=== PATIENT | female | born 1945 | race Caucasian/White ===

== ENCOUNTER 2024-03-24 09:29 | Outpatient (RCR) | payer MEDICARE, SELFPAY | END 2024-06-20 12:21 | disposition home or self-care (01) | LOC: HO.WCC 09:29 | PROVIDERS: PCP Family Medicine; Visit Provider Physician Assistant | DX: E11.621 Type 2 diabetes mellitus with foot ulcer (principal); L97.522 Non-pressure chronic ulcer of other part of left foot with fat layer exposed; E11.51 Type 2 diabetes mellitus with diabetic peripheral angiopathy without gangrene; Z79.84 Long term (current) use of oral hypoglycemic drugs; Z79.01 Long term (current) use of anticoagulants; Z79.2 Long term (current) use of antibiotics; Z79.899 Other long term (current) drug therapy | CPT/HCPCS: 11042; 99212 ==

== ENCOUNTER 2024-04-23 14:49 | Outpatient (REF) | payer MEDICARE, SELFPAY ==
--- NOTE | ~2024-04-23 | US_ITS ---
EXAMINATION: US NONINVASIVE ASSESSMENT OF THE BILATERAL LOWER EXTREMITIES WITH ARTERIAL DUPLEX AND ANKLE BRACHIAL INDICES (ABIS) CLINICAL INFORMATION: Peripheral vascular disease, unspecified COMPARISON: None available. TECHNIQUE: Duplex Doppler techniques with waveform analysis and measurement of velocities in the common femoral, profunda femoris, superficial femoral, popliteal and tibial arteries were performed. In addition, ankle pulse volume recordings, ankle pressure measurements and ankle brachial indices were obtained of the bilateral lower extremity arterial system. The study was performed only at rest. FINDINGS: NONINVASIVE ASSESSMENT OF THE ARTERIES OF BILATERAL LOWER EXTREMITIES WITH ABIs: RIGHT LEG: Ankle-brachial index: 1 Ankle PVR: Irregular LEFT LEG: Ankle-brachial index: 1.19 Left ankle PVR: Irregular VIANCA Reference: 0.9 - 1.4 = normal - no significant arterial disease 0.7 - 0.89 = mild peripheral arterial disease 0.51 - 0.69 = moderate peripheral arterial disease ? 0.50 = severe peripheral arterial disease RIGHT LOWER EXTREMITY DUPLEX ULTRASOUND: Common femoral artery: 147 cm/s. Diastolic flow reversal: Present Profunda femoris artery: 150.2 cm/s. Diastolic flow reversal: Present Superficial femoral artery (proximal): 160.4 cm/s. Diastolic flow reversal: Present Superficial femoral artery (mid): 93.8 cm/s. Diastolic flow reversal: Present Superficial femoral artery (distal): 103.4 cm/s. Diastolic flow reversal: Absent Proximal popliteal artery: 67.1 cm/s Diastolic flow reversal: Present Distal popliteal artery: 53.1 cm/s, there is calcified echogenic plaque centrally within the lumen Diastolic flow reversal: Present Posterior tibial artery: No demonstrable Doppler signal Peroneal artery: No demonstrable Doppler signal Anterior tibial artery: 46.9 cm/s Diastolic flow reversal: Absent Dorsalis pedis: not visualized LEFT LOWER EXTREMITY DUPLEX ULTRASOUND: Common femoral artery: 113.7 cm/s. Diastolic flow reversal: Present Profunda femoris artery: 62.8 cm/s. Diastolic flow reversal: Present Superficial femoral artery (proximal): 116.7 cm/s. Diastolic flow reversal: Present Superficial femoral artery (mid): 115 cm/s. Diastolic flow reversal: Present Superficial femoral artery (distal): 151.6 cm/s. Diastolic flow reversal: Present Proximal popliteal artery: 48.4 cm/s Diastolic flow reversal: Present Distal popliteal artery: 192.5 cm/s Diastolic flow reversal: Absent Posterior tibial artery: No demonstrable Doppler signal within the distal proximal aspects of the vessel, but the midportion there is Doppler signal with a peak systolic velocity of 51 cm/s and diastolic flow reversal is present. Peroneal artery: No demonstrable Doppler signal Anterior tibial artery: 50.3 cm/s Diastolic flow reversal: Absent US/US arterial duplex BI w/ VIANCA IMPRESSION: Suspect bilateral ABIs are nondiagnostic secondary to noncompressible vessels and inability to obtain adequate waveforms. Bilateral lower extremity PVRs are abnormal. On the right there is evidence of distal peripheral arterial disease with occlusion of the posterior tibial and peroneal arteries, and abnormal waveform within the patent anterior tibial artery and nonvisualization of the dorsalis pedis. On the left there is evidence of distal peripheral arterial disease with elevated peak systolic velocity at the distal popliteal artery and loss of diastolic flow reversal. Additionally there is segmental occlusion of the posterior tibial artery, occlusion of the peroneal artery, and while the anterior tibial artery is patent the dorsalis pedis is not visualized.
== END 2024-04-23 14:50 | disposition home or self-care (01) ==
LOC: HO.US 14:49
PROVIDERS: PCP Family Medicine; Visit Provider Physician Assistant
DX: I73.9 Peripheral vascular disease, unspecified (principal)
CPT/HCPCS: 93922; 93925

== ENCOUNTER 2024-07-25 09:27 | Outpatient (RCR) | payer MEDICARE, SELFPAY | END 2024-08-28 16:57 | disposition home or self-care (01) | LOC: HO.WCC 09:27 | PROVIDERS: PCP Family Medicine; Visit Provider Physician Assistant | DX: E11.621 Type 2 diabetes mellitus with foot ulcer (principal); L97.511 Non-pressure chronic ulcer of other part of right foot limited to breakdown of skin; E11.40 Type 2 diabetes mellitus with diabetic neuropathy, unspecified; I10 Essential (primary) hypertension; Z79.84 Long term (current) use of oral hypoglycemic drugs; Z87.891 Personal history of nicotine dependence | CPT/HCPCS: 99212 ==

== ENCOUNTER 2024-08-29 10:58 | Outpatient (AMB) | payer MEDICARE, SELFPAY ==
--- NOTE | 2024-08-29 11:02 | HO.SPINEOV ---
Vital Signs 08/29/24 11:07 Height 5 ft 6 in Weight 140 lb BMI 22.6 Intake Visit Reasons: low back pain/tingling and numbness both legs Intake Note: Ms. Lo is here today c/o leg pain. Licensed Massage Practitioner Required: No Allergies morphine Allergy (Unknown, Verified 08/29/24 11:07) Unknown Physical Exam Vital Signs: BMI result Body Mass Index 22.6 Assessment & Plan Assessment & Plan (1) Scoliosis of lumbar region due to degenerative disease of spine in adult: Code(s): M41.56 - Other secondary scoliosis, lumbar region Category: Medical Plan: Dear colleague Thank you for referring Marifer Lo to the office today with a chief complaint of bilateral leg pain and tingling. HPI: This 78-year-old female developed pins and needles in both legs from the knees down. The symptoms started approximately 2 years ago after she had a bout of COVID when she was bed ridden for 2 weeks. She denies significant back pain. In addition to the pins and needles she noticed bilateral leg leg weakness with a footdrop on the left side. She has to ambulate with a walker. She had multiple falls. Sitting down improves the symptoms but they do not completely disappear. She tried physical therapy without success. PMH: Hypertension, controlled diabetes, atrial fibrillation Allergies: Morphine Social history: She lives with a son. She is . He is a nonsmoker Physical Exam: Pleasant female. She ambulates with a walker. On inspection there is a lumbar scoliosis. Weight leg raise is negative. There is a bilateral footdrop grade 2/5 on the left grade 3/5 on the right. Remainder of the muscle groups are intact. There is a sensory deficits distal from the bilateral knees. A reflexia. Radiological Studies: MRI done at [facility] shows multilevel severe spinal stenosis at L1-L2, L2-L3, L3-L4 and L4-L5. In addition there is a lumbar degenerative scoliosis. Standing lumbar x-rays with flexion-extension obtained today show lumbar degenerative scoliosis with the apex at L3-4. Impression/Plan: This 78-year-old female suffering from neurogenic claudication with neurological deficits caused by severe multilevel lumbar spinal stenosis. She scheduled to have a device implanted for atrial fibrillation and to come off blood thinners due to her frequent falls. I advised her to undergo this procedure 1st before we are considering a multilevel lumbar laminotomy L1-2 L3-3 L3-4 and L4-5. If her symptoms return after the laminotomy so then she needs a correction of the lumbar degenerative scoliosis to stabilize the symptoms if her bone quality allows. I will order a bone density scan at [facility] as part of the workup. The patient will have another follow-up in November 2024, which should be after her cardiac procedure, to go over the surgical procedure again. Thank you for allowing me to participate in your patients care. total time spent was 60 minutes in counseling ,coordination of plan, personal review of imaging, surgical decision making and subsequent plan Mayur Maldonado MD, PhD Spine Fellowship Trained Neurosurgeon Director, [facility] [place] [facility] (2) Lumbar stenosis with neurogenic claudication: Code(s): M48.062 - Spinal stenosis, lumbar region with neurogenic claudication Category: Medical Plan s Orders: Orders XR lumbar spine 4V min Today M48.062 - Spinal stenosis, lumbar region with neurogenic claudication XR DEXA axial skeleton Today M41.56 - Other secondary scoliosis, lumbar region Coding Level of Care Code New Pt Level 5 (90516) Diagnoses Scoliosis of lumbar region due to degenerative disease of spine in adult M41.56 Lumbar stenosis with neurogenic claudication M48.062
[2024-08-29 11:07] VITALS: BMI 22.6
== END 2024-08-29 13:14 | disposition home or self-care (01) ==
PROVIDERS: PCP Family Medicine; Visit Provider Neurological Surgery
DX: M41.56 Other secondary scoliosis, lumbar region (principal); M48.062 Spinal stenosis, lumbar region with neurogenic claudication
CPT/HCPCS: 99205

== ENCOUNTER 2024-08-29 10:58 | Outpatient (REF) | payer MEDICARE, SELFPAY | END 2024-08-29 10:59 | disposition home or self-care (01) | LOC: HO.HOSX 10:58 | PROVIDERS: PCP Family Medicine; Visit Provider Neurological Surgery | DX: M48.062 Spinal stenosis, lumbar region with neurogenic claudication (principal); M41.56 Other secondary scoliosis, lumbar region | CPT/HCPCS: 72110; 99202 ==

== ENCOUNTER 2025-02-17 13:30 | Outpatient (RCR) | payer MEDICARE, SELFPAY | END 2025-04-15 14:20 | disposition home or self-care (01) | LOC: HO.WCC 13:30 | PROVIDERS: PCP Family Medicine; Visit Provider Surgery | DX: E11.621 Type 2 diabetes mellitus with foot ulcer (principal); L97.522 Non-pressure chronic ulcer of other part of left foot with fat layer exposed | CPT/HCPCS: 11042; 99212; 99213 ==

== ENCOUNTER 2025-04-22 13:40 | Outpatient (AMB) | payer MEDICARE, SELFPAY ==
--- NOTE | 2025-04-22 14:13 | A.SPINEOV_ITS ---
Intake Visit Reasons: discuss sx after cardiac procedure completed Intake Note: Ms. Lo is here today to discuss surgical options. College And Career Counselor Required: No Allergies morphine Allergy (Unknown, Verified 08/29/24 11:07) Unknown Assessment & Plan Assessment & Plan (1) Scoliosis of lumbar region due to degenerative disease of spine in adult: Code(s): M41.56 - Other secondary scoliosis, lumbar region Category: Medical (2) Lumbar stenosis with neurogenic claudication: Code(s): M48.062 - Spinal stenosis, lumbar region with neurogenic claudication Category: Medical Plan Dear colleague, On April 22, 2025 I saw for follow-up Marifer Lo for ongoing progressive cauda equina syndrome , which include tingling in the saddle region bilateral leg numbness and weakness. The weakness has further progress. She now also started developing drop foot on the right side. Her MRI shows severe multilevel spinal stenosis from L1-L5 on top of a lumbar degenerative scoliosis. We had to delay surgery due to implantation of a cardiac device for AFib. This was done uncomplicated 6 months ago. She is only using a baby aspirin. Therefore, we should go ahead to perform a 4 level lumbar decompression in an attempt to stabilize or maybe even improve her symptoms of cauda equina. She is aware that the scoliotic curve can further increase of the decompression which would result in a multilevel fusion. I described the lumbar decompression in detail as well as expected postoperative course. We will keep her in the hospital for observation and due to the fact that she lives alone she will most likely go to a rehab facility afterwards. The plan is for her to see the tire and tube repairer and primary care physician prior to surgery that is planned for 05/27/2025. My only request is that baby aspirin can be stopped 3 days prior to surgery. I spent 35 minutes in his consult discussing the procedure and answering questions. Do not hesitate to call me with any questions or concerns. Mayur Maldonado MD, PhD Spine Fellowship Trained Neurosurgeon Director, [facility] [place] [facility] Coding Level of Care Code Est Pt Level 4 (83738) Diagnoses Scoliosis of lumbar region due to degenerative disease of spine in adult M41.56 Lumbar stenosis with neurogenic claudication M48.062
== END 2025-04-22 14:52 | disposition home or self-care (01) ==
LOC: HO.HNS 13:41
PROVIDERS: PCP Family Medicine; Visit Provider Neurological Surgery
DX: M41.56 Other secondary scoliosis, lumbar region (principal); M48.062 Spinal stenosis, lumbar region with neurogenic claudication
CPT/HCPCS: 99214

== ENCOUNTER → 2025-04-22 13:40 | Outpatient (BNVA) | payer MEDICARE, SELFPAY | PROVIDERS: PCP Family Medicine; Visit Provider Neurological Surgery | DX: M48.062 Spinal stenosis, lumbar region with neurogenic claudication (principal); M41.56 Other secondary scoliosis, lumbar region | CPT/HCPCS: 99212 ==

== ENCOUNTER 2025-07-01 06:00 | Day surgery (SDC) | payer MEDICARE, SELFPAY ==
[2025-05-14 11:59] VITALS: BP 140/73; PULSE 78; RESP 16; O2SAT 98; BMI 26.6
--- NOTE | 2025-05-14 12:24 | HO.ANESPROP2 ---
Documented by User: Saige Fabian NP 06/30/25 08:14 HPI - Anesthesia Eval Consult details Narrative: 79yo F for L1-2,L2-3,L3-4,L4-5 Lumbar Decompression, 07/01/25 Cardiac optimized. Follows [facility]. Last office visit 05/2025. Hx: CAD s/p stemi and stent mid RCA 2007, stent mid LAD 2013, PCI 2022; PAF (eliquis) s/p watchman 09/2024 Ongoing medical optimization regarding toe injury and subsequent infection requiring antibiotics. Last evaluation 06/27/25 and deemed no active infection, but requiring chronic wound care. Surgical team aware. No recent illness No CP/SOB with limited activity. Ambulates with walker DM: FBS ~ 125 Afib: No OAC, watchman placed 09/2024 - asa, dig Right lower molar loose: Dentist eval's and rec'd extraction. Instructed to have pulled before surgery. Pt will make appointment Anesthesia Pre-Procedure Meds Is the patient on any of the following meds?: SGLT2 Inhib PMFSH Active Problems Active Problems: All Active Problems Age-related osteoporosis without fracture (Acute) Lumbar stenosis with neurogenic claudication (Acute) Scoliosis of lumbar region due to degenerative disease of spine in adult (Acute) Past Medical History Medical History Osteoarthritis Neuropathy Myocardial infarction Back pain Gout GERD (gastroesophageal reflux disease) CAD (coronary artery disease) Injury of left great toe (05/13/25) Hx of diarrhea Anxiety and depression A-fib Diabetes HLD (hyperlipidemia) HTN (hypertension) Hx of myocardial infarction 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) Family History Family history of problems with anesthesia: No Surgical History Surgical History Hx of arthroscopy of shoulder Hx of hysterectomy Hx of cholecystectomy History of coronary artery stent placement Hx of repair of right rotator cuff (~2004) History of Problems with Anesthesia: No Social History Social History Household Members Other:: son Are you a primary care consultant to a significant other at home: No Do you presently have visiting nurse or other home services: Yes (MEAT P[employer]AGER 3 hours per week) Patient Tobacco Use Status: Former Tobacco user Tobacco use type: Cigarette Smoked in Last 30 Days: No Use of substances other than those prescribed or required for medical reasons: No Have you been hit, kicked, punched, or otherwise hurt by someone within the past year? If so, by whom?: No Are you DNR?: No Advance Directives: No Advance Directives Information Provided: Yes Advance Directives on File: No Meds Allergies Allergy/AdvReac Type Severity Reaction Status Date / Time morphine Allergy Severe Itching Verified 07/01/25 06:16 [facility] Allergy Redness of Verified 07/01/25 06:16 Skin Home Medications ?Medication ?Instructions ?Recorded ?Confirmed ?Last Taken ?Type aspirin 81 mg tablet 81 mg PO DAILY 05/14/25 07/01/25 06/24/25 History atorvastatin 80 mg tablet 80 mg PO DAILY 05/14/25 07/01/25 Unknown History dapagliflozin propanediol 10 mg 10 mg PO DAILY 05/14/25 07/01/25 06/27/25 History tablet (Farxiga) digoxin 125 mcg (0.125 mg) tablet 125 mcg PO DAILY 05/14/25 07/01/25 07/01/25 05:30 History lisinopril 20 mg tablet 20 mg PO DAILY 05/14/25 07/01/25 Unknown History metformin 500 mg tablet,extended 2,000 mg PO DAILY 05/14/25 07/01/25 Unknown History release 24 hr metoprolol tartrate 50 mg tablet 150 mg PO BID 05/14/25 07/01/25 07/01/25 05:30 History sacubitril 97 mg-valsartan 103 mg 1 tab PO BID 05/14/25 07/01/25 Unknown History tablet (Entresto) Exam Height,Weight and Vital Signs: Height 5 ft 6 in Weight 74.843 kg Last Vital Signs Pulse 78 05/14/25 11:59 Resp 16 05/14/25 11:59 BP 140/73 H 05/14/25 11:59 Pulse Ox 98 05/14/25 11:59 O2 Del Method Room Air 05/14/25 11:59 Narrative Narrative: EKG 04/2025 afib @ 82 rightward axis RBBV ECHO 11/2024 1. Adequate image quality. EF 55-60%. Mild conc LVH. Diastolic function not assessed. There are no RWMA. 2. Nml RV size and function 3. Trileaflet aortic valve with no evidence of stenosis. Asc aortic root nml size 4. Trace mitral and tricuspid insufficiency 5. Nml pericardium. C/W prior echo, increased EF Airway Mallampati Class: I TM Dist: >3cm Neck ROM: Full Loose/Missing/Broken Teeth: Yes (Right Lower molar loose, molars extracted) Heart: RRR Lungs: CTAB Assessment and Plan Assessment Anesthesia Assessment: Anesthesia Plan Discussed and PAT Visit Final Anesthetic Review Family History of Problems with Anesthesia: No History of Problems with Anesthesia: No Documented by User: Makenna Estrada MD 07/01/25 07:54 PMFSH Past Medical History Medical History Osteoarthritis Neuropathy Myocardial infarction Back pain Gout GERD (gastroesophageal reflux disease) CAD (coronary artery disease) Injury of left great toe (05/13/25) Hx of diarrhea Anxiety and depression A-fib Diabetes HLD (hyperlipidemia) HTN (hypertension) Hx of myocardial infarction 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) Surgical History Surgical History Hx of arthroscopy of shoulder Hx of hysterectomy Hx of cholecystectomy History of coronary artery stent placement Hx of repair of right rotator cuff (~2004) Social History Social History Household Members Other:: son Are you a primary care consultant to a significant other at home: No Do you presently have visiting nurse or other home services: Yes (MEAT PACKAGER 3 hours per week) Patient Tobacco Use Status: Former Tobacco user Tobacco use type: Cigarette Smoked in Last 30 Days: No Use of substances other than those prescribed or required for medical reasons: No Have you been hit, kicked, punched, or otherwise hurt by someone within the past year? If so, by whom?: No Are you DNR?: No Advance Directives: No Advance Directives Information Provided: Yes Advance Directives on File: No Meds Allergies Allergy/AdvReac Type Severity Reaction Status Date / Time morphine Allergy Severe Itching Verified 07/01/25 06:16 levofloxacin (From Levaquin) Allergy Redness of Verified 07/01/25 06:16 Skin Home Medications ?Medication ?Instructions ?Recorded ?Confirmed ?Last Taken ?Type aspirin 81 mg tablet 81 mg PO DAILY 05/14/25 07/01/25 06/24/25 History atorvastatin 80 mg tablet 80 mg PO DAILY 05/14/25 07/01/25 Unknown History dapagliflozin propanediol 10 mg 10 mg PO DAILY 05/14/25 07/01/25 06/27/25 History tablet (Farxiga) digoxin 125 mcg (0.125 mg) tablet 125 mcg PO DAILY 05/14/25 07/01/25 07/01/25 05:30 History lisinopril 20 mg tablet 20 mg PO DAILY 05/14/25 07/01/25 Unknown History metformin 500 mg tablet,extended 2,000 mg PO DAILY 05/14/25 07/01/25 Unknown History release 24 hr metoprolol tartrate 50 mg tablet 150 mg PO BID 05/14/25 07/01/25 07/01/25 05:30 History sacubitril 97 mg-valsartan 103 mg 1 tab PO BID 05/14/25 07/01/25 Unknown History tablet (Entresto) Assessment and Plan Final Anesthetic Review NPO: Yes ASA Class: III Final Preanesthetic Review: No Changes in Pt Med Stat, Meds/Allgs Chart Reviewed and Consent Obtained/Reviewed Patient Risk: Intermediate Procedure Risk: Intermediate Anesthetic Plan Anesthetic Plan: GA Disposition: Standard PACU
[2025-07-01] VITALS (19 sets, daily range): BP systolic 101–130; BP diastolic 47–62; PULSE 69–94; RESP 12–20; TEMP 36–36.6; O2SAT 94–99; BMI 24.7
--- NOTE | ~2025-07-01 | FL_ITS ---
EXAMINATION: FL GUIDANCE ONLY HISTORY: L1-L5 decompression right COMPARISON: Correlation is made to plain films of the lumbar spine dated 08/29/2024. TECHNIQUE: Fluoroscopy time: 15 seconds. Cumulative Dose: 6.5494 mGy. DAP: 2.2485 mGym2 Images: 3. FINDINGS: Fluoroscopic spot films of the lumbar spine demonstrate a probe directed toward the L4 vertebral body from a posterior approach. FL/FL guidance in OR IMPRESSION: Fluoroscopy during procedure. Please see procedure report for additional information. Electronically signed by: Hécotr Joy MD 07/01/2025 10:17 AM EDT
[2025-07-01] MEDS: Lactated Ringers 1,000 ML 100 ML IVCONT (06:41)
[2025-07-01 06:42] LABS: Glucose, Whole Blood 163 mg/dL (60-115)
--- NOTE | 2025-07-01 06:57 | MHC.SHP ---
Pre-Procedural Eval Section A - 24 Hr Update-Section A only Date of Service: 07/01/25 Section B - Complete if H&P > 30 days Chief Complaint: Lumbar Decompression Allergies: Allergies Allergy/AdvReac Type Severity Reaction Status Date / Time morphine Allergy Severe Itching Verified 07/01/25 06:16 levofloxacin (From Levaquin) Allergy Redness of Verified 07/01/25 06:16 Skin Review of Systems Sugical H&P ROS: Negative: Constitution, Cardiovascular, Respiratory, Neurological, Psychiatric, Hem-Onc, Allergic/Immunologic, Gastrointestinal, Genitourinary, Musculoskeletal, Integumentary, Endocrine and Eyes/Ears/Nose/Throat Exam Surgical H&P Exam: Not Evaluated: HEENT, Not Evaluated: Heart, Not Evaluated: Lungs, Not Evaluated: Extremities, Not Evaluated: Abdomen, Not Evaluated: Skin and Not Evaluated: Neurological Exam Comment: The patient is awake, alert, no acute distress. Proposed surgical incision site is clean, dry, with no signs of recent trauma. Plan Diagnosis/Plan: Unchanged I have reviewed the history and physical and performed a pertinent physical examination on my patient. No changes have occurred unless specified. Plan remains the same, L1-5 lumbar decompression Time Spent With Patient Time: Total time managing care of this patient today __7__ minutes.
[2025-07-01 07:05] LABS: Hematocrit 39.7 % (37.0-47.0); Hemoglobin 12.4 g/dl (12.0-16.0); Mean Corpuscular HGB Conc 31.2 g/dl (31.0-35.0); Mean Corpuscular Hemoglobin 25.1 pg (27.0-33.0); Mean Corpuscular Volume 80.4 fL (80.0-98.0); NRBC Abs Auto 0.000 X10*3/uL (0.0-0.012); NRBC Pct Auto 0.0 /100WBC (0.0-0.2); Platelet Count 341 X10*3/uL (160-400); Red Blood Count 4.94 X10*6/uL (4.20-5.50); White Blood Count 9.5 X10*3/uL (4.8-10.8)
[2025-07-01 07:12] LABS: Anion Gap 15 (12-20); Blood Urea Nitrogen 32 mg/dL (9-16); Calcium 9.4 mg/dL (8.4-10.2); Carbon Dioxide 14 mmol/L (22-29); Chloride 112 mmol/L (96-108); Creatinine Clr Calc Pharmacy 26.4; Estimated Glomerular Filt Rate 31; Potassium 4.0 mmol/L (3.3-5.1); Sodium 137 mmol/L (135-145)
--- NOTE | 2025-07-01 07:25 | PC.NURSE ---
Patient has a wound on her left great toe that she has been seeing her PCP for wound checks. Clean dry dressing intact to left great toe.
--- NOTE | 2025-07-01 12:57 | W.PM.OPN ---
Operative Note Operative Note Date of Service: 07/01/25 Narrative: Preoperative Diagnosis: Lumbar spinal stenosis/lateral recess stenosis/neural foraminal stenosis Operation: L1-L2, L2-L3, L3-L4 and L4-5 Laminotomy, Partial facetectomy and foraminotomy with use of microscope Consent Informed Consent was obtained for this operation. I have explained the nature, purpose and benefits of the operation. I have discussed the risks and benefit of the operation including possible complications or adverse events with patient/family. Alternative(s) were discussed with the patient with their relative benefits and risks as well as the consequences of not accepting the operation were included in obtaining consent. Surgeon: LARRY PULIDO MD, PHD Procedure Assisted By: Ray Vizcarra Description of Procedure This 79-year-old female is suffering from progressive bilateral leg numbness and weakness due to severe multilevel spinal stenosis from L1-L5.. The patient was offered a 4 level decompression. The procedure complications were explained. The patient was consented. The patient was brought to the operating room and endotracheally intubated. The patient was turned in prone position on the Daniel frame. Prep and drape was done followed by timeout. I decided to do the L1-L2 and L2-3 levels through a metrix tube. I made a paramedian incision on the right side. Muscle fascia was opened and sequential dilators were inserted followed by a 18 mm metrics tube over the L1-L2 disc space. The stephany brought in. A right L1-L2 laminotomy was done. The flavum ligament was opened and resected to decompress the thecal sac and exiting nerve root. The spinous process was undercut to extend the decompression contralaterally. Then attention was turned L2-3 region. The micro tube was positioned over the L2-3 disc space. A right L2-3 hemilaminotomy was done. Flavum ligament was opened and resected to decompress the thecal sac and exiting nerve root. Again, the spinous process was undercut and the decompression was extended contralaterally.. Passed along the pedicles as a sign of adequate decompression of the thecal sac and exiting nerve roots. The Physician payroll human resources assistant provided access for the L3-4 and L4-5 levels. A mid lumbar incision was made followed by release of the paravertebral muscle on the right side to expose the L3-L5 laminae and facet joints. An intraoperative x-ray was obtained to confirm the correct levels. The microscope was brought in. I took over the procedure. The high-speed drill was used to do a right L3-4 laminotomy until flavum ligament was reached. A #2 Kerrison was used to expand the laminotomy near flush to the pedicles and to include a partial facetectomy. The flavum ligament was opened and resected with a #3 Kerrison to decompress the underlying thecal sac. The flavum ligament was removed to decompress the lateral recess and the exiting L4 nerve roots. The patient was turned contralaterally. The spinous process was undercut and then an attempt was made to decompress the contralateral side. During this process structures that the characteristics of nerves were seen without spinal fluid. I also was unable to palpate a defect in the dura. I decided to lay the structures back over the dura and covered with a piece of DuraGen. Then we moved on to the final level, being L4-5. A right L4-5 hemilaminotomy was done. Severely hypertrophied ligament was opened and resected to decompress the underlying thecal sac and exiting nerve root. I undercut the spinous process and carefully dissected the flavum ligament contralaterally. Similar structures were seen epidurally and I decided not to further resect any ligament in that area. I did extend the laminotomy caudally by doing an L5 laminotomy bilaterally. . The microscope was removed. Hemostasis was done. The physician payroll human resources assistant close the incisions in 2 layers. Steri-Strips were used to approximate incisions. An OpSite with Tegaderm was used to cover the incision. All sponge needle counts were correct. Patient was extubated and transported in stable is to recovery room. Anesthesia: General Estimated Blood Loss (ml): 25 Complications: None Duration of Surgery: 2 hours and 20 Minutes Postoperative Plan: Extended stay for neuro monitoring. Possible discharge later today
[2025-07-01] MEDS: oxyCODONE HCl Immed Release 5 MG TABLET PO (16:17)
--- NOTE | 2025-07-01 17:52 | PHA.MEDREC ---
Addendum entered by Flavio De La Rosa PharmD 07/01/25 18:01: reviewed Original Note: Pharmacy Consult ? Medication Reconciliation Pharmacy has reviewed the medication reconciliation done by nursing. Spoke to patient son Billy to confirm med list. Son states patient stopped Aspirin 81 mg, Plavix 75 mg and Farxiga 10 mg last Sunday due to to surgery. Not sure if patient is to start again after surgery. Left unconfirmed and will notify the provider. patient no longer takes Lisinopril 20 mg. Patient son confirmed patient takes Zoloft 25 mg and Spironolactone 25 mg, Metoprolol Tart 150 mg (3x 50 mg) daily, Metformin 2,000mg (4x 500 mg) daily.
[2025-07-01] MEDS: Sacubitril/Valsartan 97/103 1 TAB TABLET PO (21:22)
[2025-07-02] VITALS: BP 122/60; PULSE 78; RESP 18; TEMP 36.4; O2SAT 99
[2025-07-02 04:00] VITALS: BP 126/60; PULSE 66; RESP 18; TEMP 35.8; O2SAT 95
--- NOTE | 2025-07-02 07:40 | PM.DS ---
DS: Providers Provider Date of Service: 07/02/25 Date of discharge: 07/02/25 Primary care physician: Mini Rudd MD Consults: 07/01/25 16:16 Consult to Wound Care Routine Reason for consultation: MASD, Left great toe, LLQ, left thigh wounds, under breast, abd. folds Has provider been notified: No DS: Summary Time Attestation Discharge Coordination Time (in mins): 2 Quality: Safe Use of Opioids Does Pt have an Active Cancer Diagnosis on the Problem List?: No Quality: Stroke Does the patient have a stroke diagnosis?: No Physical Exam Vital Signs: Vital Signs: Last Vital Signs Temp 96.5 F L 07/02/25 04:00 Pulse 66 07/02/25 04:00 Resp 18 07/02/25 04:00 BP 126/60 07/02/25 04:00 Pulse Ox 95 07/02/25 04:00 O2 Del Method Room Air 07/02/25 04:00 O2 Flow Rate 6 07/01/25 10:55 BMI result Body Mass Index 24.7 Discharge Plan Discharge Patient Disposition: Home, Self-Care Referrals: Mini Rudd MD [Primary Care Provider, Internal Medicine] - 1 Week Discharge Medications: New oxycodone 5 mg tablet 5 mg PO Q6H PRN (Reason: pain) Qty: 20 0RF Rx Instructions: Partial Fill upon patient request. Continued atorvastatin 80 mg tablet 80 mg PO DAILY metoprolol tartrate 50 mg tablet 150 mg PO BID metformin 500 mg tablet extended release 24 hr 2,000 mg PO DAILY digoxin 125 mcg (0.125 mg) tablet 125 mcg PO DAILY dapagliflozin propanediol [Farxiga] 10 mg Tablet 10 mg PO DAILY Entresto 97-103 mg Tablet 1 tab PO BID clopidogrel 75 mg tablet 75 mg PO DAILY spironolactone 25 mg tablet 25 mg PO DAILY sertraline 25 mg tablet 25 mg PO DAILY Held aspirin 81 mg Tablet 81 mg PO DAILY Hold Instructions: Resume on 07/06/25. Discharge Orders: Discharge Order (Routine); Ordered 07/02/25 Ordered By: Ray Bowers Diet: Advance to usual diet Activity on Discharge: As tolerated Activity Restrictions/Additional Instructions: After your spinal surgery we ask you to observe the following restrictions/guidelines: Activity: It is normal to feel some discomfort as you increase your activity, but that will improve with time. We ask you avoid heavy lifting or acitivities that cause pain. As a general rule, 8lbs is a safe limit for lifting right after surgery. Walk as much as you feel comfortable but not to exhaustion. You will feel extra tired the first few days after surgery. Stay well hydrated. It is OK to walk up and down stairs You may return to driving when you are off narcotics (such as vicodin, oxycodone, dilaudid, etc), and you are back to normal functional capacity. If you have any concerns please check with office before driving. Return to work is specific to each patient and each surgery, so please speak with your doctor/PA at first follow up. Please bring paperwork such as FMLA at that time if you need it filled out. Medications: We recommend you take 1,000mg Tylenol every 8 hours for the first few weeks after surgery, if you do not have any liver issues and can tolerate this medication. Do not exceed 4,000mg daily. We will give you a short supply of narcotics after surgery (usually one weeks worth). If you need more please call the office but do not use more than prescribed. You will need to give our office 48 hours notice if you need narcotics refilled and we do not fill narcotics on weekends or evenings. If you are on a narcotic, it is a good idea to take a stool softener such as colace or senna to avoid constipation If you take blood thinner such as aspirin, Plavix, Coumadin, Effient, Eliquis etc for conditions such as Afib, DVT, Pulmonary embolus, coronary disease, stents etc please speak with your surgeon about specific details as to when you can resume these medications. You can resume NSAIDs on post op day 1 (eg: Motrin, Naproxen, etc). Follow up: Please call the office, , after surgery to arrange a 3 week follow up for wound check. Wound Care: You may remove your dressing on the first day after surgery. ?You may ?leave open to air. Please do not remove the steri strips underneath. they will fall off on their own in one week. IT IS NORMAL FOR THE WOUND TO OOZE OR BE BLOODY FOR A FEW DAYS AFTER SURGERY. ?IF THIS HAPPENS JUST PLACE NEW DRESSING OVER IT TO AVOID STAINING CLOTHES. You may shower on post op day # 1 We ask that you do not let the water soak the wound. If it does get wet, just towel dry lightly. Please do not scrub your incision or place any type of chemical/ointment on the wound. No tub baths, pools or jacuzzis for one month. If you have any leaking or redness from your wound, or fevers, please call the office. Print Language: Upper Sorbian
[2025-07-02 07:52] VITALS: BP 114/50; PULSE 70; RESP 16; TEMP 36.2; O2SAT 96
--- NOTE | 2025-07-02 08:02 | HO.POSTANES ---
Post Anesthesia Evaluation Post Anesthesia Evaluation Date of Service: 07/02/25 Vital Signs: Vital Signs Temp Pulse Resp BP Pulse Ox O2 Del Method 07/02/25 07:52 97.1 F 70 16 114/50 L 96 Room Air 07/02/25 04:00 96.5 F L 66 18 126/60 95 Room Air 07/02/25 00:00 97.5 F 78 18 122/60 99 Room Air Anesthesia: General Endotracheal-GETA Mental Status: Awake Pain Control: Satisfactory Nausea/Vomiting: None Hydration: Adequate Anesthesia-Related Issues: No Anes. Related Issues
[2025-07-02 08:17] VITALS: BP 114/50; PULSE 70
[2025-07-02 08:18] VITALS: BP 114/50
[2025-07-02] MEDS: Sacubitril/Valsartan 97/103 1 TAB TABLET PO (08:18)
--- NOTE | 2025-07-02 11:15 | PC.NURSE ---
Pt ambulated in hallway with assist and walker . pt was slow and c/o of feeling dizzy. was able to ambulated 50 ft. will attempt again after lunch . Zoran Rodriguezt up to see pt and made aware. will arrange for home PT services
--- NOTE | 2025-07-02 11:43 | PC.NURSE ---
pt for discharge to home . reviewed activity restrictions reasons and concerns to call MD and need for follow up visit . Pt sent home with RX for pain med in hand filled By [facility] pharmacy . Pt accepting of discharge and all questions answered . Pt to be transported home by [facility]
--- NOTE | 2025-07-02 11:48 | MHC.CM.PN ---
CM MET WITH PT AT BEDSIDE. PT LIVES WITH SON AND USES A WALKER FOR AMBULATION. NO SERVICES. PT IS DECLINING HOME SERVICES, WOULD LIKE TO GO TO [facility] PER [facility] PA/PT. PT STATES SHE HAS A COPY OF HCP AT HOME. PCP JUANY PRAJAPATI DP: PT HAS BEEN MEDICALLY CLEARED FOR DC HOME, NO SERVICES. PT'S SON MARC WILL TRANSPORT. RN AWARE.
[2025-07-02 12:00] VITALS: BP 96/55; PULSE 80; RESP 16; TEMP 36.3; O2SAT 96
--- NOTE | 2025-07-02 12:00 | W.MHC.F2F ---
Service Date Service Date: 07/02/25 Encounter Date of encounter: 07/02/25 Reasons for Services Signs and symptoms assessed: s/p L1-5 lumbar decompression Reason for physical therapy: home safety and mobility, therapeutic exercises, gait/transfer training, ADL training and energy conservation Homebound: Leaving the home is medically contraindicated at this time without the asist of a device and/or another person due th the listed conditions above and below. Reason homebound: unsteady gait / fall risk, pain with ambulation and weakness related to hospital stay Certification: Based on the above findings, I certify that this patient is confined to the home and needs intermittent long-term care, physical therapy and/or speech therapy, or continues to need occupational therapy. The patient is under my care, and I have initiated the establishment of the plan of care. The patient will be followed by a physician who will periodically review the plan of care. Time Spent With Patient Time: Total time managing care of this patient today __7__ minutes.
== END 2025-07-02 12:41 | disposition home or self-care (01) ==
LOC: HO.SSS 06:00 → HO.SSSA 07:11 → HO.S3 13:42
PROVIDERS: Nurse Practitioner; Absent Provider Physician Assistant; PCP Family Medicine; Visit Provider Neurological Surgery
PROC: (CPT 63047; principal; 2025-07-01 07:30)
DX: M48.062 Spinal stenosis, lumbar region with neurogenic claudication (principal); M41.56 Other secondary scoliosis, lumbar region; Z88.5 Allergy status to narcotic agent; G83.4 Cauda equina syndrome; R20.0 Anesthesia of skin; M21.371 Foot drop, right foot; I48.91 Unspecified atrial fibrillation; Z95.818 Presence of other cardiac implants and grafts; I25.10 Atherosclerotic heart disease of native coronary artery without angina pectoris; Z95.5 Presence of coronary angioplasty implant and graft; I25.2 Old myocardial infarction; E11.9 Type 2 diabetes mellitus without complications; G62.9 Polyneuropathy, unspecified; M10.9 Gout, unspecified; M19.90 Unspecified osteoarthritis, unspecified site; Z79.82 Long term (current) use of aspirin; Z79.84 Long term (current) use of oral hypoglycemic drugs; Z79.899 Other long term (current) drug therapy; Z98.890 Other specified postprocedural states; Z87.891 Personal history of nicotine dependence
CPT/HCPCS: 63047; 63048 ×3; 36415; 80048; 82947; 85027; C1763; J0131; J0690; J1100; J2003; J2405; J2704; J3010

== ENCOUNTER → 2025-07-01 06:00 | Outpatient (BNV) | payer MEDICARE, SELFPAY | PROVIDERS: Absent Provider Physician Assistant; PCP Family Medicine; Visit Provider Neurological Surgery | DX: M48.062 Spinal stenosis, lumbar region with neurogenic claudication (principal) | CPT/HCPCS: 63047; 63048 ==

== ENCOUNTER 2025-07-02 14:24 | Emergency (ER) | payer MEDICARE, SELFPAY ==
[2025-07-02 14:29] VITALS: BP 133/61; PULSE 71; RESP 16; TEMP 35.9; O2SAT 97; BMI 25.8
[2025-07-02 15:08] LABS: MANUAL DIFF FLAG NO
[2025-07-02 15:14] LABS: Hematocrit 40.0 % (37.0-47.0); Hemoglobin 11.9 g/dl (12.0-16.0); Imm Gran Abs Auto 0.05 X10*3/uL (0.00-0.03); Imm Gran Pct Auto 0.4 % (0.0-0.4); Lymphocytes Absolute Auto 1.2 X10*3/uL (1.2-4.9); Mean Corpuscular HGB Conc 29.8 g/dl (31.0-35.0); Mean Corpuscular Hemoglobin 24.6 pg (27.0-33.0); Mean Corpuscular Volume 82.6 fL (80.0-98.0); NRBC Abs Auto 0.000 X10*3/uL (0.0-0.012); NRBC Pct Auto 0.0 /100WBC (0.0-0.2); Platelet Count 315 X10*3/uL (160-400); Red Blood Count 4.84 X10*6/uL (4.20-5.50); White Blood Count 11.6 X10*3/uL (4.8-10.8)
[2025-07-02 15:26] LABS: Alanine Aminotransferase 9 U/L (0-31); Albumin Level 3.9 g/dL (3.5-5.0); Alkaline Phosphatase 107 U/L (39-117); Anion Gap 13 (12-20); Aspartate Amino Transferase 18 U/L (5-31); Blood Urea Nitrogen 31 mg/dL (9-16); Calcium 9.0 mg/dL (8.4-10.2); Carbon Dioxide 21 mmol/L (22-29); Chloride 109 mmol/L (96-108); Creatinine Clr Calc Pharmacy 34.6; Estimated Glomerular Filt Rate 39; Potassium 4.1 mmol/L (3.3-5.1); Sodium 139 mmol/L (135-145); Total Protein 6.3 g/dL (6.5-8.0)
--- NOTE | 2025-07-02 16:39 | ED.GENADULT ---
HPI - General Adult General Chief complaint: General Medical Stated complaint: Post-op issues Time Seen by Provider: 07/02/25 16:39 Source: patient and family Mode of arrival: wheelchair Limitations: no limitations History of Present Illness ED Provider: Pam Javier PA-C HPI narrative: Patient is an 79 year old assigned female at with a history of DM, atrial fib on eliquis, CAD complicated with NSTEMI s/p PCI to LAD, nonischemic cardiomyopathy, osteoarthritis, and lumbar stenosis s/p L1-5 lumbar decompression presenting to the emergency department today with concerns of self care. Patient had an L1-L5 lumbar decompression surgery on 07/01/2025 and was discharged home but after getting home, the patient's family states that the patient is unable to care for herself. Patient states that she feels fine and does not want to be here. When asked to walk by the patient's family - the patient admitted she can't walk as well as she normally could and she would benefit from a short term rehab stay. Relieving factors: none Exacerbating factors: none Associated symptoms: denies other symptoms Treatments prior to arrival: none Related Data Home Medications ?Medication ?Instructions ?Recorded ?Confirmed aspirin 81 mg tablet 81 mg PO DAILY 05/14/25 07/03/25 Held on 07/02/25. Instructions: Resume on 07/06/25. atorvastatin 80 mg tablet 80 mg PO DAILY 05/14/25 07/03/25 dapagliflozin propanediol 10 mg 10 mg PO DAILY 05/14/25 07/03/25 tablet (Farxiga) digoxin 125 mcg (0.125 mg) tablet 125 mcg PO DAILY 05/14/25 07/03/25 metformin 500 mg tablet,extended 2,000 mg PO DAILY 05/14/25 07/03/25 release 24 hr metoprolol tartrate 50 mg tablet 150 mg PO BID 05/14/25 07/03/25 sacubitril 97 mg-valsartan 103 mg 1 tab PO BID 05/14/25 07/03/25 tablet (Entresto) clopidogrel 75 mg tablet 75 mg PO DAILY 07/01/25 07/03/25 sertraline 25 mg tablet 25 mg PO DAILY 07/01/25 07/03/25 spironolactone 25 mg tablet 25 mg PO DAILY 07/01/25 07/03/25 Previous Rx's ?Medication ?Instructions ?Recorded oxycodone 5 mg tablet 5 mg PO Q6H PRN pain #20 tabs 07/02/25 Allergies Allergy/AdvReac Type Severity Reaction Status Date / Time morphine Allergy Severe Itching Verified 07/02/25 14:36 levofloxacin (From Levaquin) Allergy Redness of Verified 07/02/25 14:36 Skin Review of Systems Constitutional: Constitutional: Reports no additional constitutional complaints, Denies chills, Denies fever(s) and Denies night sweats Eyes: Eyes: Reports no additional eye complaints, Denies blurry vision, Denies change in vision, Denies diplopia, Denies eye discharge, Denies loss of vision and Denies eye pain ENT: Denies dizziness Cardiovascular: Cardiovascular: Reports no additional cardiovascular complaints, Denies chest pain, Denies lightheadedness, Denies Loss of Consciousness and Denies dyspnea Respiratory: Respiratory: Reports no additional respiratory complaints and Denies dyspnea Gastrointestinal: Gastrointestinal: Reports no additional gastrointestinal complaints, Denies abdominal pain, Denies melena, Denies hematochezia, Denies change in bowel habits and Denies change in stool character Genitourinary: Genitourinary: Denies hematuria, Denies urinary frequency, Denies dysuria, Denies urinary incontinence, Denies urinary hesitancy and Denies urinary urgency Musculoskeletal: Musculoskeletal: Reports no additional musculoskeletal complaints, Denies numbness and Denies tingling Neurologic: Denies dizziness, Denies loss of vision, Denies numbness and Denies tingling Psychiatric: Psychiatric: Reports no additional psychiatric complaints Endocrine: Endocrine: Reports no additional endocrine complaints Hematologic/Lymphatic: Hematologic/Lymphatic: Reports no additional hematologic/lymphatic complaints Allergic/Immunologic: Allergic/Immunologic: Reports no additional allergic/immunologic complaints [facility] Past Medical History Attestation statement: The following information was validated with the patient. 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) Surgical History Hx of arthroscopy of shoulder Hx of hysterectomy Hx of cholecystectomy History of coronary artery stent placement Hx of repair of right rotator cuff (~2004) Social History Social History Household Members Other:: son Are you a primary resident care assistant to a significant other at home: No Do you presently have visiting nurse or other home services: Yes ([employer] 3 hours per week) Alcohol intake: current Alcohol intake frequency: holidays/special occasions only Alcohol type: wine Patient Tobacco Use Status: Former Tobacco user Tobacco use type: Cigarette Smoked in Last 30 Days: No Use of substances other than those prescribed or required for medical reasons: No Advance Directives: No Advance Directives Information Provided: No service: No Physical Exam ED Vital Signs: Vital Signs - 24 hr 07/02/25 14:29 07/02/25 16:47 07/02/25 18:53 Temperature 96.6 F L 97.5 F 97.6 F Pulse Rate 71 70 78 Respiratory Rate 16 16 18 Blood Pressure 133/61 134/35 L 143/70 H Pulse Oximetry 97 97 98 Oxygen Delivery Method Room Air Room Air Room Air 07/02/25 21:32 07/03/25 06:00 07/03/25 07:39 Temperature 97.6 F 97.7 F 97.9 F Pulse Rate 81 88 91 Respiratory Rate 16 16 16 Blood Pressure 114/74 130/67 106/56 L Pulse Oximetry 100 98 97 Oxygen Delivery Method Room Air Room Air Room Air 07/03/25 08:12 Temperature Pulse Rate 91 Respiratory Rate Blood Pressure 106/56 L Pulse Oximetry 97 Oxygen Delivery Method BMI result Body Mass Index 25.8 Const General: cooperative, no acute distress, alert and awake Nutritional Appearance: well nourished Orientation/consciousness: patient oriented x3 HENMT Head: Yes normal to inspection and Yes atraumatic Ears: hearing grossly normal bilaterally and external ears normal General nose exam: Normal external nose present, no nasal discharge noted and no epistaxis Face and sinus: Yes normal facial exam, No abrasion and No laceration Mouth: Normal oral and palatal mucosa present, no drooling and no muffled voice Eyes General: appearance normal, both eyes and all related structures Periorbital: periorbital findings normal Eyelids: Yes eyelids normal Conjunctivae: conjunctivae normal Pupils: Equal, round and reactive pupils present EOM: EOMs intact bilaterally Neck Neck: Yes normal visual inspection, Yes full ROM and Yes no lymphadenopathy Resp Effort & Inspection: normal respiratory effort and able to speak in complete sentences Neuro General: patient oriented x3, moves all extremities and CN's II-XI intact bilaterally Cranial nerves: Yes Equal, round and reactive pupils present Cognition (Neuro): normal cognition Extrem General: Yes normal to inspection, Yes full ROM and Yes capillary refill normal Psych Appearance: grossly normal Mental Status: mental status grossly normal Affect: normal affect Attitude: cooperative Thought process: Normal thought process present Thought content: Normal thought content present Insight: Good insight present (Psych) Course Reevaluation(s) Reevaluation #1: Physician observation continued. Uneventful night. Vital signs stable. No complaints from nursing overnight. Med reconciliation reviewed and done. Pending code status which nurses currently looking into and disposition. Will continue to monitor. Reevaluation #2: Patient will go to [facility] for acute rehab at 1 pm . At this time physician observation ends. Time: 09:52 Medications Administered Generic Name Dose Route Start Last Admin Trade Name Freq PRN Reason Stop Dose Admin Atorvastatin Calcium 80 mg 07/03/25 09:00 07/03/25 08:57 Atorvastatin Calcium 80 Mg Tablet PO 80 mg DAILY MARCEL Administration Metformin HCl 2,000 mg 07/03/25 09:00 07/03/25 08:57 Metformin Hcl Er 500 Mg Tab.Er.24h PO 2,000 mg DAILY AMRCEL Administration Metoprolol Tartrate 150 mg 07/03/25 09:00 07/03/25 08:57 Metoprolol Tartrate 50 Mg Tablet PO 150 mg BID MARCEL Administration Protocol Sertraline HCl 25 mg 07/03/25 09:00 07/03/25 08:57 Sertraline Hcl 25 Mg Tablet PO 25 mg DAILY MARCEL Administration Spironolactone 25 mg 07/03/25 09:00 07/03/25 08:57 Spironolactone 25 Mg Tablet PO 25 mg DAILY MARCEL Administration Protocol Discontinued Medications Generic Name Dose Route Start Last Admin Trade Name Freq PRN Reason Stop Dose Admin Acetaminophen 975 mg 07/03/25 01:40 07/03/25 01:47 Acetaminophen 325 Mg Tablet PO 07/03/25 01:41 975 mg ONCE ONE Administration Melatonin 6 mg 07/03/25 01:40 07/03/25 01:47 Melatonin 3 Mg Tablet PO 07/03/25 01:41 6 mg ONCE ONE Administration Medical Decision Making Medical Decision Making [facility] Narrative: Patient is an 79 year old assigned female at with a history of DM, atrial fib on eliquis, CAD complicated with NSTEMI s/p PCI to LAD, nonischemic cardiomyopathy, osteoarthritis, and lumbar stenosis s/p L1-5 lumbar decompression presenting to the emergency department today with concerns of self care. Patient's physical exam was unremarkable. Patient's blood work shows an elevated WBC count of 11.6 and an elevated CRP of 3.37 which are both consistent with someone who is 1 day post-op. Patient placed in observation at 1640 on 07/02/2025 pending physical therapy and case management evaluations. Differential Diagnosis Differential Diagnoses: The differential diagnosis associated with the presentation includes Unsteady gait Weakness Post lumbar operation Admission/Observation Consideration of admission/observation: Escalation of care including admission/observation considered Patient would have been admitted to the hospital had her work up had any findings where hospital admission was appropriate and her clinical presentation warranted hospital admission. Lab Data [facility] Lab Attestation statement: I reviewed the patient's lab results. My interpretation of these results are in the [facility] Rationale portion of this note. 07/02/25 15:00 07/02/25 15:00 Labs: Lab Results 07/02/25 Range/Units 15:00 WBC 11.6 H (4.8-10.8) X10*3/uL RBC 4.84 (4.20-5.50) X10*6/uL Hgb 11.9 L (12.0-16.0) g/dl Hct 40.0 (37.0-47.0) % MCV 82.6 (80.0-98.0) fL MCH 24.6 L (27.0-33.0) pg MCHC 29.8 L (31.0-35.0) g/dl RDW 19.1 H (11.0-16.0) % Plt Count 315 (160-400) X10*3/uL MPV 10.9 (9.4-12.3) fL Immature Gran % (Auto) 0.4 (0.0-0.4) % Neut % (Auto) 75.1 H (45-73) % Lymph % (Auto) 10.1 L (20-40) % Emmet % (Auto) 12.9 H (2-11) % Eos % (Auto) 1.1 (0-4) % Baso % (Auto) 0.4 (0-2) % Lymph # (Auto) 1.2 (1.2-4.9) X10*3/uL Emmet # (Auto) 1.5 H (0.1-1.2) X10*3/uL Eos # (Auto) 0.1 (0.0-0.4) X10*3/uL Baso # (Auto) 0.1 (0.0-0.2) X10*3/uL Abs Immat Gran (auto) 0.05 H (0.00-0.03) X10*3/uL Absolute Neuts (auto) 8.7 H (2.0-8.3) x10*3/uL Absolute Nucleated RBC 0.000 (0.0-0.012) X10*3/uL Nucleated RBC % (auto) 0.0 (0.0-0.2) /100WBC ESR 14 (0-20) MM/HR Sodium 139 (135-145) mmol/L Potassium 4.1 (3.3-5.1) mmol/L Chloride 109 H (96-108) mmol/L Carbon Dioxide 21 L (22-29) mmol/L Anion Gap 13 (12-20) BUN 31 H (9-16) mg/dL Creatinine 1.32 (0.5-1.4) mg/dL Estim Creat Clear Calc 34.6 Estimated GFR 39 Random Glucose 196 H (60-115) mg/dL Calcium 9.0 (8.4-10.2) mg/dL Total Bilirubin 0.3 (0.0-1.0) mg/dL AST 18 (5-31) U/L ALT 9 (0-31) U/L Alkaline Phosphatase 107 (39-117) U/L C-Reactive Protein 3.37 H (< or = 0.50) mg/dL Total Protein 6.3 L (6.5-8.0) g/dL Albumin 3.9 (3.5-5.0) g/dL Independent Historian Clinical information obtained from an independent historian. History obtained from or confirmed by: Other (patient's family at the bed side provided additional history and confirmed the history provided by the patient. ) Discharge Plan Discharge Clinical Impression: Unsteady gait, Weakness Patient Disposition: Home, Self-Care Additional Instructions: Take your medications as prescribed. If you were prescribed antibiotics today, it is important that you take your medication to their entirety, do not skip any doses, do not finish them early. Follow-up with your primary care provider this week. Return to the emergency department with new or worsening symptoms. Such as fevers, chills, chest pain, shortness of breath, nausea, vomiting, dizziness, headache, vision changes, lethargy In case of emergency call 911 Prescriptions: No Action atorvastatin 80 mg tablet 80 mg PO DAILY metoprolol tartrate 50 mg tablet 150 mg PO BID metformin 500 mg tablet extended release 24 hr 2,000 mg PO DAILY digoxin 125 mcg (0.125 mg) tablet 125 mcg PO DAILY dapagliflozin propanediol [Farxiga] 10 mg Tablet 10 mg PO DAILY Entresto 97-103 mg Tablet 1 tab PO BID aspirin 81 mg Tablet 81 mg PO DAILY clopidogrel 75 mg tablet 75 mg PO DAILY spironolactone 25 mg tablet 25 mg PO DAILY sertraline 25 mg tablet 25 mg PO DAILY oxycodone 5 mg tablet 5 mg PO Q6H PRN (Reason: pain) Qty: 20 0RF Rx Instructions: Partial Fill upon patient request. Referrals: Mini Rudd MD [Primary Care Provider, Internal Medicine] - 1 week Print Language: Kittitian
[2025-07-02 16:47] VITALS: BP 134/35; PULSE 70; RESP 16; TEMP 36.4; O2SAT 97
[2025-07-02 18:53] VITALS: BP 143/70; PULSE 78; RESP 18; TEMP 36.4; O2SAT 98
--- NOTE | 2025-07-02 18:53 | PC.NURSE ---
patient a&ox3, vss, pt here for placement s/p surgery, rr equal/non labored, pt able to make her needs known, currently eating dinner, call boyd within reach, plan of care ongoing.
--- NOTE | 2025-07-02 19:59 | PC.NURSE ---
Addendum entered by Shani Ahumada RN 07/02/25 20:00: Patient is an 79 year old assigned female at with a history of DM, atrial fib on eliquis, CAD complicated with NSTEMI s/p PCI to LAD, nonischemic cardiomyopathy, osteoarthritis, and lumbar stenosis s/p L1-5 lumbar decompression presenting to the emergency department today with concerns of self care. Patient had an L1-L5 lumbar decompression surgery on 07/01/2025 and was discharged home but after getting home, the patient's family states that the patient is unable to care for herself. Patient alert and oriented. Respirations even and non-labored. Abdomen soft, sl distended, non-tender with positive bowel sounds. Purewick applied. Patient with difficulty moving in bed. Dressing noted to mid back with some old blood staining the dressing. Mepilex x 2 noted to left groin/upper thigh area secondary to a rash. Positive pedal pulses with no edema. 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
--- NOTE | 2025-07-02 20:51 | MHC.CM.ED ---
CM met with patient and her son/HCP, Billy ([phone]) and her cousin Leticia ([phone]). Leticia provides help in home, rides to appointments and shopping. Pt is A&Ox3. She lives in her own home with her son, Robb. He works during the day and patient is alone. They private pay for a BAR STAFF weekly and have 2 family members who visit weekly as companions. Pt is fiercely independent. She feels she is fine at home. She uses a rollator. She has a chair lift to get upstairs to her bedroom. It is 10 stairs. She does not go into her basement. She does not drive. Pt tells CM that she thought she was going to rehab in [place], but when the doctor came in after her surgery, she told him she wanted to go home. Pt continues to facilitates between stating she needs rehab, to wanting to go home. She is agreeable to PT evaluation in the morning, but is stressed with the situation. Family is concerned as she has fallen many times and they feel she is a high fall risk. They feel she is deconditioned and that she needs rehab. Pt was discharged today and family state they had difficulty getting this patient into the home. They are requesting acute rehab. Referral will be made to [facility]. Pt has Medicare and Medex. PT is pending. Family is aware that Medicare will pay for acute rehab and home PT. If patient needs STR, it would need to be private pay.. Will upload surgical notes. CM will follow for safe dicharge plan.
[2025-07-02 21:32] VITALS: BP 114/74; PULSE 81; RESP 16; TEMP 36.4; O2SAT 100
--- NOTE | 2025-07-03 01:16 | PC.NURSE ---
Assumed care of pt at approximately 2310. Pt resting in bed, eyes closed, lights and TV off. RR even and unlabored. 2340 Pt calling out for help. T/ w and COOPER HELPER Debby to bedside. Pt believed to be covered in urine and thought she was alone. Pt in fact was clean and dry. Purewick in place and functioning properly. Pt stated I thought I was alone and I could here the pee coming out . I thought I was in the basement by myself . Comfort care provided and t/w discussed with patient that purewick was working. Pt in fact could hear the suction from purewick. Pt reporting she was not in comfortable position. T/w and sock turner repositioned pt and applied pillows, call boyd and water provided to pt as well. Pt also expressed being upset with her family and not wanting to be here. T/w expressed empathy for pt situation and discussed safety and abilities related to pt pain and abilities at this time. Pt seemed to understand and states I'm stil upset with them but laughed. Pt watching tv. No other complaints, Plan of care on going.
--- NOTE | 2025-07-03 01:54 | PC.NURSE ---
Pt requesting something for pain and sleep, reporting she can't get comfortable or fall asleep. INTERNAL CONTROLS ANALYST assisted pt in repositioning in the bed. Pt med rec not completed. Pt reports she normally takes tylenol for pain. Requesting tylenol for pain and melatonin for sleep as she doesn't need anything strong Requested meds from [facility]. Med rec completed with pt and medical records. Meds ordered and pt medicated.
[2025-07-03 06:00] VITALS: BP 130/67; PULSE 88; RESP 16; TEMP 36.5; O2SAT 98
[2025-07-03 07:39] VITALS: BP 106/56; PULSE 91; RESP 16; TEMP 36.6; O2SAT 97
[2025-07-03 08:12] VITALS: BP 106/56; PULSE 91; O2SAT 97
--- NOTE | 2025-07-03 08:38 | MHC.CM.PN ---
EMR reviewed, PT evaluated pt and are recommending acute rehab. Acute rehab referrals updated in [facility] with the PT note, awaiting bed offer.
--- NOTE | 2025-07-03 08:45 | PHA.MEDREC ---
Pharmacy Consult ? Medication Reconciliation Reviewed med rec done by nursing. Patient was just here on 07/01 and admitted post-op, utilized med rec from that time. Alerted provider that at the time the patient had been holding Aspirin and Plavix, and that our admission note states they are on Eliquis but the patient's family did not mention it last time and it has never been filled. Holding Aspirin and Plavix per provider until they know more.
--- NOTE | 2025-07-03 10:03 | MHC.CM.PN ---
Acute rehab bed offer received from [facility], bed offer reviewed with pt, she and her son Billy are in agreement, she will transport there via BLS/[facility] today at 1pm.
[2025-07-03] MEDS: Sacubitril/Valsartan 97/103 1 TAB TABLET PO (10:11)
--- NOTE | 2025-07-03 10:39 | PC.NURSE ---
assumed care of patient at 0700, patient is awake and alert, resp even and unlabored. patient sitting in recliner at this time, sat up and ate breakfast. patient medicated per MAR
[2025-07-03 12:00] VITALS: BP 110/60; PULSE 60; RESP 12; TEMP 36.7; O2SAT 99
[2025-07-03 12:31] VITALS: BP 110/60; PULSE 60; RESP 12; TEMP 36.7; O2SAT 99
== END 2025-07-03 13:22 | disposition home or self-care (01) ==
PROVIDERS: Emergency Provider Emergency Medicine; PCP Family Medicine
DX: R26.81 Unsteadiness on feet (principal); R53.1 Weakness; I48.91 Unspecified atrial fibrillation; Z79.01 Long term (current) use of anticoagulants; Z79.899 Other long term (current) drug therapy; Z98.890 Other specified postprocedural states; Z86.79 Personal history of other diseases of the circulatory system
CPT/HCPCS: 36415; 80053; 85025; 85652; 86140; 97162; 99284; 99285

== ENCOUNTER 2025-07-22 13:17 | Outpatient (AMB) | payer MEDICARE, SELFPAY ==
--- OUTSIDE RECORDS SUMMARY | 2025-07-18 12:00 | XMS_ITS | Encounter Summary ---
Author Organization [facility] Address [address] [facility] [address] [place] [id number] Phone Care Team Providers Care Motor Brakeman Name Role Phone Yanick Vivar MD Unavailable [phone] Parth Bird MD Unavailable Rey Fletcher DO Unavailable Amelia Fermin MD Unavailable [phone] Mini Rudd MD Primary Care Provider + Mini Rudd MD Unavailable Reason for Visit * Auth/Cert (Routine) Specialty Diagnoses / Procedures Referred By Contac t Referred To Contact Referral ID Status Reason Start Date Expiration Date Visits Re quested Visits Authorized [id number] 1 1 Encounter Details Date Type Department Care Team (Late st Contact Info) Description 07/18/2025 12:00 PM EDT Home Care Visit [facility] [address] [place] [phone] Ree Antonio, IVET [address] [place], [place] [phone] [email or web address] SN OASIS START OF CARE (SOC) Social History Tobacco Use Types Packs/Day Years Used Date Smoking Tobacco: Former Cigarettes 2 20 1 965 - 1985 Smokeless Tobacco: Never Alcohol Use Standard Drinks/Week Comments Yes 0 (1 standard drink = 0.6 oz pur e alcohol) occasional Home Health Assessment: Transportation Answer Date Recorded Lack of Transportation (Medical) No 07/18/2025 Lack of Transportation (Non-Medical) No 07/18/2025 Patient Unable or Declines to Respond No 07/18/2025 Child or Family Care Answer Date Record ed Do you have problems with on e of the following making it difficult for you to work, study, or receive health care? No 03/17/2021 Education Answer Date Recorded Are you interested in more education? Not on nicholas e 03/22/2023 Are you concerned about learning? Not on file 03/22/2023 No 03/22/2023 No 03/22/2023 Food Answer Date Recorded Within the past 6 months we worried whether our food would run out before we got money to buy more. Never True 03/17/2021 Within the past 6 months the food we bought just didn't last and we didn't have enough money to get more. Never True Paying for Meds Answer Date Recorded Do you have trouble paying for medicines? No 03/17/2021 Paying Utility Bills Answer Date Record ed Do you have trouble paying your heating or elect ricity bill? No 03/17/2021 Transportation Answer Date Recorded Has the lack of transportati on kept you from medical appointments or from getting medications? No 03/17/2021 Digital Access Answer Date Recorded No 04/17/2023 No 04/17/2023 Reliable internet access at home? Not on file 04/17/2023 Device with a working camera? Not on file Intimate Partner Violence Answer Date R ecorded Are you denied basic needs s uch as food, clothing, or medical care? No 05/15/2025 In the past 12 months have y ou been in a relationship with a person who hurts, threatens, or tries to control you? No 05/15/2025 Are you denied basic needs s uch as food, clothing, or medical care? No 05/15/2025 In the past 12 months have y ou been in a relationship with a person who hurts, threatens, or tries to control you? No 05/15/2025 Comments Unknown Sex and Gender Information Value Date Recorded Sex Assigned at Female 03/12/2018 4:32 PM EDT Legal Sex Female 10:09 PM EDT Gender Identity Female 03/12/2018 4:32 PM EDT Sexual Orientation Straight 03/12/2018 4: 32 PM EDT documented as of this encounter Last Filed Vital Signs Vital Sign Reading Time Taken Comments Blood Pressure - - Pulse 62 07/18/2025 12:51 PM EDT Temperature 36.4 C (97.6 F) 07/18/2025 12:51 PM EDT Respiratory Rate 18 07/18/2025 12:51 PM EDT Oxygen Saturation 95% 07/18/2025 12:51 PM EDT Inhaled Oxygen Concentration - - Weight - - Height - - Body Mass Index - - documented in this encounter Plan of Treatment Upcoming Encounters Date Type Department Care Team (Late st Contact Info) Description 07/23/2025 4:00 AM EDT Home Care Visit [facility] [address] [place] [phone] Ree Antonio RN [address] [place] [address] 07/27/2025 Home Care Visit [facility] [address] [place] [phone] Ree Antonio RN [address] [place] [address] 07/28/2025 Home Care Visit [facility] [address] [place] [phone] Daphney Angeles, PT [address] [place] [address] 07/30/2025 Home Care Visit [facility] [address] [place] [phone] Ree Antonio RN [address] [place] [address] 07/31/2025 2:00 AM EDT Home Care Visit [facility] [address] [place] [phone] Daphney Angeles, PT [address] [place] [address] 08/03/2025 1:00 AM EDT Home Care Visit [facility] [address] [place] [phone] Ree Antonio RN [address] [place] [address] 08/04/2025 1:30 AM EDT Home Care Visit [facility] [address] [place] [phone] Daphney Angeles, PT [address] [place] [address] 08/06/2025 Home Care Visit [facility] [address] [place] [phone] Ree Antonio RN [address] [place] [address] 08/07/2025 1:45 AM EDT Home Care Visit [facility] [address] [place] [phone] Daphney Angeles, PT [address] [place] [address] 08/10/2025 12:30 AM EDT Home Care Visit [facility] [address] [place] [phone] Ree Antonio RN [address] [place] [address] 08/11/2025 12:45 AM EDT Home Care Visit [facility] [address] [place] [phone] Daphney Angeles, PT [address] [place] [address] 08/13/2025 1:30 AM EDT Home [facility] [address] [place] [phone] Ree Antonio RN [address] [place] [address] 08/14/2025 12:45 AM EDT Home [facility] [address] [place] [phone] Daphney Angeles, PT [address] [place] [address] 08/17/2025 12:30 AM EDT Home [facility] [address] [place] [phone] Ree Antonio RN [address] [place] [address] 08/17/2025 1:00 AM EDT Home Care Visit [facility] [address] [place] [phone] Daphney Angeles, PT [address] [place] [address] 08/18/2025 11:00 AM EDT Office Visit [facility] [address] [place] [address] [address]rd Floor, [address] [place] [address] Parth Tadeo DO [address] [facility] [address] [place] [address] 08/18/2025 3:15 PM EDT Office Visit [facility] [address] [address] Mini Rudd MD [address] [place] [address], [address] [place] [address] 08/20/2025 12:30 AM EDT Home Care Visit [facility] [address] [place] [phone] Ree Antonio RN [address] [place] [address] 08/24/2025 12:30 AM EDT Home Care Visit [facility] [address] [place] [phone] Ree Antonio RN [address] [place] [address] 08/25/2025 Home Care Visit [facility] [address] [place] [phone] Daphney Angeles, PT [address] [place] [address] 08/27/2025 12:30 AM EDT Home Care Visit [facility] [address] [place] [phone] Ree Antonio RN [address] [place] [address] 08/31/2025 Home Care Visit [facility] [address] [place] [phone] Ree Antonio RN [address] [place] [address] 09/01/2025 Home Care Visit [facility] [address] [place] [address] Daphney Angeles, PT [address] [place] [address] 09/03/2025 2:00 AM EDT Home [facility] Visit [facility] [address] [place], [place] [phone] Ree Antonio RN [address] [place] [address] 09/07/2025 Home Care Visit [facility] [address] [place] [address] Ree Antonio RN [address] [place] [address] 09/08/2025 Home Care Visit [facility] [address] [place] [phone] Daphney Angeles, PT [address] [place] [address] 09/10/2025 Home Care Visit [facility] [address] [place], [place] [phone] Ree Antonio RN [address] [place] [phone] documented as of this encounter Visit Diagnoses Not on filedocumented in this encounter Additional Health Concerns Assessment Noted Time PHQ-9 Depression Total Score: 13 022 2:43 PM EDT PHQ-2 Depression Total Score: 2 10/14/20 24 11:18 AM EST documented as of this encounter Home Health Visit - Care Plan Visit Details Visit Type -SN OASIS START O F CARE (SOC) Discipline -Long-Term Problems Problem Description Start Date Status Goals Interve ntions HH - Telehealth/Virtual Care Disciplines: All Active Home Health Disciplines 07/18/2025 Active 1 goal linked to scheduled/documen namrata intervention 1 goal intervention scheduled/document ed in this visit HH - Medication Management Disciplines: All Active Home Health Disciplines 07/18/2025 Active 1 goal linked to scheduled/documen namrata intervention 2 goal interventions scheduled/document ed in this visit HH - Health Maintenance Disciplines: All Active Home Health Disciplines 07/18/2025 Active 1 goal linked to scheduled/documen namrata intervention 3 goal interventions scheduled/document ed in this visit HH - Focus of Care and Teaching Disciplines: All Active Home Health Disciplines w/RD 07/18/2025 Active 1 goal linked to scheduled/documen namrata intervention 1 goal intervention scheduled/document ed in this visit HH - Advance Care Planning Disciplines: All Active Home Health Disciplines 07/18/2025 Active 1 goal linked to scheduled/documen namrata intervention 1 goal intervention scheduled/document ed in this visit HH - Emergency Planning - Knowledge of Disciplines: All Active Home Health Disciplines 07/18/2025 Active 1 goal linked to scheduled/documen namrata intervention 3 goal interventions scheduled/document ed in this visit HH - Infection - Actual or Risk of Disciplines: All Active Home Health Disciplines 07/18/2025 Active 1 goal linked to scheduled/documen namrata intervention 2 goal interventions scheduled/document ed in this visit HH - Falls - Risk of Disciplines: All Active Home Health Disciplines 07/18/2025 Active 1 goal linked to scheduled/documen namrata intervention 2 goal interventions scheduled/document ed in this visit HH - Standard of Care Disciplines: All Active Home Health Disciplines 07/18/2025 Active 1 goal linked to scheduled/documen namrata intervention 6 goal interventions scheduled/document ed in this visit HH - Pain Disciplines: All Active Home Health Disciplines 07/18/2025 Active 1 goal linked to scheduled/documen namrata intervention 2 goal interventions scheduled/document ed in this visit HH - Diabetes Disciplines: All Active Home Health Disciplines 07/18/2025 Active 1 goal linked to scheduled/documen namrata intervention 3 goal interventions scheduled/document ed in this visit HH - Wound Disciplines: All Active Home Health Disciplines, Long-Term 07/18/2025 Active 1 goal linked to scheduled/documen namrata intervention 1 problem intervention scheduled/document ed in this visit 3 goal interventions scheduled/document ed in this visit HH - Cardiovascular Function - Impaired Disciplines: All Active Home Health Disciplines 07/18/2025 Active 1 goal linked to scheduled/documen namrata intervention 2 goal interventions scheduled/document ed in this visit Goals Goal Associated Problem Outcome Goal Met? Visit Notes HH - Telehealth visits along with in-person home visits will be utilized when appropriate to achieve optimal wellness and home safety Description: Telehealth visits along with in-person home visits will be utilized when appropriate to achieve optimal wellness and home safety related to assessment, demonstration, observation, teaching and training. HH - Telehealth/Virtual Care No HH - Safe medication management, avoid unnecessary harm related to medication errors and/or interactions HH - Medication Management No HH - Patient preferences will be utilized to achieve optimal wellness and home safety. HH - Health Maintenance No HH - Communication and collaboration to achieve patient goals HH - Focus of Care and Teaching No HH - Verbalize awareness of Advance Care Planning. HH - Advance Care Planning No HH - Knowledge of options for managing care in the event of an emergency related situation. HH - Emergency Planning - Knowledge of No HH - Patient will have no new infection; any new infection that occurs will be identified and treated promptly; existing infection will resolve without complication Description: Patient and caregiver(s) will demonstrate understanding of infection prevention, monitoring, and treatment as appropriate HH - Infection - Actual or Risk of No HH - Knowledge and management of fall prevention measures. HH - Falls - Risk of No HH - Achieve care management for a safe to home/community discharge from homecare HH - Standard of Care No HH - Frequency of pain interfering with patient's activity or movement will improve with activity or movement by discharge. Description: Pain will be managed over the course of care. Patient's acceptable level of pain is 1 - pain that doesn't interfere. HH - Pain No HH - Knowledge and management of diabetes. HH - Diabetes No HH - Demonstrate/verbalize wound care management, wound/lesion will be free from complications HH - Wound No HH - Demonstrate/verbalize management of cardiac disease, treatments, and s/s of complications HH - Cardiovascular Function - Impaired No Interventions Intervention Associated Problem/Goal Status Variance Visit Notes HH - Assess the patient's access/technology, monitoring device availability, cognitive, mental, physical ability, and willingness to effectively participate in telehealth care Problem:HH - Telehealth/Virtual Care Goal:HH - Telehealth visits along with in-person home visits will be utilized when appropriate to achieve optimal wellness and home safety Completed The patient has: 1. Reliable Wi-Fi/Internet access: Yes 2. Patient [place]: Declined 3. An active e-mail address: Yes 4. The following device(s): Computer 5. The following monitoring device(s): Glucometer and does not need training 6. The patient has the ability, only with assistance of a caregiver, to participate in Telehealth Care. 7. The patient is willing to participate. HH - I/E medication management: administration, purpose, dosages, preparation, setup, scheduling, side effects, food/drug interactions, and potential complications as indicated Description: Update patient's copy of medication list as needed. Problem:HH - Medication Management Goal:HH - Safe medication management, avoid unnecessary harm related to medication errors and/or interactions Completed HH - Complete medication review every visit and medication reconciliation as indicated. Pharmacy information: Description: [facility] Problem:HH - Medication Management Goal:HH - Safe medication management, avoid unnecessary harm related to medication errors and/or interactions Completed HH - Assess the patient's care preferences, goals, and strengths, the assessment of the patient's mental, psychosocial, and cognitive status were completed, and the following were identified: Description: call prior to visit management of medications, managing symptoms and be treated at home and avoid emergency room visits and/or hospitalizations strong coping skills, adequate cognition, housing stability and adequate support systems in place Problem:HH - Health Maintenance Goal:HH - Patient preferences will be utilized to achieve optimal wellness and home safety. Completed HH - Assess immunizations Problem:HH - Health Maintenance Goal:HH - Patient preferences will be utilized to achieve optimal wellness and home safety. Completed HH - I/E immunizations Problem:HH - Health Maintenance Goal:HH - Patient preferences will be utilized to achieve optimal wellness and home safety. Completed HH - Focus of care, teaching completed and plan for next visit Problem:HH - Focus of Care and Teaching Goal:HH - Communication and collaboration to achieve patient goals Completed Patient referred to homecare services after hospitalization/reha b stay r/t lumbar spinal stenosis, s/p L1-L5 decompression. Patientknown to agency. PMH CAD, NSTEMI, afib with watchman device, HTN, DM, OA. Patient alert and oriented but forgetful. Son lives with her and assists with some IADLS. Afebrile, VSS except unable to hear BP. Denies dizziness/ headache. Patient denies pain but c/o BLE feel like they're asleep. Ambulates with walker. REports slipped off chair yesterday, no injury noted. Lungs clear, breathing easy. Reports incontinent of large amt of loose stool last night. Patient took immdoium prior to SNV. Instructed in importance of increasing hydration. INstructed in BRAT diet. Meds reconicled and states BM more regular with daily metamucil and states will Begin daily. Entresto dosage change however insurance will not provide new dose without prior authrorization. [facility] who recommended[facility] tab daily of higher dose med until new dosing filled. Patient with incision sites x 2 to lumbar back. Steristrips in place. Outer DCDC changed/taught. Had left great toe ulcer with toe nail feeling loose. Instructed in obtaining betadine daily and covering with bandaid/dcd. Has seen [facility] in past and will consider if wound not quick to heal. Patient declining full skin assessment, states no other issues. PCP notified of soc/poc. Identified skills to be provided and taught: cv/cp/gi/med/wound care teach/assess The identified person that we will be teaching is patient Other disciplines ordered to assist patient in meeting goals: pt/ot Anticipated number of visits to meet goals: 6-8 snv HH - I/E advance directive information. Written information provided to the patient and caregiver, as indicated. The patient has: Description: other: HCP Problem:HH - Advance Care Planning Goal:HH - Verbalize awareness of Advance Care Planning. Completed HH - I/E management of care in an urgent or emergency (ER) situation: When to call your Home Care Team/911, ER plans, supplies, evacuation, when to contact local ER officials and how to stay informed Problem:HH - Emergency Planning - Knowledge of Goal:HH - Knowledge of options for managing care in the event of an emergency related situation. Completed HH - Emergency planning assessment: the emergency plan, supplies needed, emergency contact numbers and an evacuation plan were reviewed Description: Patient and Caregiver is/are knowledgeable of emergency plans. Problem:HH - Emergency Planning - Knowledge of Goal:HH - Knowledge of options for managing care in the event of an emergency related situation. Completed HH - Establish an individualized emergency plan: Description: Evacuation Plan is: stay home with family/cg support Priority Medical Needs are: other: chair lift A triage code has been assigned. A triage code and emergency plan will be reassessed for continued accuracy. Specific risks based on location: extreme cold/snow, extreme heat, loss of utilities and severe storms An emergency supply list has been provided. Problem:HH - Emergency Planning - Knowledge of Goal:HH - Knowledge of options for managing care in the event of an emergency related situation. Completed HH - I/E infection Description: s/s of infection Problem:HH - Infection - Actual or Risk of Goal:HH - Patient will have no new infection; any new infection that occurs will be identified and treated promptly; existing infection will resolve without complication Completed - Assess infection risk and s/s Problem:HH - Infection - Actual or Risk of Goal:HH - Patient will have no new infection; any new infection that occurs will be identified and treated promptly; existing infection will resolve without complication Completed - Complete fall risk assessment scale Problem:HH - Falls - Risk of Goal: - Knowledge and management of fall prevention measures. Completed - I/E fall prevention measures Description: cognitive impairment: strategies to minimize impairments with memory deficits, distractibility, judgement, impulsivity, and safety awareness, diagnosis/age related changes/prior history of falls: symptoms and side effects of illness/injury/history of falls placing patient at increased risk for falls. may include management of dizziness/orthostasis, environmental hazards: modification of environment to include clear walkways, secure animals, and move frequently used items within reach, use of equipment, impaired functional mobility: supervision for mobility/activity, appropriate footwear and as indicated safe use of assistive device(s) and incontinence: management of incontinence to include safe toileting, need for absorbent garments, address urgency/frequency Problem: - Falls - Risk of Goal: - Knowledge and management of fall prevention measures. Completed - Assess vital signs, pulse oximetry, pain, and as indicated, orthostatic vital signs Description: use agency-specific parameters Problem: - Standard of Care Goal:HH - Achieve care management for a safe to home/community discharge from homecare Completed - Assess skin integrity Problem: - Standard of Care Goal:HH - Achieve care management for a safe to home/community discharge from homecare Completed HH - I/E management of skin integrity and non-wound impairment Description: s/s of pressure injury, pressure reduction, and injury prevention measures and skin care Problem: - Standard of Care Goal:HH - Achieve care management for a safe to home/community discharge from homecare Completed - Assess safety needs of patient (other than falls) Problem: - Standard of Care Goal:HH - Achieve care management for a safe to home/community discharge from homecare Completed - Complete Cayden scale at SOC and weekly Problem: - Standard of Care Goal:HH - Achieve care management for a safe to home/community discharge from homecare Completed HH - Assess weight Problem:HH - Standard of Care Goal:HH - Achieve care management for a safe to home/community discharge from homecare Completed HH - Assess pain Problem:HH - Pain Goal:HH - Frequency of pain interfering with patient's activity or movement will improve with activity or movement by discharge. Completed HH - I/E pain management Problem:HH - Pain Goal:HH - Frequency of pain interfering with patient's activity or movement will improve with activity or movement by discharge. Completed HH - I/E diabetes management Description: self-administration of diabetes medications, self-management of hyper/hypoglycemia and s/s of hyper/hypoglycemia and self-monitoring Problem:HH - Diabetes Goal:HH - Knowledge and management of diabetes. Completed HH - Diabetic foot care including monitoring for the presence of skin lesions on the lower extremities and patient/caregiver education on proper foot care Problem: - Diabetes Goal:HH - Knowledge and management of diabetes. Completed HH - Assess blood sugar control, hypoglycemia/hyperglyc emia and diabetes-associated conditions (e.g., peripheral neuropathy) Problem:HH - Diabetes Goal:HH - Knowledge and management of diabetes. Completed HH - Assess wounds/lesions/jerez Description: LOCATION: lumbar back and left great toe Problem:HH - Wound Goal:HH - Demonstrate/verbalize wound care management, wound/lesion will be free from complications Completed - I/E wound management Description: management and care, nutrition to promote wound healing, s/s of complications, s/s of infection and wound/lesion care and treatment Problem: - Wound Goal:HH - Demonstrate/verbalize wound care management, wound/lesion will be free from complications Completed - Wound care: Description: Wound care to lumbar back Remove old dressing. Cleanse as follows: ns, pat dry. Apply (dressing type): DCD, tape Problem:HH - Wound Goal:HH - Demonstrate/verbalize wound care management, wound/lesion will be free from complications Completed - Wound care: Description: Left great toe: teach betadine paint daily and bandaid or dcd/tape. Problem:HH - Wound Completed HH - I/E cardiovascular function Description: cardiac disease management, energy conservation and prescribed activity level/restrictions and s/s of altered tissue perfusion Problem: - Cardiovascular Function - Impaired Goal:HH - Demonstrate/verbalize management of cardiac disease, treatments, and s/s of complications Completed HH - I/E management of fluid volume balance Problem:HH - Cardiovascular Function - Impaired Goal:HH - Demonstrate/verbalize management of cardiac disease, treatments, and s/s of complications Completed documented in this encounter Care Teams Motor Brakeman Relationship Specialty Start Date End Date Mini Rudd MD [address] [place] [address] [address] [place] [address] PCP - General Family Medicine 06/27/23 Yanick Vivar MD [address] [place] [phone] Historical LMR Provider 09/16/17 Parth Bird MD [address] [place] [id number] [email or web address] Historical LMR Provider 09/16/17 Rey Fletcher DO [address] [place] [address] Orthopedics & Sports Medicine, [place] [address] [email or web address] Historical LMR Provider 09/16/17 Amelia Fermin MD [address] [place] [address] [facility] [place] [address] Historical LMR Provider 09/16/17 Mini Rudd MD [address] [place] [id number] Insurance Assigned Provider 03/01/24 documented as of this encounter Additional Source Comments The information contained in this document represents components of the legal health record. It is not the complete legal health record.[facility]
--- OUTSIDE RECORDS SUMMARY | 2025-07-20 14:00 | XMS_ITS | Encounter Summary ---
Author Organization [facility] Address [address] [facility] [address] [place] [phone] Phone Care Team Providers Care Emergency Department Coordinator Name Role Phone Yanick Vivar MD Unavailable [phone] Parth Bird MD Unavailable Rey Fletcher DO Unavailable [phone] Amelia Fermin MD Unavailable [phone] Mini Rudd MD Primary Care Provider + Mini Rudd MD Unavailable Reason for Visit * Auth/Cert (Routine) Specialty Diagnoses / Procedures Referred By Contkristan t Referred To Contact Referral ID Status Reason Start Date Expiration Date Visits Re quested Visits Authorized [id number] 1 1 Encounter Details Date Type Department Care Team (Late st Contact Info) Description 07/20/2025 2:00 PM EDT Home Care Visit [facility] [address] [place] [phone] Daphney Angeles, PT [address] [place] [address] [email or web address] PT EVALUATION Social History Tobacco Use Types Packs/Day Years [...] Sign Reading Time Taken Comments Blood Pressure 115/72 07/20/2025 2:25 PM EDT Pulse 68 07/20/2025 2:25 PM EDT Temperature 36.7 C (98.1 F) 07/20/2025 2:25 PM EDT Respiratory Rate 16 07/20/2025 2:25 PM EDT Oxygen Saturation 97% 07/20/2025 2:25 PM EDT Inhaled Oxygen Concentration - - Weight - - Height - - Body Mass Index - - documented in this encounter Plan of Treatment Upcoming Encounters Date Type Department Care Team (Late st Contact Info) Description 07/23/2025 4:00 AM EDT Home Care Visit [facility] [address] [place] [phone] Ree Antonio RN [address] [place] [address] 07/27/2025 Home Care Visit [facility] [address] [place] [phone] eRe Antonio RN [address] [place] [address] 07/28/2025 Home Care Visit [facility] [address] [place], [place] [phone] Daphney Angeles, PT [address] [place] [address] 07/30/2025 Home Care Visit [facility] [address] [place] [phone] Ree Antonio RN [address] [place] [address] 07/31/2025 2:00 AM EDT Home Care Visit [facility] [address] [place] [phone] Daphney Angeles, PT [address] [place] [address] 08/03/2025 1:00 AM EDT Home Care Visit [facility] [address] [place] [phone] Ree Antonio RN [address] [place] [address] 08/04/2025 1:30 AM EDT Home Care Visit [facility] [address] [place] [phone] Daphney Angeles, PT [address] [place] [address] 08/06/2025 Home Care Visit [facility] [address] [place] [phone] Ree Antonio RN [address] [place] [address] 08/07/2025 1:45 AM EDT Home Care Visit [facility] [address] [place] [phone] Daphney Angeles, PT [address] [place] [address] 08/10/2025 12:30 AM EDT Home Care Visit [facility] [address] [place] [phone] Ree Antonio RN [address] [place] [address] 08/11/2025 12:45 AM EDT Home Care Visit [facility] [address] [place] [phone] Daphney Angeles, PT [address] [place] [address] 08/13/2025 1:30 AM EDT Home [facility] Visit [facility] [address] [place] [phone] Ree Antonio RN [address] [place] [address] 08/14/2025 12:45 AM EDT Home Care Visit [facility] [address] [place] [phone] Daphney Angeles, PT [address] [place] [address] 08/17/2025 12:30 AM EDT Home Care Visit [facility] [address] [place] [phone] Ree Antonio RN [address] [place] [address] 08/17/2025 1:00 AM EDT Home Care Visit [facility] [address] [place] [phone] Daphney Angeles, PT [address] [place] [address] 08/18/2025 11:00 AM EDT Office Visit [facility] [address] [place] [address] [address] Floor, [address] [place] [address] Parth Tadeo DO [address] [facility] [address] [place] [address] 08/18/2025 3:15 PM EDT Office Visit [facility] [address] [address] Mini Rudd MD [address] [place] [address] [address] [place] [address] 08/20/2025 12:30 AM EDT Home Care Visit [facility] [address] [place] [phone] Ree Antonio RN [address] [place] [address] 08/24/2025 12:30 AM EDT Home Care Visit [facility] [address] [place] [phone] Ree Antonio RN [address] [place] [address] 08/25/2025 Home Care Visit [facility] [address] [place] [phone] Daphney Angeles, PT [address] [place] [address] 08/27/2025 12:30 AM EDT Home Care Visit [facility] [address] [place] [phone] Ree Antonio RN [address] [place] [address] 08/31/2025 Home Care Visit [facility] [address] [place] [phone] Ree Antonio RN [address] [place] [address] 09/01/2025 Home Care Visit [facility] [address] [place] [phone] Daphney Angeles, PT [address] [place] [address] 09/03/2025 2:00 AM EDT Home Care Visit [facility] [address] [place], [place] [phone] Ree Antonio RN [address] [place] [address] 09/07/2025 Home Care Visit [facility] [address] [place], [place] [phone] Ree Antonio, IVET [address] [place] [address] 09/08/2025 Home Care Visit [facility] [address] [place] [phone] Daphney Angeles, PT [address] [place] [address] 09/10/2025 [facility] Visit [facility] [address] [place], [place] [phone] Ree Antonio RN [address] [place] [address] documented as of this encounter Visit Diagnoses Not on filedocumented in this encounter Additional Health Concerns Assessment Noted Time PHQ-9 Depression Total Score: 13 06/06/ 022 2:43 PM EDT PHQ-2 Depression Total Score: 2 10/14/20 24 11:18 AM EST documented as of this encounter Home Health Visit - Care Plan Visit Details Visit Type -PT EVALUATION Discipline -Physical Therapy Problems Problem Description Start Date Status Goals Interve ntions HH - Telehealth/Virtua l Care Disciplines: All Active Home Health Disciplines 07/18/2025 Active 1 goal linked to scheduled/document ed intervention 1 goal intervention scheduled/document ed in this visit HH - Medication Management Disciplines: All Active Home Health Disciplines 07/18/2025 Active 1 goal linked to scheduled/document ed intervention 2 goal interventions scheduled/document ed in this visit HH - Focus of Care and Teaching Disciplines: All Active Home Health Disciplines w/RD 07/18/2025 Active 1 goal linked to scheduled/document ed intervention 1 goal intervention scheduled/document ed in this visit HH - Emergency Planning - Knowledge of Disciplines: All Active Home Health Disciplines 07/18/2025 Active 1 goal linked to scheduled/document ed intervention 2 goal interventions scheduled/document ed in this visit HH - Standard of Care Disciplines: All Active Home Health Disciplines 07/18/2025 Active 1 goal linked to scheduled/document ed intervention 2 goal interventions scheduled/document ed in this visit HH - Wound Disciplines: All Active Home Health Disciplines, Halfway 07/18/2025 Active 1 goal linked to scheduled/document ed intervention 1 goal intervention scheduled/document ed in this visit Goals Goal Associated Problem Outcome Goal Met? Visit Notes HH - Telehealth visits along with in-person home visits will be utilized when appropriate to achieve optimal wellness and home safety Description: Telehealth visits along with in-person home visits will be utilized when appropriate to achieve optimal wellness and home safety related to assessment, demonstration, observation, teaching and training. - Telehealth/Virtual Care No HH - Safe medication management, avoid unnecessary harm related to medication errors and/or interactions HH - Medication Management No HH - Communication and collaboration to achieve patient goals HH - Focus of Care and Teaching No HH - Knowledge of options for managing care in the event of an emergency related situation. HH - Emergency Planning - Knowledge of No HH - Achieve care management for a safe to home/community discharge from homecare HH - Standard of Care No HH - Demonstrate/verbalize wound care management, wound/lesion will be free from complications HH - Wound No Interventions Intervention Associated Problem/Goal Status Variance Visit Notes HH - Assess the patient's access/technology, monitoring device availability, cognitive, mental, physical ability, and willingness to effectively participate in telehealth care Problem:HH - Telehealth/Virtual Care Goal:HH - Telehealth visits along with in-person home visits will be utilized when appropriate to achieve optimal wellness and home safety Scheduled HH - Complete medication review every visit and medication reconciliation as indicated. Pharmacy information: Description: [facility] Problem: - Medication Management Goal: - Safe medication management, avoid unnecessary harm related to medication errors and/or interactions Completed - I/E medication management: administration, purpose, dosages, preparation, setup, scheduling, side effects, food/drug interactions, and potential complications as indicated Description: Update patient's copy of medication list as needed. Problem:HH - Medication Management Goal:HH - Safe medication management, avoid unnecessary harm related to medication errors and/or interactions Scheduled HH - Focus of care, teaching completed and plan for next visit Problem:HH - Focus of Care and Teaching Goal:HH - Communication and collaboration to achieve patient goals Completed Primary Clinical Focus this Visit & Instruction Provided: Eval: Physical Therapy REFERRAL DX: S/P spinal decompression surgery PAST MEDICAL HX: Essential hypertension 11/08/2017, Coronary artery disease involving umkumiut coronary artery of umkumiut heart without angina pectoris 11/21/2017, Stented coronary artery 12/10/2017, RCA stent 2007, LAD stent 2013, Atrial fibrillation 03/12/2018, Atrial fibrillation with rapid ventricular response 03/12/2018, Acute diastolic congestive heart failure 11/08/2023, CHF (congestive heart failure) 07/28/2024, Mixed hyperlipidemia 11/08/2017, Gout 11/21/2017, Metabolic syndrome 11/21/2017, Non morbid obesity 11/21/2017 Type 2 diabetes mellitus with diabetic mononeuropathy, without long-term current use of insulin 11/21/2017, Vitamin D deficiency 02/14/2022, Carpal tunnel syndrome of left wrist 11/04/2020, Mild cognitive impairment with memory loss 10/14/2024, Confusion 04/28/2025, GERD (gastroesophageal reflux disease) 11/21/2017, Chronic kidney disease, stage 3a 03/09/2022, Infected wound 12/01/2024, Fungal rash of trunk 04/28/2025, Anxiety 11/21/2017, Reactive depression 01/01/2020, Open wound of left great toe 05/22/2025, Nail overgrowth 05/22/2025, Rash 05/22/2025, Midline low back pain without sciatica 12/10/2017, Right hip pain 12/10/2017, Right shoulder pain 12/10/2017, Falling episodes 05/12/2022, Chronic left shoulder pain 01/29/2023, Edema of both lower legs 05/18/2023, PRIOR FUNCTIONAL STATUS (Including Bathing): pt has needed assist for a while now, maybe over a year I have someone who helps me once a week> PATIENT CONCERNS: fall risk, has L AFO but does not like to wear it. FALLS/SAFETY: Pt is a high fall risk ENVIRONMENT/DME: Pt has ramp to exit home, and electric ift chair to access living and bed room areas FAMILY/CAREGIVER SUPPORT: pt lives with son but sone not present for PT evaluation INTERDISCIPLINARY: SN, PT and OT OBJECTIVE MEASURES: 07/20/25 CTS= 4 TUG= 26 Tinetti= 10/20 CLINICAL SUMMARY:The patient presents with impairments consistent with the admitting diagnosis of spinal decrompession surgery. 79-year-old woman with a history of diabetes mellitus, atrial fibrillation, CAD complicated with NSTEMI status post PCI to LAD, nonischemic cardiomyopathy, osteoarthritis with lumbar stenosis who is status post recent L1-L5 lumbar decompression who was discharged on 07/01/2025. Upon returning home the patient's family noted that she was unable to take care of herself and she was returned to [facility] for evaluation. The patient was having difficulty walking normally and it was felt she would benefit from short course of acute rehabilitation and transferred to [facility] on 07/03/2025 and dc home on 07/15/25. During PT evaluation visit it was noted that pt has larege skin breakdown on sacral reagion. photos taken and uploaded, PCP contacted as well. Pt to see PCP on 07/21/25. Rehab potential is good with skilled physical therapy intervention. Potential barriers to rehab include lack of patient participation, poor carryover with a home exercise program and activity modification recommendations, comorbidities resulting in medical complexity and potentially limiting patient's ability to participate in interventions. Primary impairments limiting function include: pain with ambulation, decreased strength and mobility, impaired activity tolerance, postural instability, ambulation endurance, gait mechanics, and balance. These impairments impact the patient's ability to perform activities of daily living and instrumental activities of daily living independently and safely. Based on the current presentation, it is my professional opinion that the patient will benefit from skilled physical therapy intervention to address functional limitations and deficits as noted in this evaluation. It is anticipated that the patient will be seen for a total of 9 physical therapy visits at which point it will be determined if additional skilled physical therapy intervention is indicated. The patient will be assessed throughout for adherence to the plan of care and appropriateness of physical therapy intervention. PCP notified of pt admission to home PT services, POT, including therapeutic intervention, visit frequency and goals. Instruction Provided to: patient Response to Instruction/Teaching: Is partially able to teach back topics as evidenced by needing vc for consist and correct carryover of education regarding spinal precautions, and positioning off of back.. Plan for Next Visit Specific Focus & Education Needed: HEP education and instrucion New Orders: skilled home PT services 2w4, 1w4 for ther ex, gait training, transfer training and bed mobility education and instruction in safe and proper tech for position and spinal precautions Updated Discharge Plan: dc week of 09/11/25 HH - I/E management of care in [...] the event of an emergency related situation. Scheduled HH - Assess vital signs, pulse oximetry, pain, and as indicated, orthostatic vital signs Description: use agency-specific parameters Problem:HH - Standard of Care Goal:HH - Achieve care management for a safe to home/community discharge from homecare Scheduled HH - Assess skin integrity Problem:HH - Standard of Care Goal:HH - Achieve care management for a safe to home/community discharge from homecare Scheduled HH - Assess wounds/lesions/jerez Description: LOCATION: lumbar back and left great toe Problem: - Wound Goal:HH - Demonstrate/verbaliz e wound care management, wound/lesion will be free from complications Scheduled documented in this encounter Care Teams Emergency Department Coordinator Relationship Specialty Start Date End Date Mini Rudd MD [address] [place] [address], [address] [place] [address] PCP - General Family Medicine 06/27/23 Yanick Vivar MD [address] [place] [address], [address] [place] [address] Historical LMR Provider 09/16/17 Parth Bird MD [address] [place] [address] [address] [place] [address] [email or web address] Historical LMR Provider 09/16/17 Rey Fletcher DO [address] [place] [address] Orthopedics & Sports [facility], [place], [place] [phone] [email or web address] Historical LMR Provider 09/16/17 Amelia Fermin MD [address] [place] [address] Orthopedics Sports [facility], [place], [place] [id number] Historical LMR Provider 09/16/17 Mini Rudd MD [address] [place] [address] [address] [place] [address] Insurance Assigned Provider 03/01/24 documented as of this encounter Additional Source Comments The information contained in this document represents components of the legal health record. It is not the complete legal health record.[facility]
--- OUTSIDE RECORDS SUMMARY | 2025-07-21 13:45 | XMS_ITS | Encounter Summary ---
Author Organization [facility] Address [address] [facility] [address] [place] [address] Phone Care Team Providers Care Die Finisher Name Role Phone Yanick Vivar MD Unavailable [phone] Parth Bird MD Unavailable Rey Fletcher DO Unavailable [phone] Amelia Fermin MD Unavailable [phone] Mini Rudd MD Primary Care Provider + Mini Rudd MD Unavailable [phone] Reason for Visit * Reason Comments Hospital Follow-up Encounter Details Date Type Department Care Team (Late st Contact Info) Description 07/21/2025 1:45 PM EDT Office Visit [facility] Medicine [address] [place] [address] Mini Rudd MD [address] [place] [address], [address] [place] [address] [email or web address] Hospital discharge follow-up (Primary Dx); Spinal stenosis of lumbosacral region; Pressure ulcer of sacral region, stage 2; Type 2 diabetes mellitus with diabetic polyneuropathy, without long-term current use of insulin; Drug-induced constipation Social History Tobacco Use Types Packs/Day Years Used Date Smoking Tobacco: Former Cigarettes 2 15 12 965 - 1984 Smokeless Tobacco: Never Tobacco Cessation:Counseling Given: Not Answered Alcohol Use Standard Drinks/Week Comments Yes 0 [...] Sign Reading Time Taken Comments Blood Pressure 110/68 07/21/2025 1:38 PM EDT Pulse 68 07/21/2025 1:38 PM EDT Temperature 35.9 C (96.7 F) 07/21/2025 1:38 PM EDT Respiratory Rate - - Oxygen Saturation 97% 07/21/2025 1:38 PM EDT Inhaled Oxygen Concentration - - Weight 66.7 kg (147 lb) 07/21/2025 1:38 PM EDT Height 167.6 cm (5' 5.98 ) 07/21/2025 1:38 PM ED T Body Mass Index 23.74 07/21/2025 1:38 PM EDT documented in this encounter Progress Notes * Mini Rudd MD - 07/21/2025 1:45 PM EDT Chief Complaint Patient presents with Hospital Follow-up Here today with Mary Beth, family friend/caregiver Assessment & Plan Hospital discharge follow-up S/p lumbar decompression Denies pain Home care in place Spinal stenosis of lumbosacral region Doing well post-op Follow up with surgeon this week Well-healing incisions Pressure ulcer of sacral region, stage 2 Superficial skin sloughing and broad-based erythema of superior gluteal cleft Discussed topica/barrier cream to dry skin TID VNA for wound care Frequent position changes; avoid laying on back, reclining. Sit upright in chairs, laying on sides in bed Orders: menthol-zinc oxide (CALMOSEPTINE) 0.44-20.6 % Oint; Apply topically 3 (three) times a day as needed(pressure ulcer). Type 2 diabetes mellitus with diabetic polyneuropathy, without long-term current use of insulin Cont metformin, farxiga Drug-induced constipation Discussed bowel regimen Resume senna PRN Cont metamucil Consider miralax daily prn Orders: senna (SENOKOT) 8.6 mg tablet; Take 1 tablet by mouth 2 (two) times a day as needed for constipation. Subjective: History of Present Illness The patient is an 79-year-old female who presents for a hospital follow-up post L1-L5 lumbar decompression on 07/01/[address] Maldonado. Hospital Follow-Up 07/01 L1-5 decompression w/ Dr. Maldonado at [facility]. PT reports she stayed in the hospital overnight. Pt reported hx deviated from records after 07/02; per pt she was not cleared to return home and sent to rehab from [facility]. DC and ER records indicare that patient was discharged home post-op but returned to the ED on 07/02 as pt was unable to manage care at home. 07/03: Pt was admitted to [facility] 07/14: DC from rehab In rehab, Pt notes return home has been lela. Denies any pain in back/legs although significant weakness andtingling persists in R>L LE Notes severe diarrhea on her first night home. Since then she has been constipated, denies any BM in past week. Sennna and colace were stopped in rehab due to loose stools and pt was started on metamucil which she is still taking Notes development of sacral pressure ulcer since arriving home. Has been spending a lot of time in bed. Thinks this started before rehab DC. Not having pain at sacral wound but it is quite itchy Has had confusion re: entrestos dose. Was DC from rehab with decreased dose, 2 tabs of entresto 24-26 mg BID. Pt has been taking 2 tabs of home dose of 97-103 mg Home health has already started including nursing and PT. No wound care, pressure sores noted by PTyesterday and documented in media Using RW and EC Pthas f/u with Dr. Maldonado this week for post-op appt Review of Systems See HPI Objective: Vitals: 07/21/25 1338 BP: 110/68 Pulse: 68 Temp: 35.9 ??C (96.7 ??F) SpO2: 97% Physical Exam Vitals and nursing note reviewed. Constitutional: General: She is not in acute distress. Appearance: Normal appearance. HENT: Head: Normocephalic and atraumatic. Eyes: General: No scleral icterus. Conjunctiva/sclera: Conjunctivae normal. Pulmonary: Effort: Pulmonary effort is normal. Skin: General: Skin is warm and dry. Comments: 2 incisions on lower back covered with dressing, healing well w/o erythema or drainage. Large sacral pressure ulcer 8 x 10 cm at gluteal cleft with superficial desquamation and surroudning erythema. Dressed with zinc oxide today in office Neurological: General: No focal deficit present. Mental Status: She is alert and oriented to person, place, and time. Psychiatric: Mood and Affect: Mood normal. Behavior: Behavior normal. documented in this encounter Plan of Treatment Upcoming Encounters Date Type Department Care Team (Late st Contact Info) Description 07/23/2025 4:00 AM EDT Home Care Visit [facility] [address] [place] [phone] Ree Antonio RN [address] [place] [address] [email or web address] 07/27/2025 Home Care Visit [facility] [address] [place] [phone] Ree Antonio RN [address] [place] [address] [email or web address] 07/28/2025 Home Care Visit [facility] [address] [place] [phone] Daphney Angeles, PT [address] [place] [address] 07/30/2025 Home Care Visit [facility] [address] [place] [phone] Ree Antonio RN [address] [place] [address] [email or web address] 07/31/2025 2:00 AM EDT Home Care Visit [facility] [address] [place] [phone] Daphney Angeles, PT [address] [place] [address] [email or web address] 08/03/2025 1:00 AM EDT Home Care Visit [facility] [address] [place] [address] Ree Antonio RN [address] [place] [address] [email or web address] 08/04/2025 1:30 AM EDT Home Care Visit [facility] [address] [place] [address] Daphney Angeles, PT [address] [place] [address] [email or web address] 08/06/2025 Home Care Visit [facility] [address] [place] [phone] Ree Antonio RN [address] [place] [address] [email or web address] 08/07/2025 1:45 AM EDT Home Care Visit [facility] [address] [place] [phone] Daphney Angeles, PT [address] [place] [address] [email or web address] 08/10/2025 12:30 AM EDT Home Care Visit [facility] [address] [place] [address] Ree Antonio RN [address] [place] [address] [email or web address] 08/11/2025 12:45 AM EDT Home Care Visit [facility] [address] [place] [address] Daphney Angeles, PT [address] [place] [address] [email or web address] 08/13/2025 1:30 AM EDT Home [facility] Visit [facility] [address] [place] [phone] Ree Antonio RN [address] [place] [address] 08/14/2025 12:45 AM EDT Home Care Visit [facility] [address] [place] [phone] Daphney Angeles, PT [address] [place] [address] [email or web address] 08/17/2025 12:30 AM EDT Home Care Visit [facility] [address] [place] [phone] Ree Antonio RN [address] [place] [address] [email or web address] 08/17/2025 1:00 AM EDT Home Care Visit [facility] [address] [place] [phone] Daphney Angeles, PT [address] [place] [address] 08/18/2025 11:00 AM EDT Office Visit [facility] [address] [place] [address] [address]rd Floor, [address] [place] [address] Parth Tadeo DO [address] [facility] [address] [place] [address] 08/18/2025 3:15 PM EDT Office Visit [facility] [address] [address] Mini Rudd MD [address] [place] [address] [address] [place] [address] [email or web address] 08/20/2025 12:30 AM EDT Home Care Visit [facility] [address] [place] [phone] Ree Antonio RN [address] [place] [address] [email or web address] 08/24/2025 12:30 AM EDT Home Care Visit [facility] [address] [place] [phone] Ree Antonio RN [address] [place] [address] [email or web address] 08/25/2025 Home Care Visit [facility] [address] [place] [phone] Daphney Angeles, PT [address] [place] [address] [email or web address] 08/27/2025 12:30 AM EDT Home Care Visit [facility] [address] [place] [phone] Ree Antonio RN [address] [place] [address] [email or web address] 08/31/2025 Home Care Visit [facility] [address] [place] [address] Ree Antonio RN [address] [place] [address] [email or web address] 09/01/2025 Home Care Visit [facility] [address] [place] [phone] Daphney Angeles, PT [address] [place] [address] [email or web address] 09/03/2025 2:00 AM EDT Home Care Visit [facility] [address] [place] [address] Ree Antonio, IVET [address] [place] [address] 09/07/2025 Home Care Visit [facility] [address] [place] [address] Ree Antonio, IVET [address] [place] [address] 09/08/2025 Home Care Visit [facility] [address] [place] [address] Daphney Angeles, PT [address] [place] [address] 09/10/2025 Home Care Visit [facility] [address] [place] [address] Ree Antonio, IVET [address] [place] [address] documented as of this encounter Visit Diagnoses Diagnosis Hospital discharge follow-up- Primary Other follow-up examination Spinal stenosis of lumbosacral region Pressure ulcer of sacral region, stage 2 Type 2 diabetes mellitus with diabetic polyneuropathy, 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 Other constipation documented in this encounter Additional Health Concerns Assessment Noted Time PHQ-9 Depression Total Score: 13 022 2:43 PM EDT PHQ-2 Depression Total Score: 2 10/14/20 24 11:18 AM EST documented as of this encounter Care Teams Die Finisher Relationship Specialty Start Date End Date Mini Rudd MD [address] [place] [address], [address] [place] [address] PCP - General Family Medicine 06/27/23 Yanick Vivar MD [address] [place] [address] 7 [place] [address] [email or web address] Historical LMR Provider 09/16/17 Parth Bird MD [address] [place] [address] 7 [place] [address] [email or web address] Historical LMR Provider 09/16/17 Rey Fletcher DO [address] [place] [address] Orthoped[facility], [place] [address] [email or web address] Historical LMR Provider 09/16/17 Amelia Fermin MD [address] [place] [address] [facility], [place] [address] Historical LMR Provider 09/16/17 Mini Rudd MD [address] [place] [address] 7 [place] [address] Insurance Assigned Provider 03/01/24 documented as of this encounter Additional Source Comments The information contained in this document represents components of the legal health record. It is not the complete legal health record.[facility]
--- OUTSIDE RECORDS SUMMARY | 2025-07-22 13:30 | XMS_ITS | Encounter Summary ---
Author Organization [facility] Address [address] [facility] [address] [place] [address] Phone Care Team Providers Care Fiberglass Boat Maker Name Role Phone Yanick Vivar MD Unavailable Parth Bird MD Unavailable Rey Fletcher DO Unavailable [phone] Amelia Fermin MD Unavailable [phone] Mini Rudd MD Primary Care Provider + Mini Rudd MD Unavailable [phone] Encounter Details Date Type Department Care Team (Late st Contact Info) Description 07/22/2025 1:30 PM EDT [facility] [address] [place] [address] Daphney Angeles, PT [address] [place] [address] [email or web address] PT HOME VISIT Social History Tobacco Use Types Packs/Day Years Used Date Smoking Tobacco: Former Cigarettes 2 20 1 965 - 1984 Smokeless Tobacco: Never Alcohol Use Standard Drinks/Week [...] PM EDT documented as of this encounter Plan of Treatment Upcoming Encounters Date Type Department Care Team (Late st Contact Info) Description 07/23/2025 4:00 AM EDT Home Care Visit [facility] [address] [place] [address] Ree Antonio RN [address] [place] [address] 07/27/2025 Home Care Visit [facility] [address] [place] [address] Ree Antonio RN [address] [place] [address] 07/28/2025 Home Care Visit [facility] [address] [place] [address] Daphney Angeles, PT [address] [place] [address] 07/30/2025 Home Care Visit [facility] [address] [place] [address] Ree Antonio RN [address] [place] [address] 07/31/2025 2:00 AM EDT Home Care Visit [facility] [address] [place] [phone] Daphney Angeles, PT [address] [place] [address] 08/03/2025 1:00 AM EDT Home Care Visit [facility] [address] [place] [phone] Ree Antonio, IVET [address] [place] [address] 08/04/2025 1:30 AM EDT Home Care Visit [facility] [address] [place] [address] Daphney Angeles, PT [address] [place] [address] 08/06/2025 Home Care Visit [facility] [address] [place] [address] Ree Antonio RN [address] [place] [address] 08/07/2025 1:45 AM EDT Home Care Visit [facility] [address] [place] [address] Daphney Angeles, PT [address] [place] [address] 08/10/2025 12:30 AM EDT Home Care Visit [facility] [address] [place] [address] Ree Antonio RN [address] [place] [address] 08/11/2025 12:45 AM EDT Home Care Visit [facility] [address] [place] [phone] Daphney Angeles, PT [address] [place] [address] 08/13/2025 1:30 AM EDT Home Care Visit [facility] [address] [place] [address] Ree Antonio RN [address] [place] [address] 08/14/2025 12:45 AM EDT Home Care Visit [facility] [address] [place] [address] Daphney Angeles, PT [address] [place] [address] 08/17/2025 12:30 AM EDT Home Care Visit [facility] [address] [place] [address] eRe Antonio RN [address] [place] [address] 08/17/2025 1:00 AM EDT Home Care Visit [facility] [address] [place] [address] Daphney Angeles, PT [address] [place] [address] 08/18/2025 11:00 AM EDT Office Visit [facility] [address] [place] [address] 3rd Floor, [address] [place] [address] Parth Tadeo DO [address] [address] 08/18/2025 3:15 PM EDT Office Visit [facility] [address] [address] Mini Rudd MD [address] [place] [address] 08/20/2025 12:30 AM EDT Home Care Visit [facility] [address] [place], [place] [phone] Ree Antonio RN [address] [place] [address] 08/24/2025 12:30 AM EDT Home Care Visit [facility] [address] [place], [place] [phone] Ree Antonio RN [address] [place] [address] 08/25/2025 Home Care Visit [facility] [address] [place] [address] Karthik Daphney John, PT [address] [place] [address] 08/27/2025 12:30 AM EDT Home Care Visit [facility] [address] [place] [address] Ree Antonio RN [address] [place] [address] 08/31/2025 Home Care Visit [facility] [address] [place] [phone] Ree Antonio RN [address] [place] [address] 09/01/2025 Home Care Visit [facility] [address] [place] [address] Karthik Daphney Lopez, PT [address] [place] [address] 09/03/2025 2:00 AM EDT Home Care Visit [facility] [address] [place] [address] Ree Antonio RN [address] [place] [address] 09/07/2025 Home Care Visit [facility] [address] [place] [address] Ree Antonio RN [address] [place] [address] 09/08/2025 Home Care Visit [facility] [address] [place], [place] [phone] Daphney Angeles, PT [address] [place] [address] 09/10/2025 Home Care Visit [facility] [address] [place], [place] [phone] Ree Antonio, RN [address] [place] [address] documented as of this encounter Visit Diagnoses Not on filedocumented in this encounter Additional Health Concerns Assessment Noted Time PHQ-9 Depression Total Score: 13 022 2:43 PM EDT PHQ-2 Depression Total Score: 2 10/14/20 24 11:18 AM EST documented as of this encounter Home Health Visit - Care Plan Visit Details Visit Type -PT HOME VISIT Discipline -Physical Therapy Problems Problem Description Start [...] Wound Disciplines: All Active Home Health Disciplines, [facility] 07/18/2025 Active 1 goal linked to scheduled/document ed intervention 1 goal intervention scheduled/document ed in this visit Goals Goal Associated Problem Outcome Goal Met? Visit Notes - Telehealth visits along with in-person home [...] wellness and home safety Scheduled HH - I/E medication management: administration, purpose, dosages, preparation, setup, scheduling, side effects, food/drug interactions, and potential complications as indicated Description: Update patient's copy of medication list as needed. Problem:HH - Medication Management Goal:HH - Safe medication management, avoid unnecessary harm related to medication errors and/or interactions Scheduled HH - Complete medication review every visit and medication reconciliation as indicated. Pharmacy information: Description: [facility] Problem: - Medication Management Goal:HH - Safe medication management, avoid unnecessary harm related to medication errors and/or interactions Scheduled HH - Focus of care, teaching completed and plan for next visit Problem: - Focus of Care and Teaching Goal:HH - Communication and collaboration to achieve patient goals Scheduled HH - I/E management of care in an urgent or emergency (ER) situation: When to call your Home Care Team/911, ER plans, supplies, evacuation, when to contact local ER officials and how to stay informed Problem: - Emergency Planning - Knowledge of Goal:HH - Knowledge of options for managing care in the event of an emergency related situation. Scheduled - Emergency planning assessment: the emergency plan, [...] Scheduled documented in this encounter Care Teams Fiberglass Boat Maker Relationship Specialty Start Date End Date Mini Rudd MD [address] [place] [address] 7 [place] [address] PCP - General Family Medicine 06/27/23 Yanick Vivar MD [address] [place] [address] Historical LMR Provider 09/16/17 Parth Bird MD [address] [place] [address] 7 [place] [address] [email or web address] Historical LMR Provider 09/16/17 Rey Fletcher DO [address] [place] [address] Orthopedics & Sports Medicine, [facility], [place] [phone] [email or web address] Historical LMR Provider 09/16/17 Amelia Fermin MD [address] [place] [address] Orthopedics & Sports Medicine, [place], [place] [id number] [email or web address] Historical LMR Provider 09/16/17 Mini Rudd MD [address] [place] [address], [address] [place] [address] [email or web address] Insurance Assigned Provider 03/01/24 documented as of this encounter Additional Source Comments The information contained in this document represents components of the legal health record. It is not the complete legal health record.[facility]
--- NOTE | 2025-07-22 13:39 | HO.SPINEOV ---
Intake Visit Reasons: 1st post op Intake Note: Ms. Lo is here today for her 1st post-op visit. Field Care Coordinator Required: No Allergies morphine Allergy (Severe, Verified 07/02/25 14:36) Itching levofloxacin (From Levaquin) Allergy (Verified 07/02/25 14:36) Redness of Skin Assessment & Plan Assessment & Plan (1) Status post lumbar spine surgery for decompression of spinal cord: Code(s): Z98.890 - Other specified postprocedural states Category: Medical Plan Procedure: Operation: L1-L2, L2-L3, L3-L4 and L4-5 Lumbar decompression Marifer is a pleasant 79-year-old female who comes in today for her 1st postoperative visit after having L1-5 lumbar decompression completed by Dr. Maldonado a few weeks ago. Unfortunately she reports she had a very difficult time at the rehabilitation facility that she was transferred to from [facility]. She states that they were not very helpful, and that her physical therapist was out sick multiple days so she was left to lay in bed. Thankfully she is doing much better now, and states that she has no pain since the surgery. She is still struggling with stability and ambulation, and reports that she will be having an at-home physical therapist come to work with her. She is not currently taking any prescription pain medications. She is completing the bulk of her ADLs without much issue. No new neurological deficits. The patient ambulates well and rises from a seated position without difficulty. Her posterior incision sites are closed and well healing. I would like to follow up with Marifer again in 6 weeks for her 2nd postoperative visit. Ray Maldonado MD,PhD [facility] Coding Level of Care Code Global (81503) Diagnoses Status post lumbar spine surgery for decompression of spinal cord Z98.890
--- OUTSIDE RECORDS SUMMARY | 2025-07-22 14:02 | XMS_ITS | Encounter Summary ---
Author Organization [facility] Address [address] [facility] [address] [place] [address] Phone Care Team Providers Care Development Spec Name Role Phone Yanick Vivar MD Unavailable Yanick Vivar MD Unavailable Leyla Heller CLEANING CUSTODIAN Unavailable Braulio Javed DO Unavailable Kiersten Carrizales CLEANING CUSTODIAN Unavailable Unavailable DacKiersten lee DO Unavailable Parth Bird MD Unavailable Evelia Hartman CLEANING CUSTODIAN Unavailable Karen Miller FOOD PRODUCTS SALES REPRESENTATIVE Unavailable Rey Fletcher DO Unavailable Padmini Carpenter CLEANING CUSTODIAN Unavailable Leatha Dey CLEANING CUSTODIAN Unavailable Jessa Rutledge MD Unavailable [phone] Susie Swanson PA-C Unavailable Brittany Iyer MD Unavailable [phone] Matt Sanchez MD Unavailable Amelia Fermin MD Unavailable Yanick Vivar MD Primary Care Provider [phone] Mini Rudd MD Primary Care Provider + Mini Rudd MD Unavailable [phone] Encounter Details Date Type Department Care Team (Latest Contact Info) Description 03/28/2021 Transcribe Orders [address] [place] [address] Regina Manzo, SAMI [facility] [place] [address] Telogen effluvium (Primary Dx) Social History Tobacco Use Types Packs/Day Years Used Date Smoking Tobacco: Former Cigarettes 2 15 12 965 1984 Smokeless Tobacco: Never Alcohol Use Standard Drinks/Week Comments Yes 0 (1 standard drink = 0.6 oz pur e alcohol) occasional Child or Family Care Answer Date Record ed Do you have problems with on e of the following making it difficult for you to work, study, or receive health care? No 03/17/2021 Education Answer Date Recorded Are you interested in help w ith more adult education (for example, completing high school, GED, job training, learning the [place]ian language, technical skills, or developing parenting skills)? No 03/17/2021 Food Answer Date Recorded Within the past [...] appointments or from getting medications? No 03/17/2021 Comments Unknown Sex and Gender Information Value [...] 4:00 AM EDT Home Care Visit [facility] [address] [place] [phone] Ree Antonio RN [address] [place] [address] [email or web address] 07/27/2025 Home Care Visit [facility] [address] [place] [phone] Ree Antonio RN [address] [place] [address] [email or web address] 07/28/2025 Home Care Visit [facility] [address] [place] [phone] Daphney Angeles, PT [address] [place] [address] [email or web address] 07/30/2025 Home Care Visit [facility] [address] [place] [phone] Ree Antonio RN [address] [place] [address] [email or web address] 07/31/2025 2:00 AM EDT Home Care Visit [facility] [address] [place] [phone] Daphney Angeles, PT [address] [place] [address] [email or web address] 08/03/2025 1:00 AM EDT Home Care Visit [facility] [address] [place] [phone] Ree Antonio RN [address] [place] [address] 08/04/2025 1:30 AM EDT Home Care Visit [facility] [address] [place] [address] Daphney Angeles, PT [address] [place] [address] 08/06/2025 Home Care Visit [facility] [address] [place] [address] Ree Antonio RN [address] [place] [address] [email or web address] 08/07/2025 1:45 AM EDT Home Care Visit [facility] [address] [place] [address] Daphney Angeles, PT [address] [place] [address] [email or web address] 08/10/2025 12:30 AM EDT Home Care Visit [facility] [address] [place] [address] Ree Antonio RN [address] [place] [address] [email or web address] 08/11/2025 12:45 AM EDT Home Care Visit [facility] [address] [place] [address] Daphney Angeles, PT [address] [place] [address] [email or web address] 08/13/2025 1:30 AM EDT Home Care Visit [facility] [address] [place] [address] Ree Antonio RN [address] [place] [address] 08/14/2025 12:45 AM EDT Home Care Visit [facility] [address] [place] [address] Daphney Angeles, PT [address] [place] [address] [email or web address] 08/17/2025 12:30 AM EDT Home Care Visit [facility] [address] [place] [address] Ree Antonio RN [address] [place] [address] 08/17/2025 1:00 AM EDT Home Care Visit [facility] [address] [place] [address] Daphney Angeles, PT [address] [place] [address] 08/18/2025 11:00 AM EDT Office Visit [facility] [address] [place] [address] 3rd Floor, [address] [place] [address] Parth Tadeo DO 22 [facility] [address] [place] [address] 08/18/2025 3:15 PM EDT Office Visit [facility] [address] [address] Mini Rudd MD [address] [place] [address] 7 [place] [address] 08/20/2025 12:30 AM EDT Home Care Visit [facility] [address] [place] [address] Ree Antonio RN [address] [place] [address] 08/24/2025 12:30 AM EDT Home Care Visit [facility] [address] [place] [address] Ree Antonio RN [address] [place] [address] [email or web address] 08/25/2025 Home Care Visit [facility] [address] [place] [address] Daphney Angeles, PT [address] [place] [address] 08/27/2025 12:30 AM EDT Home Care Visit [facility] [address] [place] [address] Ree Antonio RN [address] [place] [address] [email or web address] 08/31/2025 Home Care Visit [facility] [address] [place] [address] Ree Antonio RN [address] [place] [address] [email or web address] 09/01/2025 Home Care Visit [facility] [address] [place] [address] Daphney Angeles, PT [address] [place] [address] [email or web address] 09/03/2025 2:00 AM EDT Home Care Visit [facility] [address] [place] [address] Ree Antonio RN [address] [place] [address] [email or web address] 09/07/2025 Home Care Visit [facility] [address] [place] [address] Ree Antonio RN [address] [place] [address] 09/08/2025 Home Care Visit [facility] [address] [place], [place] [phone] Daphney Angeles, PT [address] [place] [address] 09/10/2025 Home Care Visit [facility] [address] [place], [place] [phone] Ree Antonio, RN [address] [place] [address] documented as of this encounter Results * TSH (03/28/2021 12:30 PM EDT) TSH 1.21 0.27 - 4.20 uIU/mL [facility] Blood 03/28/2021 12:3 0 PM EDT 03/28/2021 12:32 PM EDT Regina Manzo CLEANING CUSTODIAN LAB BLOOD ORDERABLES Final Result Performing Organization Address City/[facility]/ZIP Co de Phone Number [address] [address] * Free T4 (03/28/2021 12:30 PM EDT) FREE T4 1.3 0.9 - 1.7 ng/dL [facility] Blood 03/28/2021 12:3 0 PM EDT 03/28/2021 12:32 PM EDT Regina Manzo CLEANING CUSTODIAN LAB BLOOD ORDERABLES Final Result Performing Organization Address City/[facility]/ZIP Co de Phone Number [address] [address] * (ABNORMAL) CBC and differential (03/28/2021 12:30 PM EDT) WBC 8.45 4.00 - 11.00 K/uL [facility] RBC 4.35 3.72 - 5.30 M/uL [facility] HGB 12.0 11.4 - 15.9 g/dL [facility] HCT 38.2 34.2 - 46.8 % [facility] PLT 277 140 - 430 K/uL [facility] MCV 87.8 78.0 - 97.0 fL [facility] MCH 27.6 25.0 - 33.0 pg [facility] MCHC 31.4(L) 32.0 - 36.0 g/dL [facility] RDW 14.6 11.0 - 16.0 % [facility] MPV 11.9 8.4 - 12.8 fl [facility] NRBC 0.00 0 /100 WBCs [facility] ABSOLUTE NRBC 0.00 0 K/uL [facility] DIFF METHOD Auto [facility] NEUTS 55.2 43.0 - 75.0 % [facility] LYMPHS 28.8 18.2 - 47.4 % [facility] MONOS 10.1 4.00 - 11.00 % [facility] EOS 4.7 0.0 - 8.0 % [facility] BASOS 0.8 0.0 - 2.0 % [facility] Granulocytes, immature (%) 0.4 0.0 - 0.9 % [facility] ABSOLUTE NEUTS 4.67 1.80 - 7.70 K/uL [facility] ABSOLUTE LYMPHS 2.43 1.00 - 3.10 K/uL [facility] ABSOLUTE MONOS 0.85(H) 0.20 - 0.80 K/uL [facility] ABSOLUTE EOS 0.40 0.00 - 0.80 K/uL [facility] ABSOLUTE BASOS 0.07 0.00 - 0.09 K/uL [facility] Granulocytes, immature 0.03 0.00 - 0.05 K/uL [facility] Blood 03/28/2021 12:3 0 PM EDT 03/28/2021 12:32 PM EDT Regina [place] Quereshy CLEANING CUSTODIAN LAB BLOOD ORDERABLES Final Result [facility] [address] [place] [address] documented in this encounter Visit Diagnoses Diagnosis Telogen effluvium- Primary documented in this encounter Additional Health Concerns Infection Onset Date Last Indicated Resolved Time CoV-Risk Comment:Per Ambulatory Triage Form 04/17/2023 04/17/202304/17 9:56 AM EDT COVID-19 04/17/2023 04/18/2023 05/09/2023 1:51 AM EDT CoV-Risk Comment:Neg covid 11/08/2023 11/08/2023 11/09/2023 6:[address] documented as of this encounter Care Teams Development Spec Relationship Specialty Start Date End Date Yanick Vivar MD [address] [place] [address] [address] [place] [address] [email or web address] PCP - General Family Medicine 12/04/19 06/26/23 Mini Rudd MD [address] [place] [address] [address] [place] [address] [email or web address] PCP - General Family Medicine 06/27/23 Yanick Vivar MD [address] [place] [address] [address] [place] [address] [email or web address] Insurance Assigned Provider 09/01/17 03/01/24 Yanick Vivar MD [address] [place] [address] [address] [place] [address] [email or web address] Historical LMR Provider 09/16/17 Leyla Heller, CLEANING CUSTODIAN [address] [place] [address] Historical LMR Provider 09/16/17 2 Braulio Javed DO [address] [place] [address] 7 [place] [address] [email or web address] Historical LMR Provider 09/16/17 12/03/21 Kiersten Carrizales CLEANING CUSTODIAN [address] [place] [address] Historical LMR Provider 09/16/1712/03 Kiersten Lee DO [address] [place] [address] 7 [place] [address] [email or web address] Historical LMR Provider 09/16/17 12/03/21 Parth Bird MD [address] [place] [address] 7 [place] [address] [email or web address] Historical LMR Provider 09/16/17 Evelia Hartman NP [address] [place] [address] Historical LMR Provider 09/16/17 2 Karen Miller CNP [address] [address] Historical LMR Provider 09/16/17 12/03/21 Rey Fletcher DO [address] [place] [address] Orthopedics & Sports Medicine, [facility] [place] [address] maria Historical LMR Provider 09/16/17 P[place] [address] Historical LMR Provider 09/16/17 Leatha Dey NP [address] [place] [address] Historical LMR Provider 09/16/17 2 Jessa Rutledge MD 22 [facility], 1[address] [place] [address] Historical LMR Provider 09/16/17 12/03/21 Susie Swanson PA-C [address] [place] [address] [facility], [place] [address] Historical LMR Provider 09/16/17 12/03/21 Brittany Iyer MD [address], [place] [address] Historical LMR Provider 09/16/17 2 Matt Sanchez MD [address] [place] [phone] Historical LMR Provider 09/16/17 2 Amelia Fermin MD [address] [place] [address] [facility], [place] [address] Historical LMR Provider 09/16/17 Mini Rudd MD [address] [place] [address] 7 [place] [address] [email or web address] Insurance Assigned Provider 03/01/24 documented as of this encounter Additional Source Comments The information contained in this document represents components of the legal health record. It is not the complete legal health record.[facility]
--- OUTSIDE RECORDS SUMMARY | 2025-07-22 14:02 | XMS_ITS | Encounter Summary ---
Author Organization [facility] Address [address] [place] [address] Phone Care Team Providers Care Manufacturing Industrial Engineer Name Role Phone Yanick Vivar MD Unavailable [phone] Parth Bird MD Unavailable Rey Fletcher DO Unavailable Amelia Fermin MD Unavailable [phone] Mini Rudd MD Primary Care Provider + Mini Rudd MD Unavailable Reason for Visit * Reason Onset Date Comments TCM Visit 07/09/202507/21 Encounter Details Date Type Department Care Team (Late st Contact Info) Description 07/09/2025 Telephone [facility] Medicine [address] [place] [address] Mini Rudd MD [address] [facility], [address] [place] [address] [email or web address] TCM Visit (07/21) Social History Tobacco Use Types Packs/Day Years Used Date Smoking Tobacco: Former Cigarettes 2 20 1 - 1984 Smokeless Tobacco: Never Alcohol Use [...] PM EDT documented as of this encounter Progress Notes * Elyse Lee RN - 07/21/2025 11:47 AM EDT Appointment with Dr. Rudd today. * Lisa Mcgovern LPN - 07/16/2025 9:13 AM EDT Left message- return call pending. * Mini Rudd MD - 07/15/2025 3:09 PM EDT This medication is not prescribed by our office, please forward to cardiology * Lisa Mcgovern LPN - 07/15/2025 2:51 PM EDT [facility]. She had an increase of her Entresto 97-103 2 tabs BID - her insurance will only cover 1 tab BID. Can she go back to her old does? Thanks Post Discharge Summary: Post discharge call documentation: Is a post discharge call required?: Yes Please indicate post discharge status: Patient reached - post discharge complete Patient eligible for TCM billing (reached or two unsuccessful attempts within two business days post discharge)?: Yes General: Discharge information: Admit date: 06/30/25 Discharge date: 07/14/25 Discharge from: [facility] Reason for hospitalization: back surgery Discharge disposition: home How is the patient feeling since discharge (pain level and other considerations)?: Improving Safety and self care: Does the patient/caregiver have any safety concerns (falls, transfers, stairs, abuse, etc.)?: No Is the patient/caregiver able to take care of post discharge needs at home (wound care, medication(s), etc)?: Yes Assistive devices/equipment and home services: Was the patient sent home with home services?: Yes Select all that apply: PT Has the patient/caregiver been contacted by home services?: No Medication review: Were you able to review the medication list with the patient/caregiver?: Yes Were there any medication changes while the patient was in the hospital (such as anticoagulant dosechanges, insulin, etc)?: Yes Were there any discrepancies during medication review?: No Was the patient/caregiver able to picker packer all new prescriptions?: Yes Does the patient need any other medications renewed/refilled?: Yes Does the patient/caregiver have questions regarding their medications or side effects?: Yes What questions?: see note Follow up/conclusion: Was a follow up appointment scheduled with the patient's PCP office?: Yes Date of next appointment with the PCP: 07/21/25 * Cristal Fischer - 07/15/2025 12:44 PM EDT Pt called back, please return call * Lisa Mcgovern LPN - 07/15/2025 9:40 AM EDT Left message- return call pending. * Karina Smith - 07/09/2025 11:09 AM EDT [facility] PEN [employer] Smart Phrases: Transitional Care Management New Patient: YES/NO: no Hospitalization Name: [facility] Discharge Date: 07/14 Reason for Visit+ Diagnosis: Lumbar Decompression Is the discharge summary in patient chart:YES/NO: no If not did you inform the patient/patient advocate to fax it to the office: YES/NO: yes Please inform the patient/patient advocate to fax and bring a copy to the appt. Appointment Date: 07/21 Is the appt: virtual in person: in person Awareness: Appt need to be schedule with in 2 to 14 calendar days from discharge date Additional Note (if applicable): [facility] Call Center CSS Agent (Please do not reply to this user, as this inbox is not monitored. Thank you.) Thank you. documented in this encounter Plan of Treatment Upcoming Encounters Date Type Department Care Team (Late st Contact Info) Description 07/23/2025 4:00 AM EDT Home Care Visit [facility] [address] [place] [phone] Ree Antonio RN [address] [place] [address] [email or web address] 07/27/2025 Home Care Visit [facility] [address] [place] [phone] Ree Antonio RN [address] [place] [address] [email or web address] 07/28/2025 Home Care Visit [facility] [address] [place] [phone] Daphney Angeles, PT [address] [place] [address] [email or web address] 07/30/2025 Home Care Visit [facility] [address] [place] [phone] Ree Antonio RN [address] [place] [address] [email or web address] 07/31/2025 2:00 AM EDT Home Care Visit [facility] [address] [place] [address] Daphney Angeles, PT [address] [place] [address] [email or web address] 08/03/2025 1:00 AM EDT Home Care Visit [facility] [address] [place] [phone] Ree Antonio RN [address] [place] [address] [email or web address] 08/04/2025 1:30 AM EDT Home Care Visit [facility] [address] [place] [address] Daphney Angeles, PT [address] [place] [address] [email or web address] 08/06/2025 Home Care Visit [facility] [address] [place] [address] Ree Antonio RN [address] [place] [address] [email or web address] 08/07/2025 1:45 AM EDT Home Care Visit [facility] [address] [place] [phone] Daphney Angeles, PT [address] [place] [address] [email or web address] 08/10/2025 12:30 AM EDT Home Care Visit [facility] [address] [place] [phone] Ree Antonio RN [address] [place] [address] [email or web address] 08/11/2025 12:45 AM EDT Home Care Visit [facility] [address] [place] [address] Daphney Angeles, PT [address] [place] [address] [email or web address] 08/13/2025 1:30 AM EDT Home Care Visit [facility] [address] [place] [phone] Ree Antonio RN [address] [place] [address] [email or web address] 08/14/2025 12:45 AM EDT Home Care Visit [facility] [address] [place] [address] Daphney Angeles, PT [address] [place] [address] [email or web address] 08/17/2025 12:30 AM EDT Home Care Visit [facility] [address] [place] [address] Ree Antonio RN [address] [place] [address] [email or web address] 08/17/2025 1:00 AM EDT Home Care Visit [facility] [address] [place] [phone] Daphney Angeles, PT [address] [place] [address] [email or web address] 08/18/2025 11:00 AM EDT Office Visit [facility] [address] [place] [address] 3rd Floor, [address] [place] [address] Parth Tadeo DO [address] [address] 08/18/2025 3:15 PM EDT Office Visit [facility] Medicine [address] [place] [address] Mini Rudd MD [address] [place] [address] 7 [place] [address] 08/20/2025 12:30 AM EDT Home Care Visit [facility] [address] [place] [address] Ree Antonio RN [address] [place] [address] [email or web address] 08/24/2025 12:30 AM EDT Home Care Visit [facility] [address] [place] [address] Ree Antonio RN [address] [place] [address] [email or web address] 08/25/2025 Home Care Visit [facility] [address] [place] [address] Daphney Angeles, PT [address] [place] [address] [email or web address] 08/27/2025 12:30 AM EDT Home Care Visit [facility] [address] [place] [phone] Ree Antonio RN [address] [place] [address] [email or web address] 08/31/2025 Home Care Visit [facility] [address] [place] [phone] Ree Antonio RN [address] [place] [address] [email or web address] 09/01/2025 Home Care Visit [facility] [address] [place] [address] Daphney Angeles, PT [address] [place] [address] [email or web address] 09/03/2025 2:00 AM EDT Home Care Visit [facility] [address] [place] [address] Ree Antonio RN [address] [place] [address] [email or web address] 09/07/2025 Home Care Visit [facility] [address] [place] [address] Ree Antonio RN [address] [place] [address] 09/08/2025 Home Care Visit [facility] [address] [place] [address] Daphney Angeles, PT [address] [place] [address] 09/10/2025 Home Care Visit [facility] [address] [place] [address] Ree Antonio RN [address] [place] [address] documented as of this encounter Visit Diagnoses Not on filedocumented in this encounter Additional Health Concerns Assessment Noted Time PHQ-9 Depression Total Score: 13 022 2:43 PM EDT PHQ-2 Depression Total Score: 2 10/14/20 24 11:18 AM EST documented as of this encounter Care Teams Manufacturing Industrial Engineer Relationship Specialty Start Date End Date Mini Rudd MD [address] [place] [address] [email or web address] PCP - General Family Medicine 06/27/23 Yanick Vivar MD [address] [place] [address] [email or web address] Historical LMR Provider 09/16/17 Parth Bird MD [address] [place] [address] [email or web address] Historical LMR Provider 09/16/17 Rey Fletcher DO 4 [facility], [facility] [place], [place] [phone] Historical LMR Provider 09/16/17 Amelia Fermin MD [address] [place] [address] Orthopedics & Sports Medicine, [place], [place] [id number] Historical LMR Provider 09/16/17 Mini Rudd MD [address] [place] [address] 7 [place] [address] Insurance Assigned Provider 03/01/24 documented as of this encounter Additional Source Comments The information contained in this document represents components of the legal health record. It is not the complete legal health record.[facility]
--- OUTSIDE RECORDS SUMMARY | 2025-07-22 14:02 | XMS_ITS | Encounter Summary ---
Author Organization [facility] Address [address] [place] [address] Phone Care Team Providers Care Filament Wound Parts Fabricator Name Role Phone Yanick Vivar MD Unavailable [phone] Parth Bird MD Unavailable [phone] Rey Fletcher DO Unavailable Amelia Fermin MD Unavailable [phone] Mini Rudd MD Primary Care Provider + Mini Rudd MD Unavailable [phone] Reason for Visit * Reason Onset Date Comments VNA wound care 07/21/2025 Encounter Details Date Type Department Care Team (Late st Contact Info) Description 07/21/2025 Telephone [facility] [address] [place], [place] [phone] Munira Escudero, RN [phone] [place], [place] [phone] [email or web address] V[facility] wound care Social History Tobacco Use Types Packs/Day Years Used Date Smoking Tobacco: Former Cigarettes 2 - 1984 Smokeless Tobacco: Never Alcohol Use [...] as of this encounter Progress Notes * Cuba Orta RN - 07/22/2025 10:15 AM EDT [facility] called to follow up on this message, provide info from recent visit note, advised image is in media, advised of topical treatment that was ordered. States that she will eval the area when she sees the pt this week. * Munira Escudero RN - 07/21/2025 3:19 PM EDT Images from the original note were not included. Mini Rudd MD P Cmg Rodrick Bryant Rn Can we contact VNA to make sure they are adding wound care, sacral pressure ulcer noted by PT [facility], advised provider's message to make sure wound care is added. documented in this encounter Plan of Treatment Upcoming Encounters Date Type Department Care Team (Late st Contact Info) Description 07/23/2025 4:00 AM EDT Home Care Visit [facility] [address] [place] [address] Ree Antonio RN [address] [place] [address] 07/27/2025 Home Care Visit [facility] [address] [place], [place] [phone] Ree Antonio RN [address] [place] [address] 07/28/2025 Home Care Visit [facility] [address] [place], [place] [phone] Daphney Angeles, PT [address] [place] [address] 07/30/2025 Home [facility] Visit [facility] [address] [place] [address] Ree Antonio RN [address] [place] [address] 07/31/2025 2:00 AM EDT Home [facility] [address] [place] [address] Daphney Angeles, PT [address] [place] [address] 08/03/2025 1:00 AM EDT Home [facility] [address] [place] [address] Ree Antonio RN [address] [place] [address] 08/04/2025 1:30 AM EDT Home [facility] Visit [facility] [address] [place] [address] Daphney Angeles, PT [address] [place] [address] 08/06/2025 Home Care Visit [facility] [address] [place] [address] Ree Antonio RN [address] [place] [address] 08/07/2025 1:45 AM EDT Home [facility] [address] [place] [address] Daphney Angeles, PT [address] [place] [address] 08/10/2025 12:30 AM EDT Home [facility] Visit [facility] [address] [place] [address] Ree Antonio RN [address] [place] [address] 08/11/2025 12:45 AM EDT Home [facility] Visit [facility] [address] [place] [phone] Daphney Angeles, PT [address] [place] [address] 08/13/2025 1:30 AM EDT Home Care Visit [facility] [address] [place] [phone] Ree Antonio RN [address] [place] [address] 08/14/2025 12:45 AM EDT Home [facility] [address] [place] [phone] Daphney Angeles, PT [address] [place] [address] 08/17/2025 12:30 AM EDT Home [facility] [address] [place] [phone] Ree Antonio RN [address] [place] [address] 08/17/2025 1:00 AM EDT Home [facility] Visit [facility] [address] [place] [phone] Daphney Angeles, PT [address] [place] [address] 08/18/2025 11:00 AM EDT Office Visit [facility] [address] [facility] 3rd Floor, [address] [place] [address] Parth Tadeo, 22 [facility] [address] [place] [address] 08/18/2025 3:15 PM EDT Office Visit [facility] [address] [place] [address] Mini Rudd MD 234 [facility] 7 [place] [address] 08/20/2025 12:30 AM EDT Home [facility] [address] [place] [address] Ree Antonio RN [address] [place] [address] 08/24/2025 12:30 AM EDT Home [facility] [address] [place] [address] Ree Antonio RN [address] [place] [address] 08/25/2025 Home [facility] Visit [facility] [address] [place] [address] Daphney Angeles, PT [address] [place] [address] 08/27/2025 12:30 AM EDT Home [facility] [address] [place] [address] Ree Antonio RN [address] [place] [address] 08/31/2025 Home Care Visit [facility] [address] [place] [address] Ree Antonio RN [address] [place] [address] 09/01/2025 Home Care Visit [facility] [address] [place] [phone] Daphney Angeles, PT [address] [place] [address] 09/03/2025 2:00 AM EDT Home [facility] [address] [place] [phone] Ree Antonio RN [address] [place] [address] 09/07/2025 Home [facility] Visit [facility] [address] [place] [phone] Ree Antonio RN [address] [place] [address] 09/08/2025 Home Care Visit [facility] [address] [place] [phone] Daphney Angeles, PT [address] [place] [address] 09/10/2025 Home Care Visit [facility] [address] [place] [phone] Ree Antonio RN [address] [place] [address] documented as of this encounter Visit Diagnoses Not on filedocumented in this encounter Additional Health Concerns Assessment Noted Time PHQ-9 Depression Total Score: 13 06/06/ 022 2:43 PM EDT PHQ-2 Depression Total Score: 2 10/14/20 24 11:18 AM EST documented as of this encounter Care Teams Filament Wound Parts Fabricator Relationship Specialty Start Date End Date Mini Rudd MD [address] [place] [address] 7 [place] [address] PCP - General Family Medicine 06/27/23 Yanick Vivar MD [address] [place] [address] 7 MYLA Crouch [address] Historical LMR Provider 09/16/17 Parth Bird MD [address] [place] [address] 7 [place] [address] [email or web address] Historical LMR Provider 09/16/17 Rey Fletcher DO [address] [place] [address] Orthopedics & Sports Medicine, [place] [address] Historical LMR Provider 09/16/17 Amelia Fermin MD [address] [place] [address] Orthopedics Sports [facility], [place] [address] Historical LMR Provider 09/16/17 Mini Rudd MD [address] [place] [address] 7 [place] [address] Insurance Assigned Provider 03/01/24 documented as of this encounter Additional Source Comments The information contained in this document represents components of the legal health record. It is not the complete legal health record.[facility]
--- OUTSIDE RECORDS SUMMARY | 2025-07-22 14:02 | XMS_ITS | Encounter Summary ---
Author Organization [facility] Address [address] [facility] [address] [place] [address] Phone Care Team Providers Care Offal Trimmer Name Role Phone Yanick Vivar MD Unavailable Parth Bird MD Unavailable [phone] Rey Fletcher DO Unavailable [phone] Amelia Fermin MD Unavailable Mini Rudd MD Primary Care Provider + Mini Rudd MD Unavailable [phone] Encounter Details Date Type Department Care Team (Late st Contact Info) Description 07/17/2025 Home [facility] Visit [facility] [address] [place] [address] Jeannie Cast RN [address] [place] [address] [email or web address] CASE COMMUNICATION Social History Tobacco Use Types Packs/Day Years [...] 4:00 AM EDT Home [facility] [address] [place] [address] Ree Antonio RN [address] [place] [address] [email or web address] 07/27/2025 Home Care Visit [facility] [address] [place] [address] Ree Antonio RN [address] [place] [address] [email or web address] 07/28/2025 Home Care Visit [facility] [address] [place] [address] Daphney Angeles, PT [address] [place] [address] [email or web address] 07/30/2025 Home Care Visit [facility] [address] [place] [address] Ree Antonio RN [address] [place] [address] [email or web address] 07/31/2025 2:00 AM EDT Home [facility] Visit [facility] [address] [place] [address] Daphney nAgeles, PT [address] [place] [address] [email or web address] 08/03/2025 1:00 AM EDT Home [facility] Visit [facility] [address] [place] [address] Ree Antonio RN [address] [place] [address] [email or web address] 08/04/2025 1:30 AM EDT Home Care Visit [facility] [address] [place] [address] Daphney Angeles, PT [address] [place] [address] [email or web address] 08/06/2025 Home Care Visit [facility] [address] [place] [address] Ree Antonio RN [address] [place] [address] [email or web address] 08/07/2025 1:45 AM EDT Home Care Visit [facility] [address] [place] [address] Daphney Angeles, PT [address] [place] [address] [email or web address] 08/10/2025 12:30 AM EDT Home Care Visit [facility] [address] [place] [phone] Ree Antonio RN [address] [place] [address] [email or web address] 08/11/2025 12:45 AM EDT Home Care Visit [facility] [address] [place] [phone] Daphney Angeles, PT [address] [place] [address] [email or web address] 08/13/2025 1:30 AM EDT Home [facility] Visit [facility] [address] [place] [address] Ree Antonio RN [address] [place] [address] [email or web address] 08/14/2025 12:45 AM EDT Home Care Visit [facility] [address] [place] [address] Daphney Angeles, PT [address] [place] [address] [email or web address] 08/17/2025 12:30 AM EDT Home Care Visit [facility] [address] [place] [address] Ree Antonio RN [address] [place] [address] [email or web address] 08/17/2025 1:00 AM EDT Home Care Visit [facility] [address] [place] [address] Daphney Angeles, PT [address] [place] [address] [email or web address] 08/18/2025 11:00 AM EDT Office Visit [facility] [address] [place] [address] 3rd Floor, [address] [place] [address] Parth Tadeo DO [address] [address] 08/18/2025 3:15 PM EDT Office Visit [facility] [address] [address] Mini Rudd MD [address] [place] [address] 08/20/2025 12:30 AM EDT Home Care Visit [facility] [address] [place], [place] [phone] Ree Antonio RN [address] [place] [address] [email or web address] 08/24/2025 12:30 AM EDT Home Care Visit [facility] [address] [place], [place] [phone] Ree Antonio RN [address] [place] [address] [place] [address] [email or web address] 08/25/2025 Home Care Visit [facility] [address] [place] [address] Daphney Angeles, PT [address] [place] [address] [email or web address] 08/27/2025 12:30 AM EDT Home Care Visit [facility] [address] [place] [address] Ree Antonio RN [address] [place] [address] [email or web address] 08/31/2025 Home Care Visit [facility] [address] [place] [address] Ree Antonio RN [address] [place] [address] [email or web address] 09/01/2025 Home Care Visit [facility] [address] [place] [address] Daphney Angeles, PT [address] [place] [address] [email or web address] 09/03/2025 2:00 AM EDT Home Care Visit [facility] [address] [place] [address] Ree Antonio RN [address] [place] [address] [email or web address] 09/07/2025 Home Care Visit [facility] [address] [place] [address] Ree Antonio RN [address] [place] [address] [email or web address] 09/08/2025 Home Care Visit [facility] [address] [place] [address] Daphney Angeles, PT [address] [place] [address] 09/10/2025 Home Care Visit [facility] [address] [place] [address] Ree Antonio, RN [address] [place] [address] [email or web address] documented as of this encounter Visit Diagnoses Not on filedocumented in this encounter Additional Health Concerns Assessment Noted Time PHQ-9 Depression Total Score: 13 022 2:43 PM EDT PHQ-2 Depression Total Score: 2 10/14/20 24 11:18 AM EST documented as of this encounter Care Teams Offal Trimmer Relationship Specialty Start Date End Date Mini Rudd MD [address] [place] [address] [email or web address] PCP - General Family Medicine 06/27/23 Yanick Vivar MD [address] [place] [address] [email or web address] Historical LMR Provider 09/16/17 Parth Bird MD [address] [place] [address] [email or web address] Historical LMR Provider 09/16/17 Rey Fletcher DO [address] [place] [address] Orthopedics & Sports Medicine, [facility] [place] [address] [email or web address] Historical LMR Provider 09/16/17 Amelia Fermin MD [address] [place] [address] Orthopedics & Sports Medicine, [facility] [place] [address] [email or web address] Historical LMR Provider 09/16/17 Mini Rudd MD [address] [place] [address], [address] [place] [address] [email or web address] Insurance Assigned Provider 03/01/24 documented as of this encounter Additional Source Comments The information contained in this document represents components of the legal health record. It is not the complete legal health record.[facility]
--- OUTSIDE RECORDS SUMMARY | 2025-07-22 14:03 | XMS_ITS | Encounter Summary ---
Author Organization [facility] Address [address] [place] [address] Phone Care Team Providers Care Mechanical Commissioning Engineer Name Role Phone Yanick Vivar MD Unavailable Yanick Vivar MD Unavailable Parth Bird MD Unavailable [phone] Rey Fletcher DO Unavailable Amelia Fermin MD Unavailable [phone] Yanick Vivar MD Primary Care Provider Mini Rudd MD Primary Care Provider + Mini Rudd MD Unavailable Encounter Details Date Type Department Care Team (Late st Contact Info) Description 06/03/2022 Procedure Pass [facility], Ct Scan - [facility] [address] [place] [address] Social History Tobacco Use Types Packs/Day Years [...] high school, GED, job training, learning the [place] language, technical skills, or developing parenting skills)? [...] PM EDT documented as of this encounter Functional Status * Calculated C-SSRS Risk Score (Lifetime/Recent) Answer Date of Assessment Author No Risk Indicated 06/03/2022 11:54 AM EDT Pia Boogie RN * [place] Suicide Severity Rating Scale (Screener/Recent Self-Report) Question Answer Date of Assessment Author 1. Wish to be (Past 1 Month) No 022 11:54 AM EDT Pia Oquendo RN 2. Non-Specific Active Suici luanne Thoughts (Past 1 Month) No 06/03/2022 11:54 AM STEFANIT Serg Oquendo RN 6. Suicidal Behavior (Lifetime) No 11:54 AM Pia Moon RN documented as of this encounter Plan of Treatment Upcoming Encounters Date Type Department Care Team (Late st Contact Info) Description 07/23/2025 4:00 AM EDT Home [facility] Visit [facility] [address] [place] [address] Ree Antonio RN [address] [place] [address] [email or web address] 07/27/2025 Home Care Visit [facility] [address] [place] [address] Ree Antonio RN [address] [place] [address] [email or web address] 07/28/2025 Home Care Visit [facility] [address] [place] [address] Daphney Angeles, PT [address] [place] [address] [email or web address] 07/30/2025 Home Care Visit [facility] [address] [place] [phone] Ree Antonio RN [address] [place] [address] [email or web address] 07/31/2025 2:00 AM EDT Home Care Visit [facility] [address] [place] [phone] Daphney Angeles, PT [address] [place] [address] [email or web address] 08/03/2025 1:00 AM EDT Home Care Visit [facility] [address] [place] [address] Ree Antonio RN [address] [place] [address] [email or web address] 08/04/2025 1:30 AM EDT Home Care Visit [facility] [address] [place] [address] Daphney Angeles, PT [address] [place] [address] [email or web address] 08/06/2025 Home Care Visit [facility] [address] [place] [address] Ree Antonio RN [address] [place] [address] [email or web address] 08/07/2025 1:45 AM EDT Home Care Visit [facility] [address] [place] [address] Daphney Angeles, PT [address] [place] [address] [email or web address] 08/10/2025 12:30 AM EDT Home Care Visit [facility] [address] [place] [phone] Ree Antonio RN [address] [place] [address] [email or web address] 08/11/2025 12:45 AM EDT Home Care Visit [facility] [address] [place] [address] Daphney Angeles, PT [address] [place] [address] [email or web address] 08/13/2025 1:30 AM EDT Home Care Visit [facility] [address] [place] [address] Ree Antonio RN [address] [place] [address] [email or web address] 08/14/2025 12:45 AM EDT Home Care Visit [facility] [address] [place] [address] Daphney Angeles, PT [address] [place] [address] [email or web address] 08/17/2025 12:30 AM EDT Home Care Visit [facility] [address] [place] [address] Ree Antonio RN [address] [place] [address] 08/17/2025 1:00 AM EDT Home [facility] Visit [facility] [address] [place] [address] Daphney Angeles, PT [address] [place] [address] 08/18/2025 11:00 AM EDT Office Visit [facility] [address] [facility] 3rd Floor, [address] [place] [address] Parth Tadeo DO 22 [facility] [address] [place] [address] 08/18/2025 3:15 PM EDT Office Visit [facility] [address] [address] Mini Rudd MD [address] [place] [address] 08/20/2025 12:30 AM EDT Home Care Visit [facility] [address] [place], [place] [phone] Ree Anotnio RN [address] [place] [address] 08/24/2025 12:30 AM EDT Home Care Visit [facility] [address] [place], [place] [phone] Ree Antonio RN [address] [place] [address] 08/25/2025 Home Care Visit [facility] [address] [place], [place] [phone] Daphney Angeles, PT [address] [place] [address] [email or web address] 08/27/2025 12:30 AM EDT Home Care Visit [facility] [address] [place] [address] Ree Antonio RN [address] [place] [address] [email or web address] 08/31/2025 Home Care Visit [facility] [address] [place] [address] Ree Antonio RN [address] [place] [address] [email or web address] 09/01/2025 Home Care Visit [facility] [address] [place] [address] Daphney Angeles, PT [address] [place] [address] [email or web address] 09/03/2025 2:00 AM EDT Home Care Visit [facility] [address] [place] [address] Ree Antonio, IVET [address] [place] [address] [email or web address] 09/07/2025 Home Care Visit [facility] [address] [place] [address] Ree Antonio RN [address] [place] [address] [email or web address] 09/08/2025 Home Care Visit [facility] [address] [place] [address] Daphney Angeles, PT [address] [place] [address] 09/10/2025 Home Care Visit [facility] [address] [place] [address] Ree Antonio, IVET [address] [place] [address] [email or web address] documented as of this encounter Visit Diagnoses Not on filedocumented in this encounter Additional Health Concerns Infection Onset Date Last Indicated Resolved Time CoV-Risk Comment:Per Ambulatory Triage Form 04/17/2023 04/17/202304/17 9:56 AM EDT COVID-19 04/17/2023 04/18/2023 05/09/2023 1:51 AM EDT CoV-Risk Comment:Neg covid 11/08/2023 11/08/2023 11/09/2023 6:[address] documented as of this encounter Care Teams Mechanical Commissioning Engineer Relationship Specialty Start Date End Date Yanick Vivar MD [address] [place] [address] [email or web address] PCP - General Family Medicine 12/04/19 06/26/23 Mini Rudd MD [address] [place] [address] [email or web address] PCP - General Family Medicine 06/27/23 Yanick Vivar MD [address] [place] [address] [email or web address] Insurance Assigned Provider 09/01/17 03/01/24 Yanick Vivar MD [address] [place] [address] [email or web address] Historical LMR Provider 09/16/17 Parth Bird MD [address] [place] [address] 7 [place] [address] [email or web address] Historical LMR Provider 09/16/17 Rey Fletcher DO [address] [facility] Orthopedics & Sports [facility], [place], [place] [phone] [email or web address] Historical LMR Provider 09/16/17 Amelia Fermin MD [address] [place] [address] Orthopedics Sports [facility], [place], [place] [phone] Historical LMR Provider 09/16/17 Mini Rudd MD [address] [place] [address] 7 [place] [address] [email or web address] Insurance Assigned Provider 03/01/24 documented as of this encounter Additional Source Comments The information contained in this document represents components of the legal health record. It is not the complete legal health record.[facility]
--- OUTSIDE RECORDS SUMMARY | 2025-07-22 14:03 | XMS_ITS | Encounter Summary ---
Author Organization [facility] Address [address] [place] [address] Phone Care Team Providers Care Gas Mask Inspector Name Role Phone Yanick Vivar MD Unavailable [phone] Parth Bird MD Unavailable Rey Fletcher DO Unavailable Amelia Fermin MD Unavailable Mini Rudd MD Primary Care Provider + Mini Rudd MD Unavailable [phone] Encounter Details Date Type Department Care Team (Late st Contact Info) Description 07/18/2025 Plan of Care Documentation [facility] [address] [place] [phone] Social History Tobacco Use Types Packs/Day Years [...] 4:00 AM EDT Home [facility] Visit [facility] [address] [place] [phone] Ree Antonio RN [address] [place] [address] 07/27/2025 Home Care Visit [facility] [address] [place] [address] Ree Antonio RN [address] [place] [address] 07/28/2025 Home Care Visit [facility] [address] [place] [address] Daphney Angeles, PT [address] [place] [address] 07/30/2025 Home Care Visit [facility] [address] [place] [phone] Ree Antonio RN [address] [place] [address] 07/31/2025 2:00 AM EDT Home Care Visit [facility] [address] [place] [phone] Daphney Angeles, PT [address] [place] [address] 08/03/2025 1:00 AM EDT Home Care Visit [facility] [address] [place] [address] Ree Antonio RN [address] [place] [address] 08/04/2025 1:30 AM EDT Home Care Visit [facility] [address] [place] [address] Daphney Angeles, PT [address] [place] [address] 08/06/2025 Home Care Visit [facility] [address] [place] [address] Ree Antonio RN [address] [place] [address] 08/07/2025 1:45 AM EDT Home Care Visit [facility] [address] [place] [address] Daphney Angeles, PT [address] [place] [address] 08/10/2025 12:30 AM EDT Home Care Visit [facility] [address] [place] [address] Ree Antonio RN [address] [place] [address] 08/11/2025 12:45 AM EDT Home Care Visit [facility] [address] [place] [phone] Daphney Angeles, PT [address] [place] [address] 08/13/2025 1:30 AM EDT Home Care Visit [facility] [address] [place] [address] Ree Antonio RN [address] [place] [address] 08/14/2025 12:45 AM EDT Home Care Visit [facility] [address] [place] [address] Daphney Angeles, PT [address] [place] [address] 08/17/2025 12:30 AM EDT Home Care Visit [facility] [address] [place], [place] [phone] Ree Antonio RN [address] [place] [address] 08/17/2025 1:00 AM EDT Home Care Visit [facility] [address] [place], [place] [phone] Daphney Angeles, PT [address] [place] [address] 08/18/2025 11:00 AM EDT Office Visit [facility] [address] [facility] 3rd Floor, [address] [place] [address] Parth Tadeo DO 22 [facility] [address] [place] [address] 08/18/2025 3:15 PM EDT Office Visit [facility] [address] [address] Mini Rudd MD [address] [place] [address] 08/20/2025 12:30 AM EDT Home Care Visit [facility] [address] [place], [place] [phone] Ree Antonio RN [address] [place] [address] 08/24/2025 12:30 AM EDT Home Care Visit [facility] [address] [place] [address] Ree Antonio RN [address] [place] [address] 08/25/2025 Home Care Visit [facility] [address] [place] [address] Daphney Angeles, PT [address] [place] [address] 08/27/2025 12:30 AM EDT Home Care Visit [facility] [address] [place] [phone] Ree Antonio RN [address] [place] [address] 08/31/2025 Home Care Visit [facility] [address] [place] [phone] Ree Antonio RN [address] [place] [address] 09/01/2025 Home Care Visit [facility] [address] [place] [phone] Daphney Angeles, PT [address] [place] [address] 09/03/2025 2:00 AM EDT Home Care Visit [facility] [address] [place] [phone] Ree Antonio RN [address] [place] [address] 09/07/2025 Home Care Visit [facility] [address] [place] [address] Ree Antonio RN [address] [place] [address] 09/08/2025 Home Care Visit [facility] [address] [place] [address] Daphney Angeles, PT [address] [place] [address] [email or web address] 09/10/2025 Home Care Visit [facility] [address] [place] [phone] Ree Antonio, IVET [address] [place] [address] [email or web address] documented as of this encounter Visit Diagnoses Not on filedocumented in this encounter Additional Health Concerns Assessment Noted Time PHQ-9 Depression Total Score: 13 022 2:43 PM EDT PHQ-2 Depression Total Score: 2 10/14/20 24 11:18 AM EST documented as of this encounter Care Teams Gas Mask Inspector Relationship Specialty Start Date End Date Mini Rudd MD [address] [place] [address] [email or web address] PCP - General Family Medicine 06/27/23 Yanick Vivar MD [address] [place] [address] [email or web address] Historical LMR Provider 09/16/17 Parth Bird MD [address] [place] [address] [email or web address] Historical LMR Provider 09/16/17 Rey Fletcher DO [address] [place] [address] [facility], [place], [place] [phone] [email or web address] Historical LMR Provider 09/16/17 Amelia Fermin MD [address] [place] [address] [facility], [place], [place] [phone] [email or web address] Historical LMR Provider 09/16/17 Mini Rudd MD [address] [place] [address], [facility] [address] [place] [address] [email or web address] Insurance Assigned Provider 03/01/24 documented as of this encounter Additional Source Comments The information contained in this document represents components of the legal health record. It is not the complete legal health record.[facility]
--- OUTSIDE RECORDS SUMMARY | 2025-07-22 14:03 | XMS_ITS | Encounter Summary ---
Author Organization [facility] Address [address] [place] [address] Phone Care Team Providers Care Hands Assembler Name Role Phone Yainck Vivar MD Unavailable [phone] Yanick Vivar MD Unavailable [phone] Parth Bird MD Unavailable [phone] Rey Fletcher DO Unavailable [phone] Amelia Fermin MD Unavailable [phone] Mini Rudd MD Primary Care Provider + Mini Rudd MD Unavailable Encounter Details Date Type Department Care Team (Late st Contact Info) Description 01/01/2024 Procedure Pass [address] [place] [address] Social History Tobacco Use Types Packs/Day Years Used Date Smoking Tobacco: Former Cigarettes 2 20 1 965 - 1985 Smokeless Tobacco: Never Alcohol Use Standard Drinks/Week Comments Yes 0 (1 standard drink = 0.6 oz pur e alcohol) occasional Home Health Assessment: Transportation Answer Date Recorded Lack of Transportation (Medical) No 11/15/2023 Lack of Transportation (Non-Medical) No 11/15/2023 Patient Unable or Declines to Respond No 11/15/2023 Child or Family Care Answer Date Record [...] with a working camera? Not on file Comments Unknown Sex and Gender Information Value [...] Visit [facility] [address] [place], [place] [phone] Ree Antonio RN [address] [place] [address] [email or web address] 07/27/2025 Home Care Visit [facility] [address] [place], [place] [phone] Ree Antonio RN [address] [place] [address] 07/28/2025 Home Care Visit [facility] [address] [place] [address] Daphney Angeles, PT [address] [place] [address] [email or web address] 07/30/2025 Home Care Visit [facility] [address] [place] [address] Ree Antonio RN [address] [place] [address] [email or web address] 07/31/2025 2:00 AM EDT Home Care Visit [facility] [address] [place] [address] Daphney Angeles, PT [address] [place] [address] [email or web address] 08/03/2025 1:00 AM EDT Home Care Visit [facility] [address] [place] [address] Ree Antonio RN [address] [place] [address] [email or web address] 08/04/2025 1:30 AM EDT Home Care Visit [facility] [address] [place] [address] Daphney Angeles, PT [address] [place] [address] [email or web address] 08/06/2025 Home Care Visit [facility] [address] [place] [address] Ree Antonio RN [address] [place] [address] [email or web address] 08/07/2025 1:45 AM EDT Home Care Visit [facility] [address] [place] [address] Daphney Angeles, PT [address] [place] [address] [email or web address] 08/10/2025 12:30 AM EDT Home Care Visit [facility] [address] [place] [address] Ree Antonio RN [address] [place] [address] [email or web address] 08/11/2025 12:45 AM EDT Home Care Visit [facility] [address] [place] [address] Daphney Angeles, PT [address] [place] [address] [email or web address] 08/13/2025 1:30 AM EDT Home Care Visit [facility] [address] [place] [phone] Ree Antonio RN [address] [place] [address] [email or web address] 08/14/2025 12:45 AM EDT Home Care Visit [facility] [address] [place] [phone] Daphney Agneles, PT [address] [place] [address] [email or web address] 08/17/2025 12:30 AM EDT Home Care Visit [facility] [address] [place] [phone] Ree Antonio RN [address] [place] [address] [email or web address] 08/17/2025 1:00 AM EDT Home Care Visit [facility] [address] [place] [address] Daphney Angeles, PT [address] [place] [address] [email or web address] 08/18/2025 11:00 AM EDT Office Visit [facility] [address] [facility] 3rd Floor, [address] [place] [address] Parth Tadeo DO 22 [facility] [address] [place] [address] 08/18/2025 3:15 PM EDT Office Visit [facility] [address] [address] Mini Rudd MD [address] [place] [address] 7 [place] [address] 08/20/2025 12:30 AM EDT Home Care Visit [facility] [address] [place] [address] Ree Antonio RN [address] [place] [address] [email or web address] 08/24/2025 12:30 AM EDT Home Care Visit [facility] [address] [place] [address] Ree Antonio RN [address] [place] [address] [email or web address] 08/25/2025 Home Care Visit [facility] [address] [place] [address] Daphney Angeles, PT [address] [place] [address] 08/27/2025 12:30 AM EDT Home Care Visit [facility] [address] [place] [address] Ree Antonio RN [address] [place] [address] [email or web address] 08/31/2025 Home Care Visit [facility] [address] [place] [phone] Ree Antonio RN [address] [place] [address] [email or web address] 09/01/2025 Home Care Visit [facility] [address] [place] [phone] Daphney Angeles, PT [address] [place] [address] [email or web address] 09/03/2025 2:00 AM EDT Home Care Visit [facility] [address] [place] [phone] Ree Antonio RN [address] [place] [address] [email or web address] 09/07/2025 Home Care Visit [facility] [address] [place] [phone] Ree Antonio RN [address] [place] [address] [email or web address] 09/08/2025 Home Care Visit [facility] [address] [place] [phone] Daphney Angeles, PT [address] [place] [address] [email or web address] 09/10/2025 Home Care Visit [facility] [address] [place] [phone] Ree Antonio RN [address] [place] [address] [email or web address] documented as of this encounter Visit Diagnoses Not on filedocumented in this encounter Additional Health Concerns Assessment Noted Time PHQ-9 Depression Total Score: 13 022 2:43 PM EDT PHQ-2 Depression Total Score: 3 06/06/20 22 2:43 PM EDT documented as of this encounter Care Teams Hands Assembler Relationship Specialty Start Date End Date Mini Rudd MD [address] [place] [address] 7 [place] [address] PCP - General Family Medicine 06/27/23 Yanick Vivar MD [address] [place] [address] 7 [place] [address] Insurance Assigned Provider 09/01/17 03/01/24 Yanick Vivar MD [address] [place] [address] [email or web address] Historical LMR Provider 09/16/17 Parth Bird MD [address] [place] [address] [email or web address] Historical LMR Provider 09/16/17 Rey Fletcher DO [address] [place] [address] Orthopedics & Sports [facility], [place] [address] [email or web address] Historical LMR Provider 09/16/17 Amelia Fermin MD [address] [place] [address] [facility], [place], [place] [phone] Historical LMR Provider 09/16/17 Mini Rudd MD [address] [place] [address], [address] [place] [address] [email or web address] Insurance Assigned Provider 03/01/24 documented as of this encounter Additional Source Comments The information contained in this document represents components of the legal health record. It is not the complete legal health record.[facility]
--- OUTSIDE RECORDS SUMMARY | 2025-07-22 14:03 | XMS_ITS | Encounter Summary ---
Author Organization [facility] Address [address] [facility] [address] [place] [address] Phone Care Team Providers Care Academic Specialist Name Role Phone Yanick Vivar MD Unavailable Yanick Vivar MD Unavailable Leyla Heller SPECIAL EDUCATION RESOURCE ROOM TEACHER Unavailable Braulio Javed DO Unavailable Kiersten Carrizales SPECIAL EDUCATION RESOURCE ROOM TEACHER Unavailable Unavailable DacKiersten lee DO Unavailable Parth Bird MD Unavailable Evelia Hartman SPECIAL EDUCATION RESOURCE ROOM TEACHER Unavailable Karen Miller POLICY ANALYST Unavailable Rey Fletcher DO Unavailable Padmini Carpenter SPECIAL EDUCATION RESOURCE ROOM TEACHER Unavailable Leatha Dey SPECIAL EDUCATION RESOURCE ROOM TEACHER Unavailable Jessa Rutledge MD Unavailable [phone] Susie Swanson PA-C Unavailable Brittany Iyer MD Unavailable [phone] Matt Sanchez MD Unavailable Amelia Fermin MD Unavailable Yanick Vivar MD Primary Care Provider [phone] Sylvia Small RN Unavailable [phone] Yanick Vivar MD Primary Care Provider Makenna Lugo RN Unavailable Mini Rudd MD Primary Care Provider + Mini Rudd MD Unavailable Encounter Details Date Type Department Care Team (Late Contact Info) Description 04/09/2018 Ancillary Orders [facility] Medicine [address] [place] [address] [phone] Amelia Fermin MD [address] [place] [address] Orthopedics & Sports Medicine, [place], [place] [phone] [email or web address] Social History Tobacco Use Types Packs/Day Years Used Date Smoking Tobacco: Former Cigarettes 2 20 1 965 - 1984 Smokeless Tobacco: Never Alcohol Use Standard Drinks/Week Comments Yes 0 (1 standard drink = 0.6 oz pur e alcohol) occasional Comments Unknown Sex and Gender Information Value Date Recorded Sex Assigned at Female 03/12/2018 4:32 PM EDT Legal Sex Female 10:09 PM EDT Gender Identity Female 03/12/2018 4:32 PM EDT Sexual Orientation Straight 03/12/2018 4: 32 PM EDT documented as of this encounter Plan of Treatment Upcoming Encounters Date Type Department Care Team (Late Contact Info) Description 07/23/2025 4:00 AM EDT Home Care Visit [facility] [address] [place] [address] Ree Antonio RN [address] [place] [address] [phone] 07/27/2025 Home Care Visit [facility] [address] [place] [phone] Ree Antonio RN [address] [place] [address] 07/28/2025 Home Care Visit [facility] [address] [place] [address] Daphney Angeles, PT [address] [place] [address] 07/30/2025 Home Care Visit [facility] [address] [place] [address] Ree Antonio RN [address] [place] [address] 07/31/2025 2:00 AM EDT Home Care Visit [facility] [address] [place] [phone] Daphney Angeles, PT [address] [place] [address] 08/03/2025 1:00 AM EDT Home Care Visit [facility] [address] [place] [phone] Ree Antonio RN [address] [place] [address] 08/04/2025 1:30 AM EDT Home Care Visit [facility] [address] [place] [address] Daphney Angeles, PT [address] [place] [address] 08/06/2025 Home Care Visit [facility] [address] [place] [address] Ree Antonio RN [address] [place] [address] 08/07/2025 1:45 AM EDT Home Care Visit [facility] [address] [place] [address] Daphney Angeles, PT [address] [place] [address] 08/10/2025 12:30 AM EDT Home Care Visit [facility] [address] [place] [address] Ree Antonio RN [address] [place] [address] 08/11/2025 12:45 AM EDT Home Care Visit [facility] [address] [place] [address] Daphney Angeles, PT [address] [place] [address] 08/13/2025 1:30 AM EDT Home Care Visit [facility] [address] [place] [phone] Ree Antonio RN [address] [place] [address] 08/14/2025 12:45 AM EDT Home Care Visit [facility] [address] [place] [address] Daphney Angeles, PT [address] [place] [address] 08/17/2025 12:30 AM EDT Home Care Visit [facility] [address] [place] [address] Ree Antonio RN [address] [place] [address] 08/17/2025 1:00 AM EDT Home Care Visit [facility] [address] [place] [address] Daphney Angeles, PT [address] [place] [address] 08/18/2025 11:00 AM EDT Office Visit [facility] [address] [facility] 3rd Floor, [address] [place] [address] Parth Tadeo DO [address] [facility] [address] [place] [address] 08/18/2025 3:15 PM EDT Office Visit [facility] [address] [address] Mini Rudd MD [address] [place] [address] 08/20/2025 12:30 AM EDT Home Care Visit [facility] [address] [place] [address] Ree Antonio RN [address] [place] [address] 08/24/2025 12:30 AM EDT Home Care Visit [facility] [address] [place], [place] [phone] Ree Antonio RN [address] [place] [address] 08/25/2025 Home Care Visit [facility] [address] [place] [address] Daphney Angeles, PT [address] [place] [address] 08/27/2025 12:30 AM EDT Home Care Visit [facility] [address] [place] [address] Ree Antonio RN [address] [place] [address] 08/31/2025 Home Care Visit [facility] [address] [place] [address] Ree Atnonio RN [address] [place] [address] 09/01/2025 Home Care Visit [facility] [address] [place] [address] Daphney Angeles, PT [address] [place] [address] 09/03/2025 2:00 AM EDT Home Care Visit [facility] [address] [place] [phone] Ree Antonio RN [address] [place] [address] 09/07/2025 Home Care Visit [facility] [address] [place] [phone] Ree Antonio RN [address] [place] [address] 09/08/2025 Home Care Visit [facility] [address] [place] [address] Daphney Angeles, PT [address] [place] [address] 09/10/2025 Home Care Visit [facility] [address] [place] [address] Ree Antonio RN [address] [place] [address] [email or web address] documented as of this encounter Visit Diagnoses Not on filedocumented in this encounter Additional Health Concerns Infection Onset Date Last Indicated Resolved Time CoV-Risk 07/22/2020 07/22/2020 08/05/2020 1:24 AM EDT CoV-Risk Comment:Per Ambulatory Triage Form 04/17/2023 04/17/202304/17 9:56 AM EDT COVID-19 04/17/2023 04/18/2023 05/09/2023 1:51 AM EDT CoV-Risk Comment:Neg covid 11/08/2023 11/08/2023 11/09/2023 6:[address] documented as of this encounter Care Teams Academic Specialist Relationship Specialty Start Date End Date Yanick Vivar MD [address] [place] [address] 7 [place] [address] [email or web address] PCP - General Family Medicine 10/09/17 12/03/19 Yanick Vivar MD [address] [place] [address] 7 [place] [address] [email or web address] PCP - General Family Medicine 12/04/19 06/26/23 Mini Rudd MD [address] [place] [address] 7 [place] [address] [email or web address] PCP - General Family Medicine 06/27/23 Yanick Vivar MD [address] [place] [address] 7 [place] [address] [email or web address] Insurance Assigned Provider 09/01/17 03/01/24 Yanick Vivar MD [address] [place] [address] 7 [place] [address] [email or web address] Historical LMR Provider 09/16/17 Leyla Heller NP [address] [place] [address] Historical LMR Provider 09/16/17 2 Braulio Javed DO [address] [place] [address] 7 [place] [address] [email or web address] Historical LMR Provider 09/16/17 12/03/21 Kiersten Carrizales SPECIAL EDUCATION RESOURCE ROOM TEACHER [address] [place] [address] Historical LMR Provider 09/16/1712/03 Kiersten Lee DO [address] [place] [address] 7 [place] [address] [email or web address] Historical LMR Provider 09/16/17 12/03/21 Parth Bird MD [address] [place] [address] 7 [place] [address] [email or web address] Historical LMR Provider 09/16/17 Evelia Hartman NP [address] [place] [address] Historical LMR Provider 09/16/17 2 Karen Miller, YANELY [address] [address] [email or web address] Historical LMR Provider 09/16/17 12/03/21 Rey Fletcher DO [address] [place] [address] Orthopedics & Sports Medicine, [facility] [place] [address] [email or web address] Historical LMR Provider 09/16/17 Padmini Carpenter NP [address] [place] [address] Historical LMR Provider 09/16/17 Leatha Dey, SAMI [address] [place] [address] Historical LMR Provider 09/16/17 2 Jessa Rutledge MD [address] [place] [address], [address] [place] [address] [email or web address] Historical LMR Provider 09/16/17 12/03/21 Susie Swanson PA-C [address] [place] [address] Orth[facility] Sports Medicine, [place] [address] [email or web address] Historical LMR Provider 09/16/17 12/03/21 Brittany Iyer MD [address], [place] [address] Historical LMR Provider 09/16/17 2 Matt Sanchez MD [address] [place] [address] Historical LMR Provider 09/16/17 2 Amelia Fermin MD [address] [place] [address] [facility] [place], [place] [address] [email or web address] Historical LMR Provider 09/16/17 Sylvia Small, IVET [address] [place] [address] [email or web address] Plastic Eye Technician 02/12/18 06/27/18 Makenna Lugo RN [address] [place] [address] [email or web address] Eye Technician 05/11/20 06/24/20 Mini Rudd MD [address] [place] [address], [facility] 7 [place] [address] [email or web address] Insurance Assigned Provider 03/01/24 documented as of this encounter Additional Source Comments The information contained in this document represents components of the legal health record. It is not the complete legal health record.[facility]
--- OUTSIDE RECORDS SUMMARY | 2025-07-22 14:03 | XMS_ITS | Encounter Summary ---
Author Organization [facility] Address [address] [facility] [address] [place] [address] Phone Care Team Providers Care Product Manufacturing Professional Name Role Phone Yanick Vivar MD Unavailable Yanick Vivar MD Unavailable Leyla Heller SUPERVISOR DIALS Unavailable Braulio Javed DO Unavailable Kiersten Carrizales SUPERVISOR DIALS Unavailable Unavailable DacKiersten lee DO Unavailable Parth Bird MD Unavailable Evelia Hartman SUPERVISOR DIALS Unavailable Karen Miller EXCHANGE ARCHITECT Unavailable Rey Fletcher DO Unavailable Padmini Carpenter SUPERVISOR DIALS Unavailable Leatha Dey SUPERVISOR DIALS Unavailable Jessa Rutledge MD Unavailable [phone] Susie Swanson PA-C Unavailable Brittany Iyer MD Unavailable [phone] Matt Sanchez MD Unavailable Amelia Fermin MD Unavailable Yanick Vivar MD Primary Care Provider Sylvia Small RN Unavailable [phone] Yanick Vivar MD Primary Care Provider Makenna Lugo RN Unavailable [phone] Mini Rudd MD Primary Care Provider + Mini Rudd MD Unavailable [phone] Encounter Details Date Type Department Care Team (Late Contact Info) Description 04/09/2018 Ancillary Orders [address] [phone] Amelia Fermin MD [address] [place] [address] Orthopedics & Sports Medicine, [place], [place] [phone] [email or web address] Right hip pain Social History Tobacco Use Types Packs/Day Years [...] Visit [facility] [address] [place] [phone] Ree Antonio RN [address] [place] [address] [phone] 07/27/2025 Home Care Visit [facility] [address] [place] [phone] Ree Antonio RN [address] [place] [address] [email or web address] 07/28/2025 Home Care Visit [facility] [address] [place] [phone] Daphney Angeles, PT [address] [place] [address] [email or web address] 07/30/2025 Home Care Visit [facility] [address] [place] [address] Ree Antonio RN [address] [place] [address] [email or web address] 07/31/2025 2:00 AM EDT Home Care Visit [facility] [address] [place] [phone] Daphney Angeles, PT [address] [place] [address] [email or web address] 08/03/2025 1:00 AM EDT Home Care Visit [facility] [address] [place] [phone] Ree Antonio RN [address] [place] [address] [email or web address] 08/04/2025 1:30 AM EDT Home Care Visit [facility] [address] [place] [address] Daphney Angeles, PT [address] [place] [address] [email or web address] 08/06/2025 Home Care Visit [facility] [address] [place] [address] Ree Antonio RN [address] [place] [address] [email or web address] 08/07/2025 1:45 AM EDT Home Care Visit [facility] [address] [place] [address] Daphney Angeles, PT [address] [place] [address] [email or web address] 08/10/2025 12:30 AM EDT Home Care Visit [facility] [address] [place] [address] Ree Antonio RN [address] [place] [address] [email or web address] 08/11/2025 12:45 AM EDT Home Care Visit [facility] [address] [place] [address] Daphney Angeles, PT [address] [place] [address] [email or web address] 08/13/2025 1:30 AM EDT Home Care Visit [facility] [address] [place] [phone] Ree Antonio RN [address] [place] [address] [email or web address] 08/14/2025 12:45 AM EDT Home Care Visit [facility] [address] [place] [phone] Daphney Angeles, PT [address] [place] [address] [email or web address] 08/17/2025 12:30 AM EDT Home Care Visit [facility] [address] [place] [address] Ree Antonio RN [address] [place] [address] [email or web address] 08/17/2025 1:00 AM EDT Home Care Visit [facility] [address] [place] [address] Daphney Angeles, PT [address] [place] [address] 08/18/2025 11:00 AM EDT Office Visit [facility] [address] [facility] 3rd Floor, [address] [place] [address] Parth Tadeo DO 22 [facility] [address] [place] [address] 08/18/2025 3:15 PM EDT Office Visit [facility] [address] [address] Mini Rudd MD [address] [place] [address] 08/20/2025 12:30 AM EDT Home Care Visit [facility] [address] [place] [address] Ree Antonio RN [address] [place] [address] 08/24/2025 12:30 AM EDT Home Care Visit [facility] [address] [place], [place] [phone] Ree Antonio RN [address] [place] [address] 08/25/2025 Home Care Visit [facility] [address] [place] [address] Daphney Angeles, PT [address] [place] [address] 08/27/2025 12:30 AM EDT Home Care Visit [facility] [address] [place] [address] Ree Antonio RN [address] [place] [address] [email or web address] 08/31/2025 Home Care Visit [facility] [address] [place] [address] Ree Antonio RN [address] [place] [address] [email or web address] 09/01/2025 Home Care Visit [facility] [address] [place] [phone] Daphney Angeles, PT [address] [place] [address] [email or web address] 09/03/2025 2:00 AM EDT Home Care Visit [facility] [address] [place] [phone] Ree Antonio RN [address] [place] [address] [email or web address] 09/07/2025 Home Care Visit [facility] [address] [place] [phone] Ree Antonio RN [address] [place] [address] [email or web address] 09/08/2025 Home Care Visit [facility] [address] [place] [address] Daphney Angeles, PT [address] [place] [address] [email or web address] 09/10/2025 Home Care Visit [facility] [address] [place] [address] Ree Antonio RN [address] [place] [address] [email or web address] [email or web address] Results Name Type Priority Associated Diagnoses Date /Time FL Guidance Needle Placement Non-Spine Imaging Routine Right hip pain 04/09/2018 2:54 PM EDT Scheduled Orders Name Type Priority Associated Diagnoses Orde r Schedule FL Guidance Needle Placement Non-Spine Imaging Routine Right hip pain Expected: 04/09/2018, Expires: 04/09/2019 documented as of this encounter Visit Diagnoses Diagnosis Right hip pain Pain in joint, pelvic region and thigh documented in this encounter Additional Health Concerns Infection Onset Date Last Indicated Resolved Time CoV-Risk 07/22/2020 07/22/2020 08/05/2020 1:24 AM EDT CoV-Risk Comment:Per Ambulatory Triage Form 04/17/2023 04/17/202304/17 9:56 AM EDT COVID-19 04/17/2023 04/18/2023 05/09/2023 1:51 AM EDT CoV-Risk Comment:Neg covid 11/08/2023 11/08/2023 11/09/2023 6:[address] documented as of this encounter Care Teams Product Manufacturing Professional Relationship Specialty Start Date End Date Yanick Vivar MD [address] [place] [address] 7 [place] [address] [email or web address] PCP - General Family Medicine 10/09/17 12/03/19 Yanick Vivar MD [address] [place] [address] 7 [place] [address] [email or web address] PCP - General Family Medicine 12/04/19 06/26/23 Mini Rudd MD [address] [place] [address] 7 [place] [address] [email or web address] PCP - General Family Medicine 06/27/23 Yanick Vivar MD [address] [place] [address] 7 [place] [address] [email or web address] Insurance Assigned Provider 09/01/17 03/01/24 Yanick Vivar MD [address] [place] [address] 7 [place] [address] [email or web address] Historical LMR Provider 09/16/17 Leyla Heller SUPERVISOR DIALS [address] [place] [address] Historical LMR Provider 09/16/17 2 Braulio Javed DO [address] [place] [address] [email or web address] Historical LMR Provider 09/16/17 12/03/21 Kiersten Carrizales NP [address] [place] [address] Historical LMR Provider 09/16/1712/03 Kiersten Lee DO [address] [place] [address] [email or web address] Historical LMR Provider 09/16/17 12/03/21 Parth Bird MD [address] [place] [address] 7 [place] [address] [email or web address] Historical LMR Provider 09/16/17 Evelia Hartman, SAMI [address] [place] [address] Historical LMR Provider 09/16/17 2 Karen Miller, YANELY [address] [address] Historical LMR Provider 09/16/17 12/03/21 Rey Fletcher DO [address] [place] [address] [facility] [place] [address] Historical LMR Provider 09/16/17 Padmini Carpenter, SAMI 22 [place] [address] Historical LMR Provider 09/16/17 Leatha Dey, SAMI [address] [place] [address] Historical LMR Provider 09/16/17 2 Jessa Rutledge MD [address] [address] Historical LMR Provider 09/16/17 12/03/21 Susie Swanson PA-C [address] [place] [address] [facility] [address] Historical LMR Provider 09/16/17 12/03/21 Brittany Iyer MD [address] [place] [address] Historical LMR Provider 09/16/17 2 Matt Sanchez MD [address] [place] [phone] Historical LMR Provider 09/16/17 2 Amelia Fermin MD [address] [place] [address] Orth[facility], [place] [address] Historical LMR Provider 09/16/17 Sylvia Small RN [address] [place] [address] [email or web address] Clinical Laboratory Technologist 02/12/18 06/27/18 Makenna Lugo RN [address] [place] [address] [email or web address] [place] Clinical Laboratory Technologist 05/11/20 06/24/20 Mini Rudd MD [address] [place] [address], [address] [place] [address] Insurance Assigned Provider 03/01/24 documented as of this encounter Additional Source Comments The information contained in this document represents components of the legal health record. It is not the complete legal health record.[facility]
--- OUTSIDE RECORDS SUMMARY | 2025-07-22 14:04 | XMS_ITS | Encounter Summary ---
Author Organization [facility] Address [address] [facility] [address] [place] [address] Phone Care Team Providers Care Continuous Still Operator Name Role Phone Yanick Vivar MD Unavailable Yanick Vivar MD Unavailable Leyla Heller SUPERINTENDENT COMPRESSOR STATIONS Unavailable Braulio Javde DO Unavailable Kiersten Carrizales SUPERINTENDENT COMPRESSOR STATIONS Unavailable Unavailable DacKiersten lee DO Unavailable Parth Bird MD Unavailable Evelia Hartman SUPERINTENDENT COMPRESSOR STATIONS Unavailable Karen Miller DISHCLOTH FOLDER Unavailable Rey Fletcher DO Unavailable Padmini Carpenter SUPERINTENDENT COMPRESSOR STATIONS Unavailable Leatha Dey SUPERINTENDENT COMPRESSOR STATIONS Unavailable Jessa Rutledge MD Unavailable [phone] Susie Swanson PA-C Unavailable Brittany Iyer MD Unavailable [phone] Matt Sanchez MD Unavailable Amelia Fermin MD Unavailable Yanick Vivar MD Primary Care Provider [phone] Mini Rudd MD Primary Care Provider + Mini Rudd MD Unavailable [phone] Encounter Details Date Type Department Care Team (Late Contact Info) Description 10/04/2021 Procedure Pass Echo [facility] [address] [place] [address] Social History Tobacco Use Types Packs/Day Years [...] high school, GED, job training, learning the [place] Leonean language, technical skills, or developing parenting skills)? [...] Visit [facility] [address] [place] [address] Ree Antonio RN [address] [place] [address] 07/27/2025 Home Care Visit [facility] [address] [place] [address] Ree Antonio RN [address] [place] [address] 07/28/2025 Home Care Visit [facility] [address] [place] [address] Daphney Angeles, PT [address] [place] [address] 07/30/2025 Home Care Visit [facility] [address] [place] [phone] Ree Antonio RN [address] [place] [address] 07/31/2025 2:00 AM EDT Home Care Visit [facility] [address] [place] [phone] Daphney Angeles, PT [address] [place] [address] 08/03/2025 1:00 AM EDT Home Care Visit [facility] [address] [place] [phone] Ree Antonio RN [address] [place] [address] 08/04/2025 1:30 AM EDT Home Care Visit [facility] [address] [place] [address] Daphney Angeles, PT [address] [place] [address] 08/06/2025 Home Care Visit [facility] [address] [place] [phone] Ree Antonio RN [address] [place] [address] 08/07/2025 1:45 AM EDT Home Care Visit [facility] [address] [place] [phone] Daphney Angeles, PT [address] [place] [address] 08/10/2025 12:30 AM EDT Home Care Visit [facility] [address] [place] [phone] Ree Antonio RN [address] [place] [address] 08/11/2025 12:45 AM EDT Home Care Visit [facility] [address] [place] [phone] Daphney Angeles, PT [address] [place] [address] 08/13/2025 1:30 AM EDT Home Care Visit [facility] [address] [place] [phone] Ree Antonio, IVET [address] [place] [address] 08/14/2025 12:45 AM EDT Home Care Visit [facility] [address] [place] [phone] Daphney Angeles, PT [address] [place] [address] 08/17/2025 12:30 AM EDT Home Care Visit [facility] [address] [place] [address] Ree Antonio RN [address] [place] [address] 08/17/2025 1:00 AM EDT Home Care Visit [facility] [address] [place] [address] Daphney Angeles, PT [address] [place] [address] 08/18/2025 11:00 AM EDT Office Visit [facility] [address] [place] [address] 3rd Floor, [address] [place] [address] Parth Tadeo DO [address] [place] [address] 08/18/2025 3:15 PM EDT Office Visit [facility] [address] [address] Mini Rudd MD [address] [place] [address] 08/20/2025 12:30 AM EDT Home Care Visit [facility] [address] [place] [address] Ree Antonio RN [address] [place] [address] 08/24/2025 12:30 AM EDT Home Care Visit [facility] [address] [place] [address] Ree Antonio RN [address] [place] [address] 08/25/2025 Home Care Visit [facility] [address] [place] [address] Daphney Angeles, PT [address] [place] [address] 08/27/2025 12:30 AM EDT Home Care Visit [facility] [address] [place] [address] Ree Antonio RN [address] [place] [address] 08/31/2025 Home Care Visit [facility] [address] [place] [address] Ree Antonio RN [address] [place] [address] 09/01/2025 Home Care Visit [facility] [address] [place] [address] Daphney Angeles, PT [address] [place] [address] 09/03/2025 2:00 AM EDT Home Care Visit [facility] [address] [place] [address] Ree Antonio RN [address] [place] [address] 09/07/2025 Home Care Visit [facility] [address] [place] [address] Ree Antonio RN [address] [place] [address] 09/08/2025 Home Care Visit [facility] [address] [place], [place] [phone] Daphney Angeles, PT [address] [place] [address] [email or web address] 09/10/2025 Home Care Visit [facility] [address] [place], [place] [phone] Ree Antonio, RN [address] [place] [address] [email or web address] documented as of this encounter Visit Diagnoses Not on filedocumented in this encounter Additional Health Concerns Infection Onset Date Last Indicated Resolved Time CoV-Risk Comment:Per Ambulatory Triage Form 04/17/2023 04/17/202304/17 9:56 AM EDT COVID-19 04/17/2023 04/18/2023 05/09/2023 1:51 AM EDT CoV-Risk Comment:Neg covid 11/08/2023 11/08/2023 11/09/2023 6:[address] documented as of this encounter Care Teams Continuous Still Operator Relationship Specialty Start Date End Date Yanick Vivar MD [address] [place] [address] [email or web address] PCP - General Family Medicine 12/04/19 06/26/23 Mini Rudd MD [address] [place] [address] [email or web address] PCP - General Family Medicine 06/27/23 Yanick Vivar MD [address] [place] [address] [place] [address] [email or web address] Insurance Assigned Provider 09/01/17 03/01/24 Yanick Vivar MD [address] [place], [place] [address] [address] [email or web address] Historical LMR Provider 09/16/17 Leyla Heller SUPERINTENDENT COMPRESSOR STATIONS [address] [place] [address] Historical LMR Provider 09/16/17 2 Braulio Javed DO [address] [place] [address] [address] [place] [address] [email or web address] Historical LMR Provider 09/16/17 12/03/21 Kiersten Carrizales NP [address] [place] [address] Historical LMR Provider 09/16/1712/03 Kiersten Lee DO [address] [place] [address] [email or web address] Historical LMR Provider 09/16/17 12/03/21 Parth Bird MD [address] [place] [address] 7 [place] [address] [email or web address] Historical LMR Provider 09/16/17 Evelia Hartman NP [address] [place] [address] Historical LMR Provider 09/16/17 2 Karen Miller, YANELY [address] [place] [address] Historical LMR Provider 09/16/17 12/03/21 Rey Fletcher DO [address] [place] [address] [facility] [place] [address] [email or web address] Historical LMR Provider 09/16/17 Padmini Carpenter, SAMI [address] [place] [address] Historical LMR Provider 09/16/17 Leatha Dey, SAMI [address] [place] [address] Historical LMR Provider 09/16/17 2 Jessa Rutledge MD [address] [place] [address], [address] [place] [address] [email or web address] Historical LMR Provider 09/16/17 12/03/21 Susie Swanson PA-C [address] [place] [address] [facility], [place] [address] [email or web address] Historical LMR Provider 09/16/17 12/03/21 Brittany Iyer MD [address], [place] [address] Historical LMR Provider 09/16/17 2 Matt Sanchez MD [address] [place] [phone] Historical LMR Provider 09/16/17 2 Amelia Fermin MD [address] [place] [address] [facility] [place] [address] [email or web address] Historical LMR Provider 09/16/17 Mini Rudd MD [address] [place] [address] 7 [place] [address] [email or web address] Insurance Assigned Provider 03/01/24 documented as of this encounter Additional Source Comments The information contained in this document represents components of the legal health record. It is not the complete legal health record.[facility]
--- OUTSIDE RECORDS SUMMARY | 2025-07-22 14:04 | XMS_ITS | Encounter Summary ---
Author Organization [facility] Address [address] [place] [address] Phone Care Team Providers Care Hr Director Name Role Phone Yanick Vivar MD Unavailable [phone] Yanick Vivar MD Unavailable Parth Bird MD Unavailable [phone] Rey Fletcher DO Unavailable Amelia Fermin MD Unavailable [phone] Yanick Vivar MD Primary Care Provider Mini Rudd MD Primary Care Provider + Mini Rudd MD Unavailable Encounter Details Date Type Department Care Team (Late st Contact Info) Description 01/03/2022 Procedure Pass [address] [place] [address] Social History Tobacco Use Types Packs/Day Years [...] high school, GED, job training, learning the Georgian language, technical skills, or developing parenting skills)? [...] Care Visit [facility] [address] [place] [address] Ree Antonio RN [address] [place] [address] 07/27/2025 Home Care Visit [facility] [address] [place], [place] [phone] Ree Antonio RN [address] [place] [address] 07/28/2025 Home Care Visit [facility] [address] [place] [address] Daphney Angeles, PT [address] [place] [address] 07/30/2025 Home Care Visit [facility] [address] [place] [address] Ree Antonio RN [address] [place] [address] 07/31/2025 2:00 AM EDT Home Care Visit [facility] [address] [place] [address] Daphney Angeles, PT [address] [place] [address] 08/03/2025 1:00 AM EDT Home Care Visit [facility] [address] [place] [address] Ree Antonio RN [address] [place] [address] 08/04/2025 1:30 AM EDT Home Care Visit [facility] [address] [place] [phone] Daphney Angeles, PT [address] [place] [address] 08/06/2025 Home Care Visit [facility] [address] [place] [phone] Ree Antonio RN [address] [place] [address] 08/07/2025 1:45 AM EDT Home Care Visit [facility] [address] [place] [address] Daphney Angeles, PT [address] [place] [address] 08/10/2025 12:30 AM EDT Home Care Visit [facility] [address] [place] [address] Ree Antonio RN [address] [place] [address] 08/11/2025 12:45 AM EDT Home Care Visit [facility] [address] [place] [address] Daphney Angeles, PT [address] [place] [address] 08/13/2025 1:30 AM EDT Home Care Visit [facility] [address] [place] [phone] Ree Antonio RN [address] [place] [address] 08/14/2025 12:45 AM EDT Home Care Visit [facility] [address] [place] [address] Daphney Angeles, PT [address] [place] [address] 08/17/2025 12:30 AM EDT Home Care Visit [facility] [address] [place] [phone] Ree Antonio RN [address] [place] [address] 08/17/2025 1:00 AM EDT Home Care Visit [facility] [address] [place] [address] Daphney Angeles, PT [address] [place] [address] 08/18/2025 11:00 AM EDT Office Visit [facility] [address] [facility] 3rd Floor, [address] [place] [address] Parth Tadeo, DO [address] [facility] [address] [place] [address] 08/18/2025 3:15 PM EDT Office Visit [facility] [employer] [address] [place] [address] Mini Rudd MD [address] [place] [address] [address] [place] [address] 08/20/2025 12:30 AM EDT Home Care Visit [facility] [address] [place] [phone] Ree Antonio RN [address] [place] [address] 08/24/2025 12:30 AM EDT Home Care Visit [facility] [address] [place] [address] Ree Antonio RN [address] [place] [address] 08/25/2025 Home Care Visit [facility] [address] [place] [address] Daphney Angeles, PT [address] [place] [address] 08/27/2025 12:30 AM EDT Home Care Visit [facility] [address] [place] [address] Ree Antonio RN [address] [place] [address] 08/31/2025 Home Care Visit [facility] [address] [place] [address] Ree Antonio RN [address] [place] [address] 09/01/2025 Home Care Visit [facility] [address] [place] [phone] Daphney Angeles, PT [address] [place] [address] 09/03/2025 2:00 AM EDT Home Care Visit [facility] [address] [place] [phone] Ree Antonio RN [address] [place] [address] 09/07/2025 Home Care Visit [facility] [address] [place] [phone] Ree Antonio RN [address] [place] [address] 09/08/2025 Home Care Visit [facility] [address] [place] [phone] Daphney Angeles, PT [address] [place] [address] 09/10/2025 Home Care Visit [facility] [address] [place] [phone] Ree Antonio RN [address] [place] [address] documented as of this encounter Visit Diagnoses Not on filedocumented in this encounter Additional Health Concerns Infection Onset Date Last Indicated Resolved Time CoV-Risk Comment:Per Ambulatory Triage Form 04/17/2023 04/17/202304/17 9:56 AM EDT COVID-19 04/17/2023 04/18/2023 05/09/2023 1:51 AM EDT CoV-Risk Comment:Neg covid 11/08/2023 11/08/2023 11/09/2023 6:[address] documented as of this encounter Care Teams Hr Director Relationship Specialty Start Date End Date Yanick Vivar MD [address] [place] [address] 7 [place] [address] PCP - General Family Medicine 12/04/19 06/26/23 Mini Rudd MD [address] [place] [address] 7 [place] [address] [email or web address] PCP - General Family Medicine 06/27/23 Yanick Vivar MD [address] [place] [address] [address] [place] [address] [email or web address] Insurance Assigned Provider 09/01/17 03/01/24 Yanick Vivar MD [address] [place] [address] [place] [address] [email or web address] Historical LMR Provider 09/16/17 Parth Bird MD [address] [place] [address] [place] [address] [email or web address] Historical LMR Provider 09/16/17 Rey Fletcher DO [address] [place] [address] [facility], [place] [address] [email or web address] Historical LMR Provider 09/16/17 Amelia Fermin MD [address] [place] [address] [facility], [place] [address] [email or web address] Historical LMR Provider 09/16/17 Mini Rudd MD [address] [place] [address] [address] [place] [address] [email or web address] Insurance Assigned Provider 03/01/24 documented as of this encounter Additional Source Comments The information contained in this document represents components of the legal health record. It is not the complete legal health record.[facility]
--- OUTSIDE RECORDS SUMMARY | 2025-07-22 14:04 | XMS_ITS | Clinical Summary ---
Author Organization [facility] Address [address] [facility] [address] [place] [id number] Phone Care Team Providers Care Streetcar Starter Name Role Phone Yanick Vivar MD Unavailable Parth Bird MD Unavailable Rey Fletcher DO Unavailable Amelia Fermin MD Unavailable [phone] Mini Rudd MD Primary Care Provider + Mini Rudd MD Unavailable Allergies Active Allergy Reactions Criticality Noted Date Comments Bee Pollen 10/30/2020 Levofloxacin In D5w Other (See Comments) 2016 IV site reaction Morphine Unknown 11/21/2017 Medications sacubitriL-valsar gonzalez (ENTRESTO) 97-103 mg per tablet Take 1 tablet by mouth 2 (two) times a day. 180 tablet 3 024 Active aspirin 81 MG EC tablet Take 1 tablet (81 mg total) by mouth daily. 024 Active FARXIGA 10 mg tablet take one tablet by mouth every day 90 tablet 1 024 Active ONETOUCH DELICA LANCETS 30 gauge MiscIndications:T ype 2 diabetes mellitus with diabetic mononeuropathy, without long-term current use of insulin [The details of the medication are not available because there are pending changes by a home health clinician.] 100 each 3 Active Additional Information Patient not taking.Reported on 06/27/2025 ONETOUCH ULTRA TEST Strp stripsIndications :Type 2 diabetes mellitus with diabetic mononeuropathy, without long-term current use of insulin TEST BLOOD SUGAR 2 TIMES DAILY 100 strip 2 Active ONETOUCH ULTRA2 METER Misc meterIndications: Type 2 diabetes mellitus with diabetic polyneuropathy, without long-term current use of insulin Test blood sugar daily. 1 each Active atorvastatin (LIPITOR) 80 MG tabletIndications :Stented coronary artery,Mixed hyperlipidemia TAKE ONE TABLET BY MOUTH EVERY DAY 90 tablet 3 Active digoxin (LANOXIN) 125 mcg tablet TAKE ONE TABLET BY MOUTH EVERY DAY 90 tablet 3 Active sertraline (ZOLOFT) 25 MG tabletIndications :Reactive depression TAKE ONE TABLET BY MOUTH EVERY DAY 90 tablet 3 Active metoprolol tartrate (LOPRESSOR) 50 MG tabletIndications :Persistent atrial fibrillation Take 3 tablets (150 mg total) by mouth 2 (two) times a day. 540 tablet 3 025 2025 Active clotrimazole-beta methasone (LOTRISONE) cream Active metFORMIN (GLUCOPHAGE) 500 MG tablet Take 500 mg by mouth 2 (two) times a day with meals. Take 4 tablets by mouth once daily Active senna (SENOKOT) 8.6 mg tabletIndications :Drug-induced constipation Take 1 tablet by mouth 2 (two) times a day as needed for constipation. 60 tablet 1 Active menthol-zinc oxide (CALMOSEPTINE) 0.44-20.6 % OintIndications:P ressure ulcer of sacral region, stage 2 Apply topically 3 (three) times a day as needed (pressure ulcer). 100 g 3 Active metFORMIN (GLUCOPHAGE-XR) 500 MG 24 hr tablet Take 4 tablets (2,000 mg total) by mouth daily. Resume am 9/5 024 2024 Discontinued spironolactone (ALDACTONE) 25 MG tablet Take 1 tablet (25 mg total) by mouth daily. 90 tablet 3 2024 Discontinued(N o longer taking) metFORMIN (GLUCOPHAGE-XR) 500 MG 24 hr tabletIndications :type 2 diabetes mellitus Take 500 mg by mouth daily with breakfast. 4 tab daily (2000 mg ) Indications: type 2 diabetes mellitus 2024 Discontinued(D uplicate order) oxyCODONE 5 MG immediate release tablet Take 5 mg by mouth 2 (two) times a day as needed for pain (specific location in comments). 025 2024 Discontinued(N o longer taking) Active Problems Problem Noted Date Diagnosed Date Nail overgrowth 05/22/2025 Assessment & Plan (05/22/2025 2:47 PM EDT): Patricia's left greater toe is long and is looking to have this cut down today. I offered to do this and she was in agreement. I trimmed the left great toenail down to the base without any complications or bleeding. She was appreciative. Follow-up as needed. She understands and agrees. Open wound of left great toe 05/22/2025 Assessment & Plan (05/22/2025 2:46 PM EDT): Patricia has an open wound to the left great toe-this happened a week ago. She went to the ER for this. The area does not look infected. I gave guidance regarding wound care-this was bandaged today in the office. I informed her to call if there are any other issues or concerns. She understands and agrees. Rash 05/22/2025 Assessment & Plan (05/22/2025 2:47 PM EDT): Patricia has a rash under the breast-I refilled her cream-to be applied as directed. She was appreciative. Confusion 04/28/2025 Assessment & Plan (04/28/2025 12:33 PM EDT): Patricia presents with her friend. I diagnosed her with an infection under the breast. She is having more confusion more recently thus I will also ordered a urinalysis to rule out a UTI. I will update her with the results. She will call with any other issues or concerns. She understands and agrees. Fungal rash of trunk 04/28/2025 Assessment & Plan (04/28/2025 12:33 PM EDT): I diagnosed Patricia with a fungal infection under the breast bilaterally and I wrote for Lotrisone cream as well as nystatin powder-to be used as directed. I informed her to come back in a week if this is not getting better-earlier if needed. She understands and agrees. Infected wound 12/01/2024 Assessment & Plan (12/01/2024 3:50 PM EST): Improving infection of the left fourth toe-I refilled mupirocin topical-to be used as directed. I decided against a p.o. antibiotic as the topical seems to be working well. I sent a referral to [facility] for further guidance. I informed her to call if there are any other issues or concerns. She will follow-up with her PCP later this month. She understands and agrees. Mild cognitive impairment with memory loss 10/14 Assessment & Plan (05/16/2025 1:15 AM EDT): At baseline [facility] Family helpful CHF (congestive heart failure) 07/28/2024 Assessment & Plan (05/16/2025 1:15 AM EDT): Stable on entresto and spironolactone, euvolemic today Assessment & Plan (05/14/2025 3:30 PM EDT): Ejection fraction recovered on last echocardiogram and 55-60%. Currently denying any symptoms concerning for CHF and euvolemic on exam. She is not on diuretics GDMT: Continue Farxiga 10 mg daily Continue metoprolol 150 mg twice daily Continue Entresto 97-103 twice daily Continue Aldactone 25 mg daily She is to continue weighing herself daily and call us for 3 pound weight gain in a day or 5 pound gain in a week Assessment & Plan (02/19/2025 4:35 PM EDT): Ejection fraction notably recovered on last echocardiogram which was done in November now 55-60%. Currently warm/euvolemic on exam, not on diuretic therapy GDMT: Continue Farxiga 10 mg daily Continue metoprolol 150 mg twice daily Continue Entresto 97-103 twice daily Continue Aldactone 25 mg daily She is to continue weighing herself daily and call us for 3 pound weight gain in a day or 5 pound gain in a week Assessment & Plan (12/02/2024 2:58 PM EST): She has HFrEF Last echocardiogram 05/28/2024 with LVEF 30-40%, no significant valvular abnormality. Having increasing dyspnea on exertion but no other symptoms concerning for CHF. She is warm/euvolemic on exam Diuretic: Currently not using loop diuretics, weight is stable at home GDMT: Tells me her Farxiga was stopped when she was at [facility], unclear why, will attempt to retrieve records. Start Aldactone 25 mg daily Continue metoprolol 150 mg twice daily (next visit switch this to succinate 300 mg daily) Continue Entresto 97-103 twice daily Repeat BMP in 4 weeks She is already scheduled for a follow-up echocardiogram later this month. Assessment & Plan (07/29/2024 11:50 AM EDT): Echo 05/2024: atrial fibrillation.EF 30-40% globally reduced. Normal RV size and function. -Patient is euvolemic again overnight - Follows with Dr. Tadeo - Continue home Farxiga, Entresto, BB, Statin, Digoxin Acute diastolic congestive heart failure 023 Assessment & Plan (01/11/2024 12:25 PM EST): She has significant LV dysfunction by echo done in October EKG done today shows atrial fibrillation with poor rate control at 120 bpm. Assessment & Plan (11/08/2023 3:47 PM EST): X-ray chest shows bilateral pleural effusions, opacities mild vascular engorgement, concern for volume overload plus or minus infection although no specific symptoms of fever. We will diuresis, consult cardiology and monitor for infection Most recent EF was normal Patient denies any dietary indiscretions or missed medications, does not follow regularly with a fisheries management biologist. Sees her PCP on a regular basis. Edema of both lower legs 05/18/2023 Chronic left shoulder pain 01/29/2023 Assessment & Plan (01/29/2023 11:02 AM EST): Patricia has left shoulder pain-ongoing for over 6 months now. She is gone to physical therapy without much improvement. She would like another steroid injection and she would like to see the orthopedic doctor that saw her last-I put the referral in today. She was appreciative. Symptomatic management given. She will call if things get worse. Falling episodes 05/12/2022 Assessment & Plan (07/25/2022 9:16 AM EDT): She is strongly encouraged to refrain from using alcohol or narcotics. If she does fall again where she does not remember we can consider placing an ILR to see if there are any arrhythmias that would be contributing to this. Chronic kidney disease, stage 3a 03/09/2022 Assessment & Plan (05/16/2025 1:15 AM EDT): Labs today for stability Assessment & Plan (12/17/2024 2:46 AM EST): Labs due, ordered at previous visit, will have draw Vitamin D deficiency 02/14/2022 Carpal tunnel syndrome of left wrist 11/04/2020 Reactive depression 01/01/2020 Atrial fibrillation 03/12/2018 Assessment & Plan (05/14/2025 3:30 PM EDT): Rate controlled atrial fibrillation on EKG today at 82 bpm S/p watchman 10/01/2024 Continue aspirin 81 mg daily Continue digoxin 125 mcg daily Continue metoprolol 150 mg twice daily Assessment & Plan (02/19/2025 4:34 PM EDT): Rate controlled atrial fibrillation on EKG today. S/p Watchman on 10/01/2024. She just had a follow-up with Dr. Campos she tells me, reportedly she was told that she will be continuing both aspirin and Plavix until March of this year. Recommended she follow-up with the instructions regarding DAPT as given by Dr. Campos at last appointment For now continuing aspirin/Plavix as directed by Dr. Campos Continue digoxin 125 mcg daily Continue metoprolol tartrate 150 mg twice daily Assessment & Plan (12/02/2024 2:53 PM EST): No symptoms from this Heart rate regular on exam today S/p watchman 10/01/2024 She has had a follow-up CTA done her Watchman device, she should keep her follow-up appointment with Dr. Campos in [place] Will continue DAPT with aspirin/Plavix for now, Plavix can be stopped per Dr. Campos's discretion following review of CTA. Assessment & Plan (07/30/2024 8:16 AM EDT): Okay to restart Eliquis a.m. 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 I am going to increase metoprolol to 150 twice a day and then get a 7-day MCOT monitor in a month I will follow-up with her thereafter. After her heart rate is very well-controlled then we will repeat an echo Assessment & Plan (06/26/2023 10:07 AM EDT): She has asymptomatic atrial fibrillation on Eliquis for oral anticoagulation with no bleeding issues. Assessment & Plan (01/29/2023 11:01 AM EST): Patricia has a history of A-fib and I refilled her Eliquis today-to be taken as directed. She is taking her medication as directed. Assessment & Plan (11/29/2022 9:49 AM EST): She has PAF on Eliquis 5 twice a day. Assessment & Plan (07/25/2022 9:15 AM EDT): 06/26/2022 Holter monitor showed predominant rhythm was atrial fibrillation with occasional aberrant conduction. Minimum heart rate 35 bpm, average heart 74 bpm, maximum heart rate 201 bpm with 100% atrial fibrillation burden. There is also nonsustained monomorphic ventricular tachycardia up to 9 beats to heart rate of 115 bpm. There were no significant pauses. She is rate controlled here int he office on diltiazem 360mg daily, and anticoagulated on eliquis 5mg BID, she will need on her current dosing of medication. Assessment & Plan (06/16/2022 12:58 PM EDT): EKG in office today shows atrial fibrillation with a rate of 111 bpm. Will increase diltiazem to 360 mg daily. She will continue Eliquis. Her recent episode of syncope sounds concerning to be related to arrhythmia. I have ordered a 7 day MCT to assess her atrial fibrillation rates/burden as well as to investigate for any other arrhythmia. Assessment & Plan (05/11/2022 10:22 AM EDT): I checked her pulse myself today given the low heart rate when she first came in and noted a heart rate of 64. She is well rate controlled on metoprolol and diltiazem and as she had an ECG last visit that showed heart rate in 90s. We will continue on Eliquis as well given that she has an elevated [id number] and is only had 1 mechanical fall and no issues with bleeding. Assessment & Plan (11/07/2021 1:14 PM EST): Rate well controlled on EKG today. Continue diltiazem and Eliquis. Assessment & Plan (10/04/2021 12:10 PM EST): EKG confirms AF RVR today. Again, patient reports compliance specifically with her Eliquis but is unsure of any of the doses of her medications. I intend to uptitrate diltiazem if possible, though I need further information about her current doses. Assessment & Plan (06/17/2018 6:37 PM EDT): - She is found to be in sinus rhythm today. - She will continue on metoprolol, and anticoagulation with Eliquis. She is aware that her atrial fibrillation may return, and she is to remain on these medications. - She will follow up in the office with Dr. Bird in 6 months, sooner PRN. She is aware of red flags to report and to call with questions or concerns. Atrial fibrillation with rapid ventricular respo nse 03/12/2018 Assessment & Plan (05/16/2025 1:15 AM EDT): Rate controlled, no longer requiring anticoagulation Digoxin and metoprolol controlling rate Assessment & Plan (11/21/2024 4:06 PM EST): Patricia had the watchman procedure done. Assessment & Plan (11/08/2023 3:47 PM EST): Patient presents today with A-fib RVR, known A-fib on diltiazem and metoprolol. Denies missed medications. She has had palpitations for 3 days and this morning felt short of breath and dizzy. Has felt sick recently with fatigue and weakness. No specific symptoms of chest pain nausea vomiting or diarrhea. No fever. In the ER was found to have pleural effusions and mild vascular engorgement on the chest x-ray, opacities were seen. She was given 2 boluses of diltiazem. We will continue beta-imelda and place her on a drip if needed. Heart rate is currently 75, she has no fever in the ED or any hypotension, no hypoxia. 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 Continue chronic anticoagulation. Assessment & Plan (03/13/2018 3:30 PM EDT): 72 year old female with an extensive cardiac history including CAD, [place] in 2008 with stent to her LAD, and HTN who was seen in PCP office and found to have rapid irregular heart rate. In the ED a EKG was performed which showed AFib with rate of 167 and some lateral depression. The patient was given a dose of IV Dilt 20mg without resolution of her symptoms and there fore was started on Dilt Drip. She is being admitted to [facility] for new onset afib with RVR. The patient did note that she had been feeling a little more fatigued over the last several weeks. Both her and her mother are admitted to [facility] and she has been spending a lot of time an energy caring for her who is dying. She did have an abnormal feeling in her chest a few days ago which prompted her to take nitro. Her PCP appointment was a regular scheduled appointment. The patient denies chest pain, and chest pressure. Trops are flat -Tropes equivocal -Echo demonstrating ejection fraction is 65% with no significant valvular disease -Cardizem drip has been discontinued, will start 30 every 6 now with Cardizem and transitioned to 120 daily on 419 if tolerated -Continue aspirin -Continue beta imelda and taurus -Start Eliquis Midline low back pain without sciatica 8 Right hip pain 12/10/2017 Assessment & Plan (01/29/2023 11:01 AM EST): Patricia presents for ongoing and worsening right hip pain. She has not had an x- ray done recently thus I ordered this today and I will update her with results. I put a referral into orthopedics for consult at her request. Also gave guidance regarding symptomatic management. She will call if things get worse or if there are any other issues or concerns. She understands and agrees. Right shoulder pain 12/10/2017 Stented coronary artery 12/10/2017 Overview (01/08/2018): RCA stent 2007, LAD stent 2013 Assessment & Plan (11/29/2022 9:48 AM EST): This patient had PCI in 2007 to the right coronary artery and an LAD stent put in in 2013 rendering her symptom-free echo done a year ago shows normal LV function with no significant valvular heart disease. Anxiety 11/21/2017 Assessment & Plan (03/12/2018 1:51 PM EDT): Continue Ativan PRN Coronary artery disease invo lving [place] coronary artery of m[place] heart without angina pectoris 11/21/2017 Assessment & Plan (05/16/2025 1:15 AM EDT): Cont statin Assessment & Plan (05/14/2025 3:29 PM EDT): Currently denies any symptoms concerning for angina Had a normal nuclear stress test 02/12/2025 which did not show any fixed or reversible defect EKG today showing rate controlled atrial fibrillation 82 bpm, normal axis, RBBB Continue aspirin 81 mg daily Continue atorvastatin 80 mg daily for LDL goal less than 70 Lab Results Component Value Date CHOL 156 04/08/2025 HDL 59 04/08/2025 LDL 69 04/08/2025 TRIG 142 04/08/2025 CHOLHDL 2.6 (L) 04/08/2025 Assessment & Plan (02/19/2025 4:32 PM EDT): Currently denying any symptoms concerning for angina Just had a stress test on 02/12/2025 which was normal and did not show any fixed or reversible defect Continuing on aspirin indefinitely, currently on Plavix until March s/p Watchman Continue atorvastatin 80 mg daily, LDL goal less than 70 when last checked was at 77. Repeat lipid profile prior to next visit, if still above goal could add Zetia Assessment & Plan (12/17/2024 2:46 AM EST): Following with cardiology Assessment & Plan (12/02/2024 2:51 PM EST): Multiple rounds of stenting in the past. Last stent on November 12, 2023 she had a PCI to the distal RCA, residual minimal disease in the circumflex and mild- moderate disease in the LAD. She is having increasing dyspnea on exertion for the past few weeks. She tells of that dyspnea with her prior anginal equivalent. Will get a nuclear stress test. She is already scheduled for repeat echocardiogram in a couple weeks She is currently on DAPT with aspirin/Plavix following her Watchman procedure which will be continued She should continue atorvastatin 80 mg daily Will update her lipid profile Follow-up here in the office after stress test is complete. Assessment & Plan (07/30/2024 8:16 AM EDT): CAD w LAD stent placed November 2023, fisheries management biologist discontinued her Plavix Assessment & Plan (06/18/2024 12:32 PM EDT): Asymptomatic at this time. Assessment & Plan (04/02/2024 10:20 AM EDT): CAD: This was well treated with PCI she is on Plavix and Eliquis once she takes Plavix for a minimum of a year we will probably swap out the Plavix for aspirin. Assessment & Plan (01/11/2024 12:24 PM EST): No recurrent chest pain after two-vessel PCI done in the remote past Assessment & Plan (11/08/2023 3:11 PM EST): History of drug-eluting stent to the RCA 2007 Will continue beta-imelda, anticoagulation as above, cardiology consult Assessment & Plan (06/26/2023 10:06 AM EDT): This lady had PCI to the left anterior descending over a decade ago without any recurrences Assessment & Plan (07/25/2022 9:16 AM EDT): He continues to be asymptomatic at this time. She denies chest pain however she has had a couple of falls with her latest fall where she did not remember falling. 06/26/2022 pharmacological nuclear stress test is an abnormal study that showed a small in size intensity fixed apical defect. No significant ischemia seen. Compared to the study from 2018, no change. She will continue on her current medication regimen without change. She will continue to optimize her cardiac risk factors. She is strongly encouraged follow her healthy diet including low sodium and to continue exercising. Assessment & Plan (06/16/2022 12:56 PM EDT): She tells me that she is experiencing progressive, limiting exertional dyspnea. No chest pain. Likely this is related to AF RVR, however, she cannot tell me what her symptoms were prior to her PCI in 2007 and 2013. She has not had a stress test since 2018- we will repeat a pharmacological nuclear stress test. She tells me that she cannot walk on a treadmill (falls very frequently). She should not hold any of her medications prior to the test due to atrial fibrillation with RVR. Assessment & Plan (05/11/2022 10:22 AM EDT): She has a history of coronary disease and had a PCI to her RCA in 2007 and LAD in 2013. She denies any chest pain. We will continue metoprolol and diltiazem as well as atorvastatin Assessment & Plan (06/17/2018 6:45 PM EDT): - Most recent stress test shows small but moderate in intensity fixed apical defect consistent with small apical scar, but no evidence of significant ischemia. These results were relayed to her. She has history of stenting. - She will continue on aspirin, statin, antihypertensives. Goal LDL < 70. Most recent LDL in February 2018 slightly above goal. She also has gained weight since her 's , and she is eating foods that are not necessarily very healthy. She is encouraged to work on exercise and weight loss and dietary changes. She is very motivated for this. - Repeat blood pressure in office today was well-controlled. - She will follow-up in the office in 6 months, sooner as needed. GERD (gastroesophageal reflux disease) 7 Gout 11/21/2017 Metabolic syndrome 11/21/2017 Non morbid obesity 11/21/2017 Assessment & Plan (11/29/2022 9:49 AM EST): She knows well to try and lose weight with diet and exercise Assessment & Plan (02/25/2018 9:53 AM EDT): Patricia has gained weight over the past 3 months since our last visit, we discussed the effects of weight gain on insulin sensitivity and blood sugar control She may benefit from modest weight loss due to SGLT-2 inhibitor therapy Assessment & Plan (11/22/2017 9:20 PM EST): Recent weight loss of 10lb in the past 2 weeks, BMI is now under 30 Advised a return to attention to better eating and consistent activity to help optimize weight A move to a more ideal weight will help improve insulin sensitivity Type 2 diabetes mellitus wit h diabetic mononeuropathy, without long-term current use of insulin 11/21/2017 Overview (12/10/2017): DIABETES HISTORY Diagnosis - type 2 diabetes, dx mid 1990s, was having vision changes and had positive FH Treatment history - on Metformin, on Levemir since 2007 for about 3-4 years then stopped due to lows Assessment & Plan (07/30/2024 8:16 AM EDT): Resume outpatient regimen Assessment & Plan (06/18/2024 12:33 PM EDT): A1c should be less than 7 and LDL less than 70 mg/dL. Assessment & Plan (11/08/2023 3:12 PM EST): Hold oral medications while inpatient, low-dose basal insulin along with sliding scale. Check A1c Assessment & Plan (06/26/2023 10:07 AM EDT): A1c and lipids need to be checked which I have ordered for her I will see her in 6 months Assessment & Plan (06/17/2018 6:48 PM EDT): - Has had elevated blood sugars - cortisone shot in hip for osteoarthritis, and overeating not healthy foods due to stress of her 's passing - Diet and exercise discussed. She is motivated to work on this. She will have follow up with her PCP office as usual. - Goal LDL < 70 due to hx DM and CAD Assessment & Plan (03/12/2018 1:52 PM EDT): Stopped Metformin Plan - POCs - Insulin Sliding scale Assessment & Plan (02/25/2018 10:28 AM EDT): We discussed continued Metformin therapy with add-on SGLT-2 inhibitor which would likely help with not only improving blood sugars control but also with weight loss and optimizing blood pressure, Jardiance in particular is also recommended therapy in patient's with established CAD Patricia will start a trial of Jardiance 10mg once daily in the morning, we discussed common side effects associated with this medication class Patricia is advised to hydrate well and to omit the medication if she is fasting for any reason or her po intake is lower due to illness Advised to call with any questions or concerns Assessment & Plan (11/22/2017 9:25 PM EST): Blood glucose data not available but report sounds reassuring though there has been a decrease in attention to self management due to recent stressors We did not change Marifer's current medication regimen, she is encouraged to monitor blood sugars and try to return to improved lifestyle habits Advised to call us if she notes any concerning changes to her blood sugar patterns, we will then consider additional medications to add to Metformin therapy 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 She is about as physically active as she can tolerate for her age. Not overly motivated to make dietary changes. Will increase Lipitor and recheck lipid panel in 6 months. Assessment & Plan (10/04/2021 12:10 PM EST): On Lipitor 40 mg daily, she reports that her PCP follows her cholesterol panel yearly. Reviewed heart healthy dietary choices. Assessment & Plan (03/13/2018 3:27 PM EDT): Pravastatin Assessment & Plan (02/25/2018 9:55 AM EDT): Continues on statin therapy Overdue for lipid panel Essential hypertension 11/08/2017 Assessment & Plan (05/14/2025 3:28 PM EDT): Blood pressure well-controlled on current medications which will be continued without change Assessment & Plan (02/19/2025 4:29 PM EDT): Blood pressure well-controlled on current medications will be continued without change Assessment & Plan (12/02/2024 2:49 PM EST): Well-controlled. Adding Aldactone as below for heart failure GDMT, no other changes to antihypertensives. Assessment & Plan (06/18/2024 12:32 PM EDT): Well-controlled but her blood pressure gives me more room to increase her Entresto to the maximum dose. Assessment & Plan (04/02/2024 10:20 AM EDT): A bit too high for me in the setting of severe LV dysfunction I increased Entresto we will repeat labs in a month I will see her in 2 months time Assessment & Plan (06/26/2023 10:06 AM EDT): Per her report well-controlled Assessment & Plan (01/29/2023 11:01 AM EST): Marifer Lo has hypertension and she is taking the above medication as directed without any side effects. her blood pressure is within normal limits and stable. she will follow up as directed. Assessment & Plan (11/29/2022 9:49 AM EST): Well-controlled also she is in need of repeat labs like an A1c and a lipid panel Assessment & Plan (11/07/2021 1:12 PM EST): BP well controlled today in office. She has had no side effects with increased dosing of diltiazem. Continue without change. Assessment & Plan (10/04/2021 12:09 PM EST): BP 130/72 today in office. Patient does not check blood pressure at home and is unsure of doses of any of her medications. Assessment & Plan (06/17/2018 6:42 PM EDT): - Blood pressure controlled in office today upon recheck. She'll continue her current antihypertensive regimen. - She is also encouraged to work on diet and lifestyle modifications. She is motivated to do this. Most recent renal function was within range. - She will follow-up with her PCP office, and in this office in 6 months. Assessment & Plan (03/13/2018 3:26 PM EDT): Lisinopril and Metorpolol Assessment & Plan (02/25/2018 9:52 AM EDT): Blood pressure is well controlled on current regimen which includes ACEI Taking SGLT-2 inhibitor is likely to further optimize this Resolved Problems Problem Noted Date Diagnosed Date Resolved Date Rash 04/28/2025 05/16/2025 Assessment & Plan (05/16/2025 1:15 AM EDT): OK RF lotrisone to wrap up breast rash, no further use after completing Orders: clotrimazole-betamethasone (LOTRISONE) cream; Apply topically 2 (two) times a day for 14 days. Assessment & Plan (04/28/2025 12:33 PM EDT): Patricia presents for rash-please see plan fungal rash for further detail. Cellulitis of chest wall 04/28/2025 Assessment & Plan (04/28/2025 12:34 PM EDT): I diagnosed Patricia with a cellulitis under the breasts bilaterally. I treated her with Keflex-to be taken as directed. I reviewed her most recent renal function which was done in November. I advised her to follow-up in a week if this is not getting better-earlier if this is getting worse. She understands and agrees. Chronic anticoagulation 08/08/202404/27 Hematoma of right hip 07/28/20242024 Assessment & Plan (07/30/2024 8:15 AM EDT): Pt presented with R hip pain and swelling after a mechanical fall, remembers slipping on her bathroom carpet which she is hoping to replace now. On Plavix and Eliquis. Ext warm and well perfused positive pulses, abd, thigh, calf soft non-tender. Pt with no pain at rest, pain to right hip with movement/palpation. XR: No displaced fracture or dislocation. Soft tissue stranding/swelling along the lateral right hip. Hemoglobin controlled, very little pain, neurovascularly intact - Pt with significant LE neuropathy may have contributed to fall she has outpatient follow up planned with a specialist Fall, initial encounter 07/28/202412/2023 Closed nondisplaced fracture of distal phalanx of left great toe 03/13/2024 05/16/2025 Assessment & Plan (03/13/2024 11:48 AM EDT): Patricia is a fracture of the left great toe-nondisplaced. I reviewed the x-ray that was done through the media tab as this was external. She has an appointment with Ortho in the near future. Guidance given regarding symptomatic management for now. She denies any pain at rest in the big toe. Open wound of left foot 03/13/202404/27 Assessment & Plan (12/01/2024 3:51 PM EST): Patricia presents for an open wound of the left lateral fourth toe-this is improving-there is no erythema and the pain is decreased. The swelling is also decreased but there is still an open wound there measuring about 4 mm in diameter. I put a referral into [facility] wound [facility] for a consult. I refilled her mupirocin ointment-to be used as directed I also gave her guidance to continue with Epson salts. I decided against treating with p.o. antibiotic as this does not seem indicated at this time but may need this in the near future. She is a diabetic and we discussed this. I informed her to call if there are signs of a worsening infection. She will see her PCP later this month. She will call if there are any other issues or concerns. She understands and agrees. Assessment & Plan (11/21/2024 4:11 PM EST): There is an open wound of the left toe-lateral aspect. The infection is improving advised her to continue with the antibiotics that she is on to completion. I advised her that she can soak the left foot in Epsom salts as well. I ordered an x-ray of the left fourth toe to rule out osteomyelitis. I reviewed her most recent wound culture. I informed her to follow-up with her PCP next week. She will call if there are any other issues or concerns if this gets worse. She understands and agrees. Assessment & Plan (03/13/2024 11:48 AM EDT): Patricia presents for a diabetic wound of the left great toe. I started her on doxycycline to treat for the infection and I also put a referral into wound care at [facility] for a consult. She will follow-up with her PCP next month and I informed her to call if this is getting worse to follow-up earlier. I advised her to undergo warm Epsom salt soaks and undergo daily bandage changes. I informed her to call if there are any other issues or concerns. 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 Heart rate is well-controlled at this time EF is now 30 to 40% where it was 25%. I am going to increase Entresto to the max dose repeat labs in a few weeks and then see her in 2 to 3 months time. Leukocytosis 03/12/2018 03/14/2018 Assessment & Plan (03/12/2018 2:30 PM EDT): The patient has WCC of 14.36. She just completed tapering dose of Prednisone which she was taking for hip pain recently. Her CXR is WNL. Afebrile. Plan: - UA - CBC - Continue to monitor Encounters Date Type Department Care Team Description 07/22/2025 1:30 PM EDT [facility] [address] [place] [phone] Daphney Angeles, PT PT HOME VISIT 07/21/2025 1:45 PM EDT Office Visit [address] [address] Mini Rudd MD Hospital discharge follow-up (Primary Dx); Spinal stenosis of lumbosacral region; Pressure ulcer of sacral region, stage 2; Type 2 diabetes mellitus with diabetic polyneuropathy, without long-term current use of insulin; Drug-induced constipation 07/21/[address] [address] Muniar Escudero RN [facility] 07/20/2025 2:00 PM EDT [facility] [address] [place] [phone] Daphney Angeles, PT PT EVALUATION 07/18/2025 12:00 PM EDT Home [facility] Visit [facility] [address] [place] [phone] Ree Antonio, IVET SN OASIS START OF CARE (SOC) 07/18/2025 Plan of Care Documentation [facility] [address] [place] [phone] 07/17/2025 Home Care Visit [facility] [address] [place] [phone] Jeannie Cast, IVET CASE COMMUNICATION 07/16/2025 Home Care Visit [facility] [address] [place] [phone] Jeannie Cast, RN TELEPHONE ENCOUNTER 07/09/[address] [address] Mini Rudd MD TCM Visit (07/21) 07/09/2025 Orders Only [facility] [address] [place] [phone] Homehealth, Interface MD Manpreet 07/02/2025 Orders Only [address] [address] ProviderKitty MD 07/02/[address] [address] Mini Rudd MD 06/27/2025 10:30 AM EDT Office Visit [facility] [address] [place] [address] Felisha Young NP Visit for wound check (Primary Dx) 06/27/2025 Telephone [facility] [address] [place] [address] Kimberly Ochoa PA-C medical question (After hours solution engineer) 06/26/[address] [address] Mini Rudd MD 06/26/[address] [address] Mini Rudd MD Forms & Paperwork (OV notes 06/10 + EKG/labs from 04/2025) 06/12/2025 1:00 PM EDT Office Visit [facility] [address] [place] [address] [address]rd Floor, [address] [place] [address] Deidra Ravi MD Persistent atrial fibrillation (Primary Dx); Presence of Watchman left atrial appendage closure device 06/10/2025 3:15 PM EDT Office Visit [address] [address] Mini Rudd MD Open wound of left great toe, subsequent encounter (Primary Dx); Spinal stenosis of lumbar region with neurogenic claudication; Hypotension, unspecified hypotension type; Type 2 diabetes mellitus with diabetic polyneuropathy, without long-term current use of insulin 05/22/2025 2:15 PM EDT Office Visit [facility] [address] [place] [address] Braulio Javed, Open wound of left great toe, subsequent encounter (Primary Dx); Nail overgrowth; Rash 05/19/2025 Telephone [facility] [address], [address] [place] [address] Parth Tadeo DO 05/19/2025 Telephone [facility] [address] [place] [address] Joy Velazquez office visit notes 05/18/2025 Telephone [facility] [address] [place] [address] Joy Velazquez Triage (Yellow + wound care + toe ) 05/15/2025 3:21 PM EDT - 05/15/2025 7:24 PM EDT Emergency [facility] [address] [place] [address] Discharge Disposition: Home or Self Care 05/15/2025 11:00 AM EDT Office Visit [facility] [address] [place] [address] Mini Rudd MD Pre-op evaluation (Primary Dx); Spinal stenosis of lumbar region with neurogenic claudication; Cellulitis of left toe; Injury of toe on left foot, initial encounter; Type 2 diabetes mellitus with diabetic polyneuropathy, without long-term current use of insulin; Paroxysmal atrial fibrillation; Coronary artery disease involving mary's igloo coronary artery of mary's igloo heart without angina pectoris; Chronic congestive heart failure, unspecified heart failure type; Mild cognitive impairment with memory loss; Chronic kidney disease, stage 3a; Rash 05/14/2025 3:00 PM EDT Office Visit [facility] [address], [address] [place] [address] Annie Navas CNP Essential hypertension (Primary Dx); Coronary artery disease involving mary's igloo coronary artery of mary's igloo heart without angina pectoris; Paroxysmal atrial fibrillation; Chronic congestive heart failure, unspecified heart failure type 05/13/2025 1:00 PM EDT [facility] Visit [facility] [address] [place] [address] Subha Carrero PA-C Abrasion of toe of left foot, initial encounter (Primary Dx) 05/13/2025 Telephone [facility] [address] [place] [address] Mini Rudd MD Triage (Big toe Injury ) 05/11/2025 Nurse Triage [address] [place] [address] Mini Rudd MD Triage (RED Cut her big toe this morning, has not stopped bleeding.) 05/07/[address] [address] Mini Rudd MD Med review 04/30/2025 9:13 AM EDT - 04/30/2025 11:59 PM EDT Hospital Encounter [facility] [address] [place] [address] Braulio Javed, Discharge Disposition: Home or Self Care 04/29/2025 Refill [facility] [address], [address] [place] [address] Annie Navsa CNP Medication Refill 04/29/2025 Refill [facility] [address], [address] [place] [address] Annie Navas CNP Medication Refill 04/28/2025 12:00 PM EDT Office Visit [facility] [address] [place] [address] Braulio Javed DO Rash (Primary Dx); Cellulitis of chest wall; Fungal rash of trunk; Confusion 04/27/2025 Telephone [facility] [address] [place] [address] Mini Rudd MD Triage (Rash ) 04/23/2025 [facility] [address], [address] [place] [address] Annie Tolbert, YANELY 04/22/2025 Telephone [facility] [address] [place] [address] Mini Rudd MD Pre-op Visit ([facility] + 7/2 + Back Surgery ) from Last 3 Months Immunizations Immunization Administration Dates Next Due COVID-19 (Pre-09/17) Moderna Vaccine, mRNA, PF 01/27/2021,12/30/2020 INFLUENZA, SPLIT VIRUS, TRIVALENT PF 08/08/2024 Influenza High-Dose Quadriva lent Preservative Free IM 10/28/2023,10/17/2022,08/16/2021,10/15 Influenza High-Dose Trivalen t Preservative Free IM 08/15/2019,09/19/2018,09/18/2017 Influenza, Unspecified Formulation 08/26/2019 Pneumococcal conjugate PCV13 06/23/2016 Pneumococcal polysaccharide PPSV23 09/18/2017 Tdap 06/03/2022 Family History Medical History Relation Comments Cancer Father Diabetes Maternal Aunt Diabetes Maternal Uncle No Known Problems Son 1 No Known Problems Son 2 No Known Problems Son 3 Relation Status Comments Father pancreati cancer Maternal Aunt Maternal Uncle Son 1 Son 2 Son 3 Social History Tobacco Use Types Packs/Day Years Used Date Smoking Tobacco: Former Cigarettes 2 20 1 965 - 1985 Smokeless Tobacco: Never Tobacco Cessation:Counseling Given: Not [...] Orientation Straight 03/12/2018 4: 32 PM EDT Last Filed Vital Signs Vital Sign Reading Time Taken Comments Blood Pressure 110/68 07/21/2025 1:38 PM EDT Pulse 68 07/21/2025 1:38 PM EDT Temperature 35.9 C (96.7 F) 07/21/2025 1:38 PM EDT Respiratory Rate 16 07/20/2025 2:25 PM EDT Oxygen Saturation 97% 07/21/2025 1:38 PM EDT Inhaled Oxygen Concentration - - Weight 66.7 kg (147 lb) 07/21/2025 1:38 PM EDT Height 167.6 cm (5' 5.98 ) 07/21/2025 1:38 PM ED T Body Mass Index 23.74 07/21/2025 1:38 PM EDT Plan of Treatment Upcoming Encounters Date Type Department Care Team (Late st Contact Info) Description 07/23/2025 4:00 AM EDT [facility] [address] [place] [phone] Ree Antonio RN [address] [place] [address] [email or web address] 07/27/[email or web address] Home Care Visit [facility] [address] [place] [phone] Ree Antonio RN [address] [place] [address] [email or web address] 07/28/[email or web address] Home Care Visit [facility] [address] [place] [phone] Daphney Angeles, PT [address] [place] [address] [email or web address] 07/30/2025 Home Care Visit [facility] [address] [place] [phone] Ree Antonio RN [address] [place] [address] [email or web address] 07/31/2025 2:00 AM EDT Home Care Visit [facility] [address] [place] [phone] Dahpney Angeles, PT [address] [place] [address] [email or web address] 08/03/2025 1:00 AM EDT Home Care Visit [facility] [address] [place] [phone] Ree Antonio RN [address] [place] [address] [email or web address] 08/04/2025 1:30 AM EDT Home [facility] Visit [facility] [address] [place] [phone] Daphney Angeles, PT [address] [place] [address] [email or web address] 08/06/2025 Home Care Visit [facility] [address] [place] [phone] Ree Antonio RN [address] [place] [address] [email or web address] 08/07/2025 1:45 AM EDT Home Care Visit [facility] [address] [place] [phone] Daphney Angeles, PT [address] [place] [address] [email or web address] 08/10/2025 12:30 AM EDT Home [facility] Visit [facility] [address] [place] [phone] Ree Antonio RN [address] [place] [address] [email or web address] 08/11/2025 12:45 AM EDT Home Care Visit [facility] [address] [place] [phone] Daphney Angeles, PT [address] [place] [address] [email or web address] 08/13/2025 1:30 AM EDT Home Care Visit [facility] [address] [place] [phone] Ree Antonio RN [address] [place] [address] [email or web address] 08/14/2025 12:45 AM EDT [facility] [address] [place] [phone] Daphney Angeles, PT [address] [place] [address] [email or web address] 08/17/2025 12:30 AM EDT Home [facility] Visit [facility] [address] [place] [phone] Ree Antonio RN [address] [place] [address] 08/17/2025 1:00 AM EDT [facility] [address] [place] [phone] Daphney Angeles, PT [address] [place] [address] [email or web address] 08/18/2025 11:00 AM EDT Office Visit [facility] [address] [place] [address] [address] Floor, [address] [place] [address] Parth Tadeo DO [facility] [address] [place] [address] 08/18/2025 3:15 PM EDT Office Visit [facility] [address] [place] [phone] Mini Rudd MD [address] [place] [address] [address] [place] [address] 08/20/2025 12:30 AM EDT Home [facility] Visit [facility] [address] [place] [phone] Ree Antonio RN [address] [place] [address] 08/24/2025 12:30 AM EDT Home Care Visit [facility] [address] [place] [phone] Ree Antonio RN [address] [place] [address] [email or web address] 08/25/2025 Home Care Visit [facility] [address] [place] [phone] Daphney Angeles, PT [address] [place] [address] [email or web address] 08/27/2025 12:30 AM EDT Home [facility] Visit [facility] [address] [place] [phone] Ree Antonio RN [address] [place] [address] [email or web address] 08/31/2025 Home Care Visit [facility] [address] [place] [phone] Ree Antonio RN [address] [place] [address] [email or web address] 09/01/2025 Home Care Visit [facility] [address] [place] [phone] Daphney Angeles, PT [address] [place] [address] [email or web address] 09/03/2025 2:00 AM EDT Home [facility] Visit [facility] [address] [place] [address] Ree Antonio RN [address] [place] [address] [email or web address] 09/07/2025 Home Care Visit [facility] [address] [place] [address] Ree Antonio, IVET [address] [place] [address] 09/08/2025 Home [facility] Visit [facility] [address], [place] [phone] Daphney Angeles, PT [address] [place] [address] 09/10/2025 Home Care Visit [facility] [address], [place] [phone] Ree Antonio RN [address] [place] [address] [email or web address] Health Maintenance Due Date Last Done Comments ZOSTER VACCINES (1 of 2) 1994 OSTEOPOROSIS SCREENING INITIAL (ONE-TIME) 2009 RSV VACCINE (1 - 1-dose 75+ series) 2019 COVID-19 VACCINE ( season) 2024 10/28/2023, 09/27/2022, 03/15/2022, Additional history exists DIABETIC EYE EXAM 05/23/2025 05/23/2024 INFLUENZA VACCINE (#1) 2025 , 10/28/2023, 10/28/2023, Additional history exists HEMOGLOBIN A1C 07/09/2025 04/08/2025, 11/27, 05/28/2024, Additional history exists DEPRESSION SCREENING 10/14/2025 10/14/2024, 06/06/20 22 CREATININE LEVEL 12/19/2025 12/19/2024, 04/2024, 07/29/2024, Additional history exists POTASSIUM LEVEL 12/19/2025 12/19/2024, 090 04/2024, 07/29/2024, Additional history exists BLOOD PRESSURE 01/21/2026 07/21/2025 Adult Td,Tdap Booster 06/03/2032 06/03/2022 PNEUMOCOCCAL VACCINES (50+ years) Completed 09/18/2017, 06/23/2016 SMOKING STATUS SCREENING (Once After 26 Yrs) Completed 07/21/2025 HEPATITIS A VACCINES Aged Out No long er eligible based on patient's age to complete this topic HIB VACCINES Aged Out No longer eligi ble based on patient's age to complete this topic MENINGOCOCCAL VACCINES (ACWY) Aged Out No longer eligible based on patient's age to complete this topic MENINGOCOCCAL VACCINES (B) Aged Out N o longer eligible based on patient's age to complete this topic Medical Devices Not on file Procedures Procedure Name Priority Date/Time Associated Diagnosis Comments OUTSIDE IMAGING Routine 07/02/2025 12:55 PM EDT XR TOES 2 OR MORE VIEWS (LEFT) Routine 05/15/2025 4:46 PM EDT URINE SEDIMENT Routine 04/30/2025 9:15 AM EDT URINALYSIS W/REFLEX URINE CULTURE Routine 04/30/2025 9:15 AM EDT Confusion HEMOGLOBIN A1C Routine 04/08/2025 2:17 PM EDT Type 2 diabetes mellitus with diabetic polyneuropathy, without long-term current use of insulin COMPREHENSIVE METABOLIC PANEL Routine 12/19/2024 10:04 AM EST Essential hypertension from Last 3 Months or Most Recently Relevant to Health Maintenance Results * Outside Imaging Report Only (07/02/2025 12:55 PM EDT) us Historical Provider MD ARGUETA XR CHEST Final Res ult * XR Toes 2 or More Views (Left) (05/15/2025 4:46 PM EDT) Anatomical Region Laterality Modality Foot Left Computed Radiogr aphy 05/15/2025 6:20 PM EDT Impressions 05/15/2025 6:28 PM EDT No fracture or dislocation. Narrative 05/15/2025 6:28 PM EDT XR TOES 2 OR MORE VIEWS (LEFT) Referring clinician's provided indication for this examination in [facility]: Pain COMPARISON: XR FOOT 3 OR MORE VIEWS (LEFT) FINDINGS: Diffuse osteopenia. No acute fracture or dislocation. Healed fractures of the fourth proximal phalanx and the great toe. Moderate degenerative changes of the first MTP joint. Extensive vascular calcifications. Soft tissue swelling of the great toe. Procedure Note Neha Bryson MBBS - 05/15/2025 XR TOES 2 OR MORE VIEWS (LEFT) Referring clinician's provided indication for this examination in [facility]:Pain COMPARISON: XR FOOT 3 OR MORE VIEWS (LEFT) FINDINGS: Diffuse osteopenia. No acute fracture or dislocation. Healed fractures ofthe fourth proximal phalanx and the great toe. Moderate degenerativechanges of the first MTP joint. Extensive vascular calcifications. Softtissue swelling of the great toe. IMPRESSION: No fracture or dislocation. Cristal Fernandez PA-C IMG XR LOWER EXTREMITY Final Result * (ABNORMAL) Urinalysis w/reflex Urine Culture (04/30/2025 9:15 AM EDT) COLOR Yellow Yellow [facility] CLARITY Clear [facility] GLUCOSE 3+(A) Negative [facility] BILI Negative Negative [facility] KETONES Negative Negative [facility] SPECIFIC GRAVITY <1.005 1.005 - 1.030 [facility] BLOOD Negative Negative [facility] PH 6.0 5.0 - 8.0 [facility] Protein-UA Negative Negative [facility] NITRITE Negative Negative [facility] Leukocyte esterase, ur 1+(A) Negative [facility] Urine (Urine) 04/30/2025 9:1 5 AM EDT 04/30/2025 9:17 AM EDT Braulio Javed DO URINE ORDERABLES Final Result [address] [id number] * (ABNORMAL) Urine sediment (04/30/2025 9:15 AM EDT) WBC 0-4(A) NONE SEEN /hpf [facility] RBC NONE SEEN NONE SEEN /hpf [facility] URINE EPITHELIAL 0-4(A) NONE SEEN [facility] MUCUS NONE SEEN NONE SEEN /hpf [facility] BACTERIA Trace(A) NONE SEEN /hpf [facility] 04/30/2025 9:15 AM EDT 04/30/2025 9:17 AM EDT us Braulio Javed DO URINE ORDERABLES Final Result [address] [address] * (ABNORMAL) Hemoglobin A1c (04/08/2025 2:17 PM EDT) HEMOGLOBIN A1C 8.1(H) 4.3 - 5.8 % [facility] Blood 04/08/2025 2:17 PM EDT 04/08/2025 2:21 PM EDT us Mini Rudd MD LAB BLOOD ORDERABLES Fin al Result [address] [address] * (ABNORMAL) Comprehensive metabolic panel (12/19/2024 10:04 AM EST) SODIUM 138 133 - 146 mmol/L [facility] POTASSIUM 4.4 3.3 - 5.1 mmol/L [facility] CHLORIDE 104 96 - 108 mmol/L [facility] CO2 24 21 - 35 mmol/L [facility] BUN 23(H) 6 - 19 mg/dL [facility] CREATININE 0.90 0.5 - 1.5 mg/dL [facility] GLUCOSE 138(H) 70 - 99 mg/dL [facility] ALBUMIN 4.4 3.9 - 4.8 g/dL [facility] TOTAL PROTEIN 7.4 6.5 - 8.0 g/dL [facility] CALCIUM 9.8 8.4 - 10.3 mg/dL [facility] ALKALINE PHOSPHATASE 126(H) 39 - 117 U/L [facility] TOTAL BILIRUBIN 0.5 0.0 - 1.2 mg/dL [facility] AST 16 0 - 37 U/L [facility] ALT 9 0 - 40 U/L [facility] GLOBULIN 3.0 1 - 4.8 g/dL [facility] EGFR 65 >59 mL/min/1.7 3m2 [facility] Comment:Estimated glomerular filtration rate calculated using the CKD-EPI refit equation. ANION GAP 14 10 - 20 mmol/L [facility] Blood 12/19/2024 10:0 4 AM EST 12/19/2024 10:23 AM EST us Mini Rudd MD LAB BLOOD ORDERABLES Fin al Result Performing Organization Address City/State/[facility] Co de Phone Number [address] [address] from Last 3 Months or Most Recently Relevant to Health Maintenance Insurance MEDICARE PART A & B [employer] [place] [employer] SUPPLEMENT MEDICARE PART A & B [employer] MEDEX SUPPLEMENT MEDICARE PART A & B [employer] MEDEX SUPPLEMENT MEDICARE PART A & B [employer] MED[employer] SUPPLEMENT MEDICARE PART A & B [employer] MEDEX SUPPLEMENT MEDICARE PART A & B [employer] MEDEX SUPPLEMENT MEDICARE PART A & B [employer] MEDEX SUPPLEMENT MEDICARE PART A & B Member Subscriber Plan / Payer (Ef fective 2009-Present) Name:Katgregory Marifer Member ID:[id number] Relation to Subscriber:Self Name:UniquestefanMarifer Subscriber ID:[id number] Payer ID:[id number] Group ID:Not on file Type:Medicare Address: [employer] 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 Power of Master [facility] [employer] Proxy 01/31/2021 mailed back to pt * Full Code (Latest Code Status on File) Date Activated Date Inactivated Comments 07/28/2024 5:36 PM Question Answer Comments Code Status Confirmed With: Patient * Full Code Date Activated Date Inactivated Comments 11/08/2023 5:29 PM 07/28/2024 5:36 PM Question Answer Comments Code Status Confirmed With: Patient * Full Code (Confirmed) Date Activated Date Inactivated Comments 03/12/2018 4:26 PM 03/14/2018 4:42 PM Question Answer Comments Code Discussion Comments: Patient Care Teams Streetcar Starter Relationship Specialty Start Date End Date Mini Rudd MD [address] [place] [address] PCP - General Family Medicine 06/27/23 Yanick Vivar MD [address] [place] [address] [email or web address] Historical LMR Provider 09/16/17 Parth Bird MD [address] [place] [address] [email or web address] Historical LMR Provider 09/16/17 Rey Fletcher DO [address] [place] [address] Orthopedics & Sports Medicine, [facility] [place] [address] [email or web address] Historical LMR Provider 09/16/17 Amelia Fermin MD [address] [place] [address] Orthopedics Sports [facility], [place], [place] [id number] [email or web address] Historical LMR Provider 09/16/17 Mini Rudd MD [address] [place] [address] [email or web address] Insurance Assigned Provider 03/01/24 Additional Source Comments The information contained in this document represents components of the legal health record. It is not the complete legal health record.[facility]
--- OUTSIDE RECORDS SUMMARY | 2025-07-22 14:04 | XMS_ITS | Encounter Summary ---
Author Organization [facility] Address [address] [facility] [address] [place] [address] Phone Care Team Providers Care Straight Truck Driver Name Role Phone Yanick Vivar MD Unavailable Yanick Vivar MD Unavailable Leyla eHller SLOT AMBASSADOR Unavailable Braulio Javed DO Unavailable Kiersten Carrizales SLOT AMBASSADOR Unavailable Unavailable DacKiersten lee DO Unavailable Parth Bird MD Unavailable Evelia Hartman SLOT AMBASSADOR Unavailable Karen Miller STUDENT SUCCESS COACH Unavailable Rey Fletcher DO Unavailable Padmini Carpenter SLOT AMBASSADOR Unavailable Leatha Dey SLOT AMBASSADOR Unavailable Jessa Rutledge MD Unavailable [phone] Susie Swanson PA-C Unavailable Brittany Iyer MD Unavailable [phone] Matt Sanchez MD Unavailable Amelia Fermin MD Unavailable Yanick Vivar MD Primary Care Provider [phone] Mini Rudd MD Primary Care Provider + Mini Rudd MD Unavailable [phone] Reason for Visit * Reason Comments Medication Refill Encounter Details Date Type Department Care Team (Late st Contact Info) Description 12/08/2020 Refill [facility] [address] [place] [address] Yanick Vivar MD [address] [facility], [address] [place] [address] [email or web address] Medication Refill Social History Tobacco Use Types Packs/Day Years [...] as of this encounter Progress Notes * ReynaOtiliowMYLA - 12/08/2020 12:12 PM EST Diabetes Medication Protocol Last office visit: 12/03/2020 Next office visit: 01/18/2021 Last A1C: HEMOGLOBIN A1C Date Value Ref Range Status 05/25/2020 8.0 (H) 4.3 - 5.8 % Final Last POCT A1c: HEMOGLOBIN A1C Date Value Ref Range Status 01/01/2020 7.9 (*) 4.2 - 5.8 % Final Last BMP/CMP Lab Results Component Value Date NA 138 09/06/2020 K 4.4 09/06/2020 CL 102 09/06/2020 CO2 26 09/06/2020 BUN 19 09/06/2020 CRE 0.80 09/06/2020 UCRE 42 07/18/2018 GLU 187 (H) 09/06/2020 CA 10.1 09/06/2020 GFR 72 09/06/2020 ANION 14 09/06/2020 Last Microalbumin: Lab Results Component Value Date MALBCRE 254.8 (H) 07/18/2018 GRMALB 10.7 (H) 07/18/2018 documented in this encounter Plan of Treatment Upcoming Encounters Date Type Department Care Team (Late st Contact Info) Description 07/23/2025 4:00 AM EDT Home Care Visit [facility] [address] [place] [phone] Ree Antonio RN [address] [place] [address] [email or web address] 07/27/2025 Home Care Visit [facility] [address] [place] [phone] Ree Antonio RN [address] [place] [address] [email or web address] 07/28/2025 Home Care Visit [facility] [address] [place] [phone] Daphney Angeles, PT [address] [place] [address] [email or web address] 07/30/2025 Home Care Visit [facility] [address] [place] [phone] Ree Antonio RN [address] [place] [address] [email or web address] 07/31/2025 2:00 AM EDT Home Care Visit [facility] [address] [place] [phone] Daphney Angeles, PT [address] [place] [address] [email or web address] 08/03/2025 1:00 AM EDT Home Care Visit [facility] [address] [place] [address] Ree Antonio RN [address] [place] [address] [email or web address] 08/04/2025 1:30 AM EDT Home Care Visit [facility] [address] [place] [address] Daphney Angeles, PT [address] [place] [address] [email or web address] 08/06/2025 Home Care Visit [facility] [address] [place] [address] Ree Antonio RN [address] [place] [address] [email or web address] 08/07/2025 1:45 AM EDT Home [facility] Visit [facility] [address] [place] [address] Daphney Angeles, PT [address] [place] [address] [email or web address] 08/10/2025 12:30 AM EDT Home Care Visit [facility] [address] [place] [phone] Ree Antonio RN [address] [place] [address] [email or web address] 08/11/2025 12:45 AM EDT Home Care Visit [facility] [address] [place] [address] Daphney Angeles, PT [address] [place] [address] [email or web address] 08/13/2025 1:30 AM EDT Home Care Visit [facility] [address] [place] [address] Ree Antonio RN [address] [place] [address] [email or web address] 08/14/2025 12:45 AM EDT Home [facility] Visit [facility] [address] [place] [address] Daphney Angeles, PT [address] [place] [address] [email or web address] 08/17/2025 12:30 AM EDT Home Care Visit [facility] [address] [place] [address] Ree Antonio RN [address] [place] [address] [email or web address] 08/17/2025 1:00 AM EDT Home Care Visit [facility] [address] [place] [address] Daphney Angeles, PT [address] [place] [address] [email or web address] 08/18/2025 11:00 AM EDT Office Visit [facility] [address] [facility] 3rd Floor, [address] [place] [address] Parth Tadeo DO [address] [address] 08/18/2025 3:15 PM EDT Office Visit [facility] [address] [address] Mini Rudd MD [address] [place] [address] 08/20/2025 12:30 AM EDT Home Care Visit [facility] [address] [place] [address] Ree Antonio RN [address] [place] [address] [email or web address] 08/24/2025 12:30 AM EDT Home Care Visit [facility] [address] [place] [address] Ree Antonio RN [address] [place] [address] 08/25/2025 Home Care Visit [facility] [address] [place] [address] Daphney Angeles, PT [address] [place] [address] [email or web address] 08/27/2025 12:30 AM EDT Home Care Visit [facility] [address] [place] [phone] Ree Antonio RN [address] [place] [address] [email or web address] 08/31/2025 Home Care Visit [facility] [address] [place] [phone] Ree Antonio RN [address] [place] [address] [email or web address] 09/01/2025 Home Care Visit [facility] [address] [place] [address] Daphney Angeles, PT [address] [place] [address] [email or web address] 09/03/2025 2:00 AM EDT Home Care Visit [facility] [address] [place] [address] Ree Antonio RN [address] [place] [address] 09/07/2025 Home Care Visit [facility] [address] [place], [place] [phone] Ree Antonio, IVET [address] [place] [address] 09/08/2025 Home Care Visit [facility] [address] [place] [address] Daphney Angeles, PT [address] [place] [address] 09/10/2025 Home Care Visit [facility] [address] [place], [place] [phone] Ree Antonio, IVET [address] [place] [address] documented as of this encounter Visit Diagnoses Diagnosis Type 2 diabetes mellitus with diabetic mononeuropathy, without long-term current use of insulin documented in this encounter Additional Health Concerns Infection Onset Date Last Indicated Resolved Time CoV-Risk Comment:Per Ambulatory Triage Form 04/17/2023 04/17/202304/17 9:56 AM EDT COVID-19 04/17/2023 04/18/2023 05/09/2023 1:51 AM EDT CoV-Risk Comment:Neg covid 11/08/2023 11/08/2023 11/09/2023 6:[address] documented as of this encounter Care Teams Straight Truck Driver Relationship Specialty Start Date End Date Yanick Vivar MD [address] [facility], [address] [place], [place] [phone] [email or web address] PCP - General Family Medicine 12/04/19 06/26/23 Mini Rudd MD [address] [place] [address], [address] [place] [address] [email or web address] PCP - General Family Medicine 06/27/23 Yanick Vivar MD [address] [place] [address] [address] [place] [address] [email or web address] Insurance Assigned Provider 09/01/17 03/01/24 Yanick Vivar MD [address] [place] [address] 7 [place] [address] [email or web address] Historical LMR Provider 09/16/17 Leyla Heller SLOT AMBASSADOR [address] [place] [address] Historical LMR Provider 09/16/17 2 Braulio Javed DO [address] [place] [address] [email or web address] Historical LMR Provider 09/16/17 12/03/21 Kiersten Carrizales SLOT AMBASSADOR [address] [place] [address] Historical LMR Provider 09/16/1712/03 Kiersten Lee DO [address] [place] [address] [email or web address] Historical LMR Provider 09/16/17 12/03/21 Parth Bird MD [address] [place] [address] [email or web address] Historical LMR Provider 09/16/17 Evelia Hartman NP [address] [place] [address] Historical LMR Provider 09/16/17 2 Karen Miller CNP [address] [address] [email or web address] Historical LMR Provider 09/16/17 12/03/21 Rey Fletcher DO [address] [place] [address] Orthopedics & Sports [facility], [place] [address] maria Historical LMR Provider 09/16/17 Padmini Carpenter, SAMI [address] [place] [address] Historical LMR Provider 09/16/17 Leatha Dey, SAMI [address] [place] [address] Historical LMR Provider 09/16/17 2 Jessa Rutledge MD [address] [address] [email or web address] Historical LMR Provider 09/16/17 12/03/21 Susie Swanson PA-C [address] [place] [address] Orthopedics & Sports [facility] [place] [address] Historical LMR Provider 09/16/17 12/03/21 Brittany Iyer MD [address] [address] Historical LMR Provider 09/16/17 2 Matt Sanchez MD [address] [facility] [address] [place] [address] Historical LMR Provider 09/16/17 2 Amelia Fermin MD [address] [facility] Orthopedics & Sports Medicine, [facility] [place] [address] Historical LMR Provider 09/16/17 Mini Rudd MD [address] [facility], [address] [place] [address] Insurance Assigned Provider 03/01/24 documented as of this encounter Additional Source Comments The information contained in this document represents components of the legal health record. It is not the complete legal health record.[facility]
--- OUTSIDE RECORDS SUMMARY | 2025-07-22 14:04 | XMS_ITS | Encounter Summary ---
Author Organization [facility] Address [address] [facility] [address] [place] [address] Phone Care Team Providers Care Scheduler Name Role Phone Yanick Vivar MD Unavailable Yanick Vivar MD Unavailable Leyla Heller LICENSED APPRAISER Unavailable Braulio Javed DO Unavailable Kiersten Carrizales LICENSED APPRAISER Unavailable Unavailable DacKiersten lee DO Unavailable Parth Bird MD Unavailable Evelia Hartman LICENSED APPRAISER Unavailable Karen Miller ESTATE PLANNER Unavailable Rey Fletcher DO Unavailable Padmini Carpenter LICENSED APPRAISER Unavailable Leatha Dey LICENSED APPRAISER Unavailable Jessa Rutledge MD Unavailable [phone] Susie Swanson PA-C Unavailable Brittany Iyer MD Unavailable [phone] Matt Sanchez MD Unavailable Amelia Fermin MD Unavailable Yanick Vivar MD Primary Care Provider [phone] Mini Rudd MD Primary Care Provider + Mini Rudd MD Unavailable [phone] Encounter Details Date Type Department Care Team (Late st Contact Info) Description 12/08/2020 Procedure Pass OR Admitting Dept - Virtual Department [address] [place] [address] Social History Tobacco Use Types Packs/Day Years Used Date Smoking Tobacco: Former Cigarettes 2 20 965 - 1984 Smokeless Tobacco: Never Alcohol [...] 4:00 AM EDT Home Care Visit [facility] [address] [place] [address] Ree Antonio, RN [address] [place] [address] 07/27/2025 Home Care Visit [facility] [address] [place] [address] Ree Antonio, RN [address] [place] [address] 07/28/2025 Home Care Visit [facility] [address] [place] [address] Daphney Angeles, PT [address] [place] [address] 07/30/2025 Home Care Visit [facility] [address] [place] [address] Ree Antonio RN [address] [place] [address] 07/31/2025 2:00 AM EDT Home Care [facility] [address] [place] [address] Daphney Angeles, PT [address] [place] [address] 08/03/2025 1:00 AM EDT Home Care Visit [facility] [address] [place] [phone] Ree Antonio RN [address] [place] [address] 08/04/2025 1:30 AM EDT Home Care Visit [facility] [address] [place] [phone] Daphney Angeles, PT [address] [place] [address] 08/06/2025 Home Care Visit [facility] [address] [place] [phone] Ree Antonio RN [address] [place] [address] 08/07/2025 1:45 AM EDT Home Care Visit [facility] [address] [place] [address] Daphney Angeles, PT [address] [place] [address] 08/10/2025 12:30 AM EDT Home Care Visit [facility] [address] [place] [phone] Ree Antonio RN [address] [place] [address] 08/11/2025 12:45 AM EDT Home Care Visit [facility] [address] [place] [phone] Daphney Angeles, PT [address] [place] [address] 08/13/2025 1:30 AM EDT Home Care Visit [facility] [address] [place] [phone] Ree Antonio RN [address] [place] [address] 08/14/2025 12:45 AM EDT Home Care Visit [facility] [address] [place] [phone] Dapheny Angeles, PT [address] [place] [address] 08/17/2025 12:30 AM EDT Home Care Visit [facility] [address] [place] [phone] Ree Antonio RN [address] [place] [address] 08/17/2025 1:00 AM EDT Home Care Visit [facility] [address] [place] [phone] Daphney Angeles, PT [address] [place] [address] 08/18/2025 11:00 AM EDT Office Visit [facility] [address] [facility] 3rd Floor, [address] [place] [address] Parth Tadeo DO 22 [facility] [address] [place] [address] 08/18/2025 3:15 PM EDT Office Visit [facility] [address] [place] [address] Mini Rudd MD [address] [facility], [address] [place] [address] 08/20/2025 12:30 AM EDT Home Care Visit [facility] [address] [place] [phone] Ree Antonio RN [address] [place] [address] 08/24/2025 12:30 AM EDT Home Care Visit [facility] [address] [place] [phone] Ree Antonio RN [address] [place] [address] 08/25/2025 Home Care Visit [facility] [address] [place] [phone] Daphney Angeles, PT [address] [place] [address] 08/27/2025 12:30 AM EDT Home Care Visit [facility] [address] [place] [address] Ree Antonio RN [address] [place] [address] 08/31/2025 Home Care Visit [facility] [address] [place] [address] Ree Antonio RN [address] [place] [address] 09/01/2025 Home Care Visit [facility] [address] [place] [phone] Daphney Angeles, PT [address] [place] [address] 09/03/2025 2:00 AM EDT Home Care Visit [facility] [address] [place] [phone] Ree Antonio RN [address] [place] [address] 09/07/2025 Home Care Visit [facility] [address] [place] [phone] Ree Antonio RN [address] [place] [address] 09/08/2025 Home Care Visit [facility] [address] [place] [phone] Daphney Angeles, PT [address] [place] [address] 09/10/2025 Home Care Visit [facility] [address] [place] [phone] Ree Antonio RN [address] [place] [address] documented as of this encounter Visit Diagnoses Not on filedocumented in this encounter Additional Health Concerns Infection Onset Date Last Indicated Resolved Time CoV-Risk Comment:Per Ambulatory Triage Form 04/17/2023 04/17/202304/17 9:56 AM EDT COVID-19 04/17/2023 04/18/2023 05/09/2023 1:51 AM EDT CoV-Risk Comment:Neg covid 11/08/2023 11/08/2023 11/09/2023 6:[address] documented as of this encounter Care Teams Scheduler Relationship Specialty Start Date End Date Yanick Vivar MD [address] [place] [address] 7 [place] [address] PCP - General Family Medicine 12/04/19 06/26/23 Mini Rudd MD [address] [place] [address] 7 [place] [address] [email or web address] PCP - General Family Medicine 06/27/23 Yanick Vivar MD [address] [place] [address] [place] [address] Insurance Assigned Provider 09/01/17 03/01/24 Yanick Vivar MD [address] [place] [address] 7 [place] [address] [email or web address] Historical LMR Provider 09/16/17 Leyla Heller LICENSED APPRAISER [address] [place] [address] Historical LMR Provider 09/16/17 2 Braulio Javed DO [address] [place] [address] 7 [place] [address] [email or web address] Historical LMR Provider 09/16/17 12/03/21 Kiersten Carrizales LICENSED APPRAISER [address] [place] [address] Historical LMR Provider 09/16/1712/03 Kiersten Lee DO [address] [place] [address] [place] [address] [email or web address] Historical LMR Provider 09/16/17 12/03/21 Parth Bird MD [address] [place] [address] 7 [place] [address] [email or web address] Historical LMR Provider 09/16/17 Evelia Hartman, SAMI [address] [place] [address] Historical LMR Provider 09/16/17 2 Karen Miller, YANELY [address] [address] Historical LMR Provider 09/16/17 12/03/21 Rey Fletcher DO [address] [place] [address] [facility], [place] [address] Historical LMR Provider 09/16/17 Padmini Carpenter, SAMI [address] [place] [address] Historical LMR Provider 09/16/17 Leatha Dey, SAMI [address] [place] [address] Historical LMR Provider 09/16/17 2 Jessa Rutledge MD [address] [address] Historical LMR Provider 09/16/17 12/03/21 Susie Swanson PA-C 4 [facility] [place] [address] Historical LMR Provider 09/16/17 12/03/21 Brittany Iyer MD [address] [place] [address] Historical LMR Provider 09/16/17 2 Matt Sanchez MD [address] [phone] Historical LMR Provider 09/16/17 2 Amelia Fermin MD [address] [place] [address] [facility], [place] [address] Historical LMR Provider 09/16/17 Mini Rudd MD [address] [address] Insurance Assigned Provider 03/01/24 documented as of this encounter Additional Source Comments The information contained in this document represents components of the legal health record. It is not the complete legal health record.[facility]
--- OUTSIDE RECORDS SUMMARY | 2025-07-22 14:04 | XMS_ITS | Encounter Summary ---
Author Organization [facility] Address [address] [facility] [address] [place] [address] Phone Care Team Providers Care Wallcovering Texturer Name Role Phone Yanick Vivar MD Unavailable [phone] Parth Bird MD Unavailable [phone] Rey Fletcher DO Unavailable [phone] Amelia Fermin MD Unavailable [phone] Mini Rudd MD Primary Care Provider + Mini Rudd MD Unavailable Encounter Details Date Type Department Care Team (Late st Contact Info) Description 08/29/2024 Transcribe Orders Virtual Department [address] [place] [address] Mayur Maldonado MD [address] [place] [address] Other secondary scoliosis, lumbar region (Primary Dx) Social History Tobacco Use Types Packs/Day Years Used Date Smoking Tobacco: Former Cigarettes 2 20 1 965 - 1985 Smokeless Tobacco: Never Alcohol Use Standard Drinks/Week Comments Yes 0 (1 standard drink = 0.6 oz pur e alcohol) occasional Home Health Assessment: Transportation Answer Date Recorded Lack of Transportation (Medical) No 07/31/2024 Lack of Transportation (Non-Medical) No 07/31/2024 Patient Unable or Declines to Respond No 07/31/2024 Child or Family Care Answer Date Record [...] 4:00 AM EDT Home Care Visit [facility] [address] [place], [place] [phone] Ree Antonio RN [address] [place] [address] 07/27/2025 Home Care Visit [facility] [address] [place], [place] [phone] Ree Antonio RN [address] [place] [address] [email or web address] 07/28/2025 Home Care Visit [facility] [address] [place] [phone] Daphney Angeles, PT [address] [place] [address] [email or web address] 07/30/2025 Home Care Visit [facility] [address] [place] [phone] Ree Antonio RN [address] [place] [address] [email or web address] 07/31/2025 2:00 AM EDT Home Care Visit [facility] [address] [place] [phone] Daphney Angeles, PT [address] [place] [address] [email or web address] 08/03/2025 1:00 AM EDT Home Care Visit [facility] [address] [place] [phone] Ree Antonio RN [address] [place] [address] [email or web address] 08/04/2025 1:30 AM EDT Home Care Visit [facility] [address] [place] [address] Daphney Angeles, PT [address] [place] [address] [email or web address] 08/06/2025 Home Care Visit [facility] [address] [place] [phone] Ree Antonio RN [address] [place] [address] [email or web address] 08/07/2025 1:45 AM EDT Home Care Visit [facility] [address] [place] [address] Daphney Angeles, PT [address] [place] [address] [email or web address] 08/10/2025 12:30 AM EDT Home Care Visit [facility] [address] [place] [address] Ree Antonio RN [address] [place] [address] [email or web address] 08/11/2025 12:45 AM EDT Home Care Visit [facility] [address] [place] [address] Daphney Angeles, PT [address] [place] [address] [email or web address] 08/13/2025 1:30 AM EDT Home Care Visit [facility] [address] [place] [address] Ree Antonio RN [address] [place] [address] [email or web address] 08/14/2025 12:45 AM EDT Home Care Visit [facility] [address] [place] [address] Daphney Angeles, PT [address] [place] [address] [email or web address] 08/17/2025 12:30 AM EDT Home Care Visit [facility] [address] [place] [address] Ree Antonio RN [address] [place] [address] [email or web address] 08/17/2025 1:00 AM EDT Home Care Visit [facility] [address] [place] [address] Daphney Angeles, PT [address] [place] [address] 08/18/2025 11:00 AM EDT Office Visit [facility] [address] [facility] 3rd Floor, [address] [place] [address] Parth Tadeo DO 22 [facility] [address] [place] [address] 08/18/2025 3:15 PM EDT Office Visit [facility] [address] [address] Mini Rudd MD [address] [place] [address] 08/20/2025 12:30 AM EDT Home Care Visit [facility] [address] [place] [address] Ree Antoino RN [address] [place] [address] 08/24/2025 12:30 AM EDT Home Care Visit [facility] [address] [place] [address] Ree Antonio RN [address] [place] [address] 08/25/2025 Home Care Visit [facility] [address] [place] [address] Daphney Angeles, PT [address] [place] [address] 08/27/2025 12:30 AM EDT Home Care Visit [facility] [address] [place] [address] Ree Antonio RN [address] [place] [address] [email or web address] 08/31/2025 Home Care Visit [facility] [address] [place] [address] Ree Antonio RN [address] [place] [address] [email or web address] 09/01/2025 Home Care Visit [facility] [address] [place] [address] Daphney Angeles, PT [address] [place] [address] 09/03/2025 2:00 AM EDT Home Care Visit [facility] [address] [place] [phone] Ree Antonio RN [address] [place] [address] [email or web address] 09/07/2025 Home Care Visit [facility] [address] [place] [phone] Ree Antonio RN [address] [place] [address] [email or web address] 09/08/2025 Home Care Visit [facility] [address] [place] [address] Daphney Angeles, PT [address] [place] [address] 09/10/2025 Home Care Visit [facility] [address] [place] [address] Ree Antonio RN [address] [place] [address] [email or web address] documented as of this encounter Visit Diagnoses Diagnosis Other secondary scoliosis, lumbar region- Primary documented in this encounter Additional Health Concerns Assessment Noted Time PHQ-9 Depression Total Score: 13 022 2:43 PM EDT PHQ-2 Depression Total Score: 3 06/06/20 22 2:43 PM EDT documented as of this encounter Care Teams Wallcovering Texturer Relationship Specialty Start Date End Date Mini Rudd MD [address] [place] [address] 7 [place] [address] [email or web address] PCP - General Family Medicine 06/27/23 Yanick Vivar MD [address] [place] [address] [place] [address] [email or web address] Historical LMR Provider 09/16/17 Parth Bird MD [address] [place] [address] [place] [address] [email or web address] Historical LMR Provider 09/16/17 Rey Fletcher DO [address] [place] [address] Orthopedics & Sports [facility] [place], [place] [phone] [email or web address] Historical LMR Provider 09/16/17 Amelia Fermin MD [address] [place] [address] Orth[facility], [place] [address] [email or web address] Historical LMR Provider 09/16/17 Mini Rudd MD [address] [place] [address] [place] [address] [email or web address] Insurance Assigned Provider 03/01/24 documented as of this encounter Additional Source Comments The information contained in this document represents components of the legal health record. It is not the complete legal health record.[facility]
--- OUTSIDE RECORDS SUMMARY | 2025-07-22 14:04 | XMS_ITS | Encounter Summary ---
Author Organization [facility] Address [address] [place] [address] Phone Care Team Providers Care Semiconductor Technician Name Role Phone Yanick Vivar MD Unavailable Yanick Vivar MD Unavailable [phone] Parth Bird MD Unavailable [phone] Rey Fletcher DO Unavailable [phone] Amelia Fermin MD Unavailable [phone] Mini Rudd MD Primary Care Provider + Mini Rudd MD Unavailable Encounter Details Date Type Department Care Team (Late st Contact Info) Description 12/05/2023 Procedure Pass [address] [place] [address] Social History Tobacco Use Types Packs/Day Years [...] [facility] [address] [place], [place] [phone] Ree Antonio RN [address] [place] [address] [email or web address] 07/27/2025 Home Care Visit [facility] [address] [place], [place] [phone] Ree Antonio RN [address] [place] [address] 07/28/2025 Home Care Visit [facility] [address] [place] [address] Daphney Angeles, PT [address] [place] [address] [email or web address] 07/30/2025 Home Care Visit [facility] [address] [place] [address] Ree Antonio RN [address] [place] [address] [email or web address] 07/31/2025 2:00 AM EDT Home Care Visit [facility] [address] [place] [address] Daphney Angeles, PT [address] [place] [address] [email or web address] 08/03/2025 1:00 AM EDT Home Care Visit [facility] [address] [place] [address] Ree Antonio RN [address] [place] [address] [email or web address] 08/04/2025 1:30 AM EDT Home Care Visit [facility] [address] [place] [address] Daphney Angeles, PT [address] [place] [address] [email or web address] 08/06/2025 Home Care Visit [facility] [address] [place] [address] Ree Antonio RN [address] [place] [address] [email or web address] 08/07/2025 1:45 AM EDT Home Care Visit [facility] [address] [place] [address] Daphney Angeles, PT [address] [place] [address] [email or web address] 08/10/2025 12:30 AM EDT Home Care Visit [facility] [address] [place] [address] Ree Antonio RN [address] [place] [address] [email or web address] 08/11/2025 12:45 AM EDT Home Care Visit [facility] [address] [place] [address] Daphney Angeles, PT [address] [place] [address] [email or web address] 08/13/2025 1:30 AM EDT Home Care Visit [facility] [address] [place] [phone] Ree Antonio RN [address] [place] [address] [email or web address] 08/14/2025 12:45 AM EDT Home Care Visit [facility] [address] [place] [phone] Daphney Angeles, PT [address] [place] [address] [email or web address] 08/17/2025 12:30 AM EDT Home Care Visit [facility] [address] [place] [phone] Ree Antonio RN [address] [place] [address] [email or web address] 08/17/2025 1:00 AM EDT Home Care Visit [facility] [address] [place] [address] Daphney Angeles, PT [address] [place] [address] [email or web address] 08/18/2025 11:00 AM EDT Office Visit [facility] 22 [facility] 3rd Floor, [address] [place] [address] Parth Tadeo DO 22 [facility] [address] [place] [address] 08/18/2025 3:15 PM EDT Office Visit [facility] [address] [address] Mini Rudd MD [address] [place] [address] 7 [place] [address] 08/20/2025 12:30 AM EDT Home Care [facility] [address] [place] [address] Ree Antonio RN [address] [place] [address] [email or web address] 08/24/2025 12:30 AM EDT Home Care Visit [facility] [address] [place] [address] Ree Antonio RN [address] [place] [address] [email or web address] 08/25/2025 Home Care Visit [facility] [address] [place] [address] Daphney Angeles, PT [address] [place] [address] 08/27/2025 12:30 AM EDT Home Care Visit [facility] [address] [place] [address] Ree Antonio RN [address] [place] [address] [email or web address] 08/31/2025 Home Care Visit [facility] [address] [place] [phone] Ree Antonio RN [address] [place] [address] [email or web address] 09/01/2025 Home Care Visit [facility] [address] [place] [phone] Daphney Angeles, PT [address] [place] [address] [email or web address] 09/03/2025 2:00 AM EDT Home Care Visit [facility] [address] [place] [phone] Ree Antonio RN [address] [place] [address] [email or web address] 09/07/2025 Home Care Visit [facility] [address] [place] [phone] Ree Antonio RN [address] [place] [address] [email or web address] 09/08/2025 Home Care Visit [facility] [address] [place] [phone] Daphney Angeles, PT [address] [place] [address] [email or web address] 09/10/2025 Home Care Visit [facility] [address] [place] [phone] Ree Antonio RN [address] [place] [address] [email or web address] documented as of this encounter Visit Diagnoses Not on filedocumented in this encounter Additional Health Concerns Assessment Noted Time PHQ-9 Depression Total Score: 13 022 2:43 PM EDT PHQ-2 Depression Total Score: 3 06/06/20 22 2:43 PM EDT documented as of this encounter Care Teams Semiconductor Technician Relationship Specialty Start Date End Date Mini Rudd MD [address] [place] [address] 7 [place] [address] PCP - General Family Medicine 06/27/23 Yanick Vivar MD [address] [place] [address] 7 [place] [address] Insurance Assigned Provider 09/01/17 03/01/24 Yanick Vivar MD [address] [place] [address] [email or web address] Historical LMR Provider 09/16/17 Parth Bird MD [address] [place] [address] [email or web address] Historical LMR Provider 09/16/17 Rey Fletcher DO [address] [place] [address] Orthopedics & Sports [facility], [place] [address] [email or web address] Historical LMR Provider 09/16/17 Amelia Fermin MD [address] [place] [address] [facility], [place], [place] [address] Historical LMR Provider 09/16/17 Mini Rudd MD [address] [place] [address], [address] [place] [address] [email or web address] Insurance Assigned Provider 03/01/24 documented as of this encounter Additional Source Comments The information contained in this document represents components of the legal health record. It is not the complete legal health record.[facility]
--- OUTSIDE RECORDS SUMMARY | 2025-07-22 14:04 | XMS_ITS | Encounter Summary ---
Author Organization [facility] Address [address] [place] [address] Phone Care Team Providers Care Reproduction Machine Loader Name Role Phone Yanick Vivar MD Unavailable Parth Bird MD Unavailable [phone] Rey Fletcher DO Unavailable Amelia Fermin MD Unavailable [phone] Mini Rudd MD Primary Care Provider + Mini Rudd MD Unavailable Encounter Details Date Type Department Care Team (Late st Contact Info) Description 09/05/2024 Transcribe Orders Virtual Department [address] [place] [address] Mayur Maldonado MD [address] [place] [address] Other osteoporosis without current pathological fracture (Primary Dx) Social History Tobacco Use Types [...] 4:00 AM EDT Home Care Visit [facility] [address] [place], [place] [phone] Ree Antonio RN [address] [place] [address] 07/27/2025 Home Care Visit [facility] [address] [place], [place] [phone] Ree Antonio RN [address] [place] [address] [email or web address] 07/28/2025 Home Care Visit [facility] [address] [place] [phone] Daphney Angeles, PT [address] [place] [address] [email or web address] 07/30/2025 Home Care Visit [facility] [address] [place] [phone] Ree Antonio RN [address] [place] [address] [email or web address] 07/31/2025 2:00 AM EDT Home Care Visit [facility] [address] [place] [phone] Daphney Angeles, PT [address] [place] [address] [email or web address] 08/03/2025 1:00 AM EDT Home Care Visit [facility] [address] [place] [phone] Ree Antonio RN [address] [place] [address] [email or web address] 08/04/2025 1:30 AM EDT Home Care Visit [facility] [address] [place] [address] Daphney Angeles, PT [address] [place] [address] [email or web address] 08/06/2025 Home Care Visit [facility] [address] [place] [phone] Ree Antonio RN [address] [place] [address] [email or web address] 08/07/2025 1:45 AM EDT Home Care Visit [facility] [address] [place] [address] Daphney Angeles, PT [address] [place] [address] [email or web address] 08/10/2025 12:30 AM EDT Home [facility] [address] [place] [address] Ree Antonio RN [address] [place] [address] [email or web address] 08/11/2025 12:45 AM EDT Home Care Visit [facility] [address] [place] [address] Daphney Angeles, PT [address] [place] [address] [email or web address] 08/13/2025 1:30 AM EDT Home Care Visit [facility] [address] [place] [address] Ree Antonio RN [address] [place] [address] [email or web address] 08/14/2025 12:45 AM EDT Home Care Visit [facility] [address] [place] [address] Daphney Angeles, PT [address] [place] [address] [email or web address] 08/17/2025 12:30 AM EDT Home Care Visit [facility] [address] [place] [address] Ree Antonio RN [address] [place] [address] [email or web address] 08/17/2025 1:00 AM EDT Home Care Visit [facility] [address] [place] [address] Daphney Angeles, PT [address] [place] [address] 08/18/2025 11:00 AM EDT Office Visit [facility] [address] [facility] [address], [address] [place] [address] Parth Tadeo DO [address] [place] [address] 08/18/2025 3:15 PM EDT Office Visit [facility] [address] [address] Mini Rudd MD [address] [place] [address] 08/20/2025 12:30 AM EDT Home Care Visit [facility] [address] [place] [address] Ree Antonio RN [address] [place] [phone] 08/24/2025 12:30 AM EDT Home Care Visit [facility] [address] [place] [address] Ree Antonio RN [address] [place] [address] 08/25/2025 Home Care Visit [facility] [address] [place] [address] Daphney Angeles, PT [address] [place] [address] 08/27/2025 12:30 AM EDT Home Care Visit [facility] [address] [place] [address] Ree Antonio RN [address] [place] [address] [email or web address] 08/31/2025 Home Care Visit [facility] [address] [place] [address] Ree Antonio RN [address] [place] [address] [email or web address] 09/01/2025 Home Care Visit [facility] [address] [place] [address] Daphney Angeles, PT [address] [place] [address] 09/03/2025 2:00 AM EDT Home Care Visit [facility] [address] [place] [phone] Ree Antonio RN [address] [place] [address] [email or web address] 09/07/2025 Home Care Visit [facility] [address] [place] [phone] Ree Antonio RN [address] [place] [address] [email or web address] 09/08/2025 Home Care Visit [facility] [address] [place] [address] Daphney Angeles, PT [address] [place] [address] 09/10/2025 Home Care Visit [facility] [address] [place] [address] Ree Antonio RN [address] [place] [address] [email or web address] Scheduled Orders Name Type Priority Associated Diagnoses Orde r Schedule DXA Screening Imaging Routine Other osteoporosis without current pathological fracture Expected: 10/05/2024, Expires: 09/05/2025 documented as of this encounter Visit Diagnoses Diagnosis Other osteoporosis without current pathological fracture- Primary documented in this encounter Additional Health Concerns Assessment Noted Time PHQ-9 Depression Total Score: 13 022 2:43 PM EDT PHQ-2 Depression Total Score: 3 06/06/20 22 2:43 PM EDT documented as of this encounter Care Teams Reproduction Machine Loader Relationship Specialty Start Date End Date Mini Rudd MD [address] [place] [address] [address] [place] [address] [email or web address] PCP - General Family Medicine 06/27/23 Yanick Vivar MD [address] [place] [address] [address] [place] [address] [email or web address] Historical LMR Provider 09/16/17 Parth Bird MD [address] [place] [address] 7 [place] [address] [email or web address] Historical LMR Provider 09/16/17 Rey Fletcher DO [address] [place] [address] [facility], [place] [address] [email or web address] Historical LMR Provider 09/16/17 Amelia Fermin MD [address] [place] [address] [facility], [place], [place] [phone] [email or web address] Historical LMR Provider 09/16/17 Mini Rudd MD [address] [place] [address], [address] [place] [address] [email or web address] Insurance Assigned Provider 03/01/24 documented as of this encounter Additional Source Comments The information contained in this document represents components of the legal health record. It is not the complete legal health record.[facility]
--- OUTSIDE RECORDS SUMMARY | 2025-07-22 14:05 | XMS_ITS | Clinical Summary ---
Author Organization [facility] Address [address] [place] [address] Phone Care Team Providers Care Oracle Sql Developer Name Role Phone Blaire Cedillo MD, Mini Primary Care Provider [phone] Allergies Active Allergy Reactions Criticality Noted Date Comments Levofloxacin 07/03/2025 Morphine 07/03/2025 Yellow Jacket Venom 07/03/2025 Medications aspirin 81 mg EC tabletIndication s:myocardial infarction prevention Take 1 tablet (81 mg total) by mouth 1 (one) time each day. 30 each 07/13/20 25 025 Active atorvastatin (LIPITOR) 80 mg tablet Take 1 tablet (80 mg total) by mouth at bedtime. 30 each 07/13/20 25 025 Active dapagliflozin propanediol (FARXIGA) 10 mg tabletIndication s:chronic heart failure Take 1 tablet (10 mg total) by mouth 1 (one) time each day. 30 each 07/13/20 25 025 Active digoxin (LANOXIN) 125 mcg (0.125 mg) tablet Take 1 tablet (125 mcg total) by mouth 1 (one) time each day. 30 each 07/13/20 25 025 Active metFORMIN XR (GLUCOPHAGE-XR) 500 mg 24 hr tabletIndication s:type 2 diabetes mellitus Take 4 tablets (2,000 mg total) by mouth 1 (one) time each day. Do not crush, chew, or split. 120 each 07/14/20 25 Active metoprolol tartrate (LOPRESSOR) 50 mg tablet Take 3 tablets (150 mg total) by mouth 2 (two) times a day. 180 each 07/13/20 25 Active sacubitriL-valsa rtan (ENTRESTO) 24-26 mg per tablet Take 2 tablets by mouth 2 (two) times a day. 120 each 07/13/20 25 Active sertraline (ZOLOFT) 25 mg tablet Take 1 tablet (25 mg total) by mouth 1 (one) time each day. 30 each 07/13/20 25 Active acetaminophen (TYLENOL) 325 mg tablet Take 3 tablets (975 mg total) by mouth 3 (three) times a day if needed for mild pain. 07/13/20 25 Active psyllium (METAMUCIL) 3.4 gram packet Take 1 packet by mouth 1 (one) time each day. 30 packet 07/14/20 25 Active atorvastatin (LIPITOR) 80 mg tablet Take 1 tablet (80 mg total) by mouth at bedtime. Discontinued metoprolol tartrate (LOPRESSOR) 50 mg tablet Take 3 tablets (150 mg total) by mouth 2 (two) times a day. Discontinued metFORMIN (FORTAMET) 500 mg 24 hr tablet Take 4 tablets (2,000 mg total) by mouth 1 (one) time each day with dinner. Do not crush, chew, or split. Discontinued(St op Taking at Discharge) digoxin (LANOXIN) 125 mcg (0.125 mg) tablet Take 1 tablet (125 mcg total) by mouth 1 (one) time each day. Discontinued dapagliflozin propanediol (FARXIGA) 10 mg tablet Take 1 tablet (10 mg total) by mouth 1 (one) time each day. Discontinued sacubitriL-valsa rtan (Entresto) 97-103 mg per tablet Take 1 tablet by mouth 2 (two) times a day. 025 Discontinued(St op Taking at Discharge) aspirin 81 mg EC tablet Take 1 tablet (81 mg total) by mouth 1 (one) time each day. 025 Discontinued clopidogreL (PLAVIX) 75 mg tablet Take 1 tablet (75 mg total) by mouth 1 (one) time each day. 025 Discontinued(St op Taking at Discharge) spironolactone (ALDACTONE) 25 mg tablet Take 1 tablet (25 mg total) by mouth 1 (one) time each day. 025 Discontinued(St op Taking at Discharge) sertraline (ZOLOFT) 25 mg tablet Take 1 tablet (25 mg total) by mouth 1 (one) time each day. 025 Discontinued oxyCODONE (ROXICODONE) 5 mg immediate release tablet Take 1 tablet (5 mg total) by mouth every 6 (six) hours if needed for severe pain or moderate pain. Max Daily Amount: 20 mg 025 Discontinued oxyCODONE (ROXICODONE) 5 mg immediate release tabletIndication s:Spinal stenosis, lumbar region, without neurogenic claudication Take 1 tablet (5 mg total) by mouth 2 (two) times a day if needed for severe pain for up to 7 days. Max Daily Amount: 10 mg 14 tablet 07/13/20 25 025 Discontinued oxyCODONE (ROXICODONE) 5 mg immediate release tabletIndication s:Spinal stenosis, lumbar region, without neurogenic claudication Take 1 tablet (5 mg total) by mouth 2 (two) times a day if needed for severe pain for up to 7 days. Partial Fill Upon Request Max Daily Amount: 10 mg 14 tablet 07/14/20 025 Active Problems Problem Noted Date Diagnosed Date Debility 07/03/2025 HTN (hypertension) HLD (hyperlipidemia) GERD (gastroesophageal reflux disease) DM (diabetes mellitus) ([facility] V24, [facility] V28 ) CAD (coronary artery disease) A-fib ([facility] V24, [facility] V28) Encounters Date Type Department Care Team Description 07/08/2025 Plan of Care [facility]ation [facility] [address] [place] [id number] 07/03/2025 1:41 PM EDT - 07/14/2025 11:00 AM EDT Hospital Encounter [facility] [address] [place] [address] Carey Crespo DO Spinal stenosis, lumbar region, without neurogenic claudication (Primary Dx) Discharge Disposition: Home-Health Care Svc from Last 3 Months Medical History Medical History Date Comments GERD (gastroesophageal reflux disease) CAD (coronary artery disease) HTN (hypertension) HLD (hyperlipidemia) DM (diabetes mellitus) ([facility] V24, [facility] V28 ) A-fib ([facility] V24, [facility] V28) Social History Tobacco Use Types Packs/Day Years Used Date Smoking Tobacco: Never Assessed Health Literacy Answer Date Recorded How often do you need to hav e someone help you when you read instructions, pamphlets, or other written material from your doctor or pharmacy? Never 07/13/2025 Caregiver: How often do you need to have someone help you when you read instructions, pamphlets, or other written material from your doctor or pharmacy? Not on file 07/13/2025 Transportation Answer Date Recorded Has the lack of transportati on kept you from meetings, work, or from getting things needed for daily living? No Has the lack of transportati on kept you from medical appointments or from getting medications? No 07/03/2025 Social Isolation Answer Date Recorded How often do you feel lonely or isolated from those around you? Sometimes 07/13/2025 Food Risk Answer Date Recorded Within the past 12 months we worried whether our food would run out before we got money to buy more. Never true 07/13/2025 Within the past 12 months th e food we bought just didn't last and we didn't have money to get more. Never true 07/13/2025 Interpersonal Safety Answer Date Record ed Physical Abuse 07/03/2025 Verbal Abuse 07/03/2025 Comments Unknown Sex and Gender Information Value Date Recorded Sex Assigned at Female 07/03/2025 10:09 AM EDT Legal Sex Female 10:08 AM EDT Gender Identity Female 07/03/2025 10:09 AM EDT Sexual Orientation Not on file Obstetrics History Last Filed Vital Signs Vital Sign Reading Time Taken Comments Blood Pressure 123/78 07/14/2025 8:19 AM EDT Pulse 84 07/14/2025 8:19 AM EDT Temperature 36.7 C (98.1 F) 07/14/2025 8:19 AM EDT Respiratory Rate 17 07/14/2025 8:19 AM EDT Oxygen Saturation 100% 07/14/2025 8:19 AM EDT Inhaled Oxygen Concentration - - Weight 72.5 kg (159 lb 12.8 oz) 07/11/2025 1:00 PM EDT Height 168 cm (5' 6.14 ) 07/03/2025 11: 18 AM EDT Body Mass Index 25.68 07/03/2025 11:18 AM EDT Plan of Treatment Health Maintenance Due Date Last Done Comments Diabetes: Annual Foot Exam 1955 Diabetes: Annual Retina Eye Exam 1955 Zoster Vaccines (1 of 2) 1994 RSV Immunization Adult Patients (1 - 1-dose 75+ series) 2019 COVID-19 Vaccine ( season) 2024 01/27/2021, 12/30/2020 Diabetes: Annual Urine Albumin-Creatinine Ratio (uACR) 07/03/2025 12/21/2023, 12/23/2020, 07/18/2018 Diabetes: Blood Sugar Control Test (HGBA1C) 07/03/2025 Medicare Annual Wellness Visit 07/03/2025 Osteoporosis Screening (Bone Density Screening) 07/03/2025 Influenza Vaccine (#1) 2025 , 10/28/2023, 10/17/2022, Additional history exists Diabetes: Annual GFR (Glomerular Filtration Rate) 07/07/2026 07/07/2025, 07/04/2025, 12/19/2024, Additional history exists Hypertension/CHF/CAD Annual BMP Blood Test 07/07/2026 07/07/2025, 07/04/2025, 12/19/2024, Additional history exists Social Influencers of Health Screening 07/13/2026 07/13/2025 Falls Risk Assessment 07/14/2026 07/14/2025 Cholesterol Screening (Lipid Panel) 04/08/2030 04/08/2025 DTaP,Tdap,and Td Vaccines (2 - Td or Tdap) 06/03/2032 06/03/2022 Pneumococcal Vaccine: 50+ Years Completed 09/18/2017, 06/23/2016 Depression Screening Completed 07/13/2025 HIB Vaccines Aged Out No longer eligi ble based on patient's age to complete this topic HPV Vaccines Aged Out No longer eligi ble based on patient's age to complete this topic Hepatitis A Vaccines Aged Out No long er eligible based on patient's age to complete this topic Hepatitis B Vaccines Aged Out No long er eligible based on patient's age to complete this topic IPV Vaccines Aged Out No longer eligi ble based on patient's age to complete this topic MMR Vaccines Aged Out No longer eligi ble based on patient's age to complete this topic Meningococcal ACWY Vaccine Aged Out N o longer eligible based on patient's age to complete this topic Meningococcal B Vaccine Aged Out No l onger eligible based on patient's age to complete this topic RSV Immunization Patients Under 20 months Aged Out No longer eligible based on patient's age to complete this topic Varicella Vaccines Aged Out No longer eligible based on patient's age to complete this topic Procedures Procedure Name Priority Date/Time Associated Diagnosis Comments POCT GLUCOSE BLOOD Routine 07/14/2025 7: 22 AM EDT POCT GLUCOSE BLOOD Routine 07/13/2025 3: 14 PM EDT POCT GLUCOSE BLOOD Routine 07/13/2025 12 :13 PM EDT POCT GLUCOSE BLOOD Routine 07/13/2025 7: 44 AM EDT POCT GLUCOSE BLOOD Routine 07/12/2025 3: 27 PM EDT POCT GLUCOSE BLOOD Routine 07/12/2025 11 :15 AM EDT POCT GLUCOSE BLOOD Routine 07/12/2025 7: 29 AM EDT POCT GLUCOSE BLOOD Routine 07/11/2025 3: 55 PM EDT POCT GLUCOSE BLOOD Routine 07/11/2025 11 :25 AM EDT POCT GLUCOSE BLOOD Routine 07/11/2025 7: 41 AM EDT POCT GLUCOSE BLOOD Routine 07/10/2025 3: 47 PM EDT POCT GLUCOSE BLOOD Routine 07/10/2025 11 :23 AM EDT POCT GLUCOSE BLOOD Routine 07/10/2025 7: 38 AM EDT POCT GLUCOSE BLOOD Routine 07/09/2025 4: 44 PM EDT POCT GLUCOSE BLOOD Routine 07/09/2025 11 :18 AM EDT POCT GLUCOSE BLOOD Routine 07/09/2025 7: 24 AM EDT POCT GLUCOSE BLOOD Routine 07/08/2025 3: 45 PM EDT POCT GLUCOSE BLOOD Routine 07/08/2025 11 :03 AM EDT POCT GLUCOSE BLOOD Routine 07/08/2025 7: 30 AM EDT POCT GLUCOSE BLOOD Routine 07/07/2025 4: 12 PM EDT POCT GLUCOSE BLOOD Routine 07/07/2025 11 :17 AM EDT POCT GLUCOSE BLOOD Routine 07/07/2025 7: 21 AM EDT BASIC METABOLIC PANEL Routine 07/07/2025 6:06 AM EDT COMPLETE BLOOD COUNT Routine 07/07/2025 6:06 AM EDT POCT GLUCOSE BLOOD Routine 07/06/2025 4: 15 PM EDT POCT GLUCOSE BLOOD Routine 07/06/2025 12 :08 PM EDT POCT GLUCOSE BLOOD Routine 07/06/2025 7: 27 AM EDT POCT GLUCOSE BLOOD Routine 07/05/2025 4: 55 PM EDT POCT GLUCOSE BLOOD Routine 07/05/2025 11 :05 AM EDT POCT GLUCOSE BLOOD Routine 07/05/2025 7: 51 AM EDT POCT GLUCOSE BLOOD Routine 07/04/2025 3: 42 PM EDT DIGOXIN LEVEL Timed 07/04/2025 1:13 PM EDT POCT GLUCOSE BLOOD Routine 07/04/2025 11 :30 AM EDT CBC WITH AUTO DIFFERENTIAL Routine 07/04/2025 5:43 AM EDT COMPREHENSIVE METABOLIC PANEL Routine 07/04/2025 5:43 AM EDT CBC AND DIFFERENTIAL Routine 07/04/2025 5:43 AM EDT from Last 3 Months Results * (ABNORMAL) POCT Glucose, blood (07/14/2025 7:22 AM EDT) Only the most recent of30 resultswithin the time period is included. [facility] Signature Glucose POCT 139(H) 70 - 100 mg/dL 07/14/2025 7:23 AM EDT [facility] Blood Capillary blood specimen / Unknown 07/14/2025 7:22 AM EDT 07/14/2025 7:24 AM EDT us Carey Crespo DO LAB POINT OF CARE TEST DOCKED DEVICE UNSOLICITED RESULTS Final Result [facility] [address] [place] [address], [place] [phone] * (ABNORMAL) Complete blood count (07/07/2025 6:06 AM EDT) [facility] Signature WBC 9.6 4.8 - 10.8 K/mcL LAB HEMETOLOGY METHOD 07/07/2025 6:38 AM [facility] RBC 4.50 3.80 - 4.80 M/mcL LAB HEMETOLOGY METHOD 07/07/2025 6:38 AM [facility] Hemoglobin 11.0(L) 11.5 - 16.0 g/dL LAB HEMETOLOGY METHOD 07/07/2025 6:38 AM [facility] Hematocrit 36.2 35.0 - 47.0 % LAB HEMETOLOGY METHOD 07/07/2025 6:38 AM [facility] MCV 80.8 79.0 - 98.0 FL LAB HEMETOLOGY METHOD 07/07/2025 6:38 AM [facility] MCH 24.6(L) 27.0 - 32.0 pcg LAB HEMETOLOGY METHOD 07/07/2025 6:38 AM [facility] MCHC 30.4(L) 32.0 - 37.0 g/dL LAB HEMETOLOGY METHOD 07/07/2025 6:38 AM [facility] RDW 19.0(H) 11.0 - 15.0 % LAB HEMETOLOGY METHOD 07/07/2025 6:38 AM [facility] Platelets 273 130 - 400 K/mcL LAB HEMETOLOGY METHOD 07/07/2025 6:38 AM [facility] MPV 11.4(H) 7.0 - 11.0 FL LAB HEMETOLOGY METHOD 07/07/2025 6:38 AM [facility] NRBC 0.0 <1.0 % LAB HEMETOLOGY METHOD 07/07[facility]2025 6:[facility] NR[facility] Absolute 0.00 <0.10 K/mcL LAB HEMETOLOGY METHOD 07/07/2025 6:38 AM [facility] Blood Venous blood specimen / Unknown Venipuncture / Unknown 07/07/2025 6:06 AM EDT 07/07/2025 6:23 AM EDT Leticia Lee NP LAB BLOOD ORDERABLES Final Result [facility] [address] [place] [address], * (ABNORMAL) Basic metabolic panel (07/07/2025 6:06 AM EDT) Sodium 140 133 - 145 mmol/L LAB CHEMISTRY METHOD 07/07/2025 7:28 AM [facility] Potassium 4.3 3.5 - 5.5 mmol/L LAB CHEMISTRY METHOD 07/07/2025 7:28 AM [facility] Chloride 108 96 - 110 mmol/L LAB CHEMISTRY METHOD 07/07/2025 7:28 AM [facility] CO2 28 21 - 32 mmol/L LAB CHEMISTRY METHOD 07/07/2025 7:28 AM [facility] Anion Gap 4 3 - 11 LAB CHEMISTRY METHOD 07/07/2025 7:28 AM [facility] Glucose 136(H) 70 - 100 mg/dL LAB CHEMISTRY METHOD 07/07/2025 7:28 AM [facility] BUN 14 5 - 25 mg/dL LAB CHEMISTRY METHOD 07/07/2025 7:28 AM [facility] Creatinine 0.66 0.50 - 1.10 mg/dL LAB CHEMISTRY METHOD 07/07/2025 7:28 AM [facility] eGFR 89 >=60 mL/min/1. 73m2 LAB CHEMISTRY METHOD 07/07/2025 7:28 AM EDT [facility] Comment:Calculation based on the Chronic Kidney Disease Epidemiology Collaboration (CKD-EPI) equation refit without adjustment for race. BUN/Creatinine Ratio 21.2 LAB CHEMISTRY METHOD 07/07/2025 7:28 AM EDT [facility] Calcium 8.9 8.5 - 10.5 mg/dL LAB CHEMISTRY METHOD 07/07/2025 7:28 AM EDT [facility] Blood Venous blood specimen / Unknown Venipuncture / Unknown 07/07/2025 6:06 AM EDT 07/07/2025 6:23 AM EDT Leticia Lee NP LAB BLOOD ORDERABLES Final Result Performing Organization Address City/[facility]/ZIP Co de Phone Number [facility] [address] [place] [address], * Digoxin level (07/04/2025 1:13 PM EDT) Digoxin Lvl 1.2 0.5 - 2.0 ng/mL LAB CHEMISTRY METHOD 07/04/2025 2:00 PM EDT [facility] Blood Venous blood specimen / Unknown Venipuncture / Unknown 07/04/2025 1:13 PM EDT 07/04/2025 1:25 PM EDT Leticia Matilda Lee NP LAB BLOOD ORDERABLES Final Result [facility] [address] [place] [address], [place] [phone] * (ABNORMAL) CBC auto differential (07/04/2025 5:43 AM EDT) WBC 8.2 4.8 - 10.8 K/mcL LAB HEMETOLOGY METHOD 07/04/2025 7:37 AM [facility] RBC 4.50 3.80 - 4.80 M/mcL LAB HEMETOLOGY METHOD 07/04/2025 7:37 AM [facility] Hemoglobin 10.9(L) 11.5 - 16.0 g/dL LAB HEMETOLOGY METHOD 07/04/2025 7:37 AM [facility] Hematocrit 37.6 35.0 - 47.0 % LAB HEMETOLOGY METHOD 07/04/2025 7:37 AM [facility] MCV 83.0 79.0 - 98.0 FL LAB HEMETOLOGY METHOD 07/04/2025 7:37 AM [facility] MCH 24.1(L) 27.0 - 32.0 pcg LAB HEMETOLOGY METHOD 07/04/2025 7:37 AM [facility] MCHC 29.0(L) 32.0 - 37.0 g/dL LAB HEMETOLOGY METHOD 07/04/2025 7:37 AM [facility] RDW 19.2(H) 11.0 - 15.0 % LAB HEMETOLOGY METHOD 07/04/2025 7:37 AM [facility] Platelets 273 130 - 400 K/mcL LAB HEMETOLOGY METHOD 07/04/2025 7:37 AM [facility] MPV 11.0 7.0 - 11.0 FL LAB HEMETOLOGY METHOD 07/04/2025 7:37 AM [facility] NRBC 0.0 <1.0 % LAB HEMETOLOGY METHOD 07/04/2025 7:37 AM [facility] NRBC Absolute 0.00 <0.10 K/mcL LAB HEMETOLOGY METHOD 07/04/2025 7:37 AM [facility] Neutrophils Relative 54.7 % LAB HEMETOLOGY METHOD 07/04/2025 7:37 AM [facility] Lymphocytes Relative 24.7 % LAB HEMETOLOGY METHOD 07/04/2025 7:37 AM [facility] Monocytes Relative 12.5 % LAB HEMETOLOGY METHOD 07/04/2025 7:37 AM [facility] Eosinophils Relative 6.7 % LAB HEMETOLOGY METHOD 07/04/2025 7:37 AM [facility] Basophils Relative 0.9 % LAB HEMETOLOGY METHOD 07/04/2025 7:37 AM [facility] Immature Granulocytes Relative 0.5 % LAB HEMETOLOGY METHOD 07/04/2025 7:37 AM [facility] Neutrophils Absolute 4.47 1.50 - 7.00 K/mcL LAB HEMETOLOGY METHOD 07/04/2025 7:37 AM [facility] Lymphocytes Absolute 2.02 1.00 - 5.00 K/mcL LAB HEMETOLOGY METHOD 07/04/2025 7:37 AM [facility] Monocytes Absolute 1.02(H) 0.20 - 1.00 K/mcL LAB HEMETOLOGY METHOD 07/04/2025 7:37 AM [facility] Eosinophils Absolute 0.55(H) 0.00 - 0.50 K/mcL LAB HEMETOLOGY METHOD 07/04/2025 7:37 AM [facility] Basophils Absolute 0.07 0.00 - 0.20 K/mcL LAB HEMETOLOGY METHOD 07/04/2025 7:37 AM [facility] Immature Granulocytes Absolute 0.04(H) 0.00 - 0.03 K/mcL LAB HEMETOLOGY METHOD 07/04/2025 7:37 AM [facility] Blood Venous blood specimen / Unknown Venipuncture / Unknown 07/04/2025 5:43 AM EDT 07/04/2025 6:23 AM EDT us Chepe MARCOS LAB BLOOD ORDERABLES Final Resu lt [facility] [address] [place] [address], [place] [phone] * (ABNORMAL) Comprehensive metabolic panel (07/04/2025 5:43 AM EDT) Sodium 141 133 - 145 mmol/L LAB CHEMISTRY METHOD 07/04/2025 7:24 AM [facility] Potassium 4.4 3.5 - 5.5 mmol/L LAB CHEMISTRY METHOD 07/04/2025 7:24 AM [facility] Chloride 111(H) 96 - 110 mmol/L LAB CHEMISTRY METHOD 07/04/2025 7:24 AM [facility] CO2 25 21 - 32 mmol/L LAB CHEMISTRY METHOD 07/04/2025 7:24 AM [facility] Anion Gap 5 3 - 11 LAB CHEMISTRY METHOD 07/04/2025 7:24 AM [facility] Glucose 122(H) 70 - 100 mg/dL LAB CHEMISTRY METHOD 07/04/2025 7:24 AM [facility] BUN 17 5 - 25 mg/dL LAB CHEMISTRY METHOD 07/04/2025 7:24 AM [facility] Creatinine 0.73 0.50 - 1.10 mg/dL LAB CHEMISTRY METHOD 07/04/2025 7:24 AM [facility] eGFR 83 >=60 mL/min/1. 73m2 LAB CHEMISTRY METHOD 07/04/2025 7:24 AM [facility] Comment:Calculation based on the Chronic Kidney Disease Epidemiology Collaboration (CKD-EPI) equation refit without adjustment for race. BUN/Creatinine Ratio 23.3 LAB CHEMISTRY METHOD 07/04/2025 7:24 AM [facility] Calcium 8.9 8.5 - 10.5 mg/dL LAB CHEMISTRY METHOD 07/04/2025 7:24 AM [facility] AST (SGOT) 12 10 - 42 unit/L LAB CHEMISTRY METHOD 07/04/2025 7:24 AM [facility] ALT (SGPT) <6(L) 10 - 60 unit/L LAB CHEMISTRY METHOD 07/04/2025 7:24 AM T [facility] Comment:Results verified by repeat testing Alkaline Phosphatase 106 42 - 121 unit/L LAB CHEMISTRY METHOD 07/04/2025 7:24 AM [facility] Total Protein 5.5(L) 6.0 - 8.0 g/dL LAB CHEMISTRY METHOD 07/04/2025 7:24 AM [facility] Albumin 3.0(L) 3.2 - 5.0 g/dL LAB CHEMISTRY METHOD 07/04/2025 7:24 AM [facility] Total Bilirubin 0.6 0.0 - 1.4 mg/dL LAB CHEMISTRY METHOD 07/04/2025 7:24 AM [facility] Blood Venous blood specimen / Unknown Venipuncture / Unknown 07/04/2025 5:43 AM EDT 07/04/2025 6:22 AM EDT us Chepe MARCOS LAB BLOOD ORDERABLES Final Resu lt [facility] [address] [place] [address], [place] [phone] from Last 3 Months Insurance MEDICARE [facility] Advance Directives Documents on File Type Date Recorded Patient Insurance Claims Representative Expl anation Advance Directives and Living Will 07/10/2025 7:31 AM HEALTH CARE PROXY * Full Code - Default (Latest Code Status on File) Date Activated Date Inactivated Comments 07/03/2025 2:39 PM 07/14/2025 2:08 PM This is order is used when code status has not been discussed with the patient, or code status is otherwise unknown/unconfirmed To update the patient's code status, place a code status order. Do not modify or discontinue any currently active code status orders. Healthcare Agents on File Name Relationship Healthcare Agent [facility] Communication MARC Cantrell Health Care Agent Care Teams Oracle Sql Developer Relationship Specialty Start Date End Date Mini Rudd MD [address] [place] [address] PCP - General Family Medicine 07/03/25
--- OUTSIDE RECORDS SUMMARY | 2025-07-22 14:05 | XMS_ITS | Encounter Summary ---
Author Organization [facility] Address [address] [place] [address] Phone Care Team Providers Care Bridge Engineer Name Role Phone Yanick Vivar MD Unavailable Parth Bird MD Unavailable Rey Fletcher DO Unavailable Amelia Fermin MD Unavailable [phone] Mini Rudd MD Primary Care Provider + Mini Rudd MD Unavailable Encounter Details Date Type Department Care Team (Late st Contact Info) Description 06/18/2024 Procedure Pass Echo Lab [address] [place] [address] Social History Tobacco Use Types Packs/Day Years Used Date Smoking Tobacco: Former Cigarettes 2 1 965 - 1984 Smokeless Tobacco: Never Alcohol Use Standard Drinks/Week Comments Yes 0 (1 standard drink = 0.6 oz pur e alcohol) occasional Home Health Assessment: Transportation Answer Date Recorded Lack of Transportation (Medical) No 02/13/2024 Lack of Transportation (Non-Medical) No 02/13/2024 Patient Unable or Declines to Respond No 02/13/2024 Child or Family Care Answer Date Record [...] Visit [facility] [address] [place], [place] [phone] Ree Antonio RN [address] [place] [address] [email or web address] 07/27/2025 Home Care Visit [facility] [address] [place], [place] [phone] Ree Antonio RN [address] [place] [address] [email or web address] 07/28/2025 Home Care Visit [facility] [address] [place] [address] Daphney Angeles, PT [address] [place] [address] [email or web address] 07/30/2025 Home Care Visit [facility] [address] [place] [address] Ree Antonio RN [address] [place] [address] [email or web address] 07/31/2025 2:00 AM EDT Home Care Visit [facility] [address] [place] [address] Daphney Angeles, PT [address] [place] [address] [email or web address] 08/03/2025 1:00 AM EDT Home Care Visit [facility] [address] [place] [phone] Ree Antonio RN [address] [place] [address] [email or web address] 08/04/2025 1:30 AM EDT Home Care Visit [facility] [address] [place] [phone] Daphney Angeles, PT [address] [place] [address] [email or web address] 08/06/2025 Home Care Visit [facility] [address] [place] [address] Ree Antonio RN [address] [place] [address] [email or web address] 08/07/2025 1:45 AM EDT Home Care Visit [facility] [address] [place] [address] Daphney Angeles, PT [address] [place] [address] [email or web address] 08/10/2025 12:30 AM EDT Home Care Visit [facility] [address] [place] [phone] Ree Antonio RN [address] [place] [address] [email or web address] 08/11/2025 12:45 AM EDT Home Care Visit [facility] [address] [place] [phone] Daphney Angeles, PT [address] [place] [address] [email or web address] 08/13/2025 1:30 AM EDT Home Care Visit [facility] [address] [place] [phone] Ree Antonio RN [address] [place] [address] [email or web address] 08/14/2025 12:45 AM EDT Home Care Visit [facility] [address] [place] [phone] Daphney Angeles, PT [address] [place] [address] [email or web address] 08/17/2025 12:30 AM EDT Home Care Visit [facility] [address] [place] [phone] Ree Antonio RN [address] [place] [address] [email or web address] 08/17/2025 1:00 AM EDT Home Care Visit [facility] [address] [place] [phone] Daphney Angeles, PT [address] [place] [address] [email or web address] 08/18/2025 11:00 AM EDT Office Visit [facility] [address] [facility] 3rd Floor, [address] [place] [address] Parth Tadeo DO [address] [facility] [address] [place] [address] 08/18/2025 3:15 PM EDT Office Visit [facility] [address] [address] Mini Rudd MD [address] [place] [address] 7 [place] [address] 08/20/2025 12:30 AM EDT Home Care Visit [facility] [address] [place] [phone] Ree Antonio RN [address] [place] [address] [email or web address] 08/24/2025 12:30 AM EDT Home Care Visit [facility] [address] [place] [phone] Ree Antonio RN [address] [place] [address] [email or web address] 08/25/2025 Home Care Visit [facility] [address] [place] [address] Daphney Angeles, PT [address] [place] [address] [email or web address] 08/27/2025 12:30 AM EDT Home Care Visit [facility] [address] [place] [address] Ree Antonio RN [address] [place] [address] [email or web address] 08/31/2025 Home Care Visit [facility] [address] [place] [phone] Ree Antonio RN [address] [place] [address] [email or web address] 09/01/2025 Home Care Visit [facility] [address] [place] [address] Daphney Angeles, PT [address] [place] [address] [email or web address] 09/03/2025 2:00 AM EDT Home Care Visit [facility] [address] [place] [phone] Ree Antonio RN [address] [place] [address] [email or web address] 09/07/2025 Home Care Visit [facility] [address] [place] [phone] Ree Antonio RN [address] [place] [address] [email or web address] 09/08/2025 Home Care Visit [facility] [address] [place] [phone] Daphney Angeles, PT [address] [place] [address] [email or web address] 09/10/2025 Home Care Visit [facility] [address] [place] [phone] Ree Antonio RN [address] [place] [address] [email or web address] documented as of this encounter Visit Diagnoses Not on filedocumented in this encounter Additional Health Concerns Assessment Noted Time PHQ-9 Depression Total Score: 13 07/12/2 022 2:43 PM EDT PHQ-2 Depression Total Score: 2 10/14/20 24 11:18 AM EST documented as of this encounter Care Teams Bridge Engineer Relationship Specialty Start Date End Date Mini Rudd MD [address] [place] [address] 7 [place] [address] PCP - General Family Medicine 06/27/23 Yanick Vivar MD [address] [place] [address] Historical LMR Provider 09/16/17 Parth Bird MD [address] [place] [address] [email or web address] Historical LMR Provider 09/16/17 Rey Fletcher DO [address] [place] [address] [facility], [place] [address] Historical LMR Provider 09/16/17 Amelia Fermin MD [address] [place] [address] [facility], [place] [address] Historical LMR Provider 09/16/17 Mini Rudd MD [address] [place] [address] [place] [address] Insurance Assigned Provider 03/01/24 documented as of this encounter Additional Source Comments The information contained in this document represents components of the legal health record. It is not the complete legal health record.[facility]
--- OUTSIDE RECORDS SUMMARY | 2025-07-22 14:05 | XMS_ITS | Encounter Summary ---
Author Organization [facility] Address [address] [facility] [address] [place] [address] Phone Care Team Providers Care Air Intelligence Officer Name Role Phone Yanick Vivar MD Unavailable Yanick Vivar MD Unavailable Leyla Heller GEOTHERMAL POWERPLANT SUPERVISOR Unavailable Braulio Javed DO Unavailable Kiersten Carrizales GEOTHERMAL POWERPLANT SUPERVISOR Unavailable Unavailable DacKiersten lee DO Unavailable Parth Bird MD Unavailable Evelia Hartman GEOTHERMAL POWERPLANT SUPERVISOR Unavailable Karen Miller ELA TEACHER Unavailable Rey Fletcher DO Unavailable Padmini Carpenter GEOTHERMAL POWERPLANT SUPERVISOR Unavailable Leatha Dey GEOTHERMAL POWERPLANT SUPERVISOR Unavailable Jessa Rutledge MD Unavailable [phone] Susie Swanson PA-C Unavailable Brittany yIer MD Unavailable [phone] Matt Sanchez MD Unavailable Amelia Fermin MD Unavailable Yanick Vivar MD Primary Care Provider Mini Rudd MD Primary Care Provider + Mini Rudd MD Unavailable [phone] Encounter Details Date Type Department Care Team (Late st Contact Info) Description 08/09/2020 Ancillary Orders [address] [address] Amelai Fermin MD [address] [place] [address] [facility], [place] [address] [email or web address] Hip pain, chronic, left Social History Tobacco Use Types Packs/Day Years [...] 07/23/2025 4:00 AM EDT Home Care Visit [facility] [address] [place], [place] [phone] Ree Antonio RN [address] [place] [address] 07/27/2025 Home Care Visit [facility] [address] [place], [place] [phone] Ree Antonio RN [address] [place] [address] 07/28/2025 Home Care Visit [facility] [address] [place], [place] [phone] Daphney Angeles, PT [address] [place] [address] [email or web address] 07/30/2025 Home Care Visit [facility] [address] [place] [address] Ree Antonio RN [address] [place] [address] [email or web address] 07/31/2025 2:00 AM EDT Home Care Visit [facility] [address] [place] [address] Daphney Angeles, PT [address] [place] [address] [email or web address] 08/03/2025 1:00 AM EDT Home Care Visit [facility] [address] [place] [phone] Ree Antonio RN [address] [place] [address] [email or web address] 08/04/2025 1:30 AM EDT Home Care Visit [facility] [address] [place] [phone] Daphney Angeles, PT [address] [place] [address] [email or web address] 08/06/2025 Home Care Visit [facility] [address] [place] [address] Ree Antonio RN [address] [place] [address] [email or web address] 08/07/2025 1:45 AM EDT Home Care Visit [facility] [address] [place] [phone] Daphney Angeles, PT [address] [place] [address] [email or web address] 08/10/2025 12:30 AM EDT Home Care Visit [facility] [address] [place] [phone] Ree Antonio RN [address] [place] [address] [email or web address] 08/11/2025 12:45 AM EDT Home Care Visit [facility] [address] [place] [phone] Daphney Angeles, PT [address] [place] [address] [email or web address] 08/13/2025 1:30 AM EDT Home Care Visit [facility] [address] [place] [phone] Ree Antonio RN [address] [place] [address] [email or web address] 08/14/2025 12:45 AM EDT Home Care Visit [facility] [address] [place] [phone] Daphney Angeles, PT [address] [place] [address] [email or web address] 08/17/2025 12:30 AM EDT Home Care Visit [facility] [address] [place] [phone] Ree Antonio RN [address] [place] [address] [email or web address] 08/17/2025 1:00 AM EDT Home Care Visit [facility] [address] [place] [phone] Daphney Angeles, PT [address] [place] [address] 08/18/2025 11:00 AM EDT Office Visit [facility] [address] [facility] 3rd Floor, [address] [place] [address] Parth Tadeo DO [address] [facility] [address] [place] [address] 08/18/2025 3:15 PM EDT Office Visit [facility] [address] [address] Mini Rudd MD [address] [place] [address] 7 [place] [address] 08/20/2025 12:30 AM EDT Home Care Visit [facility] [address] [place] [phone] Ree Antonio RN [address] [place] [address] 08/24/2025 12:30 AM EDT Home Care Visit [facility] [address] [place] [address] Ree Antonio RN [address] [place] [address] 08/25/2025 Home Care Visit [facility] [address] [place] [address] Daphney Angeles, PT [address] [place] [address] 08/27/2025 12:30 AM EDT Home Care Visit [facility] [address] [place] [address] Ree Antonio RN [address] [place] [address] 08/31/2025 Home Care Visit [facility] [address] [place] [phone] Ree Antonio RN [address] [place] [address] 09/01/2025 Home Care Visit [facility] [address] [place] [phone] Daphney Angeles, PT [address] [place] [address] 09/03/2025 2:00 AM EDT Home Care Visit [facility] [address] [place] [phone] Ree Antonio RN [address] [place] [address] 09/07/2025 Home Care Visit [facility] [address] [place] [phone] Ree Antonio RN [address] [place] [address] 09/08/2025 Home Care Visit [facility] [address] [place] [phone] Daphney Angeles, PT [address] [place] [address] 09/10/2025 Home Care Visit [facility] [address] [place] [phone] Ree Antonio RN [address] [place] [address] Pending Results Name Type Priority Associated Diagnoses Date /Time FL Guidance Needle Placement Non-Spine Imaging Routine Hip pain, chronic, left 08/10/2020 9:18 AM EDT Scheduled Orders Name Type Priority Associated Diagnoses Orde r Schedule FL Guidance Needle Placement Non-Spine Imaging Routine Hip pain, chronic, left 1 Occurrences starting 08/09/2020 until 11/08/2020 documented as of this encounter Visit Diagnoses Diagnosis Hip pain, chronic, left documented in this encounter Additional Health Concerns Infection Onset Date Last Indicated Resolved Time CoV-Risk Comment:Per Ambulatory Triage Form 04/17/2023 04/17/202304/17 9:56 AM EDT COVID-19 04/17/2023 04/18/2023 05/09/2023 1:51 AM EDT CoV-Risk Comment:Neg covid 11/08/2023 11/08/2023 11/09/2023 6:[address] documented as of this encounter Care Teams Air Intelligence Officer Relationship Specialty Start Date End Date Yanick Vivar MD [address] [place] [address] 7 [place] [phone] [email or web address] PCP - General Family Medicine 12/04/19 06/26/23 Mini Rudd MD [address] [place] [address] 7 [place] [address] [email or web address] PCP - General Family Medicine 06/27/23 Yanick Vivar MD [address] [place] [address] 7 [place] [address] [email or web address] Insurance Assigned Provider 09/01/17 03/01/24 Yanick Vivar MD [address] [place] [address] 7 [place] [address] [email or web address] Historical LMR Provider 09/16/17 Leyla Heller GEOTHERMAL POWERPLANT SUPERVISOR 1 [facility] [place] Hernandez [address] Historical LMR Provider 09/16/17 2 Braulio Javed DO [address] [place] [address] 7 [place] [address] [email or web address] Historical LMR Provider 09/16/17 12/03/21 Kiersten Carrizales GEOTHERMAL POWERPLANT SUPERVISOR [address] [place] [address] Historical LMR Provider 09/16/1712/03 Kiersten Lee DO [address] [place] [address] 7 [place] [address] [email or web address] Historical LMR Provider 09/16/17 12/03/21 Parth Bird MD [address] [place] [address] 7 [place] [address] [email or web address] Historical LMR Provider 09/16/17 Evelia Hartman NP [address] [place] [address] Historical LMR Provider 09/16/17 2 Karen Miller, YANELY [address] [facility] [place] [address] [email or web address] Historical LMR Provider 09/16/17 12/03/21 Rey Fletcher DO [address] [place] [address] [facility], [facility] [place] [address] Historical LMR Provider 09/16/17 Padmini Carpenter NP [address] [place] [address] Historical LMR Provider 09/16/17 Leatha Dey NP [address] [place] [address] Historical LMR Provider 09/16/17 2 Jessa Rutledge MD [address] [facility], [address] [place] [address] Historical LMR Provider 09/16/17 12/03/21 Susie Swanson PA-C [address] [place] [address] [facility], [place] [address] Historical LMR Provider 09/16/17 12/03/21 Brittany Iyer MD [address], [place] [address] Historical LMR Provider 09/16/17 2 Matt Sanchez MD [address] [place] [phone] Historical LMR Provider 09/16/17 2 Amelia Fermin MD [address] [place] [address] [facility] [place] [address] Historical LMR Provider 09/16/17 Mini Rudd MD [address] [facility] 7 [place] [address] [email or web address] Insurance Assigned Provider 03/01/24 documented as of this encounter Additional Source Comments The information contained in this document represents components of the legal health record. It is not the complete legal health record.[facility]
--- OUTSIDE RECORDS SUMMARY | 2025-07-22 14:05 | XMS_ITS | Encounter Summary ---
Author Organization [facility] Address [address] [place] [address] Phone Care Team Providers Care Orthopaedic General Name Role Phone Yanick Vivar MD Unavailable Yanick Vivar MD Unavailable [phone] Parth Bird MD Unavailable [phone] Rey Fletcher DO Unavailable [phone] Amelia Fermin MD Unavailable [phone] Mini Rudd MD Primary Care Provider + Mini Rudd MD Unavailable [phone] Encounter Details Date Type Department Care Team (Late st Contact Info) Description 11/08/2023 Procedure Pass [facility] [address] [place] [address] Social History Tobacco Use Types Packs/Day Years Used Date Smoking Tobacco: Former Cigarettes 2 20 1 965 - 1985 Smokeless Tobacco: Never Alcohol Use Standard Drinks/Week Comments Yes 0 (1 standard drink = 0.6 oz pur e alcohol) occasional Home Health Assessment: Transportation Answer Date Recorded Lack of Transportation (Medical) No 06/20/2023 Lack of Transportation (Non-Medical) No 06/20/2023 Patient Unable or Declines to Respond No 06/20/2023 Child or Family Care Answer Date Record [...] Date of Assessment Author No Risk Indicated 11/08/2023 9:40 AM Chelsea Garcia * [place] Suicide Severity Rating Scale (Screener/Recent Self-Report) Question Answer Date of Assessment Author 1. Wish to be (Past 1 Month) No 023 9:40 AM Chelsea Garcia 2. Non-Specific Active Suici luanne Thoughts (Past 1 Month) No 11/08/2023 9:40 AM Katie Garcia on 6. Suicidal Behavior (Lifetime) No 3 9:40 AM Chelsea Garcia documented as of this encounter Plan of Treatment Upcoming Encounters Date Type Department Care Team (Late st Contact Info) Description 07/23/2025 4:00 AM EDT Home [facility] [address] [place] [address] Ree Antonio RN [address] [place] [address] 07/27/2025 [facility] Visit [facility] [address] [place] [address] Ree Antonio RN [address] [place] [address] 07/28/2025 Home Care Visit [facility] [address] [place] [address] Daphney Angeles, PT [address] [place] [address] 07/30/2025 Home Care Visit [facility] [address] [place] [address] Ree Antonio RN [address] [place] [address] 07/31/2025 2:00 AM EDT Home Care Visit [facility] [address] [place] [address] Daphney Angeles, PT [address] [place] [address] 08/03/2025 1:00 AM EDT Home [facility] [address] [place] [address] Ree Antonio RN [address] [place] [address] 08/04/2025 1:30 AM EDT Home [facility] [address] [place] [address] Daphney Angeles, PT [address] [place] [address] 08/06/2025 Home Care Visit [facility] [address] [place] [address] Ree Antonio RN [address] [place] [address] 08/07/2025 1:45 AM EDT Home Care Visit [facility] [address] [place] [address] Daphney Angeles, PT [address] [place] [address] 08/10/2025 12:30 AM EDT Home Care [facility] [address] [place] [phone] Ree Antonio RN [address] [place] [address] 08/11/2025 12:45 AM EDT Home Care Visit [facility] [address] [place] [phone] Daphney Angeles, PT [address] [place] [address] 08/13/2025 1:30 AM EDT Home [facility] [address] [place] [phone] Ree Antonio, IVET [address] [place] [address] 08/14/2025 12:45 AM EDT Home [facility] [address] [place] [phone] Daphney Angeles, PT [address] [place] [address] 08/17/2025 12:30 AM EDT Home Care Visit [facility] [address] [place] [address] Ree Antonio RN [address] [place] [address] 08/17/2025 1:00 AM EDT Home [facility] Visit [facility] [address] [place] [address] Daphney Angeles, PT [address] [place] [address] 08/18/2025 11:00 AM EDT Office Visit [facility] [address] [facility] 3rd Floor, [address] [place] [address] Parth Tadeo DO [address] [address] 08/18/2025 3:15 PM EDT Office Visit [facility] [address] [address] Mnii Rudd MD [address] [place] [address] 08/20/2025 12:30 AM EDT Home Care [facility] [address] [place] [address] Ree Antonio RN [address] [place] [address] 08/24/2025 12:30 AM EDT Home Care Visit [facility] [address] [place] [address] Ree Antonio RN [address] [place] [address] 08/25/2025 Home Care Visit [facility] [address] [place] [address] Daphney Angeles, PT [address] [place] [address] 08/27/2025 12:30 AM EDT Home Care Visit [facility] [address] [place] [address] Ree Antonio RN [address] [place] [address] 08/31/2025 Home [facility] Visit [facility] [address] [place] [address] Ree Antonio RN [address] [place] [address] 09/01/2025 Home Care Visit [facility] [address] [place] [address] Daphney Angeles, PT [address] [place] [address] 09/03/2025 2:00 AM EDT Home [facility] [address] [place] [address] Ree Antonio RN [address] [place] [address] 09/07/2025 Home Care Visit [facility] [address] [place] [address] Ree Antonio RN [address] [place] [address] 09/08/2025 Home Care Visit [facility] [address] [place], [place] [phone] Daphney Angeles, PT [address] [place] [address] [email or web address] 09/10/2025 Home [facility] Visit [facility] [address] [place] [address] Ree Antonio, RN [address] [place] [address] [email or web address] documented as of this encounter Visit Diagnoses Not on filedocumented in this encounter Additional Health Concerns Infection Onset Date Last Indicated Resolved Time CoV-Risk Comment:Neg covid 11/08/2023 11/08/2023 11/09/2023 6:[address] Assessment Noted Time PHQ-9 Depression Total Score: 13 022 2:43 PM EDT PHQ-2 Depression Total Score: 3 06/06/20 22 2:43 PM EDT documented as of this encounter Care Teams Orthopaedic General Relationship Specialty Start Date End Date Mini Rudd MD [address] [place] [address] 7 [place] [address] [email or web address] PCP - General Family Medicine 06/27/23 Yanick Vivar MD [address] [place] [address] 7 [place] [address] [email or web address] Insurance Assigned Provider 09/01/17 03/01/24 Yanick Vivar MD [address] [place] [address] 7 [place] [address] [email or web address] Historical LMR Provider 09/16/17 Parth Bird MD [address] [place] [address] 7 [place] [address] [email or web address] Historical LMR Provider 09/16/17 Rey Fletcher DO [address] [place] [address] [facility], [place], [place] [phone] Historical LMR Provider 09/16/17 Amelia Fermin MD [address] [place] [address] [facility], [place], [place] [phone] Historical LMR Provider 09/16/17 Mini Rudd MD [address] [place] [address] 7 [place], [place] [phone] Insurance Assigned Provider 03/01/24 documented as of this encounter Additional Source Comments The information contained in this document represents components of the legal health record. It is not the complete legal health record.[facility]
--- OUTSIDE RECORDS SUMMARY | 2025-07-22 14:05 | XMS_ITS | Encounter Summary ---
Author Organization [facility] Address [address] [place] [address] Phone Care Team Providers Care Musical String Maker Name Role Phone Yanick Vivar MD Unavailable [phone] Parth Bird MD Unavailable Rey Fletcher DO Unavailable [phone] Amelia Fermin MD Unavailable [phone] Mini Rudd MD Primary Care Provider + Mini Rudd MD Unavailable Encounter Details Date Type Department Care Team (Late st Contact Info) Description 05/19/2025 Telephone [facility] [address] [place] [address] 3rd Floor, [address] [place] [phone] Parth Tadeo DO [address] [address] [email or web address] Social History Tobacco Use Types Packs/Day Years Used Date Smoking Tobacco: Former Cigarettes 2 20 1 965 - 1984 Smokeless Tobacco: Never Alcohol Use Standard Drinks/Week Comments Yes 0 (1 standard drink = 0.6 oz pur e alcohol) occasional Home Health Assessment: Transportation Answer Date Recorded Lack of Transportation (Medical) No 03/02/2025 Lack of Transportation (Non-Medical) No 03/02/2025 Patient Unable or Declines to Respond No 03/02/2025 Child or Family Care Answer Date Record [...] as of this encounter Progress Notes * [facility] - 05/19/2025 8:41 AM EDT This pt is having a procedure on the 2nd but the OV notes need to be signed so they can be sent offfor clearance documented in this encounter Plan of Treatment Upcoming Encounters Date Type Department Care Team (Late st Contact Info) Description 07/23/2025 4:00 AM EDT [facility] [address] [place] [phone] Ree Antonio RN [address] [place] [address] 07/27/2025 Home Care Visit [facility] [address] [place] [phone] Ree Antonio RN [address] [place] [address] 07/28/2025 Home Care Visit [facility] [address] [place] [address] Daphney Angeles, PT [address] [place] [address] 07/30/2025 Home Care Visit [facility] [address] [place] [address] Ree Antonio RN [address] [place] [address] 07/31/2025 2:00 AM EDT Home [facility] [address] [place] [address] Daphney Angeles, PT [address] [place] [address] 08/03/2025 1:00 AM EDT Home [facility] Visit [facility] [address] [facility] [address] Ree Antonio RN [address] [place] [address] 08/04/2025 1:30 AM EDT Home [facility] Visit [facility] [address] [place] [address] Daphney Angeles, PT [address] [place] [address] 08/06/2025 Home Care Visit [facility] [address] [place] [address] Ree Antonio RN [address] [place] [address] 08/07/2025 1:45 AM EDT Home Care Visit [facility] [address] [place] [phone] Daphney Angeles, PT [address] [place] [address] 08/10/2025 12:30 AM EDT Home Care Visit [facility] [address] [place] [address] Ree Antonio RN [address] [place] [address] 08/11/2025 12:45 AM EDT Home Care Visit [facility] [address] [place] [address] Daphney Angeles, PT [address] [place] [address] 08/13/2025 1:30 AM EDT Home Care Visit [facility] [address] [place] [address] Ree Antonio RN [address] [place] [address] 08/14/2025 12:45 AM EDT Home Care Visit [facility] [address] [place] [address] Daphney Angeles, PT [address] [place] [address] 08/17/2025 12:30 AM EDT Home Care Visit [facility] [address] [place] [address] Ree Antonio RN [address] [place] [address] 08/17/2025 1:00 AM EDT [facility] [address] [place] [address] Daphney Angeles, PT [address] [place] [address] 08/18/2025 11:00 AM EDT Office Visit [facility] [address] [place] [address] 3rd Floor, [address] [place] [address] Parth Tadeo, [address] [address] 08/18/2025 3:15 PM EDT Office Visit [facility] [address] [address] Mini Rudd MD [address] [place] [address] 08/20/2025 12:30 AM EDT Home Care Visit [facility] [address] [place] [address] Ree Antonio RN [address] [place] [address] 08/24/2025 12:30 AM EDT Home [facility] Visit [facility] [address] [place] [address] Ree Antonio RN [address] [place] [address] 08/25/2025 Home Care Visit [facility] [address] [place] [address] Daphney Angeles, PT [address] [place] [address] 08/27/2025 12:30 AM EDT Home Care Visit [facility] [address] [place] [phone] Ree Antonio RN [address] [place] [address] 08/31/2025 Home Care Visit [facility] [address] [place] [phone] Ree Antonio RN [address] [place] [address] 09/01/2025 Home Care Visit [facility] [address] [place] [address] Daphney Angeles, PT [address] [place] [address] 09/03/2025 2:00 AM EDT Home Care Visit [facility] [address] [place] [address] Ree Antonio RN [address] [place] [address] 09/07/2025 Home Care Visit [facility] [address] [place], [place] [phone] Ree Antonio, IVET [address] [place] [address] [email or web address] 09/08/2025 Home Care Visit [facility] [address] [place] [address] Daphney Angeles, PT [address] [place] [address] [email or web address] 09/10/2025 Home Care Visit [facility] [address] [place] [address] Ree Antonio RN [address] [place] [address] [email or web address] documented as of this encounter Visit Diagnoses Not on filedocumented in this encounter Additional Health Concerns Assessment Noted Time PHQ-9 Depression Total Score: 13 022 2:43 PM EDT PHQ-2 Depression Total Score: 2 10/14/20 24 11:18 AM EST documented as of this encounter Care Teams Musical String Maker Relationship Specialty Start Date End Date Mini Rudd MD [address] [place] [address] [email or web address] PCP - General Family Medicine 06/27/23 Yanick Vivar MD [address] [place] [address] 7 [place] [address] [email or web address] Historical LMR Provider 09/16/17 Parth Bird MD [address] [place] [address] 7 [place] [address] [email or web address] Historical LMR Provider 09/16/17 Rey Fletcher DO [address] [place] [address] [facility], [place], [place] [phone] [email or web address] Historical LMR Provider 09/16/17 Amelia Fermin MD [address] [place] [address] [facility], [place], [place] [phone] Historical LMR Provider 09/16/17 Mini Rudd MD [address] [place] [address] 7 [place], [place] [phone] Insurance Assigned Provider 03/01/24 documented as of this encounter Additional Source Comments The information contained in this document represents components of the legal health record. It is not the complete legal health record.[facility]
--- OUTSIDE RECORDS SUMMARY | 2025-07-22 14:05 | XMS_ITS | Encounter Summary ---
Author Organization [facility] Address [address] [facility] [address] [place] [address] Phone Care Team Providers Care Visual Communications Instructor Name Role Phone Yanick Vivar MD Unavailable Yanick Vivar MD Unavailable Leyla Heller SIGNAL CONSTRUCTOR Unavailable Braulio Javed DO Unavailable Kiersten Carrizales SIGNAL CONSTRUCTOR Unavailable Unavailable DacKiersten lee DO Unavailable Parth Bird MD Unavailable Evelia Hartman SIGNAL CONSTRUCTOR Unavailable Karen Miller PROTECTIVE SIGNAL REPAIRER Unavailable Rey Fletcher DO Unavailable Padmini Carpenter SIGNAL CONSTRUCTOR Unavailable Leatha Dey SIGNAL CONSTRUCTOR Unavailable Jessa Rutledge MD Unavailable [phone] Susie Swanson PA-C Unavailable Brittany Iyer MD Unavailable [phone] Matt Sanchez MD Unavailable Amelia Fermin MD Unavailable Yanick Vivar MD Primary Care Provider [phone] Mini Rudd MD Primary Care Provider + Mini Rudd MD Unavailable [phone] Encounter Details Date Type Department Care Team (Late st Contact Info) Description 09/06/2020 Procedure Pass [facility] Scan - [address] [address] Social History Tobacco Use Types Packs/Day Years [...] 07/23/2025 4:00 AM EDT [facility] [address] [place] [address] Ree Antonio, RN [address] [place] [address] [email or web address] 07/27/2025 [facility] [address] [place] [address] Ree Antonio, RN [address] [place] [address] 07/28/2025 [facility] [address] [place] [address] Daphney Angeles, PT [address] [place] [address] 07/30/2025 Home Care Visit [facility] [address] [place] [address] Ree Antonio RN [address] [place] [address] [email or web address] 07/31/2025 2:00 AM EDT Home [facility] Visit [facility] [address] [place] [address] Daphney Angeles, PT [address] [place] [address] [email or web address] 08/03/2025 1:00 AM EDT Home Care [facility] [address] [place] [address] Ree Antonio RN [address] [place] [address] [email or web address] 08/04/2025 1:30 AM EDT Home [facility] [address] [place] [address] Daphney Angeles, PT [address] [place] [address] [email or web address] 08/06/2025 Home Care Visit [facility] [address] [place] [address] Ree Antonio RN [address] [place] [address] [email or web address] 08/07/2025 1:45 AM EDT Home [facility] [address] [place] [address] Daphney Angeles, PT [address] [place] [address] [email or web address] 08/10/2025 12:30 AM EDT Home Care Visit [facility] [address] [place] [address] Ree Antonio RN [address] [place] [address] [email or web address] 08/11/2025 12:45 AM EDT Home [facility] Visit [facility] [address] [place] [address] Daphney Angeles, PT [address] [place] [address] [email or web address] 08/13/2025 1:30 AM EDT Home Care Visit [facility] [address] [place] [phone] Ree Antonio RN [address] [place] [address] [email or web address] 08/14/2025 12:45 AM EDT Home Care Visit [facility] [address] [place] [phone] Daphney Angeles, PT [address] [place] [address] [email or web address] 08/17/2025 12:30 AM EDT Home Care [facility] [address] [place] [address] Ree Antonio RN [address] [place] [address] [email or web address] 08/17/2025 1:00 AM EDT Home Care Visit [facility] [address] [place] [phone] Daphney Angeles, PT [address] [place] [address] [email or web address] 08/18/2025 11:00 AM EDT Office Visit [facility] [address] [facility] 3rd Floor, [address] [place] [address] Parth Tadeo DO 22 [facility] [address] [place] [address] 08/18/2025 3:15 PM EDT Office Visit [facility] [address] [place] [address] Mini Rudd MD [address] [facility], [address] [place] [address] 08/20/2025 12:30 AM EDT Home Care Visit [facility] [address] [place] [address] Ree Antonio RN [address] [place] [address] 08/24/2025 12:30 AM EDT Home Care Visit [facility] [address] [place] [address] Ree Antonio RN [address] [place] [address] [email or web address] 08/25/2025 Home Care Visit [facility] [address] [place] [phone] Daphney Angeles, PT [address] [place] [address] 08/27/2025 12:30 AM EDT Home Care Visit [facility] [address] [place] [address] Ree Antonio RN [address] [place] [address] [email or web address] 08/31/2025 Home Care Visit [facility] [address] [place] [address] Ree Antonio RN [address] [place] [address] 09/01/2025 Home Care Visit [facility] [address] [place] [address] Daphney Angeles, PT [address] [place] [address] [email or web address] 09/03/2025 2:00 AM EDT Home Care Visit [facility] [address] [place] [address] Ree Antonio RN [address] [place] [address] [email or web address] 09/07/2025 Home Care Visit [facility] [address] [place] [address] Ree Antonio RN [address] [place] [address] [email or web address] 09/08/2025 Home Care Visit [facility] [address] [place] [address] Daphney Angeles, PT [address] [place] [address] 09/10/2025 Home Care Visit [facility] [address] [place] [address] Ree Antonio RN [address] [place] [address] documented as of this encounter Visit Diagnoses Not on filedocumented in this encounter Additional Health Concerns Infection Onset Date Last Indicated Resolved Time CoV-Risk Comment:Per Ambulatory Triage Form 04/17/2023 04/17/202304/17 9:56 AM EDT COVID-19 04/17/2023 04/18/2023 05/09/2023 1:51 AM EDT CoV-Risk Comment:Neg covid 11/08/2023 11/08/2023 11/09/2023 6:[address] documented as of this encounter Care Teams Visual Communications Instructor Relationship Specialty Start Date End Date Yanick Vivar MD [address] [place] [address] 7 [place] [address] PCP - General Family Medicine 12/04/19 06/26/23 Mini Rudd MD [address] [place] [address] 7 [place] [address] [email or web address] PCP - General Family Medicine 06/27/23 Yanick Vivar MD [address] [place] [address] [place] [address] [email or web address] Insurance Assigned Provider 09/01/17 03/01/24 Yanick Vivar MD [address] [place] [address] [place] [address] [email or web address] Historical LMR Provider 09/16/17 Leyla Heller, SIGNAL CONSTRUCTOR [address] [place] [address] Historical LMR Provider 09/16/17 2 Braulio Javed DO [address] [place] [address] [place] [address] [email or web address] Historical LMR Provider 09/16/17 12/03/21 Kiersten Carrizales, SIGNAL CONSTRUCTOR [address] [place] [address] Historical LMR Provider 09/16/1712/03 Kiersten Lee DO [address] [place] [address] [place] [address] [email or web address] Historical LMR Provider 09/16/17 12/03/21 Parth Bird MD [address] [place] [address] [address] [place] [address] [email or web address] Historical LMR Provider 09/16/17 Evelia Hartman, SAMI [address] [place] [address] Historical LMR Provider 09/16/17 2 Karen Miller, YANELY [address] [address] Historical LMR Provider 09/16/17 12/03/21 Rey Fletcher DO [address] [place] [address] [facility], [place] [address] Historical LMR Provider 09/16/17 Padmini Carpenter, SIGNAL CONSTRUCTOR [address] [place] [address] Historical LMR Provider 09/16/17 Leatha Dey, SAMI [address] [place] [address] Historical LMR Provider 09/16/17 2 Jessa Rutledge MD [address] [address] Historical LMR Provider 09/16/17 12/03/21 Susie Swanson PA-C 4 [facility] [place] [address] Historical LMR Provider 09/16/17 12/03/21 Brittany Iyer MD [address] [place] [address] Historical LMR Provider 09/16/17 2 Matt Sanchez MD [address] [phone] Historical LMR Provider 09/16/17 2 Amelia Fermin MD [address] [place] [address] [facility], [place] [address] Historical LMR Provider 09/16/17 Mini Rudd MD [address] [address] Insurance Assigned Provider 03/01/24 documented as of this encounter Additional Source Comments The information contained in this document represents components of the legal health record. It is not the complete legal health record.[facility]
--- OUTSIDE RECORDS SUMMARY | 2025-07-22 14:05 | XMS_ITS | Encounter Summary ---
Author Organization [facility] Address [address] [facility] [address] [place] [address] Phone Care Team Providers Care Technical Operations Vice President Name Role Phone Yanick Vivar MD Unavailable Yanick Vivar MD Unavailable Leyla Heller EMBROIDERY WORKER Unavailable Braulio Javed DO Unavailable Kiersten Carrizales EMBROIDERY WORKER Unavailable Unavailable DacKiersten lee DO Unavailable Parth Bird MD Unavailable Evelia Hartman EMBROIDERY WORKER Unavailable Karen Miller PROCESSES CHEMICAL DESIGN ENGINEER Unavailable Rey Fletcher DO Unavailable Padmini Carpenter EMBROIDERY WORKER Unavailable Leatha Dey EMBROIDERY WORKER Unavailable Jessa Rutledge MD Unavailable [phone] Susie Swanson PA-C Unavailable Brittany Iyer MD Unavailable [phone] Matt Sanchez MD Unavailable Amelia Fermin MD Unavailable Yanick Vivar MD Primary Care Provider [phone] Makenna Lugo RN Unavailable Mini Rudd MD Primary Care Provider + Mini Rudd MD Unavailable [phone] Encounter Details Date Type Department Care Team (Late st Contact Info) Description 12/23/2019 Ancillary Orders [facility] [address] [address] Daphney Sinclair, PROCESSES CHEMICAL DESIGN ENGINEER 170 [facility] [place], [address] [place] [address] [email or web address] Social History Tobacco Use Types Packs/Day Years [...] Visit [facility] [address] [place], [place] [phone] Ree Antonio, IVET [address] [place] [address] [email or web address] 07/27/2025 Home Care Visit [facility] [address] [place], [place] [phone] Ree Antonio, IVET [address] [place] [address] [email or web address] 07/28/2025 Home Care Visit [facility] [address] [place] [address] Daphney Angeles, PT [address] [place] [address] [email or web address] 07/30/2025 Home Care Visit [facility] [address] [place] [address] Ree Antonio RN [address] [place] [address] [email or web address] 07/31/2025 2:00 AM EDT Home Care Visit [facility] [address] [place] [address] Daphney Angeles, PT [address] [place] [address] [email or web address] 08/03/2025 1:00 AM EDT Home Care Visit [facility] [address] [place] [phone] Ree Antonio RN [address] [place] [address] [email or web address] 08/04/2025 1:30 AM EDT Home Care Visit [facility] [address] [place] [phone] Daphney Angeles, PT [address] [place] [address] [email or web address] 08/06/2025 Home Care Visit [facility] [address] [place] [address] Ree Antonio RN [address] [place] [address] [email or web address] 08/07/2025 1:45 AM EDT Home Care Visit [facility] [address] [place] [address] Daphney Angeles, PT [address] [place] [address] [email or web address] 08/10/2025 12:30 AM EDT Home Care Visit [facility] [address] [place] [phone] Ree Antonio RN [address] [place] [address] [email or web address] 08/11/2025 12:45 AM EDT Home Care Visit [facility] [address] [place] [phone] Daphney Angeles, PT [address] [place] [address] [email or web address] 08/13/2025 1:30 AM EDT Home Care Visit [facility] [address] [place] [phone] Ree Antonio RN [address] [place] [address] [email or web address] 08/14/2025 12:45 AM EDT Home Care Visit [facility] [address] [place] [phone] Daphney Angeles, PT [address] [place] [address] [email or web address] 08/17/2025 12:30 AM EDT Home Care Visit [facility] [address] [place] [phone] Ree Antonio RN [address] [place] [address] [email or web address] 08/17/2025 1:00 AM EDT Home Care Visit [facility] [address] [place] [phone] Daphney Angeles, PT [address] [place] [address] [email or web address] 08/18/2025 11:00 AM EDT Office Visit [facility] 22 [facility] 3rd Floor, [address] [place] [address] Parth Tadeo DO 22 [facility] [address] [place] [address] 08/18/2025 3:15 PM EDT Office Visit [facility] [address] [address] Mini Rudd MD [address] [place] [address] 7 [place] [address] 08/20/2025 12:30 AM EDT Home Care Visit [facility] [address] [place] [phone] Ree Antonio RN [address] [place] [address] [email or web address] 08/24/2025 12:30 AM EDT Home Care Visit [facility] [address] [place] [phone] Ree Antonio RN [address] [place] [address] [email or web address] 08/25/2025 Home Care Visit [facility] [address] [place] [address] Daphney Angeles, PT [address] [place] [address] [email or web address] 08/27/2025 12:30 AM EDT Home Care Visit [facility] [address] [place] [address] Ree Antonio RN [address] [place] [address] [email or web address] 08/31/2025 Home Care Visit [facility] [address] [place] [phone] Ree Antonio RN [address] [place] [address] [email or web address] 09/01/2025 Home Care Visit [facility] [address] [place] [phone] Daphney Angeles, PT [address] [place] [address] [email or web address] 09/03/2025 2:00 AM EDT Home Care Visit [facility] [address] [place] [phone] Ree Antonio RN [address] [place] [address] [email or web address] 09/07/2025 Home Care Visit [facility] [address] [place] [phone] Ree Antonio RN [address] [place] [address] [email or web address] 09/08/2025 Home Care Visit [facility] [address] [place] [phone] Daphney Angeles, PT [address] [place] [address] [email or web address] 09/10/2025 Home Care Visit [facility] [address] [place] [phone] Ree Antonio RN [address] [place] [address] [email or web address] documented as of this encounter Visit Diagnoses [...] documented as of this encounter Care Teams Technical Operations Vice President Relationship Specialty Start Date End Date Yanick Vivar MD [address] [place] [address] 7 [place] [address] [email or web address] PCP - General Family Medicine 12/04/19 06/26/23 Mini Rudd MD [address] [place] [address] 7 [place] [address] PCP - General Family Medicine 06/27/23 Yanick Vivar MD [address] [place] [address] 7 [place] [address] Insurance Assigned Provider 09/01/17 03/01/24 Yanick Vivar MD [address] [place] [address] 7 [place] [phone] Historical LMR Provider 09/16/17 Leyla Heller EMBROIDERY WORKER 1 [facility] [place] [address] Historical LMR Provider 09/16/17 2 Braulio Javed DO [address] [place] [address] 7 [place] [address] [email or web address] Historical LMR Provider 09/16/17 12/03/21 Kiersten Carrizales NP [address] [place] [address] Historical LMR Provider 09/16/1712/03 Kiersten Lee DO 234 [facility], [facility] 7 [place] [address] [email or web address] Historical LMR Provider 09/16/17 12/03/21 Parth Bird MD [address] [place] [address] 7 [place] [address] [email or web address] Historical LMR Provider 09/16/17 Evelia Hartman NP [address] [place] [address] Historical LMR Provider 09/16/17 2 Karen Miller CNP 15 [facility], [address] [place] [address] [email or web address] Historical LMR Provider 09/16/17 12/03/21 Rey Fletcher DO [address] [place] [address] [facility], [place] [address] maria Historical LMR Provider 09/16/17 Padmini Carpenter, SAMI 22 [place] [address] Historical LMR Provider 09/16/17 Leatha Dey NP [address] [place] [address] Historical LMR Provider 09/16/17 2 Jessa Rutledge MD 22 [facility], [address] [place] [address] Historical LMR Provider 09/16/17 12/03/21 Susie Swanson PA-C [address] [place] [address] [facility], [place] [address] Historical LMR Provider 09/16/17 12/03/21 Brittany Iyer MD [address] [place] [address] Historical LMR Provider 09/16/17 2 Matt Sanchez MD 236 [facility] 7 [place] [phone] Historical LMR Provider 09/16/17 2 Amelia Fermin MD [address] [place] [address] [facility], [place] [address] Historical LMR Provider 09/16/17 Makenna Lugo, RN 10 [place] [address] [email or web address] 05/11/20 06/24/20 Mini Rudd MD 234 [facility], [address] [place] [address] Insurance Assigned Provider 03/01/24 documented as of this encounter Additional Source Comments The information contained in this document represents components of the legal health record. It is not the complete legal health record.[facility]
--- OUTSIDE RECORDS SUMMARY | 2025-07-22 14:05 | XMS_ITS | Encounter Summary ---
Author Organization [facility] Address [address] [facility] [address] [place] [address] Phone Care Team Providers Care Army Helicopter Pilot Name Role Phone Yanick Vivar MD Unavailable Yanick Vivar MD Unavailable Leyla Heller PRESS TENDER Unavailable Braulio Javed DO Unavailable Kiersten Carrizales PRESS TENDER Unavailable Unavailable DacKiersten lee DO Unavailable Parth Bird MD Unavailable Evelia Hartman PRESS TENDER Unavailable Karen Miller FIELD SALES ENGINEER Unavailable Rey Fletcher DO Unavailable Padmini Carpenter PRESS TENDER Unavailable [phone] Leatha Dey PRESS TENDER Unavailable Jessa Rutledge MD Unavailable [phone] Susie Swanson PA-C Unavailable Brittany Iyer MD Unavailable [phone] Matt Sanchez MD Unavailable Amelia Fermin MD Unavailable Yanick Vivar MD Primary Care Provider [phone] Mini Rudd MD Primary Care Provider + Mini Rudd MD Unavailable [phone] Encounter Details Date Type Department Care Team (Late st Contact Info) Description 08/09/2020 Ancillary Orders [facility] [address] [place] [address] Amelia Fermin MD [address] [place] [address] [facility], [facility] [place] [address] [email or web address] Social History Tobacco Use Types Packs/Day Years Used Date Smoking Tobacco: Former Cigarettes 2 5 - 1984 Smokeless Tobacco: Never Alcohol Use [...] 4:00 AM EDT Home Care Visit [facility] [address] [place], [place] [phone] Ree Antonio RN [address] [place] [address] [email or web address] 07/27/2025 Home Care Visit [facility] [address] [place], [place] [phone] Ree Antonio RN [address] [place] [address] 07/28/2025 Home Care Visit [facility] [address] [place], [place] [phone] Daphney Angeles, PT [address] [place] [address] [email or web address] 07/30/2025 Home Care Visit [facility] [address] [place] [address] Ree Antonio RN [address] [place] [address] [email or web address] 07/31/2025 2:00 AM EDT Home Care Visit [facility] [address] [place] [phone] Daphney Angeles, PT [address] [place] [address] [email or web address] 08/03/2025 1:00 AM EDT Home Care Visit [facility] [address] [place] [phone] Ree Antonio RN [address] [place] [address] [email or web address] 08/04/2025 1:30 AM EDT Home Care Visit [facility] [address] [place] [phone] Daphney Angeles, PT [address] [place] [address] [email or web address] 08/06/2025 Home Care Visit [facility] [address] [place] [address] Ree Antonio RN [address] [place] [address] [email or web address] 08/07/2025 1:45 AM EDT Home Care Visit [facility] [address] [place] [phone] Daphney Angeles, PT [address] [place] [address] [email or web address] 08/10/2025 12:30 AM EDT Home Care Visit [facility] [address] [place] [phone] Ree Antonio RN [address] [place] [address] [email or web address] 08/11/2025 12:45 AM EDT Home Care Visit [facility] [address] [place] [phone] Daphney Angeles, PT [address] [place] [address] [email or web address] 08/13/2025 1:30 AM EDT Home Care Visit [facility] [address] [place] [phone] Ree Antonio RN [address] [place] [address] [email or web address] 08/14/2025 12:45 AM EDT Home Care Visit [facility] [address] [place] [phone] Daphney Angeles, PT [address] [place] [address] [email or web address] 08/17/2025 12:30 AM EDT Home Care Visit [facility] [address] [place] [phone] Ree Antonio RN [address] [place] [address] [email or web address] 08/17/2025 1:00 AM EDT Home Care Visit [facility] [address] [place] [phone] Daphney Angeles, PT [address] [place] [address] [email or web address] 08/18/2025 11:00 AM EDT Office Visit [facility] 22 [facility] 3rd Floor, [address] [place] [address] Parth Tadeo DO 22 [facility] [address] [place] [address] 08/18/2025 3:15 PM EDT Office Visit [facility] [address] [address] Mini Rudd MD 234 [facility] 7 [place] [address] 08/20/2025 12:30 AM EDT Home Care [facility] [address] [place] [phone] Ree Antonio RN [address] [place] [address] 08/24/2025 12:30 AM EDT Home Care Visit [facility] [address] [place] [address] Ree Antonio RN [address] [place] [address] 08/25/2025 Home Care Visit [facility] [address] [place] [address] Daphney Angeles, PT [address] [place] [address] 08/27/2025 12:30 AM EDT Home Care Visit [facility] [address] [place] [address] Ree Antonio RN [address] [place] [address] 08/31/2025 Home Care Visit [facility] [address] [place] [phone] Ree Antonio RN [address] [place] [address] [email or web address] 09/01/2025 Home Care Visit [facility] [address] [place] [phone] Daphney Angeles, PT [address] [place] [address] [email or web address] 09/03/2025 2:00 AM EDT Home Care Visit [facility] [address] [place] [phone] Ree Antonio RN [address] [place] [address] [email or web address] 09/07/2025 Home Care Visit [facility] [address] [place] [phone] Ree Antonio RN [address] [place] [address] 09/08/2025 Home Care Visit [facility] [address] [place] [phone] Daphney Angeles, PT [address] [place] [address] [email or web address] 09/10/2025 Home Care Visit [facility] [address] [place] [phone] Ree Antonio RN [address] [place] [address] documented as of this encounter Visit Diagnoses Not on filedocumented in this encounter Additional Health Concerns Infection Onset Date Last Indicated Resolved Time CoV-Risk Comment:Per Ambulatory Triage Form 04/17/2023 04/17/202304/17 9:56 AM EDT COVID-19 04/17/2023 04/18/2023 05/09/2023 1:51 AM EDT CoV-Risk Comment:Neg covid 11/08/2023 11/08/2023 11/09/2023 6:[address] documented as of this encounter Care Teams Army Helicopter Pilot Relationship Specialty Start Date End Date Yanick Vivar MD [address] [place] [address] [address] [place] [address] [email or web address] PCP - General Family Medicine 12/04/19 06/26/23 Mini Rudd MD [address] [place] [address] [place] [address] PCP - General Family Medicine 06/27/23 Yanick Vivar MD [address] [place] [address] 7 [place] [address] Insurance Assigned Provider 09/01/17 03/01/24 Yanick Vivar MD [address] [place] [address] 7 [place] [address] [email or web address] Historical LMR Provider 09/16/17 Leyla Heller PRESS TENDER 1 [facility] [place] [address] Historical LMR Provider 09/16/17 2 Braulio Javed DO [address] [place] [address] 7 [place] [address] [email or web address] Historical LMR Provider 09/16/17 12/03/21 Kiersten Carrizales PRESS TENDER [address] [place] [address] Historical LMR Provider 09/16/1712/03 Kiersten Lee DO 234 [facility] 7 [place] [address] [email or web address] Historical LMR Provider 09/16/17 12/03/21 Parth Bird MD [address] [place] [address] 7 [place] [address] [email or web address] Historical LMR Provider 09/16/17 Evelia Hartman, SAMI [address] [place] [address] Historical LMR Provider 09/16/17 2 Karen Miller, YANELY 15 [facility], 2nd [place] [address] [email or web address] Historical LMR Provider 09/16/17 12/03/21 Rey Fletcher DO [address] [place] [address] [facility], [place] [address] maria Historical LMR Provider 09/16/17 Padmini Carpenter, SAMI 22 [place] [address] Historical LMR Provider 09/16/17 Leatha Dey, SAMI [address] [place] [address] Historical LMR Provider 09/16/17 2 Jessa Rutledge MD 22 [facility], [address] [place] [address] Historical LMR Provider 09/16/17 12/03/21 Susie Swanson PA-C 4 [facility], [place] [address] Historical LMR Provider 09/16/17 12/03/21 Brittany Iyer MD [address], [place] [address] Historical LMR Provider 09/16/17 2 Matt Sanchez MD [address] [place] [phone] Historical LMR Provider 09/16/17 2 Amelia Fermin MD [address] [place] [address] [facility], [place] [address] Historical LMR Provider 09/16/17 Mini Rudd MD 234 [facility] [address] [place] [address] Insurance Assigned Provider 03/01/24 documented as of this encounter Additional Source Comments The information contained in this document represents components of the legal health record. It is not the complete legal health record.[facility]
--- OUTSIDE RECORDS SUMMARY | 2025-07-22 14:05 | XMS_ITS | Encounter Summary ---
Author Organization [facility] Address [address] [place] [address] Phone Care Team Providers Care System Auditor Name Role Phone Yanick Vivar MD Unavailable [phone] Parth Bird MD Unavailable Rey Fletcher DO Unavailable Amelia Fermin MD Unavailable [phone] Mini Rudd MD Primary Care Provider + Mini Rudd MD Unavailable Reason for Visit * Reason Onset Date Comments office visit notes 05/19/2025 Encounter Details Date Type Department Care Team (Late st Contact Info) Description 05/19/2025 Telephone [employer] [facility] [address] [facility] [place] [address] Joy [email or web address] office visit notes Social History Tobacco Use Types Packs/Day Years [...] as of this encounter Progress Notes * Megha Roth - 05/26/2025 8:11 AM EDT Faxed, confirmation received * Joy Velazquez - 05/25/2025 10:13 AM EDT Evy from [facility] called in requesting recent lab work be faxed over. Fax number is [phone]. Caller is also looking to see if the patient has been cleared for surgery after the recent pre op visit on 05/15. Please contact and advise. Central Support Asphalt Plant Operator (Please do not reply to this user; this inbox is not monitored.) Thank you. * Megha Roth - 05/19/2025 8:43 AM EDT Faxed and confirmation confirmed * Joy Velazquez - 05/19/2025 8:35 AM EDT Evy from [facility] called in requesting the last pre op visit notes and any testing that was done with that including EKG and labs. Fax number is [phone]. Please contact and advise. Central Support Asphalt Plant Operator (Please do not reply to this user; this inbox is not monitored.) Thank you. documented in this encounter Plan of Treatment Upcoming Encounters Date Type Department Care Team (Late st Contact Info) Description 07/23/2025 4:00 AM EDT [facility] [address] [place] [address] Ree Antonio RN [address] [place] [address] 07/27/2025 [facility] Visit [facility] [address] [place] [address] Ree Antonio RN [address] [place] [address] [email or web address] 07/28/2025 Home Care Visit [facility] [address] [place] [address] Daphney Angeles, PT [address] [place] [address] [email or web address] 07/30/2025 Home Care Visit [facility] [address] [place] [address] Ree Antonio RN [address] [place] [address] [email or web address] 07/31/2025 2:00 AM EDT Home Care Visit [facility] [address] [place] [address] Daphney Angeles, PT [address] [place] [address] [email or web address] 08/03/2025 1:00 AM EDT Home Care Visit [facility] [address] [place] [phone] Ree Antonio RN [address] [place] [address] [email or web address] 08/04/2025 1:30 AM EDT Home Care Visit [facility] [address] [place] [address] Daphney Angeles, PT [address] [place] [address] [email or web address] 08/06/2025 Home Care Visit [facility] [address] [place] [address] Ree Antonio RN [address] [place] [address] [email or web address] 08/07/2025 1:45 AM EDT Home Care Visit [facility] [address] [place] [phone] Daphney Angeles, PT [address] [place] [address] [email or web address] 08/10/2025 12:30 AM EDT Home Care Visit [facility] [address] [place] [phone] Ree Antonio RN [address] [place] [address] [email or web address] 08/11/2025 12:45 AM EDT Home Care Visit [facility] [address] [place] [phone] Daphney Angeles, PT [address] [place] [address] [email or web address] 08/13/2025 1:30 AM EDT Home Care Visit [facility] [address] [place] [phone] Ree Antonio RN [address] [place] [address] [email or web address] 08/14/2025 12:45 AM EDT Home Care Visit [facility] [address] [place] [phone] Daphney Angeles, PT [address] [place] [address] [email or web address] 08/17/2025 12:30 AM EDT Home Care Visit [facility] [address] [place] [address] Ree Antonio RN [address] [place] [address] [email or web address] 08/17/2025 1:00 AM EDT Home Care Visit [facility] [address] [place] [address] Daphney Angeles, PT [address] [place] [address] 08/18/2025 11:00 AM EDT Office Visit [facility] [address], [address] [place] [address] Parth Tadeo DO [address] [facility] [address] [place] [address] 08/18/2025 3:15 PM EDT Office Visit [facility] [address] [address] Mini Rudd MD [address] [place] [address] 7 [place] [address] 08/20/2025 12:30 AM EDT Home Care Visit [facility] [address] [place] [address] Ree Antonio RN [address] [place] [address] [email or web address] 08/24/2025 12:30 AM EDT Home Care Visit [facility] [address] [place] [address] Ree Antonio RN [address] [place] [address] [email or web address] 08/25/2025 Home Care Visit [facility] [address] [place] [address] Daphney Angeles, PT [address] [place] [address] [email or web address] 08/27/2025 12:30 AM EDT Home Care Visit [facility] [address] [place] [address] Ree Antonio RN [address] [place] [address] [email or web address] 08/31/2025 Home Care Visit [facility] [address] [place] [address] Ree Antonio RN [address] [place] [address] [email or web address] 09/01/2025 Home Care Visit [facility] [address] [place] [address] Daphney Angeles, PT [address] [place] [address] [email or web address] 09/03/2025 2:00 AM EDT Home Care Visit [facility] [address] [place] [phone] Ree Antonio RN [address] [place] [address] [email or web address] 09/07/2025 Home Care Visit [facility] [address] [place] [address] Ree Antonio RN [address] [place] [address] [email or web address] 09/08/2025 Home Care Visit [facility] [address] [place] [address] Daphney Angeles, PT [address] [place] [address] [email or web address] 09/10/2025 Home Care Visit [facility] [address] [place] [address] Ree Antonio, RN [address] [place] [address] [email or web address] documented as of this encounter Visit Diagnoses Not on filedocumented in this encounter Additional Health Concerns Assessment Noted Time PHQ-9 Depression Total Score: 13 022 2:43 PM EDT PHQ-2 Depression Total Score: 2 10/14/20 24 11:18 AM EST documented as of this encounter Care Teams System Auditor Relationship Specialty Start Date End Date Mini Rudd MD [address] [place] [address] 7 [place] [address] [email or web address] PCP - General Family Medicine 06/27/23 Yanick Vivar MD [address] [place] [address] [email or web address] Historical LMR Provider 09/16/17 Parth Bird MD [address] [place] [address] [email or web address] Historical LMR Provider 09/16/17 Rey Fletcher DO [address] [place] [address] Orthopedics & Sports Medicine, [facility] [place] [address] [email or web address] Historical LMR Provider 09/16/17 Amelia Fermin MD [address] [place] [address] Orthopedics [facility] Sports Medicine, [place], [place] [id number] Historical LMR Provider 09/16/17 Mini Rudd MD [address] [place] [address] 7 [place] [address] [email or web address] Insurance Assigned Provider 03/01/24 documented as of this encounter Additional Source Comments The information contained in this document represents components of the legal health record. It is not the complete legal health record.[facility]
--- OUTSIDE RECORDS SUMMARY | 2025-07-22 14:05 | XMS_ITS | Encounter Summary ---
Author Organization [facility] Address [address] [facility] [address] [place] [address] Phone Care Team Providers Care Supervisor [employer] Name Role Phone Yanick Vivar MD Unavailable Yanick Vivar MD Unavailable Leyla Heller [employer] Unavailable Braulio Javed DO Unavailable Kiersten Carrizales [employer] DRIER Unavailable Unavailable DacKiersten lee DO Unavailable Parth Bird MD Unavailable Evelia Hartman [employer] D[employer]ER Unavailable Karen Miller FENDER REPAIRER Unavailable Rey Fletcher DO Unavailable Padmini Carpenter [employer] Unavailable Leatha Dey [employer] DRIER Unavailable Jessa Rutledge MD Unavailable [phone] Susie Swanson PA-C Unavailable Brittany Iyer MD Unavailable [phone] Matt Sanchez MD Unavailable Amelia Fermin MD Unavailable Yanick Vivar MD Primary Care Provider Makenna Lugo RN Unavailable Mini Rudd MD Primary Care Provider + Mini Rudd MD Unavailable [phone] Encounter Details Date Type Department Care Team (Late st Contact Info) Description 12/23/2019 Ancillary Orders [facility], X-Ray - [address] [place] [address] Daphney Sinclari, FENDER REPAIRER [address] [facility], [address] [place] [address] [email or web address] Chronic thumb pain, left Social History Tobacco Use Types Packs/Day [...] Visit [facility] [address] [place], [place] [phone] Ree Antonio, IVET [address] [place] [address] [email or web address] 07/27/2025 Home Care Visit [facility] [address] [place], [place] [phone] Ree Antonio, IVET [address] [place] [address] [email or web address] 07/28/2025 Home Care Visit [facility] [address] [place] [address] Daphney Angeles, PT [address] [place] [address] [email or web address] 07/30/2025 Home Care Visit [facility] [address] [place] [address] Ree Antonio RN [address] [place] [address] [email or web address] 07/31/2025 2:00 AM EDT Home Care Visit [facility] [address] [place] [address] Daphney Angeles, PT [address] [place] [address] [email or web address] 08/03/2025 1:00 AM EDT Home Care Visit [facility] [address] [place] [phone] Ree Antonio RN [address] [place] [address] [email or web address] 08/04/2025 1:30 AM EDT Home Care Visit [facility] [address] [place] [phone] Daphney Angeles, PT [address] [place] [address] [email or web address] 08/06/2025 Home Care Visit [facility] [address] [place] [address] Ree Antonio RN [address] [place] [address] [email or web address] 08/07/2025 1:45 AM EDT Home Care Visit [facility] [address] [place] [address] Daphney Angeles, PT [address] [place] [address] [email or web address] 08/10/2025 12:30 AM EDT Home Care Visit [facility] [address] [place] [address] Ree Antonio RN [address] [place] [address] [email or web address] 08/11/2025 12:45 AM EDT Home Care Visit [facility] [address] [place] [phone] Daphney Angeles, PT [address] [place] [address] [email or web address] 08/13/2025 1:30 AM EDT Home Care Visit [facility] [address] [place] [phone] Ree Antonio RN [address] [place] [address] [email or web address] 08/14/2025 12:45 AM EDT Home Care Visit [facility] [address] [place] [phone] Daphney Angeles, PT [address] [place] [address] [email or web address] 08/17/2025 12:30 AM EDT Home Care Visit [facility] [address] [place] [phone] Ree Antonio RN [address] [place] [address] [email or web address] 08/17/2025 1:00 AM EDT Home Care Visit [facility] [address] [place] [address] Daphney Angeles, PT [address] [place] [address] [email or web address] 08/18/2025 11:00 AM EDT Office Visit [facility] [address] [facility] 3rd Floor, [address] [place] [address] Parth Tadeo DO [address] [facility] [address] [place] [address] 08/18/2025 3:15 PM EDT Office Visit [facility] [address] [address] Mini Rudd MD [address] [place] [address] 7 [place] [address] 08/20/2025 12:30 AM EDT Home [facility] Visit [facility] [address] [place] [phone] Ree Antonio RN [address] [place] [address] [email or web address] 08/24/2025 12:30 AM EDT Home Care Visit [facility] [address] [place] [phone] Ree Antonio RN [address] [place] [address] [email or web address] 08/25/2025 Home Care Visit [facility] [address] [place] [address] Daphney Angeles, PT [address] [place] [address] [email or web address] 08/27/2025 12:30 AM EDT Home Care Visit [facility] [address] [place] [address] Ree Antonio RN [address] [place] [address] [email or web address] 08/31/2025 Home Care Visit [facility] [address] [place] [phone] Ree Antonio RN [address] [place] [address] [email or web address] 09/01/2025 Home Care Visit [facility] [address] [place] [address] Daphney Angeles, PT [address] [place] [address] [email or web address] 09/03/2025 2:00 AM EDT Home Care Visit [facility] [address] [place] [phone] Ree Antonio RN [address] [place] [address] [email or web address] 09/07/2025 Home Care Visit [facility] [address] [place] [phone] Ree Antonio RN [address] [place] [address] [email or web address] 09/08/2025 Home Care Visit [facility] [address] [place] [phone] Daphney Angeles, PT [address] [place] [address] [email or web address] 09/10/2025 Home Care Visit [facility] [address] [place] [phone] Ree Antonio RN [address] [place] [address] [email or web address] documented as of this encounter Results * XR FINGER 2 OR MORE VIEWS (LEFT) (12/23/2019 12:35 PM EST) Anatomical Region Laterality Modality Hand Left Radiographic Linda ging 12/23/2019 1:06 PM EST Impressions 12/23/2019 1:08 PM EST Comminuted intra-articular fracture of the distal first phalanx. Hand surgery follow-up is advised. POS [id number] Narrative 12/23/2019 1:08 PM EST XR FINGER 2 OR MORE VIEWS (LEFT) CLINICAL HISTORY: xr left thumb COMPARISON: None FINDINGS: Bones and Joints: There is a comminuted intra-articular fracture of the base of the distal first phalanx. No dislocation. Mild osteophytic changes of the distal interphalangeal joint spaces. Vascular calcifications. Osteopenia. Degenerative changes of the radiocarpal joint space. Widening of the scapholunate interval compatible with previous scapholunate ligament injury. Procedure Note Benjie Soriano MD - 12/23/2019 XR FINGER 2 OR MORE VIEWS (LEFT) CLINICAL HISTORY: xr left thumb COMPARISON: None FINDINGS: Bones and Joints: There is a comminuted intra-articular fracture of thebase of the distal first phalanx. No dislocation. Mild osteophytic changes of the distal interphalangeal joint spaces. Vascular calcifications. Osteopenia. Degenerative changes of theradiocarpal joint space. Widening of the scapholunate interval compatiblewith previous scapholunate ligament injury. IMPRESSION: Comminuted intra-articular fracture of the distal first phalanx. Handsurgery follow-up is advised. POS [id number] Daphney Sinclair FENDER REPAIRER IMG XR UPPER EXTREMITY F inal Result documented in this encounter Visit Diagnoses Diagnosis Chronic thumb pain, left Chronic thumb pain, left documented in this encounter Additional Health Concerns Infection Onset Date Last Indicated Resolved Time CoV-Risk 07/22/2020 07/22/2020 08/05/2020 1:24 AM EDT CoV-Risk Comment:Per Ambulatory Triage Form 04/17/2023 04/17/202304/17 9:56 AM EDT COVID-19 04/17/2023 04/18/2023 05/09/2023 1:51 AM EDT CoV-Risk Comment:Neg covid 11/08/2023 11/08/2023 11/09/2023 6:[address] documented as of this encounter Care Teams Supervisor [employer] Relationship Specialty Start Date End Date Yanick Vivar MD [address] [place] [address], [place] [address] [place] [address] [email or web address] PCP - General Family Medicine 12/04/19 06/26/23 Mini Rudd MD [address] [place] [address] 7 [place] [address] PCP - General Family Medicine 06/27/23 Yanick Vivar MD [address] [place] [address] 7 [place] [address] [email or web address] Insurance Assigned Provider 09/01/17 03/01/24 Yanick Vivar MD [address] [place] [address] 7 [place] [address] [email or web address] Historical LMR Provider 09/16/17 Leyla Heller [employer]ER [address] [place] [address] Historical LMR Provider 09/16/17 2 Braulio Javed DO [address] [place] [address] 7 [place] [address] [email or web address] Historical LMR Provider 09/16/17 12/03/21 Kiersten Carrizales [employer]ER [address] [place] [address] Historical LMR Provider 09/16/1712/03 Kiersten Lee DO [address] [place] [address] 7 [place] [address] [email or web address] Historical LMR Provider 09/16/17 12/03/21 Parth Bird MD [address] [place] [address] 7 [place] [address] [email or web address] Historical LMR Provider 09/16/17 Evelia Hartman NP [address] [place] [address] Historical LMR Provider 09/16/17 2 Karen Miller CNP [address] [place] [address] [email or web address] Historical LMR Provider 09/16/17 12/03/21 Rey Fletcher DO [address] [place] [address] Orthopedics & Sports Medicine, [place] [address] Historical LMR Provider 09/16/17 Padmini Carpenter, SAMI [address] [place] [address] Historical LMR Provider 09/16/17 Leatha Dey, SAMI [address] [place] [address] Historical LMR Provider 09/16/17 2 Jessa Rutledge MD [address] [address] Historical LMR Provider 09/16/17 12/03/21 Susie Swanson PA-C 4 [facility] Medicine, [place] [address] Historical LMR Provider 09/16/17 12/03/21 Brittany Iyer MD [address] [place] [address] Historical LMR Provider 09/16/17 2 Matt Sanchez MD [address] [place] [address] 7 [place] [phone] Historical LMR Provider 09/16/17 2 Amelia Fermin MD [address] [place] [address] Orthopedics & Sports [facility], [place] [address] Historical LMR Provider 09/16/17 Makenna Lugo, RN [address] [place] [address] [email or web address] Box [employer] 05/11/20 06/24/20 Mini Rudd MD [address] [facility] [address] [place], [place] [phone] Insurance Assigned Provider 03/01/24 documented as of this encounter Additional Source Comments The information contained in this document represents components of the legal health record. It is not the complete legal health record.[facility]
--- OUTSIDE RECORDS SUMMARY | 2025-07-22 14:05 | XMS_ITS | Encounter Summary ---
Author Organization [facility] Address [address] [place] [address] Phone Care Team Providers Care Wax Blender Name Role Phone Yanick Vivar MD Unavailable Parth Bird MD Unavailable [phone] Rey Fletcher DO Unavailable [phone] Amelia Fermin MD Unavailable [phone] Mini Rudd MD Primary Care Provider + Mini Rudd MD Unavailable Encounter Details Date Type Department Care Team (Late st Contact Info) Description 04/23/2025 Telephone [facility] [address] [place] [address] 3rd Floor, [address] [place], [place] [id number] Annie Navas, INSURANCE VERIFY REP [address] [place] [address] [email or web address] Social History Tobacco Use Types Packs/Day Years [...] as food, clothing, or medical care? No 10/14/2024 In the past 12 months have y ou been in a relationship with a person who hurts, threatens, or tries to control you? No 10/14/2024 Are you denied basic needs s uch as food, clothing, or medical care? No 10/14/2024 In the past 12 months have y ou been in a relationship with a person who hurts, threatens, or tries to control you? No 10/14/2024 Comments Unknown Sex and Gender Information Value Date Recorded Sex Assigned at Female 03/12/2018 4:32 PM EDT Legal Sex Female 10:09 PM EDT Gender Identity Female 03/12/2018 4:32 PM EDT Sexual Orientation Straight 03/12/2018 4: 32 PM EDT documented as of this encounter Progress Notes * Belem Avitia - 04/23/2025 1:56 PM EDT She did not mention the blood thinner she only mentioned the back surgery * Belem Avitia - 04/23/2025 10:46 AM EDT Pt is having back surgery at [facility] on the 27 of May and they are looking for cardiac Clearance. Leticia ([phone]) her cousin is trying to facilitate this for her. She does have consent to do so, charted in her media. documented in this encounter Plan of Treatment Upcoming Encounters Date Type Department Care Team (Late st Contact Info) Description 07/23/2025 4:00 AM EDT [facility] [address] [place] [address] Ree Antonio RN [address] [place] [address] 07/27/2025 Home [facility] Visit [facility] [address] [place] [phone] Ree Antonio RN [address] [place] [address] 07/28/2025 [facility] Visit [facility] [address] [place] [phone] Daphney Angeles, PT [address] [place] [address] 07/30/2025 Home [facility] Visit [facility] [address] [place] [phone] Ree Antonio RN [address] [place] [address] 07/31/2025 2:00 AM EDT Home [facility] [address] [place] [address] Daphney Angeles, PT [address] [place] [address] 08/03/2025 1:00 AM EDT Home [facility] [address] [place] [address] Ree Antonio RN [address] [place] [address] 08/04/2025 1:30 AM EDT [facility] [address] [place] [address] Daphney Angeles, PT [address] [place] [address] 08/06/2025 Home Care Visit [facility] [address] [place] [address] Ree Antonio RN [address] [place] [address] 08/07/2025 1:45 AM EDT Home [facility] [address] [place] [phone] Daphney Angeles, PT [address] [place] [address] 08/10/2025 12:30 AM EDT Home [facility] [address] [place] [address] Ree Antonio RN [address] [place] [address] 08/11/2025 12:45 AM EDT Home [facility] Visit [facility] [address] [place] [address] Daphney Angeles, PT [address] [place] [address] 08/13/2025 1:30 AM EDT [facility] [address] [place] [address] Ree Antonio RN [address] [place] [address] 08/14/2025 12:45 AM EDT [facility] [address] [place] [phone] Daphney Angeles, PT [address] [place] [address] 08/17/2025 12:30 AM EDT [facility] [address] [place] [address] Ree Antonio RN [address] [place] [address] 08/17/2025 1:00 AM EDT [facility] [address] [place] [phone] Daphney Angeles, PT [address] [place] [address] 08/18/2025 11:00 AM EDT Office Visit [facility] [address] [facility] [address]rd Floor, [address] [place] [address] Parth Tadeo DO [address] [facility] [address] [place] [address] 08/18/2025 3:15 PM EDT [facility] Visit [facility] [address] [address] Mini Rudd MD [address] [place] [address], [address] [place] [address] 08/20/2025 12:30 AM EDT Home [facility] [address] [place] [address] Ree Antonio RN [address] [place] [address] 08/24/2025 12:30 AM EDT Home [facility] [address] [place] [phone] Ree Antonio RN [address] [place] [address] 08/25/2025 Home Care Visit [facility] [address] [place] [phone] Daphney Angeles, PT [address] [place] [address] 08/27/2025 12:30 AM EDT Home [facility] [address] [place] [phone] Ree Antonio RN [address] [place] [address] 08/31/2025 Home Care [facility] [address] [place] [address] Ree Antonio RN [address] [place] [address] 09/01/2025 Home Care Visit [facility] [address] [place] [address] Daphney Angeles, PT [address] [place] [address] 09/03/2025 2:00 AM EDT Home [facility] [address] [place] [address] Ree Antonio, IVET [address] [place] [address] 09/07/2025 Home [facility] Visit [facility] [address] [place] [address] Ree Antonio RN [address] [place] [address] 09/08/2025 Home [facility] Visit [facility] [address] [place] [address] Daphney Angeles, PT [address] [place] [address] 09/10/2025 Home Care Visit [facility] [address] [place] [phone] Ree Antonio RN [address] [place] [address] documented as of this encounter Visit Diagnoses Not on filedocumented in this encounter Additional Health Concerns Assessment Noted Time PHQ-9 Depression Total Score: 13 022 2:43 PM EDT PHQ-2 Depression Total Score: 2 10/14/20 24 11:18 AM EST documented as of this encounter Care Teams Wax Blender Relationship Specialty Start Date End Date Mini Rudd MD [address] [place] [address] 7 [place] [address] [email or web address] PCP - General Family Medicine 06/27/23 Yanick Vivar MD [address] [place] [address] 7 [place] [address] Historical LMR Provider 09/16/17 Parth Bird MD [address] [facility] [address] [place] [address] [email or web address] Historical LMR Provider 09/16/17 Rey Fletcher DO [facility] [place] [address] Historical LMR Provider 09/16/17 Amelia Fermin MD [address] [place] [address] [facility], [place] [address] Historical LMR Provider 09/16/17 Mini Rdud MD [address] [place] [address] 7 [place] [address] Insurance Assigned Provider 03/01/24 documented as of this encounter Additional Source Comments The information contained in this document represents components of the legal health record. It is not the complete legal health record.[facility]
--- OUTSIDE RECORDS SUMMARY | 2025-07-22 14:05 | XMS_ITS | Encounter Summary ---
Author Organization [facility] Address [address] [place] [address] Phone Care Team Providers Care Planning Supervisor Name Role Phone Yanick Vivar MD Unavailable [phone] Parth Bird MD Unavailable Rey Fletcher DO Unavailable Amelia Fermin MD Unavailable [phone] Mini Rudd MD Primary Care Provider + Mini Rudd MD Unavailable Reason for Visit * Reason Onset Date Comments Triage 05/18/2025 Yellow + wound c are + toe Encounter Details Date Type Department Care Team ([facility] st Contact Info) Description 05/18/2025 Telephone [facility] [address] [facility] [address] [facility] [place], [place] [phone] Joy [email or web address] Triage (Yellow + wound care + toe ) Social History Tobacco Use Types Packs/Day Years [...] as of this encounter Progress Notes * Munira Escudero RN - 05/18/2025 3:48 PM EDT Spoke to patient, advised can discuss VNA services during follow up visit on 05/22 at 2:15. * Joy Velazquez - 05/18/2025 12:59 PM EDT [facility] PEN Top Smart Phrases: Red Yellow Green Guidelines Select Red, Yellow, Green Triage Intake *Route to appropriate staff member/pool according to practice guidelines* Yellow Call Intake Call Back Number: (if not patient, name/relationship) [phone] Yellow Symptom: Triage (Yellow + wound care + toe ) When did these symptoms start? 1 week Have you ever experienced these symptoms before? N/A Any additional information: Wants to discuss VNA services Route Normal Priority Encounter to woodworker Reason for Call = TRIAGE Comment = YELLOW + symptom documented in this encounter Plan of Treatment Upcoming Encounters Date Type Department Care Team (Late st Contact Info) Description 07/23/2025 4:00 AM EDT [facility] [address] [place] [address] Ree Antonio, IVET [address] [place] [address] [email or web address] 07/27/2025 Home Care Visit [facility] [address] [place], [place] [phone] Ree Antonio RN [address] [place] [address] [email or web address] 07/28/2025 Home Care Visit [facility] [address] [place], [place] [phone] Daphney Angeles, PT [address] [place] [address] [email or web address] 07/30/2025 Home Care Visit [facility] [address] [place] [address] Ree Antonio RN [address] [place] [address] [email or web address] 07/31/2025 2:00 AM EDT Home [facility] [address] [place] [address] Daphney Angeles, PT [address] [place] [address] [email or web address] 08/03/2025 1:00 AM EDT Home [facility] [address] [place] [address] Ree Antonio RN [address] [place] [address] [email or web address] 08/04/2025 1:30 AM EDT Home [facility] [address] [place] [address] Daphney Angeles, PT [address] [place] [address] [email or web address] 08/06/2025 Home Care Visit [facility] [address] [place] [address] Ree Antonio RN [address] [place] [address] [email or web address] 08/07/2025 1:45 AM EDT Home [facility] [address] [place] [address] Daphney Angeles, PT [address] [place] [address] [email or web address] 08/10/2025 12:30 AM EDT Home [facility] Visit [facility] [address] [place] [address] Ree Antonio RN [address] [place] [address] [email or web address] 08/11/2025 12:45 AM EDT Home [facility] [address] [place] [phone] Daphney Angeles, PT [address] [place] [address] [email or web address] 08/13/2025 1:30 AM EDT Home [facility] [address] [place] [phone] Ree Antonio RN [address] [place] [address] [email or web address] 08/14/2025 12:45 AM EDT Home Care Visit [facility] [address] [place] [phone] Daphney Anglees, PT [address] [place] [address] [email or web address] 08/17/2025 12:30 AM EDT Home [facility] [address] [place] [phone] Ree Antonio RN [address] [place] [address] [email or web address] 08/17/2025 1:00 AM EDT Home Care [facility] [address] [place] [phone] Daphney Angeles, PT [address] [place] [address] [email or web address] 08/18/2025 11:00 AM EDT Office Visit [facility] [address] [place] [address] 3rd Floor, [address] [place] [address] Parth Tadeo, DO [address] [facility] [address] [place] [address] 08/18/2025 3:15 PM EDT [facility] Visit [facility] [address] [place] [address] Mini Rudd MD [address] [facility] [address] [place] [address] 08/20/2025 12:30 AM EDT Home [facility] [address] [place] [address] Ree Antonio RN [address] [place] [address] 08/24/2025 12:30 AM EDT Home [facility] [address] [place] [address] Ree Antonio RN [address] [place] [address] 08/25/2025 Home Care Visit [facility] [address] [place] [address] Daphney Angeles, PT [address] [place] [address] 08/27/2025 12:30 AM EDT Home [facility] [address] [place] [address] Ree Antonio RN [address] [place] [address] 08/31/2025 Home Care Visit [facility] [address] [place] [address] Ree Antonio RN [address] [place] [address] [email or web address] 09/01/2025 Home Care Visit [facility] [address] [place] [phone] Daphney Angeles, PT [address] [place] [address] [email or web address] 09/03/2025 2:00 AM EDT Home [facility] [address] [place] [phone] Ree Antonio RN [address] [place] [address] [email or web address] 09/07/2025 Home Care Visit [facility] [address] [place] [phone] Ree Antonio RN [address] [place] [address] [email or web address] 09/08/2025 Home Care Visit [facility] [address] [place] [phone] Daphney Angeles, PT [address] [place] [address] [email or web address] 09/10/2025 Home Care Visit [facility] [address] [place] [phone] Ree Antonio RN [address] [place] [address] [email or web address] documented as of this encounter Visit Diagnoses Not on filedocumented in this encounter Additional Health Concerns Assessment Noted Time PHQ-9 Depression Total Score: 13 022 2:43 PM EDT PHQ-2 Depression Total Score: 2 10/14/20 24 11:18 AM EST documented as of this encounter Care Teams Planning Supervisor Relationship Specialty Start Date End Date Mini Rudd MD [address] [place] [address] [address] [place] [address] PCP - General Family Medicine 06/27/23 Yanick Vivar MD [address] [place] [address], [facility] [address] [place] [address] Historical LMR Provider 09/16/17 Parth Bird MD [address] [place] [address] 7 [place] [address] [email or web address] Historical LMR Provider 09/16/17 Rey Fletcher DO [address] [place] [address] [facility], [place] [address] Historical LMR Provider 09/16/17 Amelia Fermin MD [address] [place] [address] [facility], [place] [address] Historical LMR Provider 09/16/17 Mini Rudd MD [address] [place] [address] [address] [place] [address] Insurance Assigned Provider 03/01/24 documented as of this encounter Additional Source Comments The information contained in this document represents components of the legal health record. It is not the complete legal health record.[facility]
--- OUTSIDE RECORDS SUMMARY | 2025-07-22 14:05 | XMS_ITS | Encounter Summary ---
Author Organization [facility] Address [address] [place] [address] Phone Care Team Providers Care Copy Messenger Name Role Phone Yanick Vivar MD Unavailable [phone] Parth Bird MD Unavailable Rey Fletcher DO Unavailable Amelia Fermin MD Unavailable [phone] Mini Rudd MD Primary Care Provider + Mini Rudd MD Unavailable Encounter Details Date Type Department Care Team (Late st Contact Info) Description 03/10/2025 Procedure Pass [facility], [address] [address] Social History Tobacco Use Types Packs/Day Years [...] 07/23/2025 4:00 AM EDT [facility] [address] [place] [phone] Ree Antonio RN [address] [place] [address] [email or web address] 07/27/2025 Home Care Visit [facility] [address] [place] [address] Ree Antonio RN [address] [place] [address] [email or web address] 07/28/2025 Home Care Visit [facility] [address] [place] [address] Daphney Angeles, PT [address] [place] [address] [email or web address] 07/30/2025 Home Care Visit [facility] [address] [place] [phone] Ree Antonio RN [address] [place] [address] [email or web address] 07/31/2025 2:00 AM EDT Home [facility] [address] [place] [phone] Daphney Angeles, PT [address] [place] [address] [email or web address] 08/03/2025 1:00 AM EDT Home [facility] [address] [place] [address] Ree Antonio RN [address] [place] [address] [email or web address] 08/04/2025 1:30 AM EDT Home [facility] [address] [place] [phone] Daphney Angeles, PT [address] [place] [address] [email or web address] 08/06/2025 Home Care Visit [facility] [address] [place] [address] Ree Antonio RN [address] [place] [address] [email or web address] 08/07/2025 1:45 AM EDT Home [facility] [address] [place] [address] Daphney Angeles, PT [address] [place] [address] [email or web address] 08/10/2025 12:30 AM EDT Home [facility] [address] [place] [address] Ree Antonio RN [address] [place] [address] [email or web address] 08/11/2025 12:45 AM EDT Home [facility] Visit [facility] [address] [place] [address] Daphney Angeles, PT [address] [place] [address] [email or web address] 08/13/2025 1:30 AM EDT Home [facility] [address] [place] [address] Ree Antonio RN [address] [place] [address] [email or web address] 08/14/2025 12:45 AM EDT Home [facility] Visit [facility] [address] [place] [address] Daphney Angeles, PT [address] [place] [address] [email or web address] 08/17/2025 12:30 AM EDT Home Care Visit [facility] [address] [place] [address] Ree Antonio RN [address] [place] [address] 08/17/2025 1:00 AM EDT [facility] [address] [place] [address] Daphney Angeles, PT [address] [place] [address] 08/18/2025 11:00 AM EDT Office Visit [facility] [address] [facility] 3rd Floor, [address] [place] [address] Parth Tadeo DO 22 [facility] [address] [place] [address] 08/18/2025 3:15 PM EDT [facility] Visit [facility] [address] [address] Mini Rudd MD [address] [place] [address] 7 [place] [address] 08/20/2025 12:30 AM EDT Home [facility] [address] [place], [place] [phone] Ree Antonio RN [address] [place] [address] 08/24/2025 12:30 AM EDT Home [facility] Visit [facility] [address] [place] [address] Ree Antonio RN [address] [place] [address] 08/25/2025 Home Care Visit [facility] [address] [place] [address] Daphney Angeles, PT [address] [place] [address] [email or web address] 08/27/2025 12:30 AM EDT Home [facility] Visit [facility] [address] [place] [address] Ree Antonio RN [address] [place] [address] [email or web address] 08/31/2025 Home Care Visit [facility] [address] [place] [address] Ree Antonio RN [address] [place] [address] [email or web address] 09/01/2025 Home Care Visit [facility] [address] [place] [phone] Daphney Angeles, PT [address] [place] [address] [email or web address] 09/03/2025 2:00 AM EDT Home [facility] Visit [facility] [address] [place] [phone] Ree Antonio RN [address] [place] [address] [email or web address] 09/07/2025 Home Care Visit [facility] [address] [place] [address] Ree Antonio RN [address] [place] [address] [email or web address] 09/08/2025 Home Care Visit [facility] [address] [place] [address] Daphney Angeles, PT [address] [place] [address] [email or web address] 09/10/2025 Home Care Visit [facility] [address] [place] [phone] Ree Antonio, IVET [address] [place] [address] [email or web address] documented as of this encounter Visit Diagnoses Not on filedocumented in this encounter Additional Health Concerns Assessment Noted Time PHQ-9 Depression Total Score: 13 022 2:43 PM EDT PHQ-2 Depression Total Score: 2 10/14/20 24 11:18 AM EST documented as of this encounter Care Teams Copy Messenger Relationship Specialty Start Date End Date Mini Rudd MD [address] [place] [address] [email or web address] PCP - General Family Medicine 06/27/23 Yanick Vivar MD [address] [place] [address] [email or web address] Historical LMR Provider 09/16/17 Parth Bird MD [address] [place] [address] [email or web address] Historical LMR Provider 09/16/17 Rey Fletcher DO [address] [place] [address] Orthopedics & Sports Medicine, [facility] [place] [address] [email or web address] Historical LMR Provider 09/16/17 Amelia Fremin MD [address] [place] [address] [facility] [place] [phone] [email or web address] Historical LMR Provider 09/16/17 Mini Rudd MD [address] [place] [address] 7 [place] [address] [email or web address] Insurance Assigned Provider 03/01/24 documented as of this encounter Additional Source Comments The information contained in this document represents components of the legal health record. It is not the complete legal health record.[facility]
--- OUTSIDE RECORDS SUMMARY | 2025-07-22 14:05 | XMS_ITS | Encounter Summary ---
Author Organization [facility] Address [address] [place] [phone] Phone Care Team Providers Care Certified Executive Chef Name Role Phone Yanick Vivar MD Unavailable Yanick Vivar MD Unavailable Leyla Heller [employer] Unavailable Braulio Javed DO Unavailable Kiersten Carrizales DINING [employer]OP Unavailable Unavailable DacKiersten lee DO Unavailable Parth Bird MD Unavailable Evelia Hartman DINING [employer] HOP Unavailable Karen Miller SINGER AND UNLOADER Unavailable Rey Fletcher DO Unavailable Padmini Carpenter D[employer]ING [employer]OP Unavailable Leatha Dey DINING [employer]OP Unavailable Jessa Rutledge MD Unavailable [phone] Susie Swanson PA-C Unavailable Brittany Iyer MD Unavailable [phone] Matt Sanchez MD Unavailable Amelia Fermin MD Unavailable Yanick Vivar MD Primary Care Provider [phone] Mini Rudd MD Primary Care Provider + Mini Rudd MD Unavailable [phone] Encounter Details Date Type Department Care Team (Late st Contact Info) Description 11/29/2020 Procedure Pass [facility], Ct Scan - Main [address] [address] Social History Tobacco Use Types Packs/Day Years [...] Date of Assessment Author No Risk Indicated 11/29/2020 9:55 AM Napoleon Hernandez RN * [place] Suicide Severity Rating Scale (Screener/Recent Self-Report) Question Answer Date of Assessment Author 1. Wish to be (Past 1 Month) No 021 9:55 AM Felisha Hernandez RN 2. Non-Specific Active Suici luanne Thoughts (Past 1 Month) No 11/29/2020 9:55 AM Felisha Hernandez RN 6. Suicidal Behavior (Lifetime) No 9:55 AM Felisha Hernandez RN documented as of this encounter Plan of Treatment Upcoming Encounters Date Type Department Care Team (Late st Contact Info) Description 07/23/2025 4:00 AM EDT Home Care Visit [facility] [address] [place] [address] Ree Antonio RN [address] [place] [address] 07/27/2025 [facility] [address] [place] [address] Ree Antonio RN [address] [place] [address] 07/28/2025 Home Care Visit [facility] [address] [place] [address] Daphney Angeles, PT [address] [place] [address] 07/30/2025 Home Care Visit [facility] [address] [place] [address] Ree Antonio RN [address] [place] [address] [email or web address] 07/31/[email or web address] 2:00 AM EDT Home [facility] Visit [facility] [address] [place] [address] Daphney Angeles, PT [address] [place] [address] [email or web address] 08/03/2025 1:00 AM EDT Home [facility] [address] [place] [phone] Ree Antonio RN [address] [place] [address] [email or web address] 08/04/[email or web address] 1:30 AM EDT Home [facility] [address] [place] [address] Daphney Angeles, PT [address] [place] [address] [email or web address] 08/06/2025 Home Care Visit [facility] [address] [place] [address] Ree Antonio RN [address] [place] [address] [email or web address] 08/07/2025 1:45 AM EDT Home [facility] [address] [place] [address] Daphney Angeles, PT [address] [place] [address] [email or web address] 08/10/2025 12:30 AM EDT Home [facility] [address] [place] [address] Ree Antonio RN [address] [place] [address] [email or web address] 08/11/2025 12:45 AM EDT Home [facility] [address] [place] [address] Daphney Angeles, PT [address] [place] [address] [email or web address] 08/13/2025 1:30 AM EDT Home [facility] [address] [place] [phone] Ree Antonio RN [address] [place] [address] [email or web address] 08/14/2025 12:45 AM EDT Home [facility] [address] [place] [address] Daphney Angeles, PT [address] [place] [address] [email or web address] 08/17/2025 12:30 AM EDT Home [facility] [address] [place] [address] Ree Antonio RN [address] [place] [address] 08/17/2025 1:00 AM EDT Home [facility] Visit [facility] [address] [place] [address] Daphney Angeles, PT [address] [place] [address] 08/18/2025 11:00 AM EDT Office Visit [facility] [address] [facility] 3rd Floor, [address] [place] [address] Parth Tadeo DO [address] [facility] [address] [place] [address] 08/18/2025 3:15 PM EDT Office Visit [facility] [address] [address] Mini Rudd MD [address] [place] [address] 7 [place] [address] 08/20/2025 12:30 AM EDT Home [facility] Visit [facility] [address] [place] [address] Ree Antonio RN [address] [place] [address] 08/24/2025 12:30 AM EDT Home [facility] Visit [facility] [address] [place] [address] Ree Antonio RN [address] [place] [address] [email or web address] 08/25/2025 Home Care Visit [facility] [address] [place] [address] Daphney Angeles, PT [address] [place] [address] [email or web address] 08/27/2025 12:30 AM EDT Home [facility] Visit [facility] [address] [place] [address] Ree Antonio RN [address] [place] [address] [email or web address] 08/31/2025 Home Care Visit [facility] [address] [place] [address] Ree Antonio RN [address] [place] [address] [email or web address] 09/01/2025 Home Care Visit [facility] [address] [place] [phone] Daphney Angeles, PT [address] [place] [address] [email or web address] 09/03/2025 2:00 AM EDT Home [facility] Visit [facility] [address] [place] [phone] Ree Antonio RN [address] [place] [address] [email or web address] 09/07/2025 Home Care Visit [facility] [address] [place] [address] Ree Antonio RN [address] [place] [address] [email or web address] 09/08/2025 Home Care Visit [facility] [address] [place] [address] Daphney Angeles, PT [address] [place] [address] [email or web address] 09/10/2025 Home Care Visit [facility] [address] [place] [address] Ree Antonio, RN [address] [place] [address] [email or web address] documented as of this encounter Visit Diagnoses Not on filedocumented in this encounter Additional Health Concerns Infection Onset Date Last Indicated Resolved Time CoV-Risk Comment:Per Ambulatory Triage Form 04/17/2023 04/17/202304/17 9:56 AM EDT COVID-19 04/17/2023 04/18/2023 05/09/2023 1:51 AM EDT CoV-Risk Comment:Neg covid 11/08/2023 11/08/2023 11/09/2023 6:[address] documented as of this encounter Care Teams Certified Executive Chef Relationship Specialty Start Date End Date Yanick Vivar MD [address] [place] [address] [email or web address] PCP - General Family Medicine 12/04/19 06/26/23 Mini Rudd MD [address] [place] [address] [email or web address] PCP - General Family Medicine 06/27/23 Yanick Vivar MD [address] [place] [address] [email or web address] Insurance Assigned Provider 09/01/17 03/01/24 Yanick Vivar MD [address] [place] [address] [email or web address] Historical LMR Provider 09/16/17 Leyla Heller [employer] [employer] MYLA Hernandez [address] Historical LMR Provider 09/16/17 2 Braulio Javed DO [address] [place] [address] 7 [place] [address] [email or web address] Historical LMR Provider 09/16/17 12/03/21 Kiersten Carrizales [facility] [address] [place] [address] Historical LMR Provider 09/16/1712/03 Kiersten Lee DO [address] [place] [address] 7 [place] [address] [email or web address] Historical LMR Provider 09/16/17 12/03/21 Parth Bird MD [address] [place] [address] 7 [place] [address] [email or web address] Historical LMR Provider 09/16/17 Evelia Hartman NP [address] [place] [address] Historical LMR Provider 09/16/17 2 Karen Miller, YANELY [address] [address] Historical LMR Provider 09/16/17 12/03/21 Rey Fletcher DO [address] [place] [address] Orthopedics & Sports Medicine, [facility] [place] [address] maria Historical LMR Provider 09/16/17 Padmini Carpenter [employer] [address] [place] [address] Historical LMR Provider 09/16/17 Leatha Dey NP [address] [place] [address] Historical LMR Provider 09/16/17 2 Jessa Rutledge MD [address] [place] [address], 1[address] [place] [address] Historical LMR Provider 09/16/17 12/03/21 Susie Swanson PA-C [address] [place] [address] Orthopedics & Sports [facility], [place] [address] Historical LMR Provider 09/16/17 12/03/21 Brittany Iyer MD [address], [place] [address] Historical LMR Provider 09/16/17 2 Matt Sanchez MD [address] [place] [phone] Historical LMR Provider 09/16/17 2 Amelia Fermin MD [address] [place] [address] Orthopedics & Sports [facility], [place] [address] Historical LMR Provider 09/16/17 Mini Rudd MD [address] [place] [address] 7 [place] [address] [email or web address] Insurance Assigned Provider 03/01/24 documented as of this encounter Additional Source Comments The information contained in this document represents components of the legal health record. It is not the complete legal health record.[facility]
--- OUTSIDE RECORDS SUMMARY | 2025-07-22 14:05 | XMS_ITS | Encounter Summary ---
Author Organization [facility] Address [address] [place] [address] Phone Care Team Providers Care Field Gauger Name Role Phone Yanick Vivar MD Unavailable Parth Bird MD Unavailable [phone] Rey Fletcher DO Unavailable Amelia Fermin MD Unavailable [phone] Mini Rudd MD Primary Care Provider + Mini Rudd MD Unavailable [phone] Reason for Visit * Reason Onset Date Comments Forms & Paperwork 06/26/2025 OV notes 06/10 + EKG/labs from 04/2025 Encounter Details Date Type Department Care Team (Late st Contact Info) Description 06/26/2025 Telephone [facility] [address] [facility] [place] [address] Mini Rudd MD [address] [facility], [address] [place] [address] Forms & Paperwork (OV notes 06/10 + EKG/labs from 04/2025) Social History Tobacco Use Types Packs/Day Years [...] encounter Progress Notes * Megha Roth - 06/30/2025 7:52 AM EDT Faxed EKG, there are no recent lab results to send. Order has been placed but not yet done * Karina Smith - 06/29/2025 11:38 AM EDT Pat from [facility] Stay [facility] called in to see if pt had EKG or more recent labs to be faxed to their office as well as any OV notes with clarification on clearance for surgery. Please contact and advise. Central Support Slice Plug Cutter Operator (Please do not reply to this user; this inbox is not monitored.) Thank you. * Megha Roth - 06/26/2025 4:40 PM EDT Faxed last two office notes as well, labs have been ordered but not yet done * Joy Velazquez - 06/26/2025 4:26 PM EDT Pat from Short Stay Surgery called in stating the labs were not received and also needs any office visit notes after 05/15. Please contact and advise. Central Support Slice Plug Cutter Operator (Please do not reply to this user; this inbox is not monitored.) Thank you. * Megha Roth - 06/26/2025 9:55 AM EDT Faxed, confirmation received * Smith, Karina - 06/26/2025 9:46 AM EDT [facility] PEN Top Smart Phrases: Fax Request Name of caller, if not the patient, AND where they are calling from: Brianna [facility] Name of Facility fax is being sent to: [facility] Document(s) requested: OV notes/pre op clearance 06/10, labs and EKG from 04/2025 [facility] Call Center CSS Agent (Please do not reply to this user, as this inbox is not monitored. Thank you.) Thank you. documented in this encounter Plan of Treatment Upcoming Encounters Date Type Department Care Team (Late st Contact Info) Description 07/23/2025 4:00 AM EDT [facility] [address] [place] [phone] Ree Antonio RN [address] [place] [address] 07/27/2025 Home Care Visit [facility] [address] [place] [address] Ree Antonio RN [address] [place] [address] 07/28/2025 Home Care Visit [facility] [address] [place] [address] Daphney Angeles, PT [address] [place] [address] 07/30/2025 Home Care Visit [facility] [address] [place] [address] Ree Antonio RN [address] [place] [address] 07/31/2025 2:00 AM EDT Home Care Visit [facility] [address] [place] [address] Daphney Angeles, PT [address] [place] [address] 08/03/2025 1:00 AM EDT Home Care Visit [facility] [address] [place] [address] Ree Antonio RN [address] [place] [address] 08/04/2025 1:30 AM EDT Home Care Visit [facility] [address] [place] [phone] Daphney Angeles, PT [address] [place] [address] 08/06/2025 Home Care Visit [facility] [address] [place] [phone] Ree Antonio RN [address] [place] [address] 08/07/2025 1:45 AM EDT Home Care Visit [facility] [address] [place] [address] Daphney Angeles, PT [address] [place] [address] 08/10/2025 12:30 AM EDT Home Care Visit [facility] [address] [place] [address] Ree Antonio RN [address] [place] [address] 08/11/2025 12:45 AM EDT Home Care Visit [facility] [address] [place] [address] Daphney Agneles, PT [address] [place] [address] 08/13/2025 1:30 AM EDT [facility] [address] [place] [address] Ree Antonio RN [address] [place] [address] 08/14/2025 12:45 AM EDT Home [facility] [address] [place] [address] Daphney Angeles, PT [address] [place] [address] 08/17/2025 12:30 AM EDT Home [facility] [address] [place] [phone] Ree Antonio, IVET [address] [place] [address] 08/17/2025 1:00 AM EDT Home [facility] [address] [place] [phone] Daphney Angeles, PT [address] [place] [address] 08/18/2025 11:00 AM EDT Office Visit [facility] [address] [facility] 3rd Floor, [address] [place] [address] Parth Tadeo DO [address] [facility] [address] [place] [address] 08/18/2025 3:15 PM EDT Office Visit [facility] [address] [place] [address] Mini Rudd MD [address] [facility], [address] [place] [address] 08/20/2025 12:30 AM EDT Home Care Visit [facility] [address] [place] [address] Ree Antonio RN [address] [place] [address] 08/24/2025 12:30 AM EDT Home [facility] Visit [facility] [address] [place] [address] Ree Antonio RN [address] [place] [address] 08/25/2025 Home Care Visit [facility] [address] [place] [address] Daphney Angeles, PT [address] [place] [address] 08/27/2025 12:30 AM EDT Home Care Visit [facility] [address] [place] [address] Ree Antonio RN [address] [place] [address] 08/31/2025 Home Care Visit [facility] [address] [place] [address] Ree Antonio RN [address] [place] [address] 09/01/2025 Home Care Visit [facility] [address] [place] [address] Daphney Angeles, PT [address] [place] [address] 09/03/2025 2:00 AM EDT Home [facility] Visit [facility] [address] [place] [address] Ree Antonio RN [address] [place] [address] 09/07/2025 Home Care Visit [facility] [address] [place] [address] Ree Antonio RN [address] [place] [address] 09/08/2025 Home Care Visit [facility] [address] [place] [address] Daphney Angeles, PT [address] [place] [address] 09/10/2025 Home Care Visit [facility] [address] [place] [address] Ree Antonio RN [address] [place] [address] documented as of this encounter Visit Diagnoses Not on filedocumented in this encounter Additional Health Concerns Assessment Noted Time PHQ-9 Depression Total Score: 13 022 2:43 PM EDT PHQ-2 Depression Total Score: 2 10/14/20 24 11:18 AM EST documented as of this encounter Care Teams Field Gauger Relationship Specialty Start Date End Date Mini Rudd MD [address] [place] [address] [address] [place] [address] [email or web address] PCP - General Family Medicine 06/27/23 Yanick Vivar MD [address] [place] [address] 7 [place] [address] [email or web address] Historical LMR Provider 09/16/17 Parth Bird MD [address] [place] [address] 7 [place] [address] [email or web address] Historical LMR Provider 09/16/17 Rey Fletcher DO [address] [place] [address] Orthopedics & Sports [facility], [place] [address] [email or web address] Historical LMR Provider 09/16/17 Amelia Fermin MD [address] [place] [address] Orthopedics & Sports [facility], [place] [address] Historical LMR Provider 09/16/17 Mini Rudd MD [address] [place] [address] 7 [place] [address] Insurance Assigned Provider 03/01/24 documented as of this encounter Additional Source Comments The information contained in this document represents components of the legal health record. It is not the complete legal health record.[facility]
--- OUTSIDE RECORDS SUMMARY | 2025-07-22 14:05 | XMS_ITS | Encounter Summary ---
Author Organization [facility] Address [address] [place] [address] Phone Care Team Providers Care Herb Doctor Name Role Phone Yanick Vivar MD Unavailable Yanick Vivar MD Unavailable Leyla Heller HOST Unavailable Braulio Javed DO Unavailable Kiersten Carrizales HOST Unavailable Unavailable DacKiersten lee DO Unavailable Parth Bird MD Unavailable Evelia Hartman HOST Unavailable Karen Miller CENTER MACHINE SET UP OPERATOR Unavailable Rey Fletcher DO Unavailable Padmini Carpenter HOST Unavailable Leatha Dey HOST Unavailable Jessa Rutledge MD Unavailable [phone] Susie Swanson PA-C Unavailable Brittany Iyer MD Unavailable Matt Sanchez MD Unavailable Amelia Fermin MD Unavailable Yanick Vivar MD Primary Care Provider [phone] Mini Rudd MD Primary Care Provider + Mini Rudd MD Unavailable [phone] Encounter Details Date Type Department Care Team (Late st Contact Info) Description 11/29/2020 Procedure Pass [facility], Ct Scan - Main [address] [address] Social History Tobacco Use Types Packs/Day Years [...] 11/29/2020 9:55 AM Napoleon Hernandez RN * Union Suicide Severity Rating Scale (Screener/Recent Self-Report) Question [...] 07/23/2025 4:00 AM EDT Home Care Visit [facility] [address] [place] [address] Ree Antonio RN [address] [place] [address] 07/27/2025 Home [facility] Visit [facility] [address] [place] [address] Ree Antonio RN [address] [place] [address] 07/28/2025 Home Care Visit [facility] [address] [place] [address] Daphney Angeles, PT [address] [place] [address] 07/30/2025 Home Care Visit [facility] [address] [place] [address] Ree Antonio RN [address] [place] [address] 07/31/2025 2:00 AM EDT Home Care Visit [facility] [address] [place] [address] Daphney Angeles, PT [address] [place] [address] 08/03/2025 1:00 AM EDT Home Care Visit [facility] [address] [place] [phone] Ree Antonio RN [address] [place] [address] 08/04/2025 1:30 AM EDT Home Care Visit [facility] [address] [place] [address] Daphney Angeles, PT [address] [place] [address] 08/06/2025 Home Care Visit [facility] [address] [place] [address] Ree Antonio RN [address] [place] [address] 08/07/2025 1:45 AM EDT Home Care Visit [facility] [address] [place] [address] Daphney Angeles, PT [address] [place] [address] 08/10/2025 12:30 AM EDT Home Care Visit [facility] [address] [place] [address] Ree Antonio RN [address] [place] [address] 08/11/2025 12:45 AM EDT Home Care Visit [facility] [address] [place] [address] Daphney Angeles, PT [address] [place] [address] 08/13/2025 1:30 AM EDT Home Care Visit [facility] [address] [place] [phone] Ree Antonio RN [address] [place] [address] 08/14/2025 12:45 AM EDT Home Care Visit [facility] [address] [place] [address] Daphney Angeles, PT [address] [place] [address] 08/17/2025 12:30 AM EDT Home Care Visit [facility] [address] [place] [address] Ree Antonio RN [address] [place] [address] 08/17/2025 1:00 AM EDT Home Care Visit [facility] [address] [place] [address] Daphney Angeles, PT [address] [place] [address] 08/18/2025 11:00 AM EDT Office Visit [facility] [address] Floor, [address] [place] [address] Parth Tadeo DO [address] [place] [address] 08/18/2025 3:15 PM EDT Office Visit [facility] [address] [address] Mini Rudd MD [address] [place] [address] [address] [place] [address] 08/20/2025 12:30 AM EDT Home Care Visit [facility] [address] [place] [address] Ree Antonio RN [address] [place] [address] 08/24/2025 12:30 AM EDT Home Care Visit [facility] [address] [place] [address] Ree Antonio RN [address] [place] [address] 08/25/2025 Home Care Visit [facility] [address] [place] [address] Daphney Angeles, PT [address] [place] [address] 08/27/2025 12:30 AM EDT Home Care Visit [facility] [address] [place] [address] Ree Antonio RN [address] [place] [address] 08/31/2025 Home Care Visit [facility] [address] [place] [address] Ree Antonio RN [address] [place] [address] 09/01/2025 Home Care Visit [facility] [address] [place] [phone] Daphney Angeles, PT [address] [place] [address] 09/03/2025 2:00 AM EDT Home Care Visit [facility] [address] [place] [phone] Ree Antonio RN [address] [place] [address] 09/07/2025 Home Care Visit [facility] [address] [place] [address] Ree Antonio RN [address] [place] [address] 09/08/2025 Home Care Visit [facility] [address] [place] [address] Daphney Angeles, PT [address] [place] [address] 09/10/2025 Home Care Visit [facility] [address] [place] [address] Ree Antonio, RN [address] [place] [address] [email or web address] documented as of this encounter Visit Diagnoses Not on filedocumented in this encounter Additional Health Concerns Infection Onset Date Last Indicated Resolved Time CoV-Risk Comment:Per Ambulatory Triage Form 04/17/2023 04/17/202304/17 9:56 AM EDT COVID-19 04/17/2023 04/18/2023 05/09/2023 1:51 AM EDT CoV-Risk Comment:Neg covid 11/08/2023 11/08/2023 11/09/2023 6:[address] documented as of this encounter Care Teams Herb Doctor Relationship Specialty Start Date End Date Yanick Vivar MD [address] [place] [address] [email or web address] PCP - General Family Medicine 12/04/19 06/26/23 Mini Rudd MD [address] [place] [address] [email or web address] PCP - General Family Medicine 06/27/23 Yanick Vivar MD [address] [place] [address] [email or web address] Insurance Assigned Provider 09/01/17 03/01/24 Yanick Vivar MD [address] [place] [address] [email or web address] Historical LMR Provider 09/16/17 Leyla Heller HOST 1 [facility] MYLA Hernandez [address] Historical LMR Provider 09/16/17 2 Braulio Javed DO [address] [place] [address] 7 [place] [address] [email or web address] Historical LMR Provider 09/16/17 12/03/21 Kiersten Carrizales HOST [address] [place] [address] Historical LMR Provider 09/16/1712/03 Kiersten Lee DO [address] [place] [address] 7 [place] [address] [email or web address] Historical LMR Provider 09/16/17 12/03/21 Parth Bird MD [address] [place] [address] 7 [place] [address] [email or web address] Historical LMR Provider 09/16/17 Evelia Hartman NP [address] [place] [address] Historical LMR Provider 09/16/17 2 Karen Miller, YANELY [address] [address] Historical LMR Provider 09/16/17 12/03/21 Rey Fletcher DO [address] [place] [address] Orthopedics & Sports Medicine, [facility] [place] [address] maria Historical LMR Provider 09/16/17 Padmini Carpenter HOST [address] [place] [address] Historical LMR Provider 09/16/17 Leatha Dey NP [address] [place] [address] Historical LMR Provider 09/16/17 2 Jessa Rutledge MD [address] [place] [address], 1[address] [place] [address] Historical LMR Provider 09/16/17 12/03/21 Susie Swanson PA-C [address] [place] [address] Orthopedics & Sports [facility], [place] [address] Historical LMR Provider 09/16/17 12/03/21 Brittany Iyer MD [address], [place] [address] Historical LMR Provider 09/16/17 2 Matt Sanchez MD [address] [place] [phone] Historical LMR Provider 09/16/17 2 Amelia Fermin MD [address] [place] [address] Orthopedics & Sports [facility], [place] [address] Historical LMR Provider 09/16/17 Mini Rudd MD [address] [place] [address] 7 [place] [address] [email or web address] Insurance Assigned Provider 03/01/24 documented as of this encounter Additional Source Comments The information contained in this document represents components of the legal health record. It is not the complete legal health record.[facility]
--- OUTSIDE RECORDS SUMMARY | 2025-07-22 14:05 | XMS_ITS | Encounter Summary ---
Author Organization [facility] Address [address] [place] [address] Phone Care Team Providers Care Provider Network Analyst Name Role Phone Yanick Vivar MD Unavailable Yanick Vivar MD Unavailable Parth Bird MD Unavailable [phone] Rey Fletcher DO Unavailable Amelia Fermin MD Unavailable Mini Rudd MD Primary Care Provider + Mini Rudd MD Unavailable Encounter Details Date Type Department Care Team (Late st Contact Info) Description 11/30/2023 Procedure Pass Non-Invasive Cardiology [address] [place] [id number] Social History Tobacco Use Types Packs/Day Years [...] 4:00 AM EDT Home Care Visit [facility] [address] [place], [place] [phone] Ree Antonio RN [address] [place] [address] 07/27/2025 Home Care Visit [facility] [address] [place], [place] [phone] Ree Antonio RN [address] [place] [address] 07/28/2025 Home Care Visit [facility] [address] [place] [address] Daphney Angeles, PT [address] [place] [address] 07/30/2025 Home Care Visit [facility] [address] [place] [address] Ree Antonio RN [address] [place] [address] 07/31/2025 2:00 AM EDT Home [facility] Visit [facility] [address] [place] [address] Daphney Angeles, PT [address] [place] [address] 08/03/2025 1:00 AM EDT Home Care Visit [facility] [address] [place] [phone] Ree Antonio RN [address] [place] [address] 08/04/2025 1:30 AM EDT Home Care Visit [facility] [address] [place] [address] Daphney Angeles, PT [address] [place] [address] 08/06/2025 Home Care Visit [facility] [address] [place] [address] Ree Antonio RN [address] [place] [address] 08/07/2025 1:45 AM EDT Home Care Visit [facility] [address] [place] [address] Daphney Angeles, PT [address] [place] [address] 08/10/2025 12:30 AM EDT Home Care Visit [facility] [address] [place] [address] Ree Antonio RN [address] [place] [address] 08/11/2025 12:45 AM EDT Home Care Visit [facility] [address] [place] [address] Daphney Angeles, PT [address] [place] [address] 08/13/2025 1:30 AM EDT Home Care Visit [facility] [address] [place] [address] Ree Antonio RN [address] [place] [address] 08/14/2025 12:45 AM EDT Home Care Visit [facility] [address] [place] [phone] Daphney Angeles, PT [address] [place] [address] 08/17/2025 12:30 AM EDT Home Care Visit [facility] [address] [place] [address] Ree Antonio RN [address] [place] [address] 08/17/2025 1:00 AM EDT Home Care Visit [facility] [address] [place] [address] Daphney Angeles, PT [address] [place] [address] 08/18/2025 11:00 AM EDT Office Visit [facility] [address] [facility] [address], [address] [place] [address] Parth Tadeo, DO [address] [facility] [address] [place] [address] 08/18/2025 3:15 PM EDT Office Visit [facility] [address] [address] Mini Rudd MD [address] [place] [address] [address] [place] [address] 08/20/2025 12:30 AM EDT Home Care Visit [facility] [address] [place] [address] Ree Antonio RN [address] [place] [address] 08/24/2025 12:30 AM EDT Home Care Visit [facility] [address] [place] [address] Ree Antonio RN [address] [place] [address] 08/25/2025 Home Care Visit [facility] [address] [place] [address] Daphney Angeles, PT [address] [place] [address] 08/27/2025 12:30 AM EDT Home Care Visit [facility] [address] [place] [address] Ree Antonio RN [address] [place] [address] 08/31/2025 Home Care Visit [facility] [address] [place] [address] Ree Antonio RN [address] [place] [address] 09/01/2025 Home Care Visit [facility] [address] [place] [address] Daphney Angeles, PT [address] [place] [address] 09/03/2025 2:00 AM EDT Home Care Visit [facility] [address] [place] [address] Ree Antonio RN [address] [place] [address] 09/07/2025 Home Care Visit [facility] [address] [place] [address] Ree Antonio RN [address] [place] [address] 09/08/2025 Home Care Visit [facility] [address] [place] [phone] Daphney Angeles, PT [address] [place] [address] 09/10/2025 Home Care Visit [facility] [address] [place] [phone] Ree Antonio RN [address] [place] [address] documented as of this encounter Visit Diagnoses Not on filedocumented in this encounter Additional Health Concerns Assessment Noted Time PHQ-9 Depression Total Score: 13 022 2:43 PM EDT PHQ-2 Depression Total Score: 3 06/06/20 22 2:43 PM EDT documented as of this encounter Care Teams Provider Network Analyst Relationship Specialty Start Date End Date Mini Rudd MD [address] [place] [address], [facility] [address] [place] [address] PCP - General Family Medicine 06/27/23 Yanick Vivar MD [address] [place] [address] [address] [place] [address] Insurance Assigned Provider 09/01/17 03/01/24 Yanick Vivar MD [address] [place] [address] Historical LMR Provider 09/16/17 Parth Bird MD [address] [place] [phone] [email or web address] Historical LMR Provider 09/16/17 Rey Fletcher DO [address] [place] [address] Orthopedics & Sports [facility], [place] [address] [email or web address] Historical LMR Provider 09/16/17 Amelia Fermin MD [address] [place] [address] Orthopedics & Sports [facility], [place] [address] Historical LMR Provider 09/16/17 Mini Rudd MD [address] [place] [address], [address] [place] [address] [email or web address] Insurance Assigned Provider 03/01/24 documented as of this encounter Additional Source Comments The information contained in this document represents components of the legal health record. It is not the complete legal health record.[facility]
--- OUTSIDE RECORDS SUMMARY | 2025-07-22 14:05 | XMS_ITS | Encounter Summary ---
Author Organization [facility] Address [address] [facility] [address] [place] [phone] Phone Care Team Providers Care Brush Clearer Surveying Name Role Phone Yanick Vivar MD Unavailable Yanick Vivar MD Unavailable Leyla Heller PLUSH CUTTER Unavailable Braulio Javed DO Unavailable Kiersten Carrizales PLUSH CUTTER Unavailable Unavailable DacKiersten lee DO Unavailable Parth Bird MD Unavailable Evelia Hartman PLUSH CUTTER Unavailable Karen Miller PLYWOOD PATCHER Unavailable Rey Fletcher DO Unavailable Padmini Carpenter PLUSH CUTTER Unavailable Leatha Dey PLUSH CUTTER Unavailable Jessa Rutledge MD Unavailable [phone] Susie Swanson PA-C Unavailable Brittany Iyer MD Unavailable [phone] Matt Sanchez MD Unavailable Amelia Fermin MD Unavailable Yanick Vivar MD Primary Care Provider [phone] Mini Rudd MD Primary Care Provider + Mini Rudd MD Unavailable [phone] Encounter Details Date Type Department Care Team (Late st Contact Info) Description 11/01/2020 Prep for Surgery [facility] Medicine [address] [place] [address] Omayra Cisneros MD [address] [place] [address] Orthopedics & Sports Medicine, [facility] [place] [address] [email or web address] Social History Tobacco Use Types Packs/Day Years Used Date Smoking Tobacco: Former Cigarettes 2 5 1984 Smokeless Tobacco: Never Alcohol Use Standard [...] 4:00 AM EDT Home [facility] Visit [facility] [address] [place], [place] [phone] Ree Antonio RN [address] [place] [address] 07/27/2025 Home Care Visit [facility] [address], [place] [phone] Ree Antonio RN [address] [place] [address] 07/28/2025 Home Care Visit [facility] [address], [place] [phone] Daphney Angeles, PT [address] [place] [address] [email or web address] 07/30/2025 Home Care Visit [facility] [address] [place] [phone] Ree Antonio RN [address] [place] [address] [email or web address] 07/31/2025 2:00 AM EDT Home Care Visit [facility] [address] [place] [phone] Daphney Angeles, PT [address] [place] [address] [email or web address] 08/03/2025 1:00 AM EDT Home Care Visit [facility] [address] [place] [phone] Ree Antonio RN [address] [place] [address] [email or web address] 08/04/2025 1:30 AM EDT Home Care Visit [facility] [address] [place] [phone] Daphney Angeles, PT [address] [place] [address] [email or web address] 08/06/2025 Home Care Visit [facility] [address] [place] [address] Ree Antonio RN [address] [place] [address] [email or web address] 08/07/2025 1:45 AM EDT Home Care Visit [facility] [address] [place] [phone] Daphney Angeles, PT [address] [place] [address] [email or web address] 08/10/2025 12:30 AM EDT Home Care Visit [facility] [address] [place] [phone] Ree Antonio RN [address] [place] [address] [email or web address] 08/11/2025 12:45 AM EDT Home Care Visit [facility] [address] [place] [phone] Daphney Angeles, PT [address] [place] [address] [email or web address] 08/13/2025 1:30 AM EDT Home Care Visit [facility] [address] [place] [phone] Ree Antonio RN [address] [place] [address] [email or web address] 08/14/2025 12:45 AM EDT Home Care Visit [facility] [address] [place] [phone] Daphney Angeles, PT [address] [place] [address] [email or web address] 08/17/2025 12:30 AM EDT Home Care Visit [facility] [address] [place] [phone] Ree Antonio RN [address] [place] [address] [email or web address] 08/17/2025 1:00 AM EDT Home Care Visit [facility] [address] [place] [phone] Daphney Angeles, PT [address] [place] [address] [email or web address] 08/18/2025 11:00 AM EDT Office Visit [facility] [address] [facility] 3rd Floor, [address] [place] [address] Parth Tadeo DO [address] [facility] [address] [place] [address] 08/18/2025 3:15 PM EDT Office Visit [facility] [address] [address] Mini Rudd MD [address] [facility] 7 [place] [address] 08/20/2025 12:30 AM EDT Home Care Visit [facility] [address] [place] [phone] Ree Antonio RN [address] [place] [address] 08/24/2025 12:30 AM EDT Home Care Visit [facility] [address] [place] [address] Ree Antonio RN [address] [place] [address] 08/25/2025 Home Care Visit [facility] [address] [place] [address] Daphney Angeles, PT [address] [place] [address] 08/27/2025 12:30 AM EDT Home Care Visit [facility] [address] [place] [address] Ree Antonio RN [address] [place] [address] 08/31/2025 Home Care Visit [facility] [address] [place] [phone] Ree Antonio RN [address] [place] [address] [email or web address] 09/01/2025 Home Care Visit [facility] [address] [place] [phone] Daphney Angeles, PT [address] [place] [address] [email or web address] 09/03/2025 2:00 AM EDT Home Care Visit [facility] [address] [place] [phone] Ree Antonio RN [address] [place] [address] [email or web address] 09/07/2025 Home Care Visit [facility] [address] [place] [phone] Ree Antonio RN [address] [place] [address] [email or web address] 09/08/2025 Home Care Visit [facility] [address] [place] [phone] Daphney Angeles, PT [address] [place] [address] [email or web address] 09/10/2025 Home Care Visit [facility] [address] [place] [phone] Ree Antonio RN [address] [place] [address] [email or web address] documented as of this encounter Visit Diagnoses Not on filedocumented in this encounter Additional Health Concerns Infection Onset Date Last Indicated Resolved Time CoV-Risk Comment:Per Ambulatory Triage Form 04/17/2023 04/17/202304/17 9:56 AM EDT COVID-19 04/17/2023 04/18/2023 05/09/2023 1:51 AM EDT CoV-Risk Comment:Neg covid 11/08/2023 11/08/2023 11/09/2023 6:[address] documented as of this encounter Care Teams Brush Clearer Surveying Relationship Specialty Start Date End Date Yanick Vivar MD [address] [place] [address] [address] [place] [address] [email or web address] PCP - General Family Medicine 12/04/19 06/26/23 Mini Rudd MD [address] [place] [address] [place] [address] [email or web address] PCP - General Family Medicine 06/27/23 Yanick Vivar MD [address] [place] [address] [place] [address] [email or web address] Insurance Assigned Provider 09/01/17 03/01/24 Yanick Vivar MD [address] [place] [address] [place] [address] [email or web address] Historical LMR Provider 09/16/17 Leyla Heller NP [address] [facility] MYLA Hernandez [address] Historical LMR Provider 09/16/17 2 Braulio Javed DO [address] [place] [address] 7 [place] [address] Historical LMR Provider 09/16/17 12/03/21 Kiersten Carrizales PLUSH CUTTER [address] [place] [address] Historical LMR Provider 09/16/1712/03 Kiersten Lee DO [address] [facility] 7 [place] [address] [email or web address] Historical LMR Provider 09/16/17 12/03/21 Parth Bird MD [address] [facility] 7 [place] [address] [email or web address] Historical LMR Provider 09/16/17 Evelia Hartman, SAMI [address] [place] [address] Historical LMR Provider 09/16/17 2 Karen Miller, YANELY [address] [facility], 2nd [place] [address] [email or web address] Historical LMR Provider 09/16/17 12/03/21 Rey Fletcher DO [address] [place] [address] Orthopedics & Sports Medicine, [facility] [place] [address] maria Historical LMR Provider 09/16/17 Padmini Carpenter, SAMI [address] [place] [address] Historical LMR Provider 09/16/17 Leatha Dey, SAMI [address] [place] [address] Historical LMR Provider 09/16/17 2 Jessa Rutledge MD [address] [facility], 1st [place] [address] Historical LMR Provider 09/16/17 12/03/21 Susie Swanson PA-C [address] [place] [address] [facility], [place] [address] Historical LMR Provider 09/16/17 12/03/21 Brittany Iyer MD [address], [place] [address] Historical LMR Provider 09/16/17 2 Matt Sanchez MD [address] [place] [phone] Historical LMR Provider 09/16/17 2 Amelia Fermin MD [address] [place] [address] [facility], [place] [address] Historical LMR Provider 09/16/17 Mini Rudd MD [address] [place] [address] 7 [place] [address] Insurance Assigned Provider 03/01/24 documented as of this encounter Additional Source Comments The information contained in this document represents components of the legal health record. It is not the complete legal health record.[facility]
--- OUTSIDE RECORDS SUMMARY | 2025-07-22 14:06 | XMS_ITS | Encounter Summary ---
Author Organization [facility] Address [address] [facility] [address] [place] [address] Phone Care Team Providers Care Speed Winder Name Role Phone Yanick Vivar MD Unavailable Yanick Vivar MD Unavailable Leyla Heller REGISTRATION CLERK Unavailable Braulio Javed DO Unavailable Kiersten Carrizales REGISTRATION CLERK Unavailable Unavailable DacKiersten lee DO Unavailable Parth Bird MD Unavailable Evelia Hartman REGISTRATION CLERK Unavailable Karen Miller HOT METAL MIXER OPERATOR HELPER Unavailable Rey Fletcher DO Unavailable Padmini Carpenter REGISTRATION CLERK Unavailable [phone] Leatha Dey REGISTRATION CLERK Unavailable Jessa Rutledge MD Unavailable [phone] Susie Swanson PA-C Unavailable Brittany Iyer MD Unavailable [phone] Matt Sanchez MD Unavailable Amelia Fermin MD Unavailable Yanick Vivar MD Primary Care Provider Yanick Vivar MD Primary Care Provider Makenna Lugo RN Unavailable [phone] Mini Rudd MD Primary Care Provider + Mini Rudd MD Unavailable Encounter Details Date Type Department Care Team (Late Contact Info) Description 12/16/2018 Ancillary Orders [address] [address] Amelia Fermin MD [address] [place] [address] Orthopedics & Sports Medicine, [place], [place] [phone] [email or web address] Hip pain, acute, left Social History Tobacco Use Types Packs/Day [...] 4:00 AM EDT Home Care Visit [facility] [address] [place], [place] [phone] Ree Antonio RN [address] [place] [address] 07/27/2025 Home Care Visit [facility] [address] [place], [place] [phone] Ree Antonio RN [address] [place] [address] [email or web address] 07/28/2025 Home Care Visit [facility] [address] [place] [address] Daphney Angeles, PT [address] [place] [address] [email or web address] 07/30/2025 Home Care Visit [facility] [address] [place] [address] Ree Antonio RN [address] [place] [address] [email or web address] 07/31/2025 2:00 AM EDT Home Care Visit [facility] [address] [place] [address] Daphney Angeles, PT [address] [place] [address] [email or web address] 08/03/2025 1:00 AM EDT Home Care Visit [facility] [address] [place] [address] Ree Antonio RN [address] [place] [address] [email or web address] 08/04/2025 1:30 AM EDT Home Care Visit [facility] [address] [place] [address] Daphney Angeles, PT [address] [place] [address] [email or web address] 08/06/2025 Home Care Visit [facility] [address] [place] [address] Ree Antonio RN [address] [place] [address] [email or web address] 08/07/2025 1:45 AM EDT Home Care Visit [facility] [address] [place] [address] Daphney Angeles, PT [address] [place] [address] [email or web address] 08/10/2025 12:30 AM EDT Home Care Visit [facility] [address] [place] [phone] Ree Antonio RN [address] [place] [address] [email or web address] 08/11/2025 12:45 AM EDT Home Care Visit [facility] [address] [place] [phone] Daphney Angeles, PT [address] [place] [address] [email or web address] 08/13/2025 1:30 AM EDT Home Care Visit [facility] [address] [place] [phone] Ree Antonio RN [address] [place] [address] [email or web address] 08/14/2025 12:45 AM EDT Home Care Visit [facility] [address] [place] [phone] Daphney Angeles, PT [address] [place] [address] [email or web address] 08/17/2025 12:30 AM EDT Home Care Visit [facility] [address] [place] [phone] Ree Antonio RN [address] [place] [address] [email or web address] 08/17/2025 1:00 AM EDT Home Care Visit [facility] [address] [place] [address] Daphney Angeles, PT [address] [place] [address] 08/18/2025 11:00 AM EDT Office Visit [facility] [address] [facility] 3rd Floor, [address] [place] [address] Parth Tadeo DO [address] [facility] [address] [place] [address] [email or web address] 08/18/2025 3:15 PM EDT Office Visit [facility] [address] [address] Mini Rudd MD [address] [place] [address] 7 [place] [address] 08/20/2025 12:30 AM EDT Home Care Visit [facility] [address] [place] [address] Ree Antonio RN [address] [place] [address] 08/24/2025 12:30 AM EDT Home Care Visit [facility] [address] [place] [address] Ree Antonio RN [address] [place] [address] [email or web address] 08/25/2025 Home Care Visit [facility] [address] [place] [address] Daphney Angeles, PT [address] [place] [address] 08/27/2025 12:30 AM EDT Home Care Visit [facility] [address] [place] [address] Ree Antonio RN [address] [place] [address] [email or web address] 08/31/2025 Home Care Visit [facility] [address] [place] [phone] Ree Antonio RN [address] [place] [address] [email or web address] 09/01/2025 Home Care Visit [facility] [address] [place] [phone] Daphney Angeles, PT [address] [place] [address] [email or web address] 09/03/2025 2:00 AM EDT Home Care Visit [facility] [address] [place] [phone] Ree Antonio RN [address] [place] [address] [email or web address] 09/07/2025 Home Care Visit [facility] [address] [place] [phone] Ree Antonio RN [address] [place] [address] [email or web address] 09/08/2025 Home Care Visit [facility] [address] [place] [address] Daphney Angeles, PT [address] [place] [address] [email or web address] 09/10/2025 Home Care Visit [facility] [address] [place] [phone] Ree Antonio RN [address] [place] [address] [email or web address] Pending Results Name Type Priority Associated Diagnoses Date /Time FL Guidance Needle Placement Non-Spine Imaging Routine Hip pain, acute, left 12/17/2018 9:14 AM EST Scheduled Orders Name Type Priority Associated Diagnoses Orde r Schedule FL Guidance Needle Placement Non-Spine Imaging Routine Hip pain, acute, left Expected: 12/16/2018, Expires: 03/16/2020 documented as of this encounter Visit Diagnoses Diagnosis Hip pain, acute, left documented in this encounter Additional Health Concerns Infection Onset Date Last Indicated Resolved Time CoV-Risk 07/22/2020 07/22/2020 08/05/2020 1:24 AM EDT CoV-Risk Comment:Per Ambulatory Triage Form 04/17/2023 04/17/202304/17 9:56 AM EDT COVID-19 04/17/2023 04/18/2023 05/09/2023 1:51 AM EDT CoV-Risk Comment:Neg covid 11/08/2023 11/08/2023 11/09/2023 6:[address] documented as of this encounter Care Teams Speed Winder Relationship Specialty Start Date End Date Yanick Vivar MD [address] [place] [address] 7 [place] [address] [email or web address] PCP - General Family Medicine 10/09/17 12/03/19 Yanick Vivar MD [address] [place] [address] 7 [place] [address] [email or web address] PCP - General Family Medicine 12/04/19 06/26/23 Mini Rudd MD [address] [place] [address] 7 [place] [address] [email or web address] PCP - General Family Medicine 06/27/23 Yanick Vivar MD [address] [place] [address] 7 [place] [address] [email or web address] Insurance Assigned Provider 09/01/17 03/01/24 Yanick Vivar MD [address] [place] [address] 7 [place] [address] [email or web address] Historical LMR Provider 09/16/17 Leyla Heller REGISTRATION CLERK [address] [place] [address] Historical LMR Provider 09/16/17 2 Braulio Javed DO [address] [place] [address] [email or web address] Historical LMR Provider 09/16/17 12/03/21 Kiersten Carrizales NP [address] [place] [address] Historical LMR Provider 09/16/1712/03 Kiersten Lee DO [address] [place] [address] [email or web address] Historical LMR Provider 09/16/17 12/03/21 Parth Bird MD [address] [place] [address] [email or web address] Historical LMR Provider 09/16/17 Evelia Hartman, SAMI [address] [place] [address] Historical LMR Provider 09/16/17 2 Karen Miller, YANELY [address] [place] [address] Historical LMR Provider 09/16/17 12/03/21 Rey Fletcher DO [address] [place] [address] [facility] [address] Historical LMR Provider 09/16/17 Padmini Carpenter, SAMI [address] [place] [address] Historical LMR Provider 09/16/17 Leatha Dey, SAMI [address] [place] [address] Historical LMR Provider 09/16/17 2 Jessa Rutledge MD [address] [place] [address], [address] [place] [address] Historical LMR Provider 09/16/17 12/03/21 Susie Swanson PA-C [address] [place] [address] [facility], [place] [address] Historical LMR Provider 09/16/17 12/03/21 Brittany Iyer MD [address], [place] [address] Historical LMR Provider 09/16/17 2 Matt Sanchez MD [address] [place] [phone] Historical LMR Provider 09/16/17 2 Amelia Fermin MD [address] [place] [address] [facility], [facility] [place] [address] [email or web address] Historical LMR Provider 09/16/17 Makenna Lugo RN [address] [place] [address] [email or web address] iCMP Forming Machine Upkeep Mechanic Helper 05/11/20 06/24/20 Mini Rudd MD [address] [place] [address], [address] [place] [address] [email or web address] Insurance Assigned Provider 03/01/24 documented as of this encounter Additional Source Comments The information contained in this document represents components of the legal health record. It is not the complete legal health record.[facility]
--- OUTSIDE RECORDS SUMMARY | 2025-07-22 14:06 | XMS_ITS | Encounter Summary ---
Author Organization [facility] Address [address] [facility] [address] [place] [address] Phone Care Team Providers Care Industrial Psychologist Name Role Phone Yanick Vivar MD Unavailable Yanick Vivar MD Unavailable [phone] Parth Bird MD Unavailable [phone] Rey Fletcher DO Unavailable Amelia Fermin MD Unavailable [phone] Yanick Vivar MD Primary Care Provider Mini Rudd MD Primary Care Provider + Mini Rudd MD Unavailable [phone] Encounter Details Date Type Department Care Team (Late st Contact Info) Description 04/27/2023 Ancillary Orders [address] [address] Amelia Fermin MD [address] [place] [address] Orthopedics & Sports Medicine, [place] [address] [email or web address] Hip pain, chronic, right Social History Tobacco Use Types Packs/Day Years [...] Visit [facility] [address] [place], [place] [phone] Ree Antonio, IVET [facility] [place] [address] 07/27/2025 Home Care Visit [facility] [address] [place], [place] [phone] Ree Antonio RN [address] [place] [address] 07/28/2025 Home Care Visit [facility] [address] [place] [address] Daphney Angeles, PT [address] [place] [address] 07/30/2025 Home Care Visit [facility] [address] [place] [address] Ree Antonio RN [address] [place] [address] 07/31/2025 2:00 AM EDT Home Care Visit [facility] [address] [place] [phone] Daphney Angeles, PT [address] [place] [address] 08/03/2025 1:00 AM EDT Home Care Visit [facility] [address] [place] [phone] Ree Antonio RN [address] [place] [address] 08/04/2025 1:30 AM EDT Home Care Visit [facility] [address] [place] [address] Daphney Angeles, PT [address] [place] [address] 08/06/2025 Home Care Visit [facility] [address] [place] [address] Ree Antonio RN [address] [place] [address] 08/07/2025 1:45 AM EDT Home Care Visit [facility] [address] [place] [address] Daphney Angeles, PT [address] [place] [address] 08/10/2025 12:30 AM EDT Home Care Visit [facility] [address] [place] [address] Ree Antonio RN [address] [place] [address] 08/11/2025 12:45 AM EDT Home Care Visit [facility] [address] [place] [phone] Daphney Angeles, PT [address] [place] [address] 08/13/2025 1:30 AM EDT Home Care Visit [facility] [address] [place] [phone] Ree Antonio RN [address] [place] [address] 08/14/2025 12:45 AM EDT Home Care Visit [facility] [address] [place] [address] Daphney Angeles, PT [address] [place] [address] 08/17/2025 12:30 AM EDT Home Care Visit [facility] [address] [place] [address] Ree Antonio RN [address] [place] [address] 08/17/2025 1:00 AM EDT Home Care Visit [facility] [address] [place] [address] Daphney Angeles, PT [address] [place] [address] 08/18/2025 11:00 AM EDT Office Visit [facility] [address] [facility] 3rd Floor, [address] [place] [address] Parth Tadeo DO [address] [facility] [address] [place] [address] 08/18/2025 3:15 PM EDT Office Visit [facility] [address] [address] Mini Rudd MD [address] [place] [address] 08/20/2025 12:30 AM EDT Home Care Visit [facility] [address] [place], [place] [phone] Ree Antonio RN [address] [place] [address] 08/24/2025 12:30 AM EDT Home Care Visit [facility] [address] [place], [place] [phone] Ree Antonio RN [address] [place] [address] 08/25/2025 Home Care Visit [facility] [address] [place] [address] Daphney Angeles, PT [address] [place] [address] 08/27/2025 12:30 AM EDT Home Care Visit [facility] [address] [place] [address] Ree Antonio RN [address] [place] [address] 08/31/2025 Home Care Visit [facility] [address] [place] [address] Ree Antonio RN [address] [place] [address] 09/01/2025 Home Care Visit [facility] [address] [place] [address] Daphney Angeles, PT [address] [place] [address] 09/03/2025 2:00 AM EDT Home Care Visit [facility] [address] [place] [address] Ree Antonio RN [address] [place] [address] 09/07/2025 Home Care Visit [facility] [address] [place] [address] Ree Antonio RN [address] [place] [address] 09/08/2025 Home Care Visit [facility] [address] [place] [address] Daphney Angeles, PT [address] [place] [address] 09/10/2025 Home Care Visit [facility] [address] [place] [address] Ree Antonio RN [address] [place] [address] [email or web address] documented as of this encounter Visit Diagnoses Diagnosis Hip pain, chronic, right documented in this encounter Additional Health Concerns Infection Onset Date Last Indicated Resolved Time COVID-19 04/17/2023 04/18/2023 05/09/2023 1:51 AM EDT CoV-Risk Comment:Neg covid 11/08/2023 11/08/2023 11/09/2023 6:[address] Assessment Noted Time PHQ-9 Depression Total Score: 13 022 2:43 PM EDT PHQ-2 Depression Total Score: 3 06/06/20 22 2:43 PM EDT documented as of this encounter Care Teams Industrial Psychologist Relationship Specialty Start Date End Date Yanick Vivar MD [address] [place] [address] 7 [place] [address] [email or web address] PCP - General Family Medicine 12/04/19 06/26/23 Mini Rudd MD [address] [place] [address] 7 [place] [address] [email or web address] PCP - General Family Medicine 06/27/23 Yanick Vivar MD [address] [place] [address] 7 [place] [phone] [email or web address] Insurance Assigned Provider 09/01/17 03/01/24 Yanick Vivar MD [address] [place] [address] 7 [place] [phone] [email or web address] Historical LMR Provider 09/16/17 Parth Bird MD [address] [place] [address] 7 [place] [address] [email or web address] Historical LMR Provider 09/16/17 Rey Fletcher DO [address] [place] [address] Orthopedics & Sports [facility], [place], [place] [id number] [email or web address] Historical LMR Provider 09/16/17 Amelia Fermin MD [address] [place] [address] Orthopedics Sports [facility], [place], [place] [phone] Historical LMR Provider 09/16/17 Mini Rudd MD [address] [place] [address] 7 [place], [place] [phone] Insurance Assigned Provider 03/01/24 documented as of this encounter Additional Source Comments The information contained in this document represents components of the legal health record. It is not the complete legal health record.[facility]
--- OUTSIDE RECORDS SUMMARY | 2025-07-22 14:06 | XMS_ITS | Encounter Summary ---
Author Organization [facility] Address [address] [facility] [address] [place] [address] Phone Care Team Providers Care Independent Consultant Name Role Phone Yanick Vivar MD Unavailable Yanick Vivar MD Unavailable Leyla Heller MARINE ENGINEERING TECHNICIANS Unavailable Braulio Javed DO Unavailable Kiersten Carrizales MARINE ENGINEERING TECHNICIANS Unavailable Unavailable DacKiersten lee DO Unavailable Parth Bird MD Unavailable Evelia Hartman MARINE ENGINEERING TECHNICIANS Unavailable Karen Miller MASONRY INSPECTOR Unavailable Rey Fletcher DO Unavailable Padmini Carpenter MARINE ENGINEERING TECHNICIANS Unavailable Leatha Dey MARINE ENGINEERING TECHNICIANS Unavailable Jessa Rutledge MD Unavailable [phone] Susie Swanson PA-C Unavailable Brittany Iyer MD Unavailable [phone] Matt Sanchez MD Unavailable Amelia Fermin MD Unavailable Yanick Vivar MD Primary Care Provider Yanick Vivar MD Primary Care Provider Makenna Lugo RN Unavailable Mini Rudd MD Primary Care Provider + Mini Rudd MD Unavailable Encounter Details Date Type Department Care Team (Late Contact Info) Description 11/12/2018 Ancillary Orders [facility] Orthopedics & Sports Medicine [address] [place] [address] Amelia Fermin MD [address] [place] [address] Orthopedics & Sports Medicine, [place] [address] [email or web address] Social History Tobacco Use Types Packs/Day Years Used Date Smoking Tobacco: Former Cigarettes 2 1 395 - 1984 Smokeless Tobacco: Never Alcohol Use [...] 4:00 AM EDT Home Care Visit [facility] [address] [place], [place] [phone] Ree Antonio RN [address] [place] [address] 07/27/2025 Home Care Visit [facility] [address] [place], [place] [phone] Ree Antonio RN [address] [place] [address] 07/28/2025 Home Care Visit [facility] [address] [place] [address] Daphney Angeles, PT [address] [place] [address] 07/30/2025 Home Care Visit [facility] [address] [place] [address] Ree Antonio RN [address] [place] [address] 07/31/2025 2:00 AM EDT Home Care Visit [facility] [address] [place] [address] Daphney Angeles, PT [address] [place] [address] 08/03/2025 1:00 AM EDT Home Care Visit [facility] [address] [place] [address] Ree Antonio RN [address] [place] [address] 08/04/2025 1:30 AM EDT Home Care Visit [facility] [address] [place] [address] Daphney Angeles, PT [address] [place] [address] 08/06/2025 Home Care Visit [facility] [address] [place] [address] Ree Antonio RN [address] [place] [address] 08/07/2025 1:45 AM EDT Home Care Visit [facility] [address] [place] [address] Daphney Angeles, PT [address] [place] [address] 08/10/2025 12:30 AM EDT Home Care Visit [facility] [address] [place] [phone] Ree Antonio RN [address] [place] [address] 08/11/2025 12:45 AM EDT Home Care Visit [facility] [address] [place] [phone] Daphney Angeles, PT [address] [place] [address] 08/13/2025 1:30 AM EDT Home Care Visit [facility] [address] [place] [phone] Ree Antonio RN [address] [place] [address] 08/14/2025 12:45 AM EDT Home Care Visit [facility] [address] [place] [phone] Daphney Angeles, PT [address] [place] [address] 08/17/2025 12:30 AM EDT Home Care Visit [facility] [address] [place] [phone] Ree Antonio RN [address] [place] [address] 08/17/2025 1:00 AM EDT Home Care Visit [facility] [address] [place] [phone] Daphney Angeles, PT [address] [place] [address] 08/18/2025 11:00 AM EDT Office Visit [facility] [address] [facility] 3rd Floor, [address] [place] [address] Parth Tadeo DO [address] [facility] [address] [place] [address] 08/18/2025 3:15 PM EDT Office Visit [facility] [address] [address] Mini Rudd MD [address] [place] [address] 7 [place] [address] 08/20/2025 12:30 AM EDT Home Care Visit [facility] [address] [place] [address] Ree Antonio RN [address] [place] [address] 08/24/2025 12:30 AM EDT Home Care Visit [facility] [address] [place] [address] Ree Antonio RN [address] [place] [address] 08/25/2025 Home Care Visit [facility] [address] [place] [address] Daphney Angeles, PT [address] [place] [address] 08/27/2025 12:30 AM EDT Home Care Visit [facility] [address] [place] [address] Ree Antonio RN [address] [place] [address] 08/31/2025 Home Care Visit [facility] [address] [place] [phone] Ree Antonio RN [address] [place] [address] 09/01/2025 Home Care Visit [facility] [address] [place] [address] Daphney Angeles, PT [address] [place] [address] 09/03/2025 2:00 AM EDT Home Care Visit [facility] [address] [place] [phone] Ree Antonio RN [address] [place] [address] 09/07/2025 Home Care Visit [facility] [address] [place] [address] Ree Antonio RN [address] [place] [address] 09/08/2025 Home Care Visit [facility] [address] [place] [phone] Daphney Angeles, PT [address] [place] [address] 09/10/2025 Home Care Visit [facility] [address] [place] [phone] Ree Antonio RN [address] [place] [address] documented as of this encounter Visit Diagnoses [...] documented as of this encounter Care Teams Independent Consultant Relationship Specialty Start Date End Date Yanick Vivar MD [address] [place] [address] 7 [place] [address] [email or web address] PCP - General Family Medicine 10/09/17 12/03/19 Yanick Vivar MD [address] [place] [address] 7 [place] [address] PCP - General Family Medicine 12/04/19 06/26/23 Mini Rudd MD [address] [place] [address] 7 [place] [address] [email or web address] PCP - General Family Medicine 06/27/23 Yanick Vivar MD [address] [place] [address] 7 [place] [address] Insurance Assigned Provider 09/01/17 03/01/24 Yanick Vivar MD [address] [place] [address], [facility] 7 [place] [address] Historical LMR Provider 09/16/17 Leyla Heller NP 1 [place] [address] Historical LMR Provider 09/16/17 2 Braulio Javed DO [address] [place] [address] 7 [place] [address] [email or web address] Historical LMR Provider 09/16/17 12/03/21 Kiersten Carrizales, MARINE ENGINEERING [employer]CHNICIANS [address] [place] [address] Historical LMR Provider 09/16/1712/03 Kiersten Lee DO [address] [place] [address] [email or web address] Historical LMR Provider 09/16/17 12/03/21 Parth Bird MD [address] [place] [address] 7 [place] [address] [email or web address] Historical LMR Provider 09/16/17 Evelia Hartman, SAMI [address] [place] [address] Historical LMR Provider 09/16/17 2 Karen Miller, MASONRY INSPECTOR [address] [facility], [address]nd [place] [address] Historical LMR Provider 09/16/17 12/03/21 Rey Fletcher DO [address] [place] [address] Orthopedics & Sports Medicine, [facility] [place] [address] Historical LMR Provider 09/16/17 Padmini Carpenter, SAMI [address] [place] [address] Historical LMR Provider 09/16/17 Leatha Dey, SAMI [address] [place] [address] Historical LMR Provider 09/16/17 2 Jessa Rutledge MD [address] [place] [address], [address] [place] [address] Historical LMR Provider 09/16/17 12/03/21 Susie Swanson PA-C [address] [place] [address] [facility] [place] [address] Historical LMR Provider 09/16/17 12/03/21 Brittany Iyer MD [address] [place] [address] Historical LMR Provider 09/16/17 2 Matt Sanchez MD [address] [place] [phone] Historical LMR Provider 09/16/17 2 Amelia Fermin MD [address] [place] [address] [facility] [place] [address] Historical LMR Provider 09/16/17 Makenna Lugo, RN 10 [place] [address] [email or web address] Concrete Technician 05/11/20 06/24/20 Mini Rudd MD [address] [place] [address], [address] [place] [address] [email or web address] Insurance Assigned Provider 03/01/24 documented as of this encounter Additional Source Comments The information contained in this document represents components of the legal health record. It is not the complete legal health record.[facility]
--- OUTSIDE RECORDS SUMMARY | 2025-07-22 14:06 | XMS_ITS | Encounter Summary ---
Author Organization [facility] Address [address] [place] [address] Phone Care Team Providers Care Chemical Pumper Name Role Phone Yanick Vivar MD Unavailable [phone] Parth Bird MD Unavailable Rey Fletcher DO Unavailable [phone] Amelia Fermin MD Unavailable [phone] Mini Rudd MD Primary Care Provider + Mini Rudd MD Unavailable [phone] Reason for Visit * Reason Onset Date Comments Pre-op Visit 04/22/2025 [facility] + 7/2 + Back Surgery Encounter Details Date Type Department Care Team (Late st Contact Info) Description 04/22/2025 Telephone [facility] [address] [facility] [place] [address] Mini Rudd MD [address] [facility], [address] [place] [address] [email or web address] Pre-op Visit ([facility] + 7/2 + Back Surgery ) Social History Tobacco Use Types Packs/Day [...] as of this encounter Progress Notes * Karina Smith - 04/22/2025 3:59 PM EDT [facility] PEN Top Smart Phrases: Pre-op Appointment Request Type of Anesthesia: n/a Procedure / Surgery Type: Back Surgery Location of Procedure: [facility] Is EKG needed: n/a Is Lab Work needed:YES/NO: yes Procedure Date: 05/27/2025 Name of Surgeon (First, Last): Dr. Mayur Maldonado Name of person to contact with Pre-op info, including contact number: n/a Fax number Cassie [phone] Confirm you have informed the patient that the Pre-op Paperwork must be faxed to the office before the appt.:yes or no or NA: N/A [facility] CSS Agent (Please do not reply to this user, as this inbox is not monitored.) Thank you documented in this encounter Plan of Treatment Upcoming Encounters Date Type Department Care Team (Late st Contact Info) Description 07/23/2025 4:00 AM EDT Home Care Visit [facility] [address] [place], [place] [phone] Ree Antonio RN [address] [place] [address] [email or web address] 07/27/2025 Home Care Visit [facility] [address] [place], [place] [phone] Ree Antonio RN [address] [place] [address] [email or web address] 07/28/2025 Home Care Visit [facility] [address] [place], [place] [phone] Daphney Angeles, PT [address] [place] [address] [email or web address] 07/30/2025 Home Care Visit [facility] [address] [place] [phone] Ree Antonio RN [address] [place] [address] [email or web address] 07/31/2025 2:00 AM EDT Home Care Visit [facility] [address] [place] [address] Daphney Angeles, PT [address] [place] [address] [email or web address] 08/03/2025 1:00 AM EDT Home Care Visit [facility] [address] [place] [phone] Ree Antonio RN [address] [place] [address] [email or web address] 08/04/2025 1:30 AM EDT Home Care Visit [facility] [address] [place] [phone] Daphney Angeles, PT [address] [place] [address] [email or web address] 08/06/2025 Home Care Visit [facility] [address] [place] [phone] Ree Antonio RN [address] [place] [address] [email or web address] 08/07/2025 1:45 AM EDT Home Care Visit [facility] [address] [place] [phone] Daphney Angeles, PT [address] [place] [address] [email or web address] 08/10/2025 12:30 AM EDT Home Care Visit [facility] [address] [place] [address] Ree Antonio RN [address] [place] [address] [email or web address] 08/11/2025 12:45 AM EDT Home Care Visit [facility] [address] [place] [address] Daphney Angeles, PT [address] [place] [address] [email or web address] 08/13/2025 1:30 AM EDT Home Care Visit [facility] [address] [place] [phone] Ree Antonio RN [address] [place] [address] [email or web address] 08/14/2025 12:45 AM EDT Home Care Visit [facility] [address] [place] [phone] Daphney Angeles, PT [address] [place] [address] [email or web address] 08/17/2025 12:30 AM EDT Home Care Visit [facility] [address] [place] [phone] Ree Antonio RN [address] [place] [address] [email or web address] 08/17/2025 1:00 AM EDT Home Care Visit [facility] [address] [place] [address] Daphney Angeles, PT [address] [place] [address] [email or web address] 08/18/2025 11:00 AM EDT Office Visit [facility] [address] [place] [address] 3rd Floor, [address] [place] [address] Parth Tadeo, DO 22 [facility] [address] [place] [address] 08/18/2025 3:15 PM EDT Office Visit [facility] [address] [place] [address] Mini Rudd MD [address] [place] [address] [address] [place] [address] 08/20/2025 12:30 AM EDT Home Care Visit [facility] [address] [place] [address] Ree Antonio RN [address] [place] [address] 08/24/2025 12:30 AM EDT Home Care Visit [facility] [address] [place] [address] Ree Antonio RN [address] [place] [address] [email or web address] 08/25/2025 Home Care Visit [facility] [address] [place] [address] Daphney Angeles, PT [address] [place] [address] 08/27/2025 12:30 AM EDT Home Care Visit [facility] [address] [place] [address] Ree Antonio, IVET [address] [place] [address] 08/31/2025 Home Care Visit [facility] [address] [place] [address] Ree Antonio RN [address] [place] [address] [email or web address] 09/01/2025 Home Care Visit [facility] [address] [place] [phone] Daphney Angeles, PT [address] [place] [address] [email or web address] 09/03/2025 2:00 AM EDT Home Care Visit [facility] [address] [place] [phone] Ree Antonio RN [address] [place] [address] [email or web address] 09/07/2025 Home Care Visit [facility] [address] [place] [phone] Ree Antonio RN [address] [place] [address] [email or web address] 09/08/2025 Home Care Visit [facility] [address] [place] [phone] Daphney Angeles, PT [address] [place] [address] [email or web address] 09/10/2025 Home Care Visit [facility] [address] [place] [phone] Ree Antonio RN [address] [place] [address] [email or web address] documented as of this encounter Visit Diagnoses Not on filedocumented in this encounter Additional Health Concerns Assessment Noted Time PHQ-9 Depression Total Score: 13 06/06/ 022 2:43 PM EDT PHQ-2 Depression Total Score: 2 10/14/20 24 11:18 AM EST documented as of this encounter Care Teams Chemical Pumper Relationship Specialty Start Date End Date Mini Rudd MD [address] [place] [address], [facility] 7 [place] [address] PCP - General Family Medicine 06/27/23 Yanick Vivar MD [address] [place] [address] 7 [place] [address] Historical LMR Provider 09/16/17 Parth Bird MD [address] [place] [address] 7 [place] [address] [email or web address] Historical LMR Provider 09/16/17 Rey Fletcher DO [address] [place] [address] Orthopedics & Sports Medicine, [place] [address] [email or web address] Historical LMR Provider 09/16/17 Amelia Fermin MD [address] [place] [address] Orth[facility] Medicine, [place] [address] Historical LMR Provider 09/16/17 Mini Rudd MD [address] [place] [address] 7 [place] [address] Insurance Assigned Provider 03/01/24 documented as of this encounter Additional Source Comments The information contained in this document represents components of the legal health record. It is not the complete legal health record.[facility]
--- OUTSIDE RECORDS SUMMARY | 2025-07-22 14:06 | XMS_ITS | Encounter Summary ---
Author Organization [facility] Address [address] [facility] [address] [place] [address] Phone Care Team Providers Care Design Transferrer Name Role Phone Yanick Vivar MD Unavailable Yanick Vivar MD Unavailable Leyla Heller ELEMENTARY CLASSROOM TEACHER Unavailable Brauloi Javed DO Unavailable Kiersten Carrizales ELEMENTARY CLASSROOM TEACHER Unavailable Unavailable DacKiersten lee DO Unavailable Parth Bird MD Unavailable Evelia Hartman ELEMENTARY CLASSROOM TEACHER Unavailable Karen Miller PRISON TEACHER Unavailable Rey Fletcher DO Unavailable Padmini Carpenter ELEMENTARY CLASSROOM TEACHER Unavailable Leatha Dey ELEMENTARY CLASSROOM TEACHER Unavailable Jessa Rutledge MD Unavailable [phone] Susie Swanson PA-C Unavailable Brittany Iyer MD Unavailable [phone] Matt Sanchez MD Unavailable Amelia Fermin MD Unavailable Yanick Vivar MD Primary Care Provider [phone] Yanick Vivar MD Primary Care Provider Makenna Lugo RN Unavailable [phone] Mini Rudd MD Primary Care Provider + Mini Rudd MD Unavailable Encounter Details Date Type Department Care Team (Late Contact Info) Description 11/11/2018 Ancillary Orders [facility] Orthopedics & Sports Medicine [address] [place] [address] Amelia Fermin MD [address] [place] [address] Orthopedics & Sports Medicine, [place] [address] Social History Tobacco Use Types Packs/Day Years Used Date Smoking Tobacco: Former Cigarettes 2 1 995 - 1984 Smokeless Tobacco: Never Alcohol Use [...] 4:00 AM EDT Home Care Visit [facility] [address] [place], [place] [phone] Ree Antonio RN [address] [place] [address] 07/27/2025 Home Care Visit [facility] [address] [place], [place] [phone] Ree Antonio RN [address] [place] [address] 07/28/2025 Home Care Visit [facility] [address] [place] [address] Daphney Angeles, PT [address] [place] [address] 07/30/2025 Home Care Visit [facility] [address] [place] [address] Ree Antonio RN [address] [place] [address] 07/31/2025 2:00 AM EDT Home Care Visit [facility] [address] [place] [address] Daphney Angeles, PT [address] [place] [address] 08/03/2025 1:00 AM EDT Home Care Visit [facility] [address] [place] [address] Ree Antonio RN [address] [place] [address] 08/04/2025 1:30 AM EDT Home Care Visit [facility] [address] [place] [address] Daphney Angeles, PT [address] [place] [address] 08/06/2025 Home Care Visit [facility] [address] [place] [address] Ree Antonio RN [address] [place] [address] 08/07/2025 1:45 AM EDT Home Care Visit [facility] [address] [place] [address] Daphney Angeles, PT [address] [place] [address] 08/10/2025 12:30 AM EDT Home Care Visit [facility] [address] [place] [phone] Ree Antonio RN [address] [place] [address] 08/11/2025 12:45 AM EDT Home Care Visit [facility] [address] [place] [phone] Daphney Angeles, PT [address] [place] [address] 08/13/2025 1:30 AM EDT Home Care Visit [facility] [address] [place] [phone] Ree Antonio RN [address] [place] [address] 08/14/2025 12:45 AM EDT Home Care Visit [facility] [address] [place] [phone] Daphney Angeles, PT [address] [place] [address] 08/17/2025 12:30 AM EDT Home Care Visit [facility] [address] [place] [phone] Ree Antonio RN [address] [place] [address] 08/17/2025 1:00 AM EDT Home Care Visit [facility] [address] [place] [phone] Daphney Angeles, PT [address] [place] [address] 08/18/2025 11:00 AM EDT Office Visit [facility] [address] [facility] 3rd Floor, [address] [place] [address] Parth Tadeo DO 22 [facility] [address] [place] [address] 08/18/2025 3:15 PM EDT Office Visit [facility] [address] [address] Mini Rudd MD [address] [place] [address] 7 [place] [address] 08/20/2025 12:30 AM EDT Home Care Visit [facility] [address] [place] [address] Ree Antonio RN [address] [place] [address] 08/24/2025 12:30 AM EDT Home Care Visit [facility] [address] [place] [address] Ree Antonio RN [address] [place] [address] 08/25/2025 Home Care Visit [facility] [address] [place] [address] Daphney Angeles, PT [address] [place] [address] 08/27/2025 12:30 AM EDT Home Care Visit [facility] [address] [place] [address] Ree Antonio RN [address] [place] [address] 08/31/2025 Home Care Visit [facility] [address] [place] [phone] Ree Antonio RN [address] [place] [address] 09/01/2025 Home Care Visit [facility] [address] [place] [address] Daphney Angeles, PT [address] [place] [address] 09/03/2025 2:00 AM EDT Home Care Visit [facility] [address] [place] [phone] Ree Antonio RN [address] [place] [address] 09/07/2025 Home Care Visit [facility] [address] [place] [phone] Ree Antonio RN [address] [place] [address] 09/08/2025 Home Care Visit [facility] [address] [place] [phone] Daphney Angeles, PT [address] [place] [address] 09/10/2025 Home Care Visit [facility] [address] [place] [phone] Ree Antonio RN [address] [place] [address] documented as of this encounter Visit Diagnoses [...] documented as of this encounter Care Teams Design Transferrer Relationship Specialty Start Date End Date Yanick Vivar MD [address] [place] [address] 7 [place] [address] PCP - General Family Medicine 10/09/17 12/03/19 Yanick Vivar MD [address] [place] [address] 7 [place] [address] PCP - General Family Medicine 12/04/19 06/26/23 Mini Rudd MD [address] [place] [address] 7 [place] [address] PCP - General Family Medicine 06/27/23 Yanick Vivar MD [address] [place] [address] 7 [place] [address] Insurance Assigned Provider 09/01/17 03/01/24 Yanick Vivar MD [address] [place] [address], [facility] 7 [place] [address] Historical LMR Provider 09/16/17 Leyla Heller NP 1 [place] [address] Historical LMR Provider 09/16/17 2 Braulio Javed DO [address] [place] [address] 7 [place] [address] Historical LMR Provider 09/16/17 12/03/21 Kiersten Carrizales, ELEMENTARY CLASSROOM TEACHER [address] [place] [address] Historical LMR Provider 09/16/1712/03 Kiersten Lee DO [address] [place] [address] Historical LMR Provider 09/16/17 12/03/21 Parth Bird MD [address] [place] [address] 7 [place] [address] [email or web address] Historical LMR Provider 09/16/17 Evelia Hartman, SAMI [address] [place] [address] Historical LMR Provider 09/16/17 2 Karen Miller, PRISON TEACHER 15 [facility], 2nd [place] [address] Historical LMR Provider 09/16/17 12/03/21 Rey Fletcher DO [address] [place] [address] Orthopedics & Sports Medicine, [place] [address] Historical LMR Provider 09/16/17 Padmini Carpenter, SAMI [address] [place] [address] Historical LMR Provider 09/16/17 Leatha Dey, SAMI [address] [place] [address] Historical LMR Provider 09/16/17 2 Jessa Rutledge MD [address] [place] [address], [address] [place] [address] Historical LMR Provider 09/16/17 12/03/21 Susie Swanson PA-C [address] [place] [address] [facility] [place] [address] Historical LMR Provider 09/16/17 12/03/21 Brittany Iyer MD [address] [place] [address] Historical LMR Provider 09/16/17 2 Matt Sanchez MD [address] [place] [phone] Historical LMR Provider 09/16/17 2 Amelia Fermin MD [address] [place] [address] [facility] [place] [address] Historical LMR Provider 09/16/17 Makenna Lugo, RN 10 [place] [address] iCMP Skin Diver 05/11/20 06/24/20 Mini Rudd MD [address] [place] [address], [address] [place] [address] Insurance Assigned Provider 03/01/24 documented as of this encounter Additional Source Comments The information contained in this document represents components of the legal health record. It is not the complete legal health record.[facility]
--- OUTSIDE RECORDS SUMMARY | 2025-07-22 14:06 | XMS_ITS | Encounter Summary ---
Author Organization [facility] Address [address] [facility] [address] [place] [address] Phone Care Team Providers Care Data Management Manager Name Role Phone Yanick Vivar MD Unavailable Yanick Vivar MD Unavailable Leyla Heller COLORING CHECKER Unavailable Braulio Javed DO Unavailable Kiersten Carrizales COLORING CHECKER Unavailable Unavailable DacKiersten lee DO Unavailable Parth Bird MD Unavailable Evelia Hartman COLORING CHECKER Unavailable Karen Miller LINER REPLACER Unavailable Rey Fletcher DO Unavailable Padmini Carpenter COLORING CHECKER Unavailable Leatha Dey COLORING CHECKER Unavailable Jessa Rutledge MD Unavailable [phone] Susie Swanson PA-C Unavailable Brittany Iyer MD Unavailable [phone] Matt Sanchez MD Unavailable Amelia Fermin MD Unavailable Yanick Vivar MD Primary Care Provider [phone] Yanick Vivar MD Primary Care Provider Makenna Lugo RN Unavailable Mini Rudd MD Primary Care Provider + Mini Rudd MD Unavailable [phone] Encounter Details Date Type Department Care Team (Late Contact Info) Description 11/12/2018 Ancillary Orders [address] [address] Amelia Fermin MD [address] [place] [address] Orthopedics & Sports Medicine, [place], [place] [phone] [email or web address] Hip pain, chronic, left Social [...] 4:00 AM EDT Home [facility] Visit [facility] [address] [place], [place] [phone] Ree Antonio RN [address] [place] [address] 07/27/2025 Home Care Visit [facility] [address] [place], [place] [phone] Ree Antonio RN [address] [place] [address] [email or web address] 07/28/2025 Home Care Visit [facility] [address] [place] [address] Daphney Angeles, PT [address] [place] [address] [email or web address] 07/30/2025 Home Care Visit [facility] [address] [place] [address] Ree Antonio RN [address] [place] [address] [email or web address] 07/31/2025 2:00 AM EDT Home Care Visit [facility] [address] [place] [address] Daphney Angeles, PT [address] [place] [address] [email or web address] 08/03/2025 1:00 AM EDT Home Care Visit [facility] [address] [place] [address] Ree Antonio RN [address] [place] [address] [email or web address] 08/04/2025 1:30 AM EDT Home Care Visit [facility] [address] [place] [address] Daphney Angeles, PT [address] [place] [address] [email or web address] 08/06/2025 Home Care Visit [facility] [address] [place] [address] Ree Antonio RN [address] [place] [address] [email or web address] 08/07/2025 1:45 AM EDT Home Care Visit [facility] [address] [place] [address] Daphney Angeles, PT [address] [place] [address] [email or web address] 08/10/2025 12:30 AM EDT Home Care Visit [facility] [address] [place] [phone] Ree Antonio RN [address] [place] [address] [email or web address] 08/11/2025 12:45 AM EDT Home Care Visit [facility] [address] [place] [phone] Daphney Angeles, PT [address] [place] [address] [email or web address] 08/13/2025 1:30 AM EDT Home Care Visit [facility] [address] [place] [phone] Ree Anotnio RN [address] [place] [address] [email or web address] 08/14/2025 12:45 AM EDT Home Care Visit [facility] [address] [place] [phone] Daphney Angeles, PT [address] [place] [address] [email or web address] 08/17/2025 12:30 AM EDT Home Care Visit [facility] [address] [place] [phone] Ree Antonio RN [address] [place] [address] [email or web address] 08/17/2025 1:00 AM EDT Home Care Visit [facility] [address] [place] [address] Daphney Angeles, PT [address] [place] [address] 08/18/2025 11:00 AM EDT Office Visit [facility] [address] [facility] 3rd Floor, [address] [place] [address] Parth Tadeo DO 22 [facility] [address] [place] [address] [email or web address] 08/18/2025 3:15 PM EDT Office Visit [facility] [address] [address] Mini Rudd MD [address] [place] [address] 7 [place] [address] 08/20/2025 12:30 AM EDT Home Care Visit [facility] [address] [place] [address] Ree Antonio RN [address] [place] [address] 08/24/2025 12:30 AM EDT Home Care Visit [facility] [address] [place] [address] Ree Antonio RN [address] [place] [address] [email or web address] 08/25/2025 Home Care Visit [facility] [address] [place] [address] Daphney Angeles, PT [address] [place] [address] 08/27/2025 12:30 AM EDT Home Care Visit [facility] [address] [place] [address] Ree Antonio RN [address] [place] [address] [email or web address] 08/31/2025 Home Care Visit [facility] [address] [place] [address] Ree Antonio RN [address] [place] [address] [email or web address] 09/01/2025 Home Care Visit [facility] [address] [place] [phone] Daphney Angeles, PT [address] [place] [address] [email or web address] 09/03/2025 2:00 AM EDT Home Care Visit [facility] [address] [place] [phone] Ree Antonio RN [address] [place] [address] [email or web address] 09/07/2025 Home Care Visit [facility] [address] [place] [phone] Ree Antonio RN [address] [place] [address] [email or web address] 09/08/2025 Home Care Visit [facility] [address] [place] [address] Daphney Angeles, PT [address] [place] [address] [email or web address] 09/10/2025 Home Care Visit [facility] [address] [place] [phone] Ree Antonio RN [address] [place] [address] [email or web address] documented as of this encounter Results * XR HIP 1 VW LEFT PLUS PELVIS (11/12/2018 9:49 AM EST) Narrative SYSTEMGENERATED, DOCUMENTATION - 11/12/2018 9:49 AM EST This image report has been auto-finalized and has not been read by a Radiologist. Interpretation has been included in the provider encounter note for this date of service. Amelia Fermin MD IMG XR PELVIS Final Res ult documented in this encounter Visit Diagnoses Diagnosis Hip pain, chronic, left Hip pain, chronic, left documented in this encounter Additional Health Concerns Infection Onset Date Last Indicated Resolved Time CoV-Risk 07/22/2020 07/22/2020 08/05/2020 1:24 AM EDT CoV-Risk Comment:Per Ambulatory Triage Form 04/17/2023 04/17/202304/17 9:56 AM EDT COVID-19 04/17/2023 04/18/2023 05/09/2023 1:51 AM EDT CoV-Risk Comment:Neg covid 11/08/2023 11/08/2023 11/09/2023 6:[address] documented as of this encounter Care Teams Data Management Manager Relationship Specialty Start Date End Date Yanick Vivar MD [address] [place] [address] [email or web address] PCP - General Family Medicine 10/09/17 12/03/19 Yanick Vivar MD [address] [place] [address] [email or web address] PCP - General Family Medicine 12/04/19 06/26/23 Mini Rudd MD [address] [place] [address] PCP - General Family Medicine 06/27/23 Yanick Vivar MD [address] [place] [address] 7 [place] [address] [email or web address] Insurance Assigned Provider 09/01/17 03/01/24 Yanick Vivar MD [address] [place] [address] 7 [place] [address] [email or web address] Historical LMR Provider 09/16/17 Leyla Heller COLORING CHECKER 1 [place] [address] Historical LMR Provider 09/16/17 2 Braulio Javed DO [address] [place] [address] 7 [place] [address] [email or web address] Historical LMR Provider 09/16/17 12/03/21 Kiersten Carrizales NP [address] [place] [address] Historical LMR Provider 09/16/1712/03 Kiersten Lee DO [address] [place] [address] 7 [place] [address] [email or web address] Historical LMR Provider 09/16/17 12/03/21 Parth Bird MD [address] [place] [address] 7 [place] [address] [email or web address] Historical LMR Provider 09/16/17 Evelia Hartman NP [address] [place] [address] Historical LMR Provider 09/16/17 2 Karen Miller, LINER REPLACER [address] [address] [email or web address] Historical LMR Provider 09/16/17 12/03/21 Rey Fletcher DO [address] [place] [address] [facility], [place] [address] [email or web address] Historical LMR Provider 09/16/17 Padmini Carpenter, SAMI 22 [place] [address] Historical LMR Provider 09/16/17 Leatha Dey, SAMI [address] [place] [address] Historical LMR Provider 09/16/17 2 Jessa Rutledge MD [address] [address] [email or web address] Historical LMR Provider 09/16/17 12/03/21 Susie Swanson PA-C [address] [place] [address] [facility], [place] [address] Historical LMR Provider 09/16/17 12/03/21 Brittany Iyer MD [address] [address] Historical LMR Provider 09/16/17 2 Matt Sanchez MD [address] [facility] 7 [place] [address] Historical LMR Provider 09/16/17 2 Amelia Fermin MD [address] [place] [address] Orthopedics & Sports Medicine, [facility] [place] [address] Historical LMR Provider 09/16/17 Makenna Lugo, RN 10 [place] [address] [email or web address] Top Lift Compressor 05/11/20 06/24/20 Mini Rudd MD [address] [facility] [address] [place] [address] Insurance Assigned Provider 03/01/24 documented as of this encounter Additional Source Comments The information contained in this document represents components of the legal health record. It is not the complete legal health record.[facility]
--- OUTSIDE RECORDS SUMMARY | 2025-07-22 14:06 | XMS_ITS | Encounter Summary ---
Author Organization [facility] Address [address] [facility] [address] [place] [address] Phone Care Team Providers Care Tonguer Name Role Phone Yanick Vivar MD Unavailable Yanick Vivar MD Unavailable Leyla Heller INTERIOR MECHANIC Unavailable Braulio Javed DO Unavailable Kiersten Carrizales INTERIOR MECHANIC Unavailable Unavailable DacKiersten lee DO Unavailable Parth Bird MD Unavailable Evelia Hartman INTERIOR MECHANIC Unavailable Karen Miller MIXED ANIMAL VETERINARIAN Unavailable Rey Fletcher DO Unavailable Padmini Carpenter INTERIOR MECHANIC Unavailable Leatha Dey INTERIOR MECHANIC Unavailable Jessa Rutledge MD Unavailable [phone] Susie Swanson PA-C Unavailable Brittany Iyer MD Unavailable [phone] Matt Sanchez MD Unavailable Amelia Fermin MD Unavailable Yanick Vivar MD Primary Care Provider Yanick Vivar MD Primary Care Provider Makenna Lugo RN Unavailable [phone] Mini Rudd MD Primary Care Provider + Mini Rudd MD Unavailable [phone] Encounter Details Date Type Department Care Team (Late Contact Info) Description 11/11/2018 Ancillary Orders [address] [address] Amelia Fermin MD [address] [place] [address] Orthopedics & Sports Medicine, [place], [place] [phone] [email or web address] Hip pain, right Social History Tobacco Use Types Packs/Day [...] Visit [facility] [address] [place], [place] [phone] Ree Antonio RN [address] [place] [address] 07/27/2025 Home Care Visit [facility] [address] [place], [place] [phone] Ree Antonio RN [address] [place] [address] [email or web address] 07/28/2025 Home Care Visit [facility] [address] [place] [address] Daphney Angeles, PT [address] [place] [address] [email or web address] 07/30/2025 Home Care Visit [facility] [address] [place] [address] Ree Antonio RN [address] [place] [address] [email or web address] 07/31/2025 2:00 AM EDT Home Care Visit [facility] [address] [place] [address] Daphney Angeles, PT [address] [place] [address] [email or web address] 08/03/2025 1:00 AM EDT Home Care Visit [facility] [address] [place] [address] Ree Antonio RN [address] [place] [address] [email or web address] 08/04/2025 1:30 AM EDT Home Care Visit [facility] [address] [place] [address] Daphney Angeles, PT [address] [place] [address] [email or web address] 08/06/2025 Home Care Visit [facility] [address] [place] [address] Ree Antonio RN [address] [place] [address] [email or web address] 08/07/2025 1:45 AM EDT Home Care Visit [facility] [address] [place] [address] Daphney Angeles, PT [address] [place] [address] [email or web address] 08/10/2025 12:30 AM EDT Home Care Visit [facility] [address] [place] [phone] Ree Antonio RN [address] [place] [address] [email or web address] 08/11/2025 12:45 AM EDT Home Care Visit [facility] [address] [place] [phone] Daphney Angeles, PT [address] [place] [address] [email or web address] 08/13/2025 1:30 AM EDT Home Care Visit [facility] [address] [place] [phone] Ree Antonio RN [address] [place] [address] [email or web address] 08/14/2025 12:45 AM EDT Home Care Visit [facility] [address] [place] [phone] Daphney Angeles, PT [address] [place] [address] [email or web address] 08/17/2025 12:30 AM EDT Home Care Visit [facility] [address] [place] [phone] Ree Antonio RN [address] [place] [address] [email or web address] 08/17/2025 1:00 AM EDT Home Care Visit [facility] [address] [place] [phone] Daphney Angeles, PT [address] [place] [address] [email or web address] 08/18/2025 11:00 AM EDT Office Visit [facility] [address] [facility] 3rd Floor, [address] [place] [address] Parth Tadeo DO [address] [facility] [address] [place] [address] 08/18/2025 3:15 PM EDT Office Visit [facility] [address] [address] Mini Rudd MD [address] [place] [address] 7 [place] [address] 08/20/2025 12:30 AM EDT Home Care Visit [facility] [address] [place] [address] Ree Antonio RN [address] [place] [address] [email or web address] 08/24/2025 12:30 AM EDT Home Care Visit [facility] [address] [place] [address] Ree Antonio RN [address] [place] [address] 08/25/2025 Home Care Visit [facility] [address] [place] [address] Daphney Angeles, PT [address] [place] [address] 08/27/2025 12:30 AM EDT Home Care Visit [facility] [address] [place] [address] Ree Antonio RN [address] [place] [address] [email or web address] 08/31/2025 Home Care Visit [facility] [address] [place] [address] Ree Antonio RN [address] [place] [address] [email or web address] 09/01/2025 Home Care Visit [facility] [address] [place] [phone] Daphney Angeles, PT [address] [place] [address] 09/03/2025 2:00 AM EDT Home Care Visit [facility] [address] [place] [address] Ree Antonio RN [address] [place] [address] [email or web address] 09/07/2025 Home Care Visit [facility] [address] [place] [phone] Ree Antonio RN [address] [place] [address] [email or web address] 09/08/2025 Home Care Visit [facility] [address] [place] [phone] Daphney Angeles, PT [address] [place] [address] [email or web address] 09/10/2025 Home Care Visit [facility] [address] [place] [phone] Ree Antonio RN [address] [place] [address] documented as of this encounter Visit Diagnoses Diagnosis Hip pain, right Pain in joint, pelvic region and thigh documented in this encounter Additional Health Concerns Infection Onset Date Last Indicated Resolved Time CoV-Risk 07/22/2020 07/22/2020 08/05/2020 1:24 AM EDT CoV-Risk Comment:Per Ambulatory Triage Form 04/17/2023 04/17/202304/17 9:56 AM EDT COVID-19 04/17/2023 04/18/2023 05/09/2023 1:51 AM EDT CoV-Risk Comment:Neg covid 11/08/2023 11/08/2023 11/09/2023 6:[address] documented as of this encounter Care Teams Tonguer Relationship Specialty Start Date End Date Yanick Vivar MD [address] [place] [address] 7 [place] [address] [email or web address] PCP - General Family Medicine 10/09/17 12/03/19 Yanick Vivar MD [address] [place] [address] 7 [place] [address] [email or web address] PCP - General Family Medicine 12/04/19 06/26/23 Mini Rudd MD [address] [place] [address] 7 [place] [address] [email or web address] PCP - General Family Medicine 06/27/23 Yanick Vivar MD [address] [place] [address] 7 [place] [address] [email or web address] Insurance Assigned Provider 09/01/17 03/01/24 Yanick Vivar MD [address] [place] [address] 7 [place] [address] Historical LMR Provider 09/16/17 Leyla Heller INTERIOR MECHANIC [address] [place] [address] Historical LMR Provider 09/16/17 2 Braulio Javed DO [address] [place] [address] 7 [place] [address] [email or web address] Historical LMR Provider 09/16/17 12/03/21 Kiersten Carrizales INTERIOR MECHANIC [address] [place] [address] Historical LMR Provider 09/16/1712/03 Kiersten Lee DO [address] [place] [address] 7 [place] [address] [email or web address] Historical LMR Provider 09/16/17 12/03/21 Parth Bird MD [address] [place] [address] 7 [place] [address] [email or web address] Historical LMR Provider 09/16/17 Evelia Hartman NP [address] [place] [address] Historical LMR Provider 09/16/17 2 Karen Miller, YANELY [address] [facility], [address] [place] [address] Historical LMR Provider 09/16/17 12/03/21 Rey Fletcher DO [address] [place] [address] Orthopedics & Sports Medicine, [facility] [place] [address] Historical LMR Provider 09/16/17 Padmini Carpenter, SAMI [address] [place] [address] Historical LMR Provider 09/16/17 Leatha Dey, SAMI [address] [place] [address] Historical LMR Provider 09/16/17 2 Jessa Rutledge MD [address] [place] [address], [address] [place] [address] [email or web address] Historical LMR Provider 09/16/17 12/03/21 Susie Swanson PA-C [address] [place] [address] [facility], [place] [address] [email or web address] Historical LMR Provider 09/16/17 12/03/21 Brittany Iyer MD [address] [address] Historical LMR Provider 09/16/17 2 Matt Sanchez MD [address] [place] [phone] Historical LMR Provider 09/16/17 2 Amelia Fermin MD [address] [place] [address] [facility] [address] Historical LMR Provider 09/16/17 Makenna Lugo, RN [address] [place] [address] [email or web address] Raiser 05/11/20 06/24/20 Mini Rudd MD [address] [place] [address], [address] [place] [address] [email or web address] Insurance Assigned Provider 03/01/24 documented as of this encounter Additional Source Comments The information contained in this document represents components of the legal health record. It is not the complete legal health record.[facility]
--- OUTSIDE RECORDS SUMMARY | 2025-07-22 14:06 | XMS_ITS | Encounter Summary ---
Author Organization [facility] Address [address] [facility] [address] [place] [address] Phone Care Team Providers Care Landscape Drafter Name Role Phone Yanick Vivar MD Unavailable [phone] Yanick Vivar MD Unavailable Parth Bird MD Unavailable [phone] Rey Fletcher DO Unavailable Amelia Fermin MD Unavailable [phone] Yanick Vivar MD Primary Care Provider Mini Rudd MD Primary Care Provider + Mini Rudd MD Unavailable [phone] Encounter Details Date Type Department Care Team (Late st Contact Info) Description 04/27/2023 [facility] & [facility] Medicine [address] [place] [address] Amelia Fermin MD [address] [place] [address] Orthopedics & Sports Medicine, [facility] [place] [address] Social History Tobacco Use Types Packs/Day Years [...] Visit [facility] [address] [place], [place] [phone] Ree Antonio, RN [address] [place] [address] 07/27/2025 Home Care Visit [facility] [address] [place] [phone] Ree Antonio RN [address] [place] [address] 07/28/2025 Home Care Visit [facility] [address] [place] [address] Daphney Angeles, PT [address] [place] [address] 07/30/2025 Home Care Visit [facility] [address] [place] [address] Ree Antonio RN [address] [place] [address] 07/31/2025 2:00 AM EDT Home Care Visit [facility] [address] [place] [phone] Daphney Angeles, PT [address] [place] [address] 08/03/2025 1:00 AM EDT Home Care Visit [facility] [address] [place] [phone] Ree Antonio RN [address] [place] [address] 08/04/2025 1:30 AM EDT Home Care Visit [facility] [address] [place] [address] Daphney Angeles, PT [address] [place] [address] 08/06/2025 Home Care Visit [facility] [address] [place] [address] Ree Antonio RN [address] [place] [address] 08/07/2025 1:45 AM EDT Home Care Visit [facility] [address] [place] [address] Daphney Angeles, PT [address] [place] [address] 08/10/2025 12:30 AM EDT Home Care Visit [facility] [address] [place] [address] Ree Antonio RN [address] [place] [address] 08/11/2025 12:45 AM EDT Home Care Visit [facility] [address] [place] [address] Daphney Angeles, PT [address] [place] [address] 08/13/2025 1:30 AM EDT Home Care Visit [facility] [address] [place] [phone] Ree Antonio RN [address] [place] [address] 08/14/2025 12:45 AM EDT Home Care Visit [facility] [address] [place] [address] Daphney Angeles, PT [address] [place] [address] 08/17/2025 12:30 AM EDT Home Care Visit [facility] [address] [place] [address] Ree Antonio RN [address] [place] [address] 08/17/2025 1:00 AM EDT Home Care Visit [facility] [address] [place] [phone] Daphney Angeles, PT [address] [place] [address] 08/18/2025 11:00 AM EDT Office Visit [facility] [address] [facility] 3rd Floor, [address] [place] [address] Parth Tadeo DO [address] [facility] [address] [place] [address] 08/18/2025 3:15 PM EDT Office Visit [facility] [address] [address] Mini Rudd MD [address] [place] [address] 08/20/2025 12:30 AM EDT Home Care Visit [facility] [address] [place] [phone] Ree Antonio RN [address] [place] [address] 08/24/2025 12:30 AM EDT Home Care Visit [facility] [address] [place] [phone] Ree Antonio RN [address] [place] [address] 08/25/2025 Home Care Visit [facility] [address] [place] [phone] Daphney Angeles, PT [address] [place] [address] 08/27/2025 12:30 AM EDT Home Care Visit [facility] [address] [place] [address] Ree Antonio RN [address] [place] [address] 08/31/2025 Home Care Visit [facility] [address] [place] [address] Ree Antonio RN [address] [place] [address] 09/01/2025 Home Care Visit [facility] [address] [place] [address] Daphney Angeles, PT [address] [place] [address] 09/03/2025 2:00 AM EDT Home Care Visit [facility] [address] [place] [address] Ree Antonio RN [address] [place] [address] 09/07/2025 Home Care Visit [facility] [address] [place] [phone] Ree Antonio RN [address] [place] [address] 09/08/2025 Home Care Visit [facility] [address] [place] [address] Daphney Angeles, PT [address] [place] [address] 09/10/2025 Home Care Visit [facility] [address] [place] [address] Ree Antonio RN [address] [place] [address] [email or web address] documented as of this encounter Visit Diagnoses [...] documented as of this encounter Care Teams Landscape Drafter Relationship Specialty Start Date End Date Yanick Vivar MD [address] [place] [address] 7 [place] [address] [email or web address] PCP - General Family Medicine 12/04/19 06/26/23 Mini Rudd MD [address] [place] [address] 7 [place] [address] [email or web address] PCP - General Family Medicine 06/27/23 Yanick Vivar MD [address] [place] [address] 7 [place] [address] [email or web address] Insurance Assigned Provider 09/01/17 03/01/24 Yanick Vivar MD [address] [place] [address] 7 [place] [address] [email or web address] Historical LMR Provider 09/16/17 Parth Bird MD [address] [place] [address] 7 [place] [address] [email or web address] Historical LMR Provider 09/16/17 Rey Fletcher DO [address] [place] [address] Orthoped[facility], [place], [place] [phone] [email or web address] Historical LMR Provider 09/16/17 Amelia Fermin MD [address] [place] [address] [facility], [place], [place] [phone] Historical LMR Provider 09/16/17 Mini Rudd MD [address] [place] [address] 7 [place], [place] [phone] Insurance Assigned Provider 03/01/24 documented as of this encounter Additional Source Comments The information contained in this document represents components of the legal health record. It is not the complete legal health record.[facility]
--- OUTSIDE RECORDS SUMMARY | 2025-07-22 14:06 | XMS_ITS | Encounter Summary ---
Author Organization [facility] Address [address] [facility] [address] [place] [address] Phone Care Team Providers Care Chemistry Quality Control Technician Name Role Phone Yanick Vivar MD Unavailable Yanick Vivar MD Unavailable Leyla Heller GREENHOUSE TECHNICIAN Unavailable Braulio Javed DO Unavailable Kiersten Carrizales GREENHOUSE TECHNICIAN Unavailable Unavailable DacKiersten lee DO Unavailable Parth Bird MD Unavailable Evelia Hartman GREENHOUSE TECHNICIAN Unavailable Karen Miller STUDENT ADVISOR Unavailable Rey Fletcher DO Unavailable Padmini Carpenter GREENHOUSE TECHNICIAN Unavailable Leatha Dey GREENHOUSE TECHNICIAN Unavailable Jessa Rutledge MD Unavailable [phone] Susie Swanson PA-C Unavailable Brittany Iyer MD Unavailable [phone] Matt Sanchez MD Unavailable Amelia Fermin MD Unavailable Yanick Vivar MD Primary Care Provider [phone] Yanick Vivar MD Primary Care Provider Makenna Lugo RN Unavailable [phone] Mini Rudd MD Primary Care Provider + Mini Rudd MD Unavailable Encounter Details Date Type Department Care Team (Late Contact Info) Description 12/16/2018 Ancillary Orders [facility] Medicine [address] [place] [address] Amelia Fermin MD [address] [place] [address] Orthopedics & Sports Medicine, [place] [address] [email or web address] Social History Tobacco Use Types Packs/Day Years Used Date Smoking Tobacco: Former Cigarettes 2 1 255 - 1984 Smokeless Tobacco: Never Alcohol Use [...] AM EDT [facility] [address] [place], [place] [phone] Ree Antonio RN [address] [place] [address] 07/27/2025 Home Care Visit [facility] [address] [place], [place] [phone] Ree Antonio RN [address] [place] [address] 07/28/2025 Home Care Visit [facility] [address] [place] [address] Daphney Angeles, PT [address] [place] [address] 07/30/2025 Home Care Visit [facility] [address] [place] [address] Ree Antonio RN [address] [place] [address] 07/31/2025 2:00 AM EDT Home Care Visit [facility] [address] [place] [address] Daphney Angeles, PT [address] [place] [address] 08/03/2025 1:00 AM EDT Home Care Visit [facility] [address] [place] [address] Ree Antonio RN [address] [place] [address] 08/04/2025 1:30 AM EDT Home Care Visit [facility] [address] [place] [address] Daphney Angeles, PT [address] [place] [address] 08/06/2025 Home Care Visit [facility] [address] [place] [address] Ree Antonio RN [address] [place] [address] 08/07/2025 1:45 AM EDT Home Care Visit [facility] [address] [place] [address] Daphney Angeles, PT [address] [place] [address] 08/10/2025 12:30 AM EDT Home Care Visit [facility] [address] [place] [phone] Ree Antonio RN [address] [place] [address] 08/11/2025 12:45 AM EDT Home Care [facility] [address] [place] [phone] Daphney Angeles, PT [address] [place] [address] 08/13/2025 1:30 AM EDT Home Care Visit [facility] [address] [place] [phone] Ree Antonio RN [address] [place] [address] 08/14/2025 12:45 AM EDT Home Care [facility] [address] [place] [phone] Daphney Angeles, PT [address] [place] [address] 08/17/2025 12:30 AM EDT Home Care Visit [facility] [address] [place] [phone] Ree Antonio RN [address] [place] [address] 08/17/2025 1:00 AM EDT Home Care Visit [facility] [address] [place] [phone] Daphney Angeles, PT [address] [place] [address] 08/18/2025 11:00 AM EDT Office Visit [facility] [address] [facility] 3rd Floor, [address] [place] [address] Parth Tadeo DO [address] [facility] [address] [place] [address] 08/18/2025 3:15 PM EDT Office Visit [facility] [address] [address] Mini Rudd MD [address] [place] [address] 7 [place] [address] 08/20/2025 12:30 AM EDT Home [facility] [address] [place] [address] Ree Antonio RN [address] [place] [address] 08/24/2025 12:30 AM EDT Home Care Visit [facility] [address] [place] [address] Ree Antonio RN [address] [place] [address] 08/25/2025 Home Care Visit [facility] [address] [place] [address] Daphney Angeles, PT [address] [place] [address] 08/27/2025 12:30 AM EDT Home Care Visit [facility] [address] [place] [address] Ree Antonio RN [address] [place] [address] 08/31/2025 Home Care Visit [facility] [address] [place] [phone] Ree Antonio RN [address] [place] [address] 09/01/2025 Home Care Visit [facility] [address] [place] [address] Daphney Angeles, PT [address] [place] [address] 09/03/2025 2:00 AM EDT Home Care Visit [facility] [address] [place] [phone] Ree Antonio RN [address] [place] [address] 09/07/2025 Home Care Visit [facility] [address] [place] [phone] Ree Antonio RN [address] [place] [address] 09/08/2025 Home Care Visit [facility] [address] [place] [phone] Daphney Angeles, PT [address] [place] [address] 09/10/2025 Home Care Visit [facility] [address] [place] [phone] Ree Antonio RN [address] [place] [address] documented as of this encounter Visit Diagnoses [...] documented as of this encounter Care Teams Chemistry Quality Control Technician Relationship Specialty Start Date End Date Yanick Vivar MD [address] [place] [address] 7 [place] [address] [email or web address] PCP - General Family Medicine 10/09/17 12/03/19 Yanick Vivar MD [address] [place] [address] [address] [place] [address] PCP - General Family Medicine 12/04/19 06/26/23 Mini Rudd MD [address] [place] [address] 7 [place] [address] [email or web address] PCP - General Family Medicine 06/27/23 Yanick Vivar MD [address] [place] [address] [address] [place] [address] Insurance Assigned Provider 09/01/17 03/01/24 Yanick Vivar MD [address] [place] [address], [facility] [address] [place] [address] Historical LMR Provider 09/16/17 Leyla Heller NP 1 [place] [address] Historical LMR Provider 09/16/17 2 Braulio Javed DO [address] [place] [address] 7 [place] [address] [email or web address] Historical LMR Provider 09/16/17 12/03/21 Kiersten Carrizales, GREENHOUSE TECHNICIAN [address] [place] [address] Historical LMR Provider 09/16/1712/03 Kiersten Lee DO [address] [place] [address] [email or web address] Historical LMR Provider 09/16/17 12/03/21 Parth Bird MD [address] [place] [address] 7 [place] [address] [email or web address] Historical LMR Provider 09/16/17 Evelia Hartman, SAMI [address] [place] [address] Historical LMR Provider 09/16/17 2 Karen Miller, STUDENT ADVISOR [address] [facility], [address] [place] [address] Historical LMR Provider 09/16/17 12/03/21 Rey Fletcher DO [address] [place] [address] Orthopedics & Sports Medicine, [facility] [place] [address] Historical LMR Provider 09/16/17 Padmini Carpenter, SAMI [address] [place] [address] Historical LMR Provider 09/16/17 Leatha Dey, SAMI [address] [place] [address] Historical LMR Provider 09/16/17 2 Jessa Rutledge MD [address] [place] [address], [address] [place] [address] Historical LMR Provider 09/16/17 12/03/21 Susie Swanson PA-C [address] [place] [address] [facility] [address] Historical LMR Provider 09/16/17 12/03/21 Brittany Iyer MD [address] [place] [address] Historical LMR Provider 09/16/17 2 Matt Sanchez MD [address] [place] [phone] Historical LMR Provider 09/16/17 2 Amelia Fermin MD [address] [place] [address] [facility] [place] [address] Historical LMR Provider 09/16/17 Makenna Lugo, RN [address] [place] [address] [email or web address] 05/11/20 06/24/20 Mini Rudd MD [address] [place] [address], [address] [place] [address] [email or web address] Insurance Assigned Provider 03/01/24 documented as of this encounter Additional Source Comments The information contained in this document represents components of the legal health record. It is not the complete legal health record.[facility]
--- OUTSIDE RECORDS SUMMARY | 2025-07-22 14:07 | XMS_ITS | Encounter Summary ---
Author Organization [facility] Address [address] [place] [address] Phone Care Team Providers Care Mid Level Project Manager Name Role Phone Yanick Vivar MD Unavailable [phone] Parth Bird MD Unavailable Rey Fletcher DO Unavailable [phone] Amelia Fermin MD Unavailable [phone] Mini Rudd MD Primary Care Provider + Mini Rudd MD Unavailable Encounter Details Date Type Department Care Team (Late st Contact Info) Description 04/02/2024 Procedure Pass [facility] [place] [address] Social History Tobacco Use Types Packs/Day Years [...] Visit [facility] [address] [place], [place] [phone] Ree Antonio RN [address] [place] [address] 07/27/2025 Home Care Visit [facility] [address] [place], [place] [phone] Ree Antonio RN [address] [place] [address] 07/28/2025 Home Care Visit [facility] [address] [place] [address] Daphney Angeles, PT [address] [place] [address] 07/30/2025 Home Care Visit [facility] [address] [place] [address] Ree Antonio RN [address] [place] [address] 07/31/2025 2:00 AM EDT Home Care Visit [facility] [address] [place] [address] Daphney Angeles, PT [address] [place] [address] 08/03/2025 1:00 AM EDT Home Care Visit [facility] [address] [place] [phone] Ree Antonio RN [address] [place] [address] 08/04/2025 1:30 AM EDT Home Care Visit [facility] [address] [place] [phone] Daphney Angeles, PT [address] [place] [address] 08/06/2025 Home Care Visit [facility] [address] [place] [address] Ree Antonio RN [address] [place] [address] 08/07/2025 1:45 AM EDT Home Care Visit [facility] [address] [place] [address] Daphney Angeles, PT [address] [place] [address] 08/10/2025 12:30 AM EDT Home Care Visit [facility] [address] [place] [phone] Ree Antonio RN [address] [place] [address] 08/11/2025 12:45 AM EDT Home Care Visit [facility] [address] [place] [phone] Daphney Angeles, PT [address] [place] [address] 08/13/2025 1:30 AM EDT Home Care Visit [facility] [address] [place] [phone] Ree Antonio RN [address] [place] [address] 08/14/2025 12:45 AM EDT Home Care Visit [facility] [address] [place] [phone] Daphney Angeles, PT [address] [place] [address] 08/17/2025 12:30 AM EDT Home Care Visit [facility] [address] [place] [phone] Ree Antonio RN [address] [place] [address] 08/17/2025 1:00 AM EDT Home Care Visit [facility] [address] [place] [phone] Daphney Angeles, PT [address] [place] [address] 08/18/2025 11:00 AM EDT Office Visit [facility] [address] [facility] 3rd Floor, [address] [place] [address] Parth Tadeo DO [address] [facility] [address] [place] [address] 08/18/2025 3:15 PM EDT Office Visit [facility] [address] [address] Mini Rudd MD [address] [place] [address] 7 [place] [address] 08/20/2025 12:30 AM EDT Home Care Visit [facility] [address] [place] [phone] Ree Antonio RN [address] [place] [address] 08/24/2025 12:30 AM EDT Home Care Visit [facility] [address] [place] [phone] Ree Antonio RN [address] [place] [address] 08/25/2025 Home Care Visit [facility] [address] [place] [address] Daphney Angeles, PT [address] [place] [address] 08/27/2025 12:30 AM EDT Home Care Visit [facility] [address] [place] [address] Ree Antonio RN [address] [place] [address] 08/31/2025 Home Care Visit [facility] [address] [place] [phone] Ree Antonio RN [address] [place] [address] 09/01/2025 Home Care Visit [facility] [address] [place] [address] Daphney Angeles, PT [address] [place] [address] 09/03/2025 2:00 AM EDT Home Care Visit [facility] [address] [place] [phone] Ree Antonio RN [address] [place] [address] 09/07/2025 Home Care Visit [facility] [address] [place] [phone] Ree Antonio RN [address] [place] [address] 09/08/2025 Home Care Visit [facility] [address] [place] [phone] Daphney Angeles, PT [address] [place] [address] 09/10/2025 Home Care Visit [facility] [address] [place] [phone] Ree Antonio RN [address] [place] [address] documented as of this encounter Visit Diagnoses Not on filedocumented in this encounter Additional Health Concerns Assessment Noted Time PHQ-9 Depression Total Score: 13 07/12/2 022 2:43 PM EDT PHQ-2 Depression Total Score: 3 06/06/20 22 2:43 PM EDT documented as of this encounter Care Teams Mid Level Project Manager Relationship Specialty Start Date End Date Mini Rudd MD [address] [place] [address] 7 [place] [address] PCP - General Family Medicine 06/27/23 Yanick Vivar MD [address] [place] [address] [place] [address] Historical LMR Provider 09/16/17 Parth Bird MD [address] [place] [address] [email or web address] Historical LMR Provider 09/16/17 Rey Fletcher DO [address] [place] [address] Orthopedics & Sports Medicine, [place] [address] Historical LMR Provider 09/16/17 Amelia Fermin MD [address] [place] [address] Orthopedics [facility] Sports Medicine, [place] [address] Historical LMR Provider 09/16/17 Mini Rudd MD [address] [place] [address] [place] [address] Insurance Assigned Provider 03/01/24 documented as of this encounter Additional Source Comments The information contained in this document represents components of the legal health record. It is not the complete legal health record.[facility]
--- OUTSIDE RECORDS SUMMARY | 2025-07-22 14:07 | XMS_ITS | Encounter Summary ---
Author Organization [facility] Address [address] [place] [address] Phone Care Team Providers Care Airplane Pilot Supervisor Name Role Phone Yanick Vivar MD Unavailable [phone] Parth Bird MD Unavailable Rey Fletcher DO Unavailable Amelia Fermin MD Unavailable [phone] Mini Rudd MD Primary Care Provider + Mini Rudd MD Unavailable Encounter Details Date Type Department Care Team (Late st Contact Info) Description 07/31/2024 Procedure Pass [facility], Ct Scan - [address] [address] Social History Tobacco Use Types Packs/Day Years [...] Date of Assessment Author No Risk Indicated 08/01/2024 12:04 AM EDT Makenna Treadwell RN * Menan Suicide Severity Rating Scale (Screener/Recent Self-Report) Question Answer Date of Assessment Author 1. Wish to be (Past 1 Month) No 08/01/2024 12:04 AM STEFANIT Ghazala Guzman RN 2. Non-Specific Active Suicidal Thoughts (Past 1 Month) No 08/01/2024 12:04 AM STEFANIT Ghazala Guzman RN 6. Suicidal Behavior (Lifetime) No 08/01/2024 12:04 AM STEFANIT Ghazala Guzman RN documented as of this encounter Plan of Treatment Upcoming Encounters Date Type Department Care Team (Ami Contact Info) Description 07/23/2025 4:00 AM EDT Home [facility] [address] [place] [address] Ree Antonio RN [address] [place] [address] [email or web address] 07/27/2025 Home Care Visit [facility] [address] [place] [address] Ree Antonio RN [address] [place] [address] [email or web address] 07/28/2025 Home Care Visit [facility] [address] [place] [address] Daphney Angeles, PT [address] [place] [address] [email or web address] 07/30/2025 Home Care Visit [facility] [address] [place] [address] Ree Antonio RN [address] [place] [address] [email or web address] 07/31/2025 2:00 AM EDT Home Care Visit [facility] [address] [place] [address] Daphney Angeles, PT [address] [place] [address] [email or web address] 08/03/2025 1:00 AM EDT Home Care Visit [facility] [address] [place] [address] Ree Antonio RN [address] [place] [address] [email or web address] 08/04/2025 1:30 AM EDT Home Care Visit [facility] [address] [place] [address] Daphney Angeles, PT [address] [place] [address] [email or web address] 08/06/2025 Home Care Visit [facility] [address] [place] [address] Ree Antonio RN [address] [place] [address] [email or web address] 08/07/2025 1:45 AM EDT Home Care Visit [facility] [address] [place] [address] Daphney Angeles, PT [address] [place] [address] [email or web address] 08/10/2025 12:30 AM EDT Home Care Visit [facility] [address] [place] [phone] Ree Antonio RN [address] [place] [address] [email or web address] 08/11/2025 12:45 AM EDT Home Care Visit [facility] [address] [place] [phone] Daphney Angeles, PT [address] [place] [address] [email or web address] 08/13/2025 1:30 AM EDT Home Care Visit [facility] [address] [place] [phone] Ree Antonio RN [address] [place] [address] [email or web address] 08/14/2025 12:45 AM EDT Home Care Visit [facility] [address] [place] [address] Daphney Angeles, PT [address] [place] [address] [email or web address] 08/17/2025 12:30 AM EDT Home Care Visit [facility] [address] [place] [address] Ree Antonio RN [address] [place] [address] 08/17/2025 1:00 AM EDT Home Care Visit [facility] [address] [place] [address] Daphney Angeles, PT [address] [place] [address] [email or web address] 08/18/2025 11:00 AM EDT Office Visit [facility] [address] [place] [address] 3rd Floor, [address] [place] [address] Parth Tadeo DO [address] [place] [address] 08/18/2025 3:15 PM EDT Office Visit [facility] [address] [address] Mini Rudd MD [address] [place] [address] 08/20/2025 12:30 AM EDT Home Care Visit [facility] [address] [place] [address] Ree Antonio RN [address] [place] [address] 08/24/2025 12:30 AM EDT Home Care Visit [facility] [address] [place] [address] Ree Antonio RN [address] [place] [address] [email or web address] 08/25/2025 Home Care Visit [facility] [address] [place] [address] KarthikDaphney John, PT [address] [place] [address] [email or web address] 08/27/2025 12:30 AM EDT Home Care Visit [facility] [address] [place] [address] Ree Antonio RN [address] [place] [address] [email or web address] 08/31/2025 Home Care Visit [facility] [address] [place] [phone] Ree Antonio RN [address] [place] [address] [email or web address] 09/01/2025 Home Care Visit [facility] [address] [place] [phone] Karthik Daphney Lopez, PT [address] [place] [address] [email or web address] 09/03/2025 2:00 AM EDT Home Care Visit [facility] [address] [place] [address] Ree Antonio RN [address] [place] [address] [email or web address] 09/07/2025 Home Care Visit [facility] [address] [place] [address] Ree Antonio RN [address] [place] [address] [email or web address] 09/08/2025 Home Care Visit [facility] [address] [place] [address] Daphney Angeles, PT [address] [place] [address] 09/10/2025 Home Care Visit [facility] [address] [place] [address] Ree Antonio, RN [address] [place] [address] documented as of this encounter Visit Diagnoses Not on filedocumented in this encounter Additional Health Concerns Assessment Noted Time PHQ-9 Depression Total Score: 13 022 2:43 PM EDT PHQ-2 Depression Total Score: 3 06/06/20 22 2:43 PM EDT documented as of this encounter Care Teams Airplane Pilot Supervisor Relationship Specialty Start Date End Date Mini Rudd MD [address] [place] [address] [email or web address] PCP - General Family Medicine 06/27/23 Yanick Vivar MD [address] [place] [address] [email or web address] Historical LMR Provider 09/16/17 Parth Bird MD [address] [place] [address] [email or web address] Historical LMR Provider 09/16/17 Rey Fletcher DO [address] [place] [address] Orthopedics & Sports Medicine, [facility] [place], [place] [id number] [email or web address] Historical LMR Provider 09/16/17 Amelia Fermin MD [address] [place] [address] Orthopedics & Sports Medicine, [facility] [place] [address] [email or web address] Historical LMR Provider 09/16/17 Mini Rudd MD [address] [place] [address] [address] [place] [address] [email or web address] Insurance Assigned Provider 03/01/24 documented as of this encounter Additional Source Comments The information contained in this document represents components of the legal health record. It is not the complete legal health record.[facility]
--- OUTSIDE RECORDS SUMMARY | 2025-07-22 14:07 | XMS_ITS | Encounter Summary ---
Author Organization [facility] Address [address] [place] [address] Phone Care Team Providers Care Stove Mechanic Name Role Phone Yanick Vivar MD Unavailable Parth Bird MD Unavailable Rey Fletcher DO Unavailable Amelia Fermin MD Unavailable [phone] Mini Rudd MD Primary Care Provider + Mini Rudd MD Unavailable [phone] Encounter Details Date Type Department Care Team (Late st Contact Info) Description 07/31/2024 Procedure Pass [facility], Ct Scan - [address] [address] Social History Tobacco Use Types Packs/Day Years [...] 12:04 AM EDT Makenna Treadwell RN * [place] Suicide Severity Rating Scale (Screener/Recent Self-Report) Question [...] 4:00 AM EDT Home [facility] [address] [place] [address] Ree Antonio RN [address] [place] [address] 07/27/2025 Home [facility] Visit [facility] [address] [place] [address] Ree Antonio RN [address] [place] [address] 07/28/2025 Home Care Visit [facility] [address] [place] [address] Daphney Angeles, PT [address] [place] [address] 07/30/2025 Home Care Visit [facility] [address] [place] [address] Ree Antonio RN [address] [place] [address] 07/31/2025 2:00 AM EDT Home Care Visit [facility] [address] [place] [address] Daphney Angeles, PT [address] [place] [address] 08/03/2025 1:00 AM EDT Home [facility] Visit [facility] [address] [place] [address] Ree Antonio RN [address] [place] [address] 08/04/2025 1:30 AM EDT Home Care Visit [facility] [address] [place] [address] Daphney Angeles, PT [address] [place] [address] 08/06/2025 Home Care Visit [facility] [address] [place] [address] Ree Antonio RN [address] [place] [address] 08/07/2025 1:45 AM EDT Home Care Visit [facility] [address] [place] [address] Daphney Angeles, PT [address] [place] [address] 08/10/2025 12:30 AM EDT Home Care Visit [facility] [address] [place] [address] Ree Antonio RN [address] [place] [address] 08/11/2025 12:45 AM EDT Home Care Visit [facility] [address] [place] [phone] Daphney Angeles, PT [address] [place] [address] 08/13/2025 1:30 AM EDT Home Care Visit [facility] [address] [place] [phone] Ree Antonio RN [address] [place] [address] 08/14/2025 12:45 AM EDT Home Care Visit [facility] [address] [place] [address] Daphney Angeles, PT [address] [place] [address] 08/17/2025 12:30 AM EDT Home Care Visit [facility] [address] [place] [address] Ree Antonio RN [address] [place] [address] 08/17/2025 1:00 AM EDT Home Care Visit [facility] [address] [place] [address] Daphney Angeles, PT [address] [place] [address] 08/18/2025 11:00 AM EDT Office Visit [facility] [address] [place] [address] 3rd Floor, [address] [place] [address] Parth Tadeo DO [address] [place] [address] 08/18/2025 3:15 PM EDT Office Visit [facility] [address] [address] Mini Rudd MD [address] [place] [address] 08/20/2025 12:30 AM EDT Home [facility] [address] [place] [address] Ree Antonio RN [address] [place] [address] 08/24/2025 12:30 AM EDT Home Care Visit [facility] [address] [place] [address] Ree Antonio RN [address] [place] [address] 08/25/2025 Home Care Visit [facility] [address] [place] [address] KarthikDaphney John, PT [address] [place] [address] 08/27/2025 12:30 AM EDT Home Care Visit [facility] [address] [place] [address] Ree Antonio RN [address] [place] [address] 08/31/2025 Home Care Visit [facility] [address] [place] [address] Ree Antonio RN [address] [place] [address] 09/01/2025 Home Care Visit [facility] [address] [place] [phone] Karthik Daphney Lopez, PT [address] [place] [address] 09/03/2025 2:00 AM EDT Home Care Visit [facility] [address] [place] [address] Ree Antonio RN [address] [place] [address] 09/07/2025 Home Care Visit [facility] [address] [place] [address] Ree Antonio RN [address] [place] [address] 09/08/2025 [facility] Visit [facility] [address] [place] [address] Daphney Angeles, PT [address] [place] [address] 09/10/2025 Home [facility] Visit [facility] [address] [place] [address] Ree Antonio, RN [address] [place] [address] documented as of this encounter Visit Diagnoses Not on filedocumented in this encounter Additional Health Concerns Assessment Noted Time PHQ-9 Depression Total Score: 13 022 2:43 PM EDT PHQ-2 Depression Total Score: 3 06/06/20 22 2:43 PM EDT documented as of this encounter Care Teams Stove Mechanic Relationship Specialty Start Date End Date Mini Rudd MD [address] [place] [address] [email or web address] PCP - General Family Medicine 06/27/23 Yanick Vivar MD [address] [place] [address] [email or web address] Historical LMR Provider 09/16/17 Parth Bird MD [address] [place] [address] [email or web address] Historical LMR Provider 09/16/17 Rey Fletcher DO [address] [place] [address] Orthopedics & Sports Medicine, [facility]. [place], [place] [phone] [email or web address] Historical LMR Provider 09/16/17 Amelia Fermin MD [address] [place] [address] Orthopedics & Sports Medicine, [facility] [place] [address] [email or web address] Historical LMR Provider 09/16/17 Mini Rudd MD [address] [place] [address] [address] [place] [address] [email or web address] Insurance Assigned Provider 03/01/24 documented as of this encounter Additional Source Comments The information contained in this document represents components of the legal health record. It is not the complete legal health record.[facility]
--- OUTSIDE RECORDS SUMMARY | 2025-07-22 14:08 | XMS_ITS | Encounter Summary ---
Author Organization [facility] Address [address] [place] [address] Phone Care Team Providers Care Sterile Supply Technician Name Role Phone Yanick Vivar MD Unavailable Parth Bird MD Unavailable [phone] Rey Fletcher DO Unavailable Amelia Fermin MD Unavailable [phone] Mini Rudd MD Primary Care Provider + Mini Rudd MD Unavailable [phone] Encounter Details Date Type Department Care Team (Late st Contact Info) Description 07/02/2025 Orders Only [facility] [address] [place], [place] [phone] Provider, MD Kitty [address] [place] [address] Social History Tobacco Use Types Packs/Day Years [...] Visit [facility] [address] [place] [address] Ree Antonio RN [address] [place] [address] 07/27/2025 Home Care Visit [facility] [address] [place] [address] Ree Antonio RN [address] [place] [address] 07/28/2025 Home Care Visit [facility] [address] [place] [address] Daphney Angeles, PT [address] [place] [address] 07/30/2025 Home Care Visit [facility] [address] [place] [address] Ree Antonio RN [address] [place] [address] 07/31/2025 2:00 AM EDT Home Care Visit [facility] [address] [place] [phone] Daphney Angeles, PT [address] [place] [address] 08/03/2025 1:00 AM EDT Home [facility] Visit [facility] [address] [place] [address] Ree Antonio RN [address] [place] [address] 08/04/2025 1:30 AM EDT Home [facility] [address] [place] [address] Daphney Angeles, PT [address] [place] [address] 08/06/2025 Home Care Visit [facility] [address] [place] [address] Ree Antonio RN [address] [place] [address] 08/07/2025 1:45 AM EDT Home Care Visit [facility] [address] [place] [phone] Daphney Angeles, PT [address] [place] [address] 08/10/2025 12:30 AM EDT Home Care Visit [facility] [address] [place] [phone] Ree Antonio RN [address] [place] [address] 08/11/2025 12:45 AM EDT Home Care Visit [facility] [address] [place] [phone] Daphney Angeles, PT [address] [place] [address] 08/13/2025 1:30 AM EDT Home Care Visit [facility] [address] [place] [address] Ree Antonio RN [address] [place] [address] 08/14/2025 12:45 AM EDT Home Care Visit [facility] [address] [place] [phone] Daphney Angeles, PT [address] [place] [address] 08/17/2025 12:30 AM EDT Home [facility] [address] [place] [address] Ree Antonio RN [address] [place] [address] 08/17/2025 1:00 AM EDT Home Care Visit [facility] [address] [place] [address] Daphney Angeles, PT [address] [place] [address] 08/18/2025 11:00 AM EDT Office Visit [facility] [address] [place] [address] 3rd Floor, [address] [place] [address] Parth Tadeo DO [address] [address] 08/18/2025 3:15 PM EDT Office Visit [facility] [address] [address] Mini Rudd MD [address] [place] [address] 08/20/2025 12:30 AM EDT Home Care Visit [facility] [address] [place] [address] Ree Antonio RN [address] [place] [address] 08/24/2025 12:30 AM EDT Home Care Visit [facility] [address] [place] [address] Ree Antonio RN [address] [place] [address] 08/25/2025 Home Care Visit [facility] [address] [place] [address] Daphney Angeles, PT [address] [place] [address] 08/27/2025 12:30 AM EDT Home Care Visit [facility] [address] [place] [address] Ree Antonio RN [address] [place] [address] 08/31/2025 Home Care Visit [facility] [address] [place] [address] Ree Antonio RN [address] [place] [address] 09/01/2025 Home Care Visit [facility] [address] [place] [phone] Daphney Angeles, PT [address] [place] [address] 09/03/2025 2:00 AM EDT Home Care Visit [facility] [address] [place] [phone] Ree Antonio RN [address] [place] [address] 09/07/2025 Home Care Visit [facility] [address] [place] [address] Ree Antonio RN [address] [place] [address] 09/08/2025 Home Care Visit [facility] [address] [place] [address] Daphney Angeles, PT [address] [place] [address] [email or web address] 09/10/2025 Home Care Visit [facility] [address] [place] [address] Ree Antonio, RN [address] [place] [address] [email or web address] documented as of this encounter Procedures Procedure Name Priority Date/Time Associated Diagnosis Comments OUTSIDE IMAGING Routine 07/02/2025 12:55 PM EDT documented in this encounter Results * Outside Imaging Report Only (07/02/2025 12:55 PM EDT) us Historical Provider IMChet XR CHEST Final Res ult documented in this encounter Visit Diagnoses Not on filedocumented in this encounter Additional Health Concerns Assessment Noted Time PHQ-9 Depression Total Score: 13 022 2:43 PM EDT PHQ-2 Depression Total Score: 2 10/14/20 24 11:18 AM EST documented as of this encounter Care Teams Sterile Supply Technician Relationship Specialty Start Date End Date Mini Rudd MD [address] [place] [address] [email or web address] PCP - General Family Medicine 06/27/23 Yanick Vivar MD [address] [place] [address] [email or web address] Historical LMR Provider 09/16/17 Parth Bird MD [address] [place] [address] [email or web address] Historical LMR Provider 09/16/17 Rey Fletcher DO 4 [facility] Orthopedics & Sports Medicine, [facility]. [place], [place] [phone] Historical LMR Provider 09/16/17 Amelia Fermin MD [address] [place] [address] Orthopedics & Sports Medicine, [place], [place] [phone] Historical LMR Provider 09/16/17 Mini Rudd MD [address] [place] [address] [address] [place], [place] [phone] Insurance Assigned Provider 03/01/24 documented as of this encounter Additional Source Comments The information contained in this document represents components of the legal health record. It is not the complete legal health record.[facility]
--- OUTSIDE RECORDS SUMMARY | 2025-07-22 14:08 | XMS_ITS | Encounter Summary ---
Author Organization [facility] Address [address] [place] [address] Phone Care Team Providers Care Vice President Of Product Marketing Name Role Phone Yanick Vivar MD Unavailable [phone] Parth Bird MD Unavailable Rey Fletcher DO Unavailable [phone] Amelia Fermin MD Unavailable [phone] Mini Rudd MD Primary Care Provider + Mini Rudd MD Unavailable [phone] Encounter Details Date Type Department Care Team (Late st Contact Info) Description 06/26/2025 Telephone [facility] [address] [place] [address] Mini Rudd MD [address] [facility] [address] [place] [address] [email or web address] Social History Tobacco Use Types Packs/Day Years [...] 4:00 AM EDT Home [facility] [address] [place] [address] Ree Antonio RN [address] [place] [address] [email or web address] 07/27/2025 Home Care Visit [facility] [address] [place] [address] Ree Antonio RN [address] [place] [address] [email or web address] 07/28/2025 Home Care Visit [facility] [address] [place] [address] Daphney Angeles, PT [address] [place] [address] [email or web address] 07/30/2025 Home Care Visit [facility] [address] [place] [address] Ree Antonio RN [address] [place] [address] [email or web address] 07/31/2025 2:00 AM EDT Home Care Visit [facility] [address] [place] [phone] Daphney Angeles, PT [address] [place] [address] [email or web address] 08/03/2025 1:00 AM EDT Home Care Visit [facility] [address] [place] [address] Ree Antonio, IVET [address] [place] [address] [email or web address] 08/04/2025 1:30 AM EDT Home Care Visit [facility] [address] [place] [address] Daphney Angeles, PT [address] [place] [address] [email or web address] 08/06/2025 Home Care Visit [facility] [address] [place] [address] Ree Antonio RN [address] [place] [address] [email or web address] 08/07/2025 1:45 AM EDT Home Care Visit [facility] [address] [place] [address] Daphney Angeles, PT [address] [place] [address] [email or web address] 08/10/2025 12:30 AM EDT Home Care Visit [facility] [address] [place] [address] Ree Antonio RN [address] [place] [address] [email or web address] 08/11/2025 12:45 AM EDT Home Care Visit [facility] [address] [place] [address] Daphney Angeles, PT [address] [place] [address] [email or web address] 08/13/2025 1:30 AM EDT Home Care Visit [facility] [address] [place] [address] Ree Antonio RN [address] [place] [address] [email or web address] 08/14/2025 12:45 AM EDT Home Care Visit [facility] [address] [place] [address] Daphney Angeles, PT [address] [place] [address] [email or web address] 08/17/2025 12:30 AM EDT Home Care Visit [facility] [address] [place] [address] Ree Antonio RN [address] [place] [address] [email or web address] 08/17/2025 1:00 AM EDT Home Care Visit [facility] [address] [place] [address] Daphney Angeles, PT [address] [place] [address] [email or web address] 08/18/2025 11:00 AM EDT Office Visit [facility] [address] [place] [address] 3rd Floor, [address] [place] [address] Parth Tadeo DO [address] [address] 08/18/2025 3:15 PM EDT Office Visit [facility] [address] [address] Mini Rudd MD [address] [place] [address] 08/20/2025 12:30 AM EDT Home Care Visit [facility] [address] [place], [place] [phone] Ree Antonio RN [address] [place] [address] [email or web address] 08/24/2025 12:30 AM EDT Home Care Visit [facility] [address] [place], [place] [phone] Ree Antonio RN [address] [place] [address] [email or web address] 08/25/2025 Home Care Visit [facility] [address] [place] [address] Karthik Daphney Lopez, PT [address] [place] [address] [email or web address] 08/27/2025 12:30 AM EDT Home Care Visit [facility] [address] [place] [address] Ree Antonio RN [address] [place] [address] [email or web address] 08/31/2025 Home Care Visit [facility] [address] [place] [address] Ree Antonio RN [address] [place] [address] [email or web address] 09/01/2025 Home Care Visit [facility] [address] [place] [address] Karthik Daphney Lopez, PT [address] [place] [address] [email or web address] 09/03/2025 2:00 AM EDT Home Care Visit [facility] [address] [place] [address] Ree Antonio RN [address] [place] [address] [email or web address] 09/07/2025 Home Care Visit [facility] [address] [place] [address] Ree Antonio RN [address] [place] [address] [email or web address] 09/08/2025 Home Care Visit [facility] [address] [place] [address] Daphney Angeles, PT [address] [place] [address] 09/10/2025 Home Care Visit [facility] [address] [place] [address] Ree Antonio, IVET [address] [place] [address] documented as of this encounter Visit Diagnoses Not on filedocumented in this encounter Additional Health Concerns Assessment Noted Time PHQ-9 Depression Total Score: 13 022 2:43 PM EDT PHQ-2 Depression Total Score: 2 10/14/20 24 11:18 AM EST documented as of this encounter Care Teams Vice President Of Product Marketing Relationship Specialty Start Date End Date Mini Rudd MD [address] [place] [address] [email or web address] PCP - General Family Medicine 06/27/23 Yanick Vivar MD [address] [place] [address] [email or web address] Historical LMR Provider 09/16/17 Parth Bird MD [address] [place] [address] [email or web address] Historical LMR Provider 09/16/17 Rey Fletcher DO [address] [place] [address] Orthopedics & Sports Medicine, [facility] [place] [address] [email or web address] Historical LMR Provider 09/16/17 Amelia Fermin MD 4 [facility] Orthopedics & Sports Medicine, [facility] [place] [address] [email or web address] Historical LMR Provider 09/16/17 Mini Rudd MD [address] [place] [address], [address] [place] [address] [email or web address] Insurance Assigned Provider 03/01/24 documented as of this encounter Additional Source Comments The information contained in this document represents components of the legal health record. It is not the complete legal health record.[facility]
--- OUTSIDE RECORDS SUMMARY | 2025-07-22 14:08 | XMS_ITS | Encounter Summary ---
Author Organization [facility] Address [address] [place] [address] Phone Care Team Providers Care House Builder Name Role Phone Yanick Vivar MD Unavailable Parth Bird MD Unavailable Rey Fletcher DO Unavailable Amelia Fermin MD Unavailable [phone] Mini Rudd MD Primary Care Provider + Mini Rudd MD Unavailable [phone] Encounter Details Date Type Department Care Team (Late st Contact Info) Description 07/02/2025 Telephone [facility] [address] [place] [address] Mini Rudd MD [address] [facility] [address] [place] [address] [email or web address] Social History Tobacco Use [...] 4:00 AM EDT Home Care Visit [facility] [address] [place] [address] Ree Antonio RN [address] [place] [address] [email or web address] 07/27/2025 Home Care Visit [facility] [address] [place] [address] Ree Antonio RN [address] [place] [address] [email or web address] 07/28/2025 Home Care Visit [facility] [address] [place] [address] Daphney Angeles, PT [address] [place] [address] [email or web address] 07/30/2025 Home Care Visit [facility] [address] [place] [address] Ree Antonio RN [address] [place] [address] [email or web address] 07/31/2025 2:00 AM EDT Home [facility] [address] [place] [phone] Daphney Angeles, PT [address] [place] [address] [email or web address] 08/03/2025 1:00 AM EDT Home Care Visit [facility] [address] [place] [address] Ree Antonio, IVET [address] [place] [phone] [email or web address] 08/04/2025 1:30 AM EDT Home Care Visit [facility] [address] [place] [address] Daphney Angeles, PT [address] [place] [address] [email or web address] 08/06/2025 Home Care Visit [facility] [address] [place] [address] Ree Antonio RN [address] [place] [address] [email or web address] 08/07/2025 1:45 AM EDT Home Care Visit [facility] [address] [place] [address] Daphney Angeles, PT [address] [place] [address] [email or web address] 08/10/2025 12:30 AM EDT Home Care Visit [facility] [address] [place] [address] Ree Antonio RN [address] [place] [address] [email or web address] 08/11/2025 12:45 AM EDT Home Care Visit [facility] [address] [place] [address] Daphney Angeles, PT [address] [place] [address] [email or web address] 08/13/2025 1:30 AM EDT Home Care Visit [facility] [address] [place] [address] Ree Antonio RN [address] [place] [address] [email or web address] 08/14/2025 12:45 AM EDT Home Care Visit [facility] [address] [place] [address] Daphney Angeles, PT [address] [place] [address] [email or web address] 08/17/2025 12:30 AM EDT Home Care Visit [facility] [address] [place] [address] Ree Antonio RN [address] [place] [address] [email or web address] 08/17/2025 1:00 AM EDT Home Care Visit [facility] [address] [place] [address] Daphney Angeles, PT [address] [place] [address] [email or web address] 08/18/2025 11:00 AM EDT Office Visit [facility] [address] [place] [address] [address]rd Floor, [address] [place] [address] Parth Tadeo DO [address] [address] 08/18/2025 3:15 PM EDT Office Visit [facility] [address] [address] Mini Rudd MD [address] [place] [id number] 08/20/2025 12:30 AM EDT Home Care Visit [facility] [address] [place], [place] [phone] Ree Antonio RN [address] [place] [address] [email or web address] 08/24/2025 12:30 AM EDT Home Care Visit [facility] [address] [place], [place] [phone] Ree Antonio RN [address] [place] [address] [email or web address] 08/25/2025 Home Care Visit [facility] [address] [place] [address] Karthik Daphney Lopez, PT [address] [place] [address] [email or web address] 08/27/2025 12:30 AM EDT Home Care Visit [facility] [address] [place] [address] Ree Antonio RN [address] [place] [address] [email or web address] 08/31/2025 Home Care Visit [facility] [address] [place] [phone] Ree Antonio RN [address] [place] [address] [email or web address] 09/01/2025 Home Care Visit [facility] [address] [place] [address] Karthik Daphney Lopez, PT [address] [place] [address] [email or web address] 09/03/2025 2:00 AM EDT Home Care Visit [facility] [address] [place] [address] Ree Antonio RN [address] [place] [address] [email or web address] 09/07/2025 Home Care Visit [facility] [address] [place] [address] Ree Antonio RN [address] [place] [address] [email or web address] 09/08/2025 Home Care Visit [facility] [address] [place] [address] Daphney Angeles, PT [address] [place] [address] 09/10/2025 Home Care Visit [facility] [address] [place] [address] Ree Antonio, IVET [address] [place] [address] documented as of this encounter Visit Diagnoses Not on filedocumented in this encounter Additional Health Concerns Assessment Noted Time PHQ-9 Depression Total Score: 13 022 2:43 PM EDT PHQ-2 Depression Total Score: 2 10/14/20 24 11:18 AM EST documented as of this encounter Care Teams House Builder Relationship Specialty Start Date End Date Mini Rudd MD [address] [place] [phone] [email or web address] - General Family Medicine 06/27/23 Yanick Vivar MD [address] [place] [phone] [email or web address] Historical LMR Provider 09/16/17 Parth Bird MD [address] [place] [address] [email or web address] Historical LMR Provider 09/16/17 Rey Fletcher DO [address] [place] [address] Orthopedics & Sports Medicine, [facility] [place] [address] [email or web address] Historical LMR Provider 09/16/17 Amelia Fermin MD [address] [facility] Orthopedics & Sports Medicine, [facility] [place] [address] [email or web address] Historical LMR Provider 09/16/17 Mini Rudd MD [address] [place] [address], [address] [place] [address] [email or web address] Insurance Assigned Provider 03/01/24 documented as of this encounter Additional Source Comments The information contained in this document represents components of the legal health record. It is not the complete legal health record.[facility]
== END 2025-07-22 14:03 | disposition home or self-care (01) ==
LOC: HO.HNS 13:18
PROVIDERS: PCP Family Medicine; Visit Provider Physician Assistant
DX: Z98.890 Other specified postprocedural states (principal)
CPT/HCPCS: 99024

== ENCOUNTER → 2025-07-22 13:17 | Outpatient (BNVA) | payer MEDICARE, SELFPAY | PROVIDERS: PCP Family Medicine; Visit Provider Physician Assistant | DX: Z98.890 Other specified postprocedural states (principal) | CPT/HCPCS: 99212 ==